=== PATIENT | male | born 1950 | race Caucasian/White ===

== ENCOUNTER → 2017-05-14 10:14 | Outpatient (CLI) | payer MEDICARE, SELFPAY ==
[2017-05-14 12:06] LABS: Absolute Lymphocyte Count 1.65 X10^3/ul (0.83-4.51); Absolute Neutrophil Count 3.3 X10^3/uL (2.0-7.7); Basophil# 0.02 X10^3/uL; Basophil% 0.4 % (0-1); Eosinophil# 0.13 X10^3/uL; Eosinophils% 2.3 % (0-5); Hematocrit 43.6 % (40-54); Hemoglobin 15.2 g/dl (13.0-16.5); Lymphocyte # 1.65 X10^3/ul (4.0); Lymphocyte % 29.5 % (19-41); Mean Corp Hgb Conc 34.9 g/gl (32-36); Mean Corpuscular Hgb 32.9 pg (27.0-32.0); Mean Corpuscular Volume 94.4 fL (80-94); Mean Platelet Vol. 10.7 fl (6.2-12.0); Monocyte# 0.55 X10^3/uL; Monocyte% 9.8 % (0-10); Neutrophil # 3.25 X10^3/uL (2.7-7.7); Platelet Count 140 K/mm3 (150-450); RBC Distribution Width CV 13.1 % (11.6-14.6); Red Blood Count 4.62 M/mm3 (4.6-6.2); White Blood Count 5.6 K/mm3 (4.4-11.0)
[2017-05-14 12:09] LABS: POSITIVE COUNT NO; POSITIVE DIFFERENTIAL NO; POSITIVE MORPHOLOGY NO
[2017-05-14 12:23] LABS: Vitamin D,25 Hydroxy 24.4 ng/mL (29.95-100.01)
[2017-05-14 12:27] LABS: ALB/GLOB Ratio 1.4 RATIO (0.9-2.4); AST(SGOT) 20 U/L (15-37); Alanine Aminotransfer ALT/SGPT 28 U/L (16-61); Alkaline Phosphatase 49 U/L (45-117); Anion Gap 4 (5-15); BUN 16 mg/dL (7-18); BUN/Creat Ratio 14.7 RATIO (10-20); Calcium,Total 8.8 mg/dL (8.5-10.1); Chloride 106 mmol/L (98-107); Creatinine, Serum 1.09 mg/dL (0.70-1.30); EST Glomerular Filtration Rate 71 mL/min (>60); Est Glom Filt Rate - Afr Amer 86 mL/min (>60); Globulin 2.9 g/dL (2.2-4.2); Glucose 87 mg/dL (74-106); Protein, Total 6.9 g/dL (6.4-8.2); Sodium Level 139 mmol/L (136-145); Thyroid Stim Hormone (TSH) 2.84 uIU/mL (0.358-3.74)
== END ==
PROVIDERS: Family Provider Family Medicine Geriatric Medicine; PCP Family Medicine Geriatric Medicine; Visit Provider Family Medicine Geriatric Medicine
DX: I10 Essential (primary) hypertension (principal); E55.9 Vitamin D deficiency, unspecified
CPT/HCPCS: 36415; 80053; 82306; 84443; 85025

== ENCOUNTER → 2017-08-21 10:56 | Outpatient (CLI) | payer MEDICARE, SELFPAY ==
[2017-08-21 13:28] LABS: Absolute Lymphocyte Count 1.36 X10^3/ul (0.83-4.51); Absolute Neutrophil Count 3.4 X10^3/uL (2.0-7.7); Basophil# 0.01 X10^3/uL; Basophil% 0.2 % (0-1); Eosinophil# 0.23 X10^3/uL; Eosinophils% 4.1 % (0-5); Hematocrit 42.9 % (40-54); Hemoglobin 14.6 g/dl (13.0-16.5); Lymphocyte # 1.36 X10^3/ul (4.0); Lymphocyte % 24.3 % (19-41); Mean Corpuscular Hgb 31.5 pg (27.0-32.0); Mean Corpuscular Volume 92.5 fL (80-94); Mean Platelet Vol. 11.2 fl (6.2-12.0); Monocyte# 0.64 X10^3/uL; Monocyte% 11.4 % (0-10); Neutrophil # 3.36 X10^3/uL (2.7-7.7); Platelet Count 122 K/mm3 (150-450); RBC Distribution Width CV 13.2 % (11.6-14.6); RBC Distribution Width SD 43.7 fl (35.1-43.9); Red Blood Count 4.64 M/mm3 (4.6-6.2); White Blood Count 5.6 K/mm3 (4.4-11.0)
[2017-08-21 13:30] LABS: POSITIVE COUNT NO; POSITIVE DIFFERENTIAL NO; POSITIVE MORPHOLOGY NO
[2017-08-21 14:01] LABS: ALB/GLOB Ratio 1.2 RATIO (0.9-2.4); AST(SGOT) 18 U/L (15-37); Alanine Aminotransfer ALT/SGPT 23 U/L (16-61); Albumin, Serum 3.8 g/dL (3.2-5.0); Alkaline Phosphatase 57 U/L (45-117); Anion Gap 7 (5-15); BUN 15 mg/dL (7-18); BUN/Creat Ratio 15.9 RATIO (10-20); Calcium,Total 8.8 mg/dL (8.5-10.1); Chloride 107 mmol/L (98-107); Creatinine, Serum 0.94 mg/dL (0.70-1.30); EST Glomerular Filtration Rate 84 mL/min (>60); Est Glom Filt Rate - Afr Amer 102 mL/min (>60); Globulin 3.1 g/dL (2.2-4.2); Glucose 91 mg/dL (74-106); Potassium 4.6 mmol/L (3.5-5.1); Protein, Total 6.9 g/dL (6.4-8.2); Sodium Level 140 mmol/L (136-145); Thyroid Stim Hormone (TSH) 2.81 uIU/mL (0.358-3.74)
[2017-08-22 08:31] LABS: Vitamin D,25 Hydroxy 23.6 ng/mL (29.95-100.01)
== END ==
PROVIDERS: Family Provider Family Medicine Geriatric Medicine; PCP Family Medicine Geriatric Medicine; Visit Provider Family Medicine Geriatric Medicine
DX: E55.9 Vitamin D deficiency, unspecified (principal); R53.83 Other fatigue
CPT/HCPCS: 36415; 80053; 82306; 84443; 85025

== ENCOUNTER → 2018-02-14 13:48 | Outpatient (CLI) | payer MEDICARE, SELFPAY ==
[2018-02-14 17:30] LABS: Absolute Lymphocyte Count 1.43 X10^3/ul (0.83-4.51); Absolute Neutrophil Count 4.1 X10^3/uL (2.0-7.7); Basophil# 0.01 X10^3/uL; Basophil% 0.2 % (0-1); Eosinophil# 0.15 X10^3/uL; Eosinophils% 2.4 % (0-5); Hematocrit 41.2 % (40-54); Hemoglobin 14.5 g/dl (13.0-16.5); Lymphocyte # 1.43 X10^3/ul (4.0); Lymphocyte % 22.7 % (19-41); Mean Corp Hgb Conc 35.2 g/gl (32-36); Mean Corpuscular Hgb 32.7 pg (27.0-32.0); Mean Platelet Vol. 10.9 fl (6.2-12.0); Monocyte# 0.61 X10^3/uL; Monocyte% 9.7 % (0-10); Neutrophil % 64.8 % (47-70); Platelet Count 137 K/mm3 (150-450); RBC Distribution Width CV 13.4 % (11.6-14.6); RBC Distribution Width SD 44.3 fl (35.1-43.9); Red Blood Count 4.43 M/mm3 (4.6-6.2); White Blood Count 6.3 K/mm3 (4.4-11.0)
[2018-02-14 17:35] LABS: POSITIVE COUNT NO; POSITIVE DIFFERENTIAL NO; POSITIVE MORPHOLOGY NO
[2018-02-14 17:46] LABS: Vitamin D,25 Hydroxy 23.8 ng/mL (29.95-100.01)
[2018-02-14 18:16] LABS: ALB/GLOB Ratio 1.4 RATIO (0.9-2.4); AST(SGOT) 17 U/L (15-37); Alanine Aminotransfer ALT/SGPT 31 U/L (16-61); Albumin, Serum 3.9 g/dL (3.2-5.0); Alkaline Phosphatase 59 U/L (45-117); Anion Gap 8 (5-15); BUN 16 mg/dL (7-18); Calcium,Total 8.5 mg/dL (8.5-10.1); Chloride 109 mmol/L (98-107); Creatinine, Serum 1.07 mg/dL (0.70-1.30); EST Glomerular Filtration Rate 73 mL/min (>60); Est Glom Filt Rate - Afr Amer 88 mL/min (>60); Globulin 2.7 g/dL (2.2-4.2); Glucose 115 mg/dL (74-106); PSA,Total - Annual Screen 0.65 ng/mL (0.00-4.00); Potassium 4.4 mmol/L (3.5-5.1); Protein, Total 6.6 g/dL (6.4-8.2); Sodium Level 142 mmol/L (136-145); Thyroid Stim Hormone (TSH) 2.79 uIU/mL (0.358-3.74)
== END ==
PROVIDERS: Family Provider Family Medicine Geriatric Medicine; PCP Family Medicine Geriatric Medicine; Visit Provider Family Medicine Geriatric Medicine
DX: E55.9 Vitamin D deficiency, unspecified (principal); R53.83 Other fatigue; Z12.5 Encounter for screening for malignant neoplasm of prostate
CPT/HCPCS: 36415; 80053; 82306; 84153; 84443; 85025; G0103

== ENCOUNTER → 2018-05-16 16:34 | Outpatient (CLI) | payer MEDICARE, SELFPAY ==
--- NOTE | 2018-05-16 16:39 | RAD_ITS ---
STUDY: X-RAY - LEFT SHOULDER REASON FOR EXAM: Male, 67 years old. Pain TECHNIQUE: 4 view(s) of the shoulder. COMPARISON: None. FINDINGS: Normal glenohumeral articulation. Normal acromioclavicular joint. Normal acromion. Normal humeral head and visualized proximal humerus. The soft tissue structures are unremarkable. Normal visualized pulmonary apex. RAD/Shoulder min 2 Views IMPRESSION: Normal x-ray examination of the shoulder. No fracture. No calcific tendinitis or bursitis Electronically Signed: Olu George MD at 4:23 EDT Tel , Service support ,
== END ==
PROVIDERS: Family Provider Family Medicine Geriatric Medicine; PCP Family Medicine Geriatric Medicine; Referring Provider Family Medicine Geriatric Medicine; Visit Provider Family Medicine Geriatric Medicine
DX: M25.512 Pain in left shoulder (principal)
CPT/HCPCS: 73030

== ENCOUNTER 2018-07-25 16:00 | Outpatient (RCR) | payer MEDICARE, SELFPAY ==
--- NOTE | 2018-06-28 12:45 | HP.PTEVAL_ITS ---
Patient's Visit Information JOAN KOVACS is a 67 year old M referred to Physical Therapy by Joon Simmons MD with a diagnosis of Left Shoulder Pain. Date of Evaluation: 06/28/18 Physical Therapist: Eladia Oliveira DPT - Visit Plan Frequency: 2-3x /Week Duration: 4 Weeks Plan: Focus on scapular strength/stabilization- US modality of choice - Subjective Findings: Left shoulder pain for about a year- bought a house about a year and a half ago and has put a lot of work into it and the shoulder has been exaserbated. Pain is located in the deltoid and radiates into the hand- vague pain in the hand- dull, achy, and throbbing- pain is most in the shoulder- No N/T in the vidal. Agg: lifting heavy, turning certain ways, reach behind to put something on- more cautions. Worst: 04/21. Eases: bringing it in towards his body. Had a cortisone injection a couple of months ago and last about 3-4 weeks. Painfree with the cortisone. Left Hand dominate. He writes a lot and that is bothersome when he is not at a desk. Does a lot of yard work- and that tends to bother him. No increase in DUMONT, blurred vision, neck pain, dizziness. 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 X-rays- negative- has not had an MRI. Sleep: does wake up throughout night- side sleeper. Workout- aerobics, does both free weights and machine weights. PMHx: irregular heart beat Meds: Beta Tisha, statin - Objective Posture: FH, RS- can correct with verbal cues but does not maintain. Gait: good arm swing and trunk rotation. Palpation: not tender to touch. Observation: winging scapula bilaterally. ROM: WFL in all planes but reports discomfort in end range abduction, IR and extension, Cervical: WNL. Strength: Elbow/Wrist: 5/5, Shoulder: scap s/s: fair minus, flexion: 4/5 with pain, abd: 4/5 with pain, IR: 4/5 with pain, ER: 4-/5 with pain, Extn: 4/5 with pain. Special Test: impingment: positive, Empty can: positive - Goals Goal 1:: Patient will be I with HEP and progression Goal Time Frame: 4-6 Weeks Goal 2:: Patient will maintain proper posture t/o tx session to demo increased scap s/s. Goal Time Frame: 4-6 Weeks Goal 3:: Patient will demo 4+/5 strength in left shoulder Goal Time Frame: 4-6 Weeks Goal 4:: Patient will report 0/10 pain for 1 week Goal Time Frame: 4-6 Weeks - Rehabilitation Potential Physical Therapy Diagnosis: Patient presents with hypomobility- he has decreased ROM, strength of shoulder and scapular s/s leading to poor posture with pain and increased impingement of the left shoulder Rehabilitation Potential: Fair - Anticipated Interventions Patient/Client Instruction: Educate patient on: Benefits of Fitness Program Therapeutic Exercise to Include: Strength training, Power training, Endurance training, Agility training, Body mechanics, Postural training, Passive ROM, Active ROM, Scapular Strength/Stabilization For the Purpose of:: To improve muscle performance and motor function TENS: Yes Cryotherapy (ice pack, ice massage): Yes Thermo therapy (hot pack): Yes Ultrasound (thermal/non thermal): Yes Thank you for the opportunity to evaluate your patient. For Medicare and Medicare HMO plans, please review the plan of care and approve it. It will need to be FAXED BACK to us at [phone] for Medicare purposes. For Medicare only, by signing this I certify the plan of care. Please let me know if there are questions or concerns regarding this plan of care. Physician Signature: Date:
--- NOTE | 2018-07-25 16:11 | HP.PTREVAL ---
Joon Simmons MD, It has been my pleasure to treat JOAN KOVACS over the last 6 visits for Left Shoulder Pain. Please see the progress note below for an update on the physical therapy plan of care! Subjective: Patient reports that the shoulder is about the same- but he has not been babying it so he doing more. Just finished the yard work- No pain today. Objective/Function: Posture: good in hard back chair. Gait: good arm swing and trunk rotation. Palpation: not tender to touch. Observation: mild winging scapula bilaterally. ROM: WFL in all planes no discomfort Cervical: WNL. Strength: Elbow/Wrist: 5/5, Shoulder: scap s/s: fair minus, flexion: 4+/5, abd: 4+/5, IR: 4+/5, ER: 4+/5 , Extn: 4+/5 with mild discomfort. Special Test: impingment: positive, Empty can: positive Plan Plan: Discharge to HEP Goals Goal 1:: Patient will be I with HEP and progression Goal Time Frame: 4-6 Weeks Goal Progress: Goal Met Goal 2:: Patient will maintain proper posture t/o tx session to demo increased scap s/s. Goal Time Frame: 4-6 Weeks Goal Progress: Goal Met Goal 3:: Patient will demo 4+/5 strength in left shoulder Goal Time Frame: 4-6 Weeks Goal Progress: Goal Met Goal 4:: Patient will report 0/10 pain for 1 week Goal Time Frame: 4-6 Weeks Goal Progress: Progressing Anticipated Interventions Patient/Client Instruction: Educate patient on: Benefits of Fitness Program Therapeutic Exercise to Include: Strength training, Power training, Endurance training, Agility training, Body mechanics, Postural training, Passive ROM, Active ROM, Scapular Strength/Stabilization For the Purpose of:: To improve muscle performance and motor function TENS: Yes Cryotherapy (ice pack, ice massage): Yes Thermo therapy (hot pack): Yes Ultrasound (thermal/non thermal): Yes Please do not hesitate to contact me at [phone] by phone or if you have questions or concerns regarding this new plan of care! Sincerely, Eladia Oliveira DPT
--- NOTE | 2018-10-15 12:38 | HP.PTDCSUM_ITS ---
HP - PT D/C Summary It has been my pleasure to treat JOAN KOVACS under orders from Joon Simmons MD, for the diagnosis of Left Shoulder Pain for a total of 6 visit(s). Discharge Date: Please see the following information for a summary of their discharge status. - Subjective Subjective: Patient reports that the shoulder is about the same- but he has not been babying it so he doing more. Just finished the yard work- No pain today. - Pain Left Shoulder Pain Intensity (Out of 10): 0 - Overall Improvement % Improvement: 75 - Objective Objective/Function: Posture: good in hard back chair. Gait: good arm swing and trunk rotation. Palpation: not tender to touch. Observation: mild winging scapula bilaterally. ROM: WFL in all planes no discomfort Cervical: WNL. St rength: Elbow/Wrist: 5/5, Shoulder: scap s/s: fair minus, flexion: 4+/5, abd: 4+/5, IR: 4+/5, ER: 4+/5 , Extn: 4+/5 with mild discomfort. Special Test: impingment: positive, Empty can: positive - Goals Goal 1:: Patient will be I with HEP and progression Goal Progress: Goal Met Goal 2:: Patient will maintain proper posture t/o tx session to demo increased scap s/s. Goal Progress: Goal Met Goal 3:: Patient will demo 4+/5 strength in left shoulder Goal Progress: Goal Met Goal 4:: Patient will report 0/10 pain for 1 week Goal Progress: Progressing - Plan Plan: Discharge to I HEP - D/C Information If there are questions or concerns regarding this patient's physical therapy, please feel free to call me at [phone]. Thank you for the referral of this patient. Sincerely, Eladia Oliveira DPT
== END 2018-07-25 19:00 | disposition home or self-care (01) ==
LOC: PT 16:00
PROVIDERS: Family Provider Family Medicine Geriatric Medicine; PCP Family Medicine Geriatric Medicine; Referring Provider Family Medicine Geriatric Medicine; Visit Provider Family Medicine Geriatric Medicine
DX: M19.019 Primary osteoarthritis, unspecified shoulder (principal); M25.519 Pain in unspecified shoulder
CPT/HCPCS: 97110; 97161; 97164

== ENCOUNTER → 2018-08-22 | Outpatient (CLI) | payer MEDICARE, SELFPAY ==
[2018-08-22 12:24] LABS: Absolute Lymphocyte Count 1.23 X10^3/ul (0.83-4.51); Absolute Neutrophil Count 3.2 X10^3/uL (2.0-7.7); Basophil# 0.01 X10^3/uL; Basophil% 0.2 % (0-1); Hematocrit 43.2 % (40-54); Hemoglobin 15.1 g/dl (13.0-16.5); Lymphocyte # 1.23 X10^3/ul (4.0); Lymphocyte % 24.6 % (19-41); Mean Corpuscular Hgb 31.8 pg (27.0-32.0); Mean Corpuscular Volume 90.9 fL (80-94); Mean Platelet Vol. 10.9 fl (6.2-12.0); Monocyte# 0.48 X10^3/uL; Monocyte% 9.6 % (0-10); Neutrophil # 3.17 X10^3/uL (2.7-7.7); Neutrophil % 63.6 % (47-70); Platelet Count 132 K/mm3 (150-450); RBC Distribution Width CV 13.2 % (11.6-14.6); RBC Distribution Width SD 43.5 fl (35.1-43.9); Red Blood Count 4.75 M/mm3 (4.6-6.2)
[2018-08-22 12:38] LABS: POSITIVE COUNT NO; POSITIVE DIFFERENTIAL NO; POSITIVE MORPHOLOGY NO
[2018-08-22 12:42] LABS: Vitamin D,25 Hydroxy 25.3 ng/mL (29.95-100.01)
[2018-08-22 12:44] LABS: ALB/GLOB Ratio 1.4 RATIO (0.9-2.4); AST(SGOT) 13 U/L (15-37); Alanine Aminotransfer ALT/SGPT 24 U/L (16-61); Albumin, Serum 3.7 g/dL (3.2-5.0); Alkaline Phosphatase 51 U/L (45-117); Anion Gap 8 (5-15); BUN 21 mg/dL (7-18); BUN/Creat Ratio 20.4 RATIO (10-20); Calcium,Total 8.8 mg/dL (8.5-10.1); Chloride 109 mmol/L (98-107); Creatinine, Serum 1.03 mg/dL (0.70-1.30); EST Glomerular Filtration Rate 76 mL/min (>60); Est Glom Filt Rate - Afr Amer 92 mL/min (>60); Globulin 2.7 g/dL (2.2-4.2); Glucose 135 mg/dL (74-106); Potassium 3.9 mmol/L (3.5-5.1); Protein, Total 6.4 g/dL (6.4-8.2); Sodium Level 143 mmol/L (136-145); Thyroid Stim Hormone (TSH) 2.24 uIU/mL (0.358-3.74)
== END | disposition home or self-care (01) ==
LOC: LAB.FUTURE 09:07
PROVIDERS: Family Provider Family Medicine Geriatric Medicine; PCP Family Medicine Geriatric Medicine; Visit Provider Family Medicine Geriatric Medicine
DX: E55.9 Vitamin D deficiency, unspecified (principal); R53.83 Other fatigue; E16.2 Hypoglycemia, unspecified
CPT/HCPCS: 36415; 80053; 82306; 83036; 84443; 85025

== ENCOUNTER 2019-01-13 19:24 | Emergency (ER) | payer MEDICARE, SELFPAY ==
[2019-01-13 19:24] VITALS: BP 149/70; PULSE 53; RESP 16; TEMP 36.7; O2SAT 99; BMI 24.4
--- NOTE | 2019-01-13 20:30 | EKG12_ITS ---
Test Reason : DYSRYTHMIA Blood Pressure : / mmHG Vent. Rate : 050 BPM Atrial Rate : 050 BPM P-R Int : 144 ms QRS Dur : 122 ms QT Int : 480 ms P-R-T Axes : 038 -57 -35 degrees QTc Int : 437 ms Sinus bradycardia Right bundle branch block Left anterior fascicular block Bifascicular block Abnormal ECG Confirmed by KRISTIAN SCHMITT, GANESH ([id number]), assignment editor SONIA NUNEZ ([id number]) on 01/15/2019 1:00:49 PM Referred By: HAVEN Confirmed By:GANESH TOWNSEND MD
--- NOTE | 2019-01-13 20:31 | CT_ITS ---
STUDY: CTA HEAD AND NECK WITH CONTRAST REASON FOR EXAM: Male, 68 years old. LEFT EYE VISION CHANGE RADIATION DOSAGE (If Supplied By Facility): CTDIvol = ( 30.35 ) mGy, DLP = ( 1562.80 ) mGycm TECHNIQUE: CT angiography was performed with a multi-detector CT scanner. Data acquisition was obtained from the skull base through the vertex following intravenous administration of IV Isovue 370 100. MIP images were reconstructed from the axial data set. Post-processing of the angiographic images was performed, with multiplanar reformation and 3D reconstruction. Individualized dose optimization techniques were used for this CT. COMPARISON: No relevant priors. FINDINGS: Normal bilateral petrous carotid arteries. Normal right cavernous carotid artery with a normal supraclinoid bifurcation. Normal left cavernous carotid artery with a normal supraclinoid bifurcation. Normal right A1 segments of the anterior cerebral artery. Normal left A1 segments of the anterior cerebral artery. Normal intact anterior communicating artery (ACOM). Normal bilateral A2 segments of the anterior cerebral arteries. Normal right M1 and M2 segments of the middle cerebral arteries, with a normal M1 bifurcation. Normal left M1 and M2 segments of the middle cerebral arteries, with a normal M1 bifurcation. Normal right posterior communicating artery (PCOM). Normal left posterior communicating artery (PCOM). Normal bilateral vertebral arteries. Normal basilar artery with a normal basilar bifurcation. The visualized bilateral superior cerebellar (SCA) arteries are normal. Normal bilateral P1, P2 and visualized P3 segments of the posterior cerebral arteries. There is no demonstrated aneurysm of the [place]. There is no demonstrated abnormality of the visualized brain. AORTIC ARCH: Normal visualized aortic arch. Normal origins of the brachiocephalic, left common carotid, and left subclavian arteries. RIGHT CAROTID ARTERIES: Normal right common carotid artery (CCA). Normal right common carotid bulb. Normal origin of the right internal carotid (ICA) artery without a hemodynamically significant stenosis. Normal visualized cervical portion of the right internal carotid artery. Normal origin of the right external carotid artery (ECA). LEFT CAROTID ARTERIES: Normal left common carotid artery (CCA). Normal left common carotid bulb. Normal origin of the left internal carotid (ICA) artery without a hemodynamically significant stenosis. Normal visualized cervical portion of the left internal carotid artery. Normal origin of the left external carotid artery (ECA). VERTEBRAL ARTERIES: Normal bilateral vertebral arteries. CT/CTA Head AND Neck W/ Contrast IMPRESSION: Normal CTA Head and neck with contrast. Electronically Signed: Reynaldo Hall MD at 21:30 EST , Service support ,
--- NOTE | 2019-01-13 20:32 | ED.VIS.STROK ---
History of Present Illness Chief Complaint: Eye Problem Informant: Patient Onset: Today - about 5 hrs [employer], 1300 Context: Onset with activity - stretching and exercising neck, Sudden Onset Timing: Continuous Quality and Location: - - left visual field cut, seems to be left eye only Current Severity: Moderate Maximum Severity: Moderate Worsened by: nothing Relieved by: nothing Associated Symptoms: Headache - right [id number], - - Right neck pain Narrative: Patient was performing a forced rotational stretch of his neck, pushing his chin to his left forcefully with his own hands, when he suddenly had partial loss of peripheral vision in the left. Only seems like it is his left eye. Also right occipital/parietal/temporal headache and right neck pain that is worse with moving. No loss of consciousness. No diplopia. No peripheral neurologic symptoms in his arms or legs at all. No history of stroke. Is on sotalol for history of A. fib but no other medications. - Past Medical History (1) Atrial fibrillation Status: Chronic Past Medical History - Allergies and Home Meds Allergies/Adverse Reactions: Allergies No Known Allergies Allergy (Unverified 03/13/18 15:42) Primary Care Physician: Joon Simmons Chi, MD [Primary Care Provider] - Lives: Spouse/ Significant Other Smoking Status: Former smoker Review of Systems General: Denies: Chills, Fever, Sweats Eyes: Reports: Visual changes - left. Denies: Diplopia ENT: Denies: Bilateral ear pain, Rhinorrhea, Sore throat Cardiovascular: Denies: Chest pain, Palpitations Respiratory: Denies: Dyspnea, Cough, Dyspnea on exertion Gastrointestinal: Denies: Abdominal pain, Nausea, Vomiting, Diarrhea, Melena, Hematochezia Genitourinary: Denies: Dysuria, Hematuria, Frequency Musculoskeletal: Reports: Neck pain. Denies: Back pain, Extremity Pain Skin: Denies: Rash, Wounds Neurological: Reports: Headache. Denies: Weakness, Numbness STROKE Vital Signs/Narrative: Vital Signs Temp Pulse Resp BP Pulse Ox 01/13/19 19:24 98.1 F 53 L 16 149/70 H 99 Inital Vital Signs reviewed: Yes - NIHSS Initial 1a Level of Consciousness: 0 1b LOC Questions (Score 2 if aphasic/stupor): 0 1c LOC Commands (Only score 1st attempt): 0 2 Best Gaze (If aphasic, use reflexive mvmts.): 0 3 Visual: 1 4 Facial Palsy: 0 5 Motor Arm Right (UN = amputation/fusion): 0 5 Motor Arm Left: 0 6 Motor Leg Right: 0 6 Motor Leg Left: 0 7 Limb ataxia (Only + if out of proportion): 0 8 Sensory (Aphasia/stupor=0 or 1, coma=2): 0 9 Best Language: 0 10 Dysarthria (mute, coma=2, intubated=UN): 0 11 Extinction and Inattention (only scored if +): 0 Total Score: 1 General: Well nourished, Well developed Head: Normocephalic, Atraumatic Eyes: Perrl, EOMI, - - both eyes left upper quadrant of visual field deficit ENT: Moist mucous membranes, No rhinorrhea Neck: Supple, - - no carotid bruits. Negative for: Nontender - mildly tender throughout right paraspinal cervical musculature Cardiovascular: Regular rate, Regular rhythm, No murmurs Respiratory: No distress, CTA bilaterally, Chest nontender Abdomen: Soft, Nontender, Nondistended, Normal bowel sounds Back: Nontender, Normal Inspection Extremities: Nontender, No edema Skin: Normal color, No rash, No Trauma Neurological: Alert, Oriented x3, Cranial nerves II-XII grossly intact, Normal Strength, Normal Sensation Psychological: Normal affect, Normal Mood Diagnostic/Tx/Re-eval Impressions Head/Neck CTA 01/13/19 20:31 IMPRESSION: Normal CTA Head and neck with contrast. Electronically Signed: Reynaldo Hall MD at 21:30 EST , Service support , 01/13/19 20:31 CTA Head AND Neck W/ Contrast [CT] Stat Laboratory Results 01/13/19 01/13/19 01/13/19 20:25 20:25 20:25 WBC 6.6 RBC 4.57 L Hgb 14.9 Hct 42.4 MCV 92.8 MCH 32.6 H MCHC 35.1 RDW Std Deviation 44.0 H RDW Coeff of Ama 13.0 Plt Count 122 L MPV 10.6 Immature Gran % (Auto) 0.200 Neut % (Auto) 64.2 Lymph % (Auto) 24.6 Ritchie % (Auto) 8.8 Eos % (Auto) 2.0 Baso % (Auto) 0.2 Absolute Neuts (auto) 4.2 Absolute Lymphs (auto) 1.62 Nucleated RBC % 0 PT 13.4 INR 1.0 APTT 27.4 Sodium 142 Potassium 3.9 Chloride 110 H Carbon Dioxide 27.0 Anion Gap 5 BUN 18 Creatinine 1.27 Estim Creat Clear Calc 57.64 Est GFR (MDRD) Af Amer 72 Est GFR (MDRD) Non-Af 60 BUN/Creatinine Ratio 14.2 Glucose 149 H Calcium 8.9 Troponin I < 0.015 POC Glucose 01/13/19 20:39 WBC RBC Hgb Hct MCV MCH MCHC RDW Std Deviation RDW Coeff of Ama Plt Count MPV Immature Gran % (Auto) Neut % (Auto) Lymph % (Auto) Ritchie % (Auto) Eos % (Auto) Baso % (Auto) Absolute Neuts (auto) Absolute Lymphs (auto) Nucleated RBC % PT INR APTT Sodium Potassium Chloride Carbon Dioxide Anion Gap BUN Creatinine Estim Creat Clear Calc Est GFR (MDRD) Af Amer Est GFR (MDRD) Non-Af BUN/Creatinine Ratio Glucose Calcium Troponin I POC Glucose 132 H - Rhythm Strip Rhythm Strip: Sinus Rhythm Rate: 50 Ectopy: None - EKG Initial EKG Interpretation: Sinus Bradycardia, RBBB, LAFB Prior: No Prior - Medical Decision Making Stroke Team Activated: No - no disabling measureable deficit Was Patient considered for Endovascular Intervention?: No - neg CTA IV Alteplase (t-PA) Administered: No - timing Patient has left superior homonymous quadrantanopia. There are no other acute deficits. His total NIH therefore, as documented, is 1. Work-up including CT/CT angiography of the head and neck vessels is negative for aneurysm, obstruction, dissection. Patient symptoms persisted and did not worsen or improve throughout ED observation period. He does not meet criteria for IV TPA and I consulted [facility] neurology, they agree he does not have a disabling measurable neurologic deficit, and does not meet any criteria for IV TPA or CT perfusion/clot retrieval if present at this time. CT angiography is negative. She evaluated the patient and recommends admission for MRI and neurology consultation after the MRI. Unfortunately, we do not have neurology available at this hospital as an inpatient right now. Therefore I feel the patient requires transfer. He is agreeable and prefers [facility] but they had no beds so he then preferred [facility]. Accepted there by hospitalist. ED Disposition - Plan for ED Patient: Disposition: Acute Care Hospital - Other Diagnosis: Quadrantanopia of left eye, Quadrantanopia of right eye Referrals: Joon Simmons Chi, MD [Primary Care Provider] -
--- NOTE | 2019-01-13 20:35 | ED.RN ---
no old ekgs in [facility]
[2019-01-13 20:45] LABS: Absolute Lymphocyte Count 1.62 X10^3/uL (0.83-4.51); Absolute Neutrophil Count 4.2 X10^3/uL (2.0-7.7); Basophil# 0.01 X10^3/uL; Basophil% 0.2 % (0-1); Eosinophil# 0.13 X10^3/uL; Hematocrit 42.4 % (40-54); Hemoglobin 14.9 g/dL (13.0-16.5); Lymphocyte # 1.62 X10^3/ul (4.0); Lymphocyte % 24.6 % (19-41); Mean Corp Hgb Conc 35.1 g/dL (32-36); Mean Corpuscular Hgb 32.6 pg (27.0-32.0); Mean Corpuscular Volume 92.8 fL (80-94); Mean Platelet Vol. 10.6 fl (6.2-12.0); Monocyte# 0.58 X10^3/uL; Monocyte% 8.8 % (0-10); NRBC Flagged by Analyzer 0 % (0-5); Neutrophil # 4.24 X10^3/uL (2.7-7.7); Neutrophil % 64.2 % (47-70); Platelet Count 122 K/mm3 (150-450); Red Blood Count 4.57 M/mm3 (4.6-6.2); White Blood Count 6.6 K/mm3 (4.4-11.0)
[2019-01-13 20:46] LABS: Bedside Glucose 132 mg/dL (70-110)
[2019-01-13 20:51] LABS: Prothrombin Time (Protime)PT. 13.4 SECONDS (11.7-14.9)
[2019-01-13 20:52] LABS: Partial Thromboplast Time 27.4 Seconds (24.1-36.2)
[2019-01-13 20:57] LABS: Anion Gap 5 (5-15); BUN 18 mg/dL (7-18); BUN/Creat Ratio 14.2 RATIO (10-20); Calcium,Total 8.9 mg/dL (8.5-10.1); Chloride 110 mmol/L (98-107); Creatinine, Serum 1.27 mg/dL (0.70-1.30); EST Glomerular Filtration Rate 60 mL/min (>60); Est Glom Filt Rate - Afr Amer 72 mL/min (>60); Estimated Creatinine Clearance 57.64 ml/min; Glucose 149 mg/dL (74-106); Potassium 3.9 mmol/L (3.5-5.1); Sodium Level 142 mmol/L (136-145)
--- NOTE | 2019-01-13 22:06 | ED.RN ---
[facility] called for neuro consult at this time
[2019-01-13 22:18] VITALS: BP 139/74; PULSE 60; RESP 10; O2SAT 99
--- NOTE | 2019-01-13 22:35 | ED.RN ---
restraints d/c at this time. patient able to ambulate with minimal assistance
[2019-01-13] MEDS: Aspirin 325 MG Tablet PO (23:50)
[2019-01-14 00:10] VITALS: BP 123/89; PULSE 49; PULSE 53; RESP 12; O2SAT 99
--- NOTE | 2019-01-14 00:18 | ED.RN ---
RN REPORT GIVEN TO EMIR PAGE AT [facility]. NO QUESTIONS OR CONCERNS. PT TO TRANSPORT VIA PRIVATE VEHICLE APPROVED BY DR. OROURKE.
== END 2019-01-14 00:23 | disposition short-term general hospital (02) ==
PROVIDERS: Emergency Provider Emergency Medicine; Family Provider Family Medicine Geriatric Medicine; PCP Family Medicine Geriatric Medicine
DX: H53.462 Homonymous bilateral field defects, left side (principal); H53.461 Homonymous bilateral field defects, right side; I48.91 Unspecified atrial fibrillation; Z79.899 Other long term (current) drug therapy; Z87.891 Personal history of nicotine dependence
CPT/HCPCS: 70496; 70498; 80048; 82962; 84484; 85025; 85610; 85730; 93005; 96360; 96361; 99285; J7030; Q9967; A4216

== ENCOUNTER → 2019-02-17 11:20 | Outpatient (CLI) | payer MEDICARE, SELFPAY ==
[2019-02-17 12:44] LABS: Absolute Lymphocyte Count 1.99 X10^3/uL (0.83-4.51); Absolute Neutrophil Count 3.6 X10^3/uL (2.0-7.7); Basophil# 0.03 X10^3/uL; Basophil% 0.5 % (0-1); Eosinophils% 3.1 % (0-5); Hematocrit 44.1 % (40-54); Hemoglobin 15.1 g/dL (13.0-16.5); Lymphocyte # 1.99 X10^3/ul (4.0); Lymphocyte % 30.6 % (19-41); Mean Corp Hgb Conc 34.2 g/dL (32-36); Mean Corpuscular Hgb 31.7 pg (27.0-32.0); Mean Corpuscular Volume 92.6 fL (80-94); Mean Platelet Vol. 10.8 fl (6.2-12.0); Monocyte# 0.65 X10^3/uL; NRBC Flagged by Analyzer 0 % (0-5); Neutrophil # 3.64 X10^3/uL (2.7-7.7); Neutrophil % 55.8 % (47-70); Platelet Count 138 K/mm3 (150-450); RBC Distribution Width CV 12.9 % (11.6-14.6); RBC Distribution Width SD 43.7 fl (35.1-43.9); Red Blood Count 4.76 M/mm3 (4.6-6.2); White Blood Count 6.5 K/mm3 (4.4-11.0)
[2019-02-17 13:06] LABS: Vitamin D,25 Hydroxy 27.4 ng/mL (29.95-100.01)
[2019-02-17 13:08] LABS: ALB/GLOB Ratio 1.3 RATIO (0.9-2.4); AST(SGOT) 18 U/L (15-37); Alanine Aminotransfer ALT/SGPT 35 U/L (16-61); Albumin, Serum 3.8 g/dL (3.2-5.0); Alkaline Phosphatase 58 U/L (45-117); Anion Gap 3 (5-15); BUN 13 mg/dL (7-18); BUN/Creat Ratio 11.8 RATIO (10-20); Calcium,Total 8.8 mg/dL (8.5-10.1); Chloride 107 mmol/L (98-107); EST Glomerular Filtration Rate 70 mL/min (>60); Est Glom Filt Rate - Afr Amer 85 mL/min (>60); Globulin 2.9 g/dL (2.2-4.2); Glucose 98 mg/dL (74-106); PSA,Total - Annual Screen 0.94 ng/mL (0.00-4.00); Potassium 4.3 mmol/L (3.5-5.1); Protein, Total 6.7 g/dL (6.4-8.2); Sodium Level 139 mmol/L (136-145); Thyroid Stim Hormone (TSH) 3.13 uIU/mL (0.358-3.74)
== END ==
PROVIDERS: Family Provider Family Medicine Geriatric Medicine; PCP Family Medicine Geriatric Medicine; Visit Provider Family Medicine Geriatric Medicine
DX: E55.9 Vitamin D deficiency, unspecified (principal); R53.83 Other fatigue; F52.8 Other sexual dysfunction not due to a substance or known physiological condition; Z12.5 Encounter for screening for malignant neoplasm of prostate
CPT/HCPCS: 36415; 80053; 82306; 84153; 84403; 84443; 85025; G0103

== ENCOUNTER → 2019-03-07 08:24 | Outpatient (CLI) | payer MEDICARE, SELFPAY ==
--- NOTE | 2019-03-07 12:16 | NEURO ---
NCS and/or EMG Patient Report Ordering Doctor: Joon Simmons Chi DATE OF SERVICE: 03/07/19 Kiet Rothman is a 68-year-old male who presents for electrodiagnostic testing of the upper limbs. He reports numbness and tingling in both hands, worse on the right side. Electrodiagnostic findings: Median motor nerve demonstrates normal distal latency, amplitude and conduction velocity bilaterally. Normal ulnar motor response bilaterally. Normal median and ulnar F waves. Median sensory latency at the wrist is prolonged bilaterally. Normal ulnar and radial sensory responses. On needle EMG, all muscles tested in the upper limbs showed no evidence of denervation with normal motor unit action potentials. Electrodiagnostic impression: This is an abnormal study in the upper limbs. 1. Electrodiagnostic findings demonstrate bilateral median mononeuropathy. This is consistent with a mild bilateral carpal tunnel syndrome. 2. No electrodiagnostic evidence is noted for cervical radiculopathy. If there are any further questions, please do not hesitate to contact me.
== END ==
PROVIDERS: Family Provider Family Medicine Geriatric Medicine; PCP Family Medicine Geriatric Medicine; Referring Provider Family Medicine Geriatric Medicine; Visit Provider Family Medicine Geriatric Medicine
DX: R20.2 Paresthesia of skin (principal)
CPT/HCPCS: 95886; 95912

== ENCOUNTER → 2019-08-20 | Outpatient (CLI) | payer MEDICARE, SELFPAY ==
[2019-08-20 12:34] LABS: Absolute Lymphocyte Count 2.16 X10^3/uL (0.83-4.51); Absolute Neutrophil Count 5.5 X10^3/uL (2.0-7.7); Basophil# 0.03 X10^3/uL; Basophil% 0.3 % (0-1); Eosinophil# 0.23 X10^3/uL; Eosinophils% 2.7 % (0-5); Hematocrit 44.5 % (40-54); Hemoglobin 15.1 g/dL (13.0-16.5); Lymphocyte # 2.16 X10^3/ul (4.0); Lymphocyte % 24.9 % (19-41); Mean Corp Hgb Conc 33.9 g/dL (32-36); Mean Corpuscular Hgb 32.9 pg (27.0-32.0); Mean Corpuscular Volume 96.9 fL (80-94); Mean Platelet Vol. 10.7 fl (6.2-12.0); Monocyte# 0.75 X10^3/uL; Monocyte% 8.7 % (0-10); NRBC Flagged by Analyzer 0 % (0-5); Neutrophil # 5.47 X10^3/uL (2.7-7.7); Neutrophil % 63.2 % (47-70); Platelet Count 127 K/mm3 (150-450); RBC Distribution Width CV 12.9 % (11.6-14.6); RBC Distribution Width SD 45.2 fl (35.1-43.9); Red Blood Count 4.59 M/mm3 (4.6-6.2); White Blood Count 8.7 K/mm3 (4.4-11.0)
[2019-08-20 12:53] LABS: ALB/GLOB Ratio 1.4 RATIO (0.9-2.4); AST(SGOT) 20 U/L (15-37); Alanine Aminotransfer ALT/SGPT 40 U/L (16-61); Albumin, Serum 3.8 g/dL (3.2-5.0); Alkaline Phosphatase 50 U/L (45-117); Anion Gap 5 (5-15); BUN 15 mg/dL (7-18); Calcium,Total 8.7 mg/dL (8.5-10.1); Chloride 106 mmol/L (98-107); EST Glomerular Filtration Rate 78 mL/min (>60); Est Glom Filt Rate - Afr Amer 95 mL/min (>60); Globulin 2.8 g/dL (2.2-4.2); Glucose 86 mg/dL (74-106); Potassium 4.3 mmol/L (3.5-5.1); Protein, Total 6.6 g/dL (6.4-8.2); Sodium Level 140 mmol/L (136-145); Thyroid Stim Hormone (TSH) 2.94 uIU/mL (0.358-3.74); Vitamin D,25 Hydroxy 31.3 ng/mL
== END | disposition home or self-care (01) ==
LOC: POLAB3 10:34
PROVIDERS: PCP Family Medicine Geriatric Medicine; Visit Provider Family Medicine Geriatric Medicine
DX: E55.9 Vitamin D deficiency, unspecified (principal); R53.83 Other fatigue; F52.8 Other sexual dysfunction not due to a substance or known physiological condition
CPT/HCPCS: 36415; 80053; 82306; 84403; 84443; 85025

== ENCOUNTER → 2020-02-19 09:30 | Outpatient (CLI) | payer MEDICARE, SELFPAY ==
[2020-02-19 11:30] LABS: Absolute Lymphocyte Count 2.09 X10^3/uL (0.83-4.51); Absolute Neutrophil Count 3.6 X10^3/uL (2.0-7.7); Basophil# 0.02 X10^3/uL; Basophil% 0.3 % (0-1); Eosinophil# 0.22 X10^3/uL; Eosinophils% 3.4 % (0-5); Hematocrit 45.3 % (40-54); Hemoglobin 15.7 g/dL (13.0-16.5); Lymphocyte # 2.09 X10^3/ul (4.0); Lymphocyte % 32.4 % (19-41); Mean Corp Hgb Conc 34.7 g/dL (32-36); Mean Corpuscular Hgb 31.9 pg (27.0-32.0); Mean Corpuscular Volume 92.1 fL (80-94); Mean Platelet Vol. 10.9 fl (6.2-12.0); Monocyte# 0.56 X10^3/uL; Monocyte% 8.7 % (0-10); NRBC Flagged by Analyzer 0 % (0-5); Neutrophil # 3.56 X10^3/uL (2.7-7.7); Platelet Count 138 K/mm3 (150-450); RBC Distribution Width SD 43.8 fl (35.1-43.9); Red Blood Count 4.92 M/mm3 (4.6-6.2); White Blood Count 6.5 K/mm3 (4.4-11.0)
[2020-02-19 11:43] LABS: Vitamin D,25 Hydroxy 17.6 ng/mL
[2020-02-19 12:00] LABS: ALB/GLOB Ratio 1.4 RATIO (0.9-2.4); AST(SGOT) 18 U/L (15-37); Alanine Aminotransfer ALT/SGPT 39 U/L (16-61); Alkaline Phosphatase 55 U/L (45-117); Anion Gap 4 (5-15); BUN 17 mg/dL (7-18); Calcium,Total 9.2 mg/dL (8.5-10.1); Chloride 109 mmol/L (98-107); Creatinine, Serum 1.13 mg/dL (0.70-1.30); EST Glomerular Filtration Rate 68 mL/min (>60); Est Glom Filt Rate - Afr Amer 82 mL/min (>60); Globulin 2.8 g/dL (2.2-4.2); Glucose 108 mg/dL (74-106); Potassium 4.2 mmol/L (3.5-5.1); Protein, Total 6.8 g/dL (6.4-8.2); Sodium Level 141 mmol/L (136-145); Thyroid Stim Hormone (TSH) 3.46 uIU/mL (0.358-3.74)
== END ==
PROVIDERS: PCP Family Medicine Geriatric Medicine; Visit Provider Family Medicine Geriatric Medicine
DX: E55.9 Vitamin D deficiency, unspecified (principal); F52.8 Other sexual dysfunction not due to a substance or known physiological condition; R53.83 Other fatigue
CPT/HCPCS: 36415; 80053; 82306; 84403; 84443; 85025

== ENCOUNTER 2020-04-07 10:17 | Outpatient (RCR) | payer MEDICARE, SELFPAY | END 2020-04-07 23:59 | LOC: IMMUN 10:17 | PROVIDERS: PCP Family Medicine Geriatric Medicine; Visit Provider Family Medicine | DX: Z23 Encounter for immunization (principal) | CPT/HCPCS: 0011A; 0012A; 91301 ==

== ENCOUNTER → 2020-08-19 09:37 | Outpatient (CLI) | payer MEDICARE, SELFPAY ==
[2020-08-19 12:27] LABS: Absolute Neutrophil Count 3.6 X10^3/uL (2.0-7.7); Basophil# 0.03 X10^3/uL; Basophil% 0.4 % (0-1); Eosinophil# 0.27 X10^3/uL; Eosinophils% 3.6 % (0-5); Hematocrit 49.2 % (40-54); Hemoglobin 16.5 g/dL (13.0-16.5); Lymphocyte % 38.7 % (19-41); Mean Corp Hgb Conc 33.5 g/dL (32-36); Mean Corpuscular Hgb 31.1 pg (27.0-32.0); Mean Corpuscular Volume 92.7 fL (80-94); Mean Platelet Vol. 10.9 fl (6.2-12.0); Monocyte# 0.71 X10^3/uL; Monocyte% 9.5 % (0-10); NRBC Flagged by Analyzer 0 % (0-5); Neutrophil # 3.57 X10^3/uL (2.7-7.7); Neutrophil % 47.7 % (47-70); Platelet Count 144 K/mm3 (150-450); RBC Distribution Width CV 13.2 % (11.6-14.6); RBC Distribution Width SD 44.8 fl (35.1-43.9); Red Blood Count 5.31 M/mm3 (4.6-6.2); White Blood Count 7.5 K/mm3 (4.4-11.0)
[2020-08-19 12:45] LABS: Vitamin D,25 Hydroxy 26.8 ng/mL
[2020-08-19 12:47] LABS: ALB/GLOB Ratio 1.3 RATIO (0.9-2.4); AST(SGOT) 23 U/L (15-37); Alanine Aminotransfer ALT/SGPT 40 U/L (16-61); Alkaline Phosphatase 54 U/L (45-117); Anion Gap 3 (5-15); BUN 15 mg/dL (7-18); BUN/Creat Ratio 13.6 RATIO (10-20); Calcium,Total 9.1 mg/dL (8.5-10.1); Chloride 108 mmol/L (98-107); EST Glomerular Filtration Rate 70 mL/min (>60); Est Glom Filt Rate - Afr Amer 85 mL/min (>60); Globulin 3.1 g/dL (2.2-4.2); Glucose 91 mg/dL (74-106); Potassium 4.4 mmol/L (3.5-5.1); Protein, Total 7.1 g/dL (6.4-8.2); Sodium Level 141 mmol/L (136-145)
== END ==
PROVIDERS: PCP Family Medicine Geriatric Medicine; Visit Provider Family Medicine Geriatric Medicine
DX: E55.9 Vitamin D deficiency, unspecified (principal); F52.8 Other sexual dysfunction not due to a substance or known physiological condition; R53.83 Other fatigue
CPT/HCPCS: 36415; 80053; 82306; 84403; 84443; 85025

== ENCOUNTER → 2020-10-21 15:12 | Outpatient (CLI) | payer MEDICARE, SELFPAY ==
--- NOTE | 2020-10-21 17:32 | CT_ITS ---
STUDY: CT ABDOMEN AND PELVIS WITH CONTRAST REASON FOR EXAM: Male, 70 years old. ABD PAIN RADIATION DOSAGE (If Supplied By Facility): CTDIvol = ( 17.25 ) mGy, DLP = ( 603.67 ) mGycm TECHNIQUE: Transaxial images were obtained from the dome of the diaphragm to the symphysis pubis without oral contrast. Oral and amp; IV Gastrografin and amp; 100mL Isovue-300 was administered. Sagittal and coronal images were reconstructed. Individualized dose optimization techniques were used for this CT. COMPARISON: None. FINDINGS: The visualized lung bases are unremarkable. The visualized portions of the heart are within normal limits. Normal liver. Normal gallbladder and extrahepatic biliary system. Minimally irregular low-attenuation at the inferolateral spleen may represent a cyst or prior infarct. Normal pancreas. Normal bilateral adrenal glands. Normal right kidney. Normal left kidney. Bilateral parapelvic cysts are noted. Normal visualized stomach. Normal small intestine. There are multiple colonic diverticula consistent with diverticulosis. There is non-visualization of the appendix. Normal abdominal aorta. Normal inferior vena cava. Normal retroperitoneum. Normal urinary bladder. There are prostatic calcifications. Normal abdominal wall. Normal osseous structures. CT/Abdomen/Pelvis WITH Contrast IMPRESSION: Significant diverticulosis. Very minimal stranding around the sigmoid colon may represent early diverticulitis in the appropriate clinical setting. Electronically Signed: Kam Phillip MD at 18:32 EDT Tel , Service support ,
[2020-10-21 17:36] LABS: CREATININE FINGERSTICK 0.9 mg/dL (0.70-1.30); EGFR FINGERSTICK > 60.0000 mL/min (>60)
== END ==
PROVIDERS: PCP Family Medicine Geriatric Medicine; Referring Provider Family Medicine Geriatric Medicine; Visit Provider Family Medicine Geriatric Medicine
DX: R19.7 Diarrhea, unspecified (principal); R10.9 Unspecified abdominal pain
CPT/HCPCS: 36415; 74177; 80053; 82274; 83630; 85025; 87493; 87506; Q9967; A4216

== ENCOUNTER → 2020-10-21 | Outpatient (CLI) | payer MEDICARE, SELFPAY ==
[2020-10-21 18:07] LABS: Absolute Lymphocyte Count 1.82 X10^3/uL (0.83-4.51); Absolute Neutrophil Count 4.5 X10^3/uL (2.0-7.7); Basophil# 0.02 X10^3/uL; Basophil% 0.3 % (0-1); Eosinophil# 0.08 X10^3/uL; Eosinophils% 1.1 % (0-5); Hematocrit 44.3 % (40-54); Lymphocyte # 1.82 X10^3/ul (0.83-4.51); Lymphocyte % 25.6 % (19-41); Mean Corp Hgb Conc 33.9 g/dL (32-36); Mean Corpuscular Hgb 31.9 pg (27.0-32.0); Mean Corpuscular Volume 94.3 fL (80-94); Mean Platelet Vol. 10.3 fl (6.2-12.0); Monocyte# 0.62 X10^3/uL; Monocyte% 8.7 % (0-10); NRBC Flagged by Analyzer 0 % (0-5); Neutrophil # 4.54 X10^3/uL (2.7-7.7); Platelet Count 124 K/mm3 (150-450); RBC Distribution Width CV 13.3 % (11.6-14.6); RBC Distribution Width SD 46.2 fl (35.1-43.9); White Blood Count 7.1 K/mm3 (4.4-11.0)
[2020-10-21 18:43] LABS: ALB/GLOB Ratio 1.1 RATIO (0.9-2.4); AST(SGOT) 13 U/L (15-37); Alanine Aminotransfer ALT/SGPT 34 U/L (16-61); Albumin, Serum 3.4 g/dL (3.2-5.0); Alkaline Phosphatase 50 U/L (45-117); Anion Gap 3 (5-15); BUN 9 mg/dL (7-18); BUN/Creat Ratio 10.8 RATIO (10-20); Calcium,Total 8.3 mg/dL (8.5-10.1); Chloride 107 mmol/L (98-107); Creatinine, Serum 0.84 mg/dL (0.70-1.30); EST Glomerular Filtration Rate 96 mL/min (>60); Est Glom Filt Rate - Afr Amer 116 mL/min (>60); Globulin 3.2 g/dL (2.2-4.2); Glucose 98 mg/dL (74-106); Potassium 4.2 mmol/L (3.5-5.1); Protein, Total 6.6 g/dL (6.4-8.2); Sodium Level 140 mmol/L (136-145)
== END | disposition home or self-care (01) ==
LOC: LABSPEC 10-28 14:39
PROVIDERS: PCP Family Medicine Geriatric Medicine; Visit Provider Family Medicine Geriatric Medicine
DX: R19.7 Diarrhea, unspecified (principal)
CPT/HCPCS: 36415; 80053; 82274; 83630; 85025; 87493; 87506

== ENCOUNTER → 2020-10-22 12:20 | Outpatient (CLI) | payer MEDICARE, SELFPAY | PROVIDERS: PCP Family Medicine Geriatric Medicine; Visit Provider Family Medicine Geriatric Medicine | DX: R19.7 Diarrhea, unspecified (principal) | CPT/HCPCS: 87177; 87209 ==

== ENCOUNTER → 2020-11-05 11:39 | Outpatient (CLI) | payer MEDICARE, SELFPAY ==
--- NOTE | 2020-11-05 11:40 | RAD_ITS ---
STUDY: X-RAY - ABDOMEN/PELVIS REASON FOR EXAM: Male, 70 years old. DIARRHEA TECHNIQUE: AP supine and upright views of the abdomen and pelvis. COMPARISON: None. FINDINGS: Normal visualized lung bases. No dilated loops of air-filled small bowel. Scattered colonic fecal residue. There is no demonstrated free abdominal air. The visualized liver, spleen and kidneys are grossly normal in size and morphology. Normal soft tissue structures. There are diffuse degenerative changes of the visualized lumbar spine. RAD/Abd Inc Decub and/or Erect IMPRESSION: Nonobstructive bowel gas pattern. Fecal residue in the colon. Electronically Signed: Wayne Castañeda MD ([place]) at 16:56 EDT , Service support ,
== END ==
PROVIDERS: PCP Family Medicine Geriatric Medicine; Referring Provider Family Medicine Geriatric Medicine; Visit Provider Family Medicine Geriatric Medicine
DX: R19.7 Diarrhea, unspecified (principal)
CPT/HCPCS: 74019

== ENCOUNTER 2021-02-24 13:34 | Outpatient (CLI) | payer MEDICARE, SELFPAY ==
[2021-02-24 16:31] LABS: Absolute Lymphocyte Count 2.21 X10^3/uL (0.83-4.51); Absolute Neutrophil Count 3.6 X10^3/uL (2.0-7.7); Basophil# 0.03 X10^3/uL; Basophil% 0.4 % (0-1); Eosinophils% 4.4 % (0-5); Hematocrit 45.8 % (40-54); Lymphocyte # 2.21 X10^3/ul (0.83-4.51); Lymphocyte % 32.4 % (19-41); Mean Corp Hgb Conc 34.9 g/dL (32-36); Mean Corpuscular Hgb 32.1 pg (27.0-32.0); Mean Platelet Vol. 10.8 fl (6.2-12.0); Monocyte% 10.2 % (0-10); NRBC Flagged by Analyzer 0 % (0-5); Neutrophil # 3.58 X10^3/uL (2.7-7.7); Neutrophil % 52.5 % (47-70); Platelet Count 141 K/mm3 (150-450); RBC Distribution Width CV 13.1 % (11.6-14.6); Red Blood Count 4.98 M/mm3 (4.6-6.2); White Blood Count 6.8 K/mm3 (4.4-11.0)
[2021-02-24 16:59] LABS: Vitamin D,25 Hydroxy 25.9 ng/mL
[2021-02-24 17:11] LABS: ALB/GLOB Ratio 1.3 RATIO (0.9-2.4); AST(SGOT) 22 U/L (15-37); Alanine Aminotransfer ALT/SGPT 38 U/L (16-61); Albumin, Serum 3.8 g/dL (3.2-5.0); Alkaline Phosphatase 66 U/L (45-117); Anion Gap 5 (5-15); BUN 16 mg/dL (7-18); BUN/Creat Ratio 16.2 RATIO (10-20); Calcium,Total 8.9 mg/dL (8.5-10.1); Chloride 107 mmol/L (98-107); Creatinine, Serum 0.99 mg/dL (0.70-1.30); EST Glomerular Filtration Rate 79 mL/min (>60); Est Glom Filt Rate - Afr Amer 96 mL/min (>60); Glucose 87 mg/dL (74-106); Potassium 4.4 mmol/L (3.5-5.1); Protein, Total 6.8 g/dL (6.4-8.2); Sodium Level 141 mmol/L (136-145); Thyroid Stim Hormone (TSH) 2.42 uIU/mL (0.358-3.74)
== END 2021-02-24 23:59 | disposition short-term general hospital (02) ==
LOC: POLAB3 13:35
PROVIDERS: PCP Family Medicine Geriatric Medicine; Visit Provider Family Medicine Geriatric Medicine
DX: E55.9 Vitamin D deficiency, unspecified (principal); F52.8 Other sexual dysfunction not due to a substance or known physiological condition; R53.83 Other fatigue
CPT/HCPCS: 36415; 80053; 82306; 84403; 84443; 85025

== ENCOUNTER → 2021-08-24 | Outpatient (CLI) | payer MEDICARE, SELFPAY ==
[2021-08-24 12:29] LABS: Absolute Lymphocyte Count 2.55 X10^3/uL (0.83-4.51); Absolute Neutrophil Count 3.8 X10^3/uL (2.0-7.7); Basophil# 0.03 X10^3/uL; Basophil% 0.4 % (0-1); Eosinophil# 0.31 X10^3/uL; Eosinophils% 4.2 % (0-5); Hematocrit 45.2 % (40-54); Lymphocyte # 2.55 X10^3/ul (0.83-4.51); Lymphocyte % 34.3 % (19-41); Mean Corp Hgb Conc 35.4 g/dL (32-36); Mean Corpuscular Hgb 31.9 pg (27.0-32.0); Mean Corpuscular Volume 90.2 fL (80-94); Monocyte# 0.79 X10^3/uL; Monocyte% 10.6 % (0-10); NRBC Flagged by Analyzer 0 % (0-5); Neutrophil # 3.75 X10^3/uL (2.7-7.7); Neutrophil % 50.4 % (47-70); Platelet Count 151 K/mm3 (150-450); RBC Distribution Width CV 13.1 % (11.6-14.6); RBC Distribution Width SD 42.6 fl (35.1-43.9); Red Blood Count 5.01 M/mm3 (4.6-6.2); White Blood Count 7.4 K/mm3 (4.4-11.0)
[2021-08-24 12:54] LABS: Vitamin D,25 Hydroxy 33.3 ng/mL
[2021-08-24 13:06] LABS: ALB/GLOB Ratio 1.4 RATIO (0.9-2.4); AST(SGOT) 21 U/L (15-37); Alanine Aminotransfer ALT/SGPT 32 U/L (16-61); Albumin, Serum 3.8 g/dL (3.2-5.0); Alkaline Phosphatase 53 U/L (45-117); Anion Gap 4 (5-15); BUN 13 mg/dL (7-18); BUN/Creat Ratio 12.9 RATIO (10-20); Calcium,Total 9.2 mg/dL (8.5-10.1); Chloride 110 mmol/L (98-107); Creatinine, Serum 1.01 mg/dL (0.70-1.30); EST Glomerular Filtration Rate 77 mL/min (>60); Est Glom Filt Rate - Afr Amer 93 mL/min (>60); Globulin 2.7 g/dL (2.2-4.2); Glucose 99 mg/dL (74-106); Potassium 4.3 mmol/L (3.5-5.1); Protein, Total 6.5 g/dL (6.4-8.2); Sodium Level 140 mmol/L (136-145); Thyroid Stim Hormone (TSH) 2.89 uIU/mL (0.358-3.74)
== END | disposition home or self-care (01) ==
LOC: POLAB3 09:16
PROVIDERS: PCP Family Medicine Geriatric Medicine; Visit Provider Family Medicine Geriatric Medicine
DX: E55.9 Vitamin D deficiency, unspecified (principal); F52.8 Other sexual dysfunction not due to a substance or known physiological condition; R53.83 Other fatigue
CPT/HCPCS: 36415; 80053; 82306; 84403; 84443; 85025

== ENCOUNTER 2022-01-03 13:57 | Outpatient (CLI) | payer MEDICARE, SELFPAY ==
--- NOTE | 2022-01-03 14:01 | ECHOD_ITS ---
Reason For Study: G47.37 (CENTRAL SLEEP APNEA) Procedure This was a 2D Doppler, Color Flow transthoracic echocardiogram. Exam performed in department. Left Ventricle Normal LV size. Left ventricular systolic function is normal. The estimated ejection fraction is 60 %. Stage 1 diastolic dysfunction. No regional wall motion abnormalities noted. Right Ventricle Normal RV size. Normal systolic function. Atria Normal left atrium. Normal right atrium. Mitral Valve Normal mitral valve. Tricuspid Valve Normal tricuspid valve. Mild tricuspid valve insufficiency. Pulmonary artery systolic pressure is 27 mmHg. Aortic Valve Normal aortic valve. Pulmonic Valve Normal pulmonic valve. Great Vessels Normal aortic root. The pulmonary artery is normal size. Normal inferior vena cava. Pericardium/Pleural No pericardial effusion. MMode/2D Measurements & Calculations LVIDd: 4.6 cm IVSd: 0.87 cm Ao root diam: 3.7 cm LVIDs: 3.1 cm LVPWd: 0.93 cm RVDd: 3.6 cm FS: 31.6 % LAV(MOD-bp): 69.3 ml LA A4 area: 22.1 cm2 LA dimension(2D): 4.0 cm LAV(MOD-bp) Indexed: 35.8 ml/m2 LAV(MOD-sp2): 65.8 ml LAV(MOD-sp4): 61.5 ml RA A4 area: 20.2 cm2 Time Measurements MV dec time: 0.25 sec Doppler Measurements & Calculations MV E max gerber: 56.4 cm/sec Lat Peak E' Gerber: 7.9 cm/sec Med Peak E' Gerber: 5.9 cm/sec MV A max gerber: 59.0 cm/sec E/E' lat: 7.1 E/E' med: 9.6 MV E/A: 0.96 MV dec slope: 224.9 cm/sec2 Ao V2 max: 106.2 cm/sec LV V1 max: 93.0 cm/sec Ao max P.5 mmHg LV V1 max P.5 mmHg Ao V2 mean: 71.8 cm/sec LV V1 mean P.8 mmHg Ao mean P.3 mmHg LV V1 mean: 64.4 cm/sec Ao V2 VTI: 24.2 cm LV V1 VTI: 23.2 cm PA V2 max: 73.2 cm/sec PI dec slope: 45.7 cm/sec2 TR max gerber: 247.0 cm/sec TR max P.4 mmHg ECHO/Echo Complete Interpretation Summary Normal LV size. Left ventricular systolic function is normal. The estimated ejection fraction is 60 %. Stage 1 diastolic dysfunction. Ordering Physician: Roverto Canas V Referring Physician: Joon Simmons Chi Performed By: Guerline Wright RDCS, RVT
== END 2022-01-03 23:59 | disposition home or self-care (01) ==
LOC: CVS 14:00
PROVIDERS: PCP Family Medicine Geriatric Medicine; Referring Provider Internal Medicine Pulmonary Disease; Visit Provider Internal Medicine Pulmonary Disease
DX: I51.9 Heart disease, unspecified (principal); G47.37 Central sleep apnea in conditions classified elsewhere
CPT/HCPCS: 93306

== ENCOUNTER → 2022-02-28 | Outpatient (CLI) | payer MEDICARE, SELFPAY ==
[2022-02-28 13:33] LABS: Absolute Lymphocyte Count 2.05 X10^3/uL (0.83-4.51); Absolute Neutrophil Count 4.3 X10^3/uL (2.0-7.7); Basophil# 0.01 X10^3/uL; Basophil% 0.1 % (0-1); Eosinophil# 0.31 X10^3/uL; Eosinophils% 4.2 % (0-5); Hemoglobin 14.8 g/dL (13.0-16.5); Lymphocyte # 2.05 X10^3/ul (0.83-4.51); Lymphocyte % 27.9 % (19-41); Mean Corp Hgb Conc 36.1 g/dL (32-36); Mean Corpuscular Hgb 32.7 pg (27.0-32.0); Mean Corpuscular Volume 90.7 fL (80-94); Mean Platelet Vol. 10.5 fl (6.2-12.0); Monocyte# 0.71 X10^3/uL; Monocyte% 9.6 % (0-10); NRBC Flagged by Analyzer 0 % (0-5); Neutrophil # 4.26 X10^3/uL (2.7-7.7); Neutrophil % 57.9 % (47-70); Platelet Count 128 K/mm3 (150-450); RBC Distribution Width SD 42.4 fl (35.1-43.9); Red Blood Count 4.52 M/mm3 (4.6-6.2); White Blood Count 7.4 K/mm3 (4.4-11.0)
[2022-02-28 13:48] LABS: Vitamin D,25 Hydroxy 29.5 ng/mL
[2022-02-28 14:00] LABS: ALB/GLOB Ratio 1.3 RATIO (0.9-2.4); AST(SGOT) 17 U/L (15-37); Alanine Aminotransfer ALT/SGPT 29 U/L (16-61); Albumin, Serum 3.7 g/dL (3.2-5.0); Alkaline Phosphatase 51 U/L (45-117); Anion Gap 6 (5-15); BUN 14 mg/dL (7-18); Chloride 105 mmol/L (98-107); Creatinine, Serum 0.93 mg/dL (0.70-1.30); EST Glomerular Filtration Rate 84 mL/min (>60); Est Glom Filt Rate - Afr Amer 102 mL/min (>60); Globulin 2.9 g/dL (2.2-4.2); Glucose 104 mg/dL (74-106); Protein, Total 6.6 g/dL (6.4-8.2); Sodium Level 139 mmol/L (136-145); Thyroid Stim Hormone (TSH) 2.25 uIU/mL (0.358-3.74)
== END | disposition home or self-care (01) ==
LOC: POLAB3 11:39
PROVIDERS: PCP Family Medicine Geriatric Medicine; Visit Provider Family Medicine Geriatric Medicine
DX: E55.9 Vitamin D deficiency, unspecified (principal); R53.83 Other fatigue; F52.8 Other sexual dysfunction not due to a substance or known physiological condition
CPT/HCPCS: 36415; 80053; 82306; 84403; 84443; 85025

== ENCOUNTER → 2022-03-10 | Outpatient (CLI) | payer MEDICARE, SELFPAY ==
--- NOTE | 2022-03-10 18:54 | STRESSREP_ITS ---
Stress Test Report Exercise myocardial perfusion stress test. 71-year-old man with a history of atrial fibrillation Stress protocol: Resting EKG demonstrates sinus bradycardia with a rate of 45 bpm and resting blood pressure is 138/72 mmHg. The patient exercised according to the regular Kamran protocol for a total duration of 8 minutes and 24 seconds attaining a maximum heart rate of 131 bpm which was 89% of maximum predicted heart rate; the maximum workload was 10.1 metabolic equivalents. At rest there were no ST or T wave changes noted to suggest ischemia and at peak exercise upsloping ST changes only were noted which did not meet the criteria for ischemia. Occasional premature ventricular complexes were noted. No clinical angina was noted the te st was terminated due to the target heart rate being achieved/fatigue. The peak blood pressure was 182/82 mmHg. Rate-pressure product was 23,800. Myocardial perfusion protocol. 11.8 mCi of technetium 99m sestamibi was injected at rest. The patient exercised according to regular Kamran protocol for total duration of 8 minutes and 24 seconds and at peak exercise 33.6 mCi of technetium 99m sestamibi was injected stress images were obtained stress and rest images were reconstructed in comparing the short axis vertical long and horizontal long axis. Gated images were also obtained. Perfusion SPECT analysis: Review of the stress images demonstrate normal uptake of tracer noted in all areas of the myocardium. The resting images similarly demonstrate normal uptake of tracer noted in all areas of the myocardium. No areas of reversibility are noted to suggest ischemia no previous infarct was noted. Gated SPECT analysis: The gated ejection fraction is 65%. Conclusion: Normal exercise myocardial perfusion stress test at a high workload Preserved ejection fraction.
== END | disposition home or self-care (01) ==
LOC: CVS 06:47
PROVIDERS: PCP Family Medicine Geriatric Medicine; Referring Provider Internal Medicine Cardiovascular Disease; Visit Provider Internal Medicine Cardiovascular Disease
DX: I48.0 Paroxysmal atrial fibrillation (principal); I45.2 Bifascicular block; R94.31 Abnormal electrocardiogram [ECG] [EKG]
CPT/HCPCS: 78452; 93017; A9500; A4216

== ENCOUNTER → 2022-03-16 | Outpatient (CLI) | payer MEDICARE, SELFPAY | END | disposition home or self-care (01) | LOC: PSN 13:59 | PROVIDERS: PCP Family Medicine Geriatric Medicine; Visit Provider Internal Medicine Cardiovascular Disease | DX: I48.0 Paroxysmal atrial fibrillation (principal) | CPT/HCPCS: 93225; 93226 ==

== ENCOUNTER → 2022-08-28 | Outpatient (CLI) | payer MEDICARE, SELFPAY ==
[2022-08-28 12:23] LABS: Absolute Lymphocyte Count 1.85 X10^3/uL (0.83-4.51); Absolute Neutrophil Count 3.7 X10^3/uL (2.0-7.7); Basophil# 0.02 X10^3/uL; Basophil% 0.3 % (0-1); Eosinophil# 0.25 X10^3/uL; Hemoglobin 14.7 g/dL (13.0-16.5); Lymphocyte # 1.85 X10^3/ul (0.83-4.51); Lymphocyte % 29.5 % (19-41); Mean Corp Hgb Conc 34.2 g/dL (32-36); Mean Corpuscular Volume 93.5 fL (80-94); Mean Platelet Vol. 10.8 fl (6.2-12.0); Monocyte# 0.48 X10^3/uL; Monocyte% 7.6 % (0-10); NRBC Flagged by Analyzer 0 % (0-5); Neutrophil # 3.67 X10^3/uL (2.7-7.7); Neutrophil % 58.4 % (47-70); Platelet Count 131 K/mm3 (150-450); RBC Distribution Width CV 13.2 % (11.6-14.6); RBC Distribution Width SD 44.9 fl (35.1-43.9); White Blood Count 6.3 K/mm3 (4.4-11.0)
[2022-08-28 12:40] LABS: Vitamin D,25 Hydroxy 39.8 ng/mL
[2022-08-28 13:25] LABS: ALB/GLOB Ratio 1.3 RATIO (0.9-2.4); AST(SGOT) 21 U/L (15-37); Alanine Aminotransfer ALT/SGPT 40 U/L (16-61); Albumin, Serum 3.8 g/dL (3.2-5.0); Alkaline Phosphatase 50 U/L (45-117); Anion Gap 5 (5-15); BUN 10 mg/dL (7-18); BUN/Creat Ratio 10.1 RATIO (10-20); Calcium,Total 9.1 mg/dL (8.5-10.1); Chloride 107 mmol/L (98-107); Creatinine, Serum 0.99 mg/dL (0.70-1.30); EST Glomerular Filtration Rate 78 mL/min (>60); Est Glom Filt Rate - Afr Amer 95 mL/min (>60); Globulin 2.9 g/dL (2.2-4.2); Glucose 124 mg/dL (74-106); Potassium 4.5 mmol/L (3.5-5.1); Protein, Total 6.7 g/dL (6.4-8.2); Sodium Level 138 mmol/L (136-145); Thyroid Stim Hormone (TSH) 1.78 uIU/mL (0.358-3.74)
== END | disposition home or self-care (01) ==
LOC: POLAB3 09:22
PROVIDERS: PCP Family Medicine Geriatric Medicine; Visit Provider Family Medicine Geriatric Medicine
DX: R53.83 Other fatigue (principal); E55.9 Vitamin D deficiency, unspecified
CPT/HCPCS: 36415; 80053; 82306; 84443; 85025

== ENCOUNTER → 2023-03-05 | Outpatient (CLI) | payer MEDICARE, SELFPAY ==
[2023-03-05 10:21] LABS: Absolute Lymphocyte Count 1.96 X10^3/uL (0.83-4.51); Basophil# 0.03 X10^3/uL; Basophil% 0.5 % (0-1); Eosinophil# 0.33 X10^3/uL; Eosinophils% 5.6 % (0-5); Hematocrit 42.8 % (40-54); Hemoglobin 14.4 g/dL (13.0-16.5); Lymphocyte # 1.96 X10^3/ul (0.83-4.51); Lymphocyte % 33.1 % (19-41); Mean Corp Hgb Conc 33.6 g/dL (32-36); Mean Corpuscular Volume 92.2 fL (80-94); Mean Platelet Vol. 10.2 fl (6.2-12.0); Monocyte# 0.58 X10^3/uL; Monocyte% 9.8 % (0-10); NRBC Flagged by Analyzer 0 % (0-5); Neutrophil # 3.02 X10^3/uL (2.7-7.7); Neutrophil % 50.8 % (47-70); Platelet Count 113 K/mm3 (150-450); RBC Distribution Width CV 13.5 % (11.6-14.6); RBC Distribution Width SD 45.7 fl (35.1-43.9); Red Blood Count 4.64 M/mm3 (4.6-6.2); White Blood Count 5.9 K/mm3 (4.4-11.0)
[2023-03-05 10:47] LABS: ALB/GLOB Ratio 1.3 RATIO (0.9-2.4); AST(SGOT) 23 U/L (15-37); Alanine Aminotransfer ALT/SGPT 32 U/L (16-61); Albumin, Serum 3.8 g/dL (3.2-5.0); Alkaline Phosphatase 57 U/L (45-117); Anion Gap 3 (5-15); BUN 14 mg/dL (7-18); Calcium,Total 9.2 mg/dL (8.5-10.1); Chloride 110 mmol/L (98-107); EST Glomerular Filtration Rate 78 mL/min (>60); Est Glom Filt Rate - Afr Amer 94 mL/min (>60); Globulin 2.9 g/dL (2.2-4.2); Glucose 98 mg/dL (74-106); Potassium 4.3 mmol/L (3.5-5.1); Protein, Total 6.7 g/dL (6.4-8.2); Sodium Level 141 mmol/L (136-145); Thyroid Stim Hormone (TSH) 3.29 uIU/mL (0.358-3.74)
== END | disposition home or self-care (01) ==
LOC: LAB 09:56
PROVIDERS: PCP Family Medicine Geriatric Medicine; Referring Provider Family Medicine Geriatric Medicine; Visit Provider Family Medicine Geriatric Medicine
DX: R53.83 Other fatigue (principal); E55.9 Vitamin D deficiency, unspecified
CPT/HCPCS: 36415; 80053; 82306; 84443; 85025

== ENCOUNTER → 2023-07-04 | Outpatient (CLI) | payer MEDICARE, SELFPAY ==
--- NOTE | 2023-07-04 06:45 | CT_ITS ---
STUDY: CT ABDOMEN AND PELVIS WITH CONTRAST REASON FOR EXAM: Male, 72 years old. Diffuse abdominal pain RADIATION DOSAGE (If Supplied By Facility): CTDIvol = ( 12.50 ) mGy, DLP = ( 809.04 ) mGycm TECHNIQUE: Transaxial images were obtained from the dome of the diaphragm to the symphysis pubis with oral contrast. Oral and amp; IV Readi-CAT and amp; 100mL Isovue-300 was administered. Sagittal and coronal images were reconstructed. Individualized dose optimization techniques were used for this CT. COMPARISON: 10/21/2020 FINDINGS: The visualized lung bases are unremarkable. The visualized portions of the heart are within normal limits. Liver is unremarkable aside from stable scattered simple cysts. Stable phrygian cap noted in the gallbladder, no CT evidence of acute gallbladder disease. Stable low-attenuation area within the posterior lateral spleen likely a cyst. Normal pancreas. Normal bilateral adrenal glands. No obstructive uropathy, stable bilateral parapelvic renal cysts. Normal visualized stomach. Normal small intestine. Retained stool noted throughout the colon, scattered colonic diverticula without CT evidence of acute diverticulitis. The appendix is visualized and appears normal. Appendix seen on coronal reconstructed image 62 through 65 Normal abdominal aorta. Normal inferior vena cava. Normal retroperitoneum. Normal urinary bladder. Stable mild enlargement of the prostate. The prostate contains multiple calcifications suggesting chronic prostatitis. Normal abdominal wall. There are diffuse degenerative changes of the visualized lumbar spine, and pelvis. CT/Abdomen/Pelvis WITH Contrast IMPRESSION: Scattered stable simple hepatic, splenic, and renal cysts, no specific follow-up needed. Retained stool in the colon with scattered colonic diverticula, no CT evidence of acute diverticulitis No free intraperitoneal fluid, air, or suspicious adenopathy Stable prostate enlargement Electronically Signed: Eliceo Caballeor MD at 10:23 EDT ,
[2023-07-04 07:09] LABS: CREATININE FINGERSTICK < 1.0 mg/dL (0.70-1.30); EGFR FINGERSTICK > 60.0000 mL/min (>60)
== END | disposition home or self-care (01) ==
PROVIDERS: PCP Family Medicine Geriatric Medicine; Referring Provider Family Medicine Geriatric Medicine; Visit Provider Family Medicine Geriatric Medicine
DX: Z01.812 Encounter for preprocedural laboratory examination (principal); E11.9 Type 2 diabetes mellitus without complications; R10.9 Unspecified abdominal pain; K40.90 Unilateral inguinal hernia, without obstruction or gangrene, not specified as recurrent; I10 Essential (primary) hypertension; Z79.84 Long term (current) use of oral hypoglycemic drugs
CPT/HCPCS: 74177; Q9967

== ENCOUNTER → 2023-09-03 | Outpatient (CLI) | payer MEDICARE, SELFPAY ==
[2023-09-03 10:05] LABS: Absolute Lymphocyte Count 1.96 X10^3/uL (0.83-4.51); Basophil# 0.03 X10^3/uL; Basophil% 0.5 % (0-1); Eosinophil# 0.21 X10^3/uL; Eosinophils% 3.7 % (0-5); Hematocrit 41.9 % (40-54); Hemoglobin 14.2 g/dL (13.0-16.5); Lymphocyte # 1.96 X10^3/ul (0.83-4.51); Lymphocyte % 34.9 % (19-41); Mean Corp Hgb Conc 33.9 g/dL (32-36); Mean Corpuscular Hgb 30.9 pg (27.0-32.0); Mean Corpuscular Volume 91.1 fL (80-94); Mean Platelet Vol. 10.3 fl (6.2-12.0); Monocyte# 0.38 X10^3/uL; Monocyte% 6.8 % (0-10); NRBC Flagged by Analyzer 0 % (0-5); Neutrophil # 3.01 X10^3/uL (2.7-7.7); Neutrophil % 53.7 % (47-70); Platelet Count 142 K/mm3 (150-450); RBC Distribution Width CV 13.2 % (11.6-14.6); RBC Distribution Width SD 42.5 fl (35.1-43.9); White Blood Count 5.6 K/mm3 (4.4-11.0)
[2023-09-03 10:47] LABS: ALB/GLOB Ratio 1.2 RATIO (0.9-2.4); AST(SGOT) 21 U/L (15-37); Alanine Aminotransfer ALT/SGPT 31 U/L (16-61); Albumin, Serum 3.5 g/dL (3.2-5.0); Alkaline Phosphatase 56 U/L (45-117); Anion Gap 6 (5-15); BUN 15 mg/dL (7-18); BUN/Creat Ratio 13.6 RATIO (10-20); Calcium,Total 9.1 mg/dL (8.5-10.1); Chloride 108 mmol/L (98-107); EST Glomerular Filtration Rate 69 mL/min (>60); Est Glom Filt Rate - Afr Amer 84 mL/min (>60); Glucose 121 mg/dL (74-106); Potassium 4.1 mmol/L (3.5-5.1); Protein, Total 6.5 g/dL (6.4-8.2); Sodium Level 140 mmol/L (136-145); Thyroid Stim Hormone (TSH) 2.22 uIU/mL (0.358-3.74)
== END | disposition home or self-care (01) ==
LOC: POLAB3 09:28
PROVIDERS: PCP Family Medicine Geriatric Medicine; Visit Provider Family Medicine Geriatric Medicine
DX: R53.83 Other fatigue (principal); E55.9 Vitamin D deficiency, unspecified; F52.8 Other sexual dysfunction not due to a substance or known physiological condition
CPT/HCPCS: 36415; 80053; 82306; 84403; 84443; 85025

== ENCOUNTER → 2024-03-06 | Outpatient (CLI) | payer MEDICARE, SELFPAY ==
[2024-03-06 10:47] LABS: Absolute Lymphocyte Count 1.89 X10^3/uL (0.83-4.51); Absolute Neutrophil Count 3.3 X10^3/uL (2.0-7.7); Basophil# 0.04 X10^3/uL; Basophil% 0.7 % (0-1); Eosinophil# 0.18 X10^3/uL; Hematocrit 42.8 % (40-54); Hemoglobin 14.9 g/dL (13.0-16.5); Lymphocyte # 1.89 X10^3/ul (0.83-4.51); Lymphocyte % 31.8 % (19-41); Mean Corp Hgb Conc 34.8 g/dL (32-36); Mean Corpuscular Volume 91.8 fL (80-94); Mean Platelet Vol. 10.3 fl (6.2-12.0); Monocyte# 0.53 X10^3/uL; Monocyte% 8.9 % (0-10); NRBC Flagged by Analyzer 0 % (0-5); Neutrophil # 3.29 X10^3/uL (2.7-7.7); Neutrophil % 55.4 % (47-70); Platelet Count 130 K/mm3 (150-450); RBC Distribution Width CV 12.9 % (11.6-14.6); RBC Distribution Width SD 43.1 fl (35.1-43.9); Red Blood Count 4.66 M/mm3 (4.6-6.2); White Blood Count 5.9 K/mm3 (4.4-11.0)
[2024-03-06 11:12] LABS: Vitamin D,25 Hydroxy 32.8 ng/mL
[2024-03-06 12:05] LABS: ALB/GLOB Ratio 1.4 RATIO (0.9-2.4); AST(SGOT) 21 U/L (15-37); Alanine Aminotransfer ALT/SGPT 32 U/L (16-61); Albumin, Serum 3.9 g/dL (3.2-5.0); Alkaline Phosphatase 56 U/L (45-117); Anion Gap 5 (5-15); BUN 13 mg/dL (7-18); Calcium,Total 9.1 mg/dL (8.5-10.1); Chloride 109 mmol/L (98-107); EST Glomerular Filtration Rate 78 mL/min (>60); Est Glom Filt Rate - Afr Amer 94 mL/min (>60); Globulin 2.7 g/dL (2.2-4.2); Glucose 101 mg/dL (74-106); Protein, Total 6.6 g/dL (6.4-8.2); Sodium Level 141 mmol/L (136-145)
== END | disposition home or self-care (01) ==
LOC: LAB 09:49
PROVIDERS: PCP Family Medicine Geriatric Medicine; Referring Provider Family Medicine Geriatric Medicine; Visit Provider Family Medicine Geriatric Medicine
DX: R53.83 Other fatigue (principal); E55.9 Vitamin D deficiency, unspecified
CPT/HCPCS: 36415; 80053; 82306; 84443; 85025

== ENCOUNTER 2024-08-23 08:16 | Emergency (ER) | payer MEDICARE, SELFPAY ==
[2024-08-23 08:17] VITALS: BP 157/83; PULSE 61; RESP 16; TEMP 36.9; O2SAT 98; BMI 22.8
--- OUTSIDE RECORDS SUMMARY | 2024-08-23 08:48 | XMS RPT_ITS | CCD ---
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 Joon Simmons Chi Primary Care Provider Dr. Michael Yan Attending Provider TroyDr. Joon bean Chi Referring Provider MD Michael Yan Other Provider Unavailable Dr. Michael Yan Referring Provider Troy, Joon Chi Primary Care Provider [phone] Yeison Barnett MD Unavailable Troy SCHMITT, Joon Chi Primary Care Provider Troy, Joon Chi Primary Care Provider TROY, JOON CHI Primary Care Unavailable JANINA CALLE Attending Unavailable PREMA MANN Attending Unavailable TROY, JOON CHI Primary Care Unavailable JANINA CALLE Attending Unavailable TROY, JOON CHI Primary Care Unavailable Yeison Barnett MD Unavailable Troy, Joon Chi Primary Care Provider Troy, Joon Chi Primary Care Unavailable Troy, Joon Chi Attending Unavailable Troy, Joon Chi Referring Unavailable Troy, Joon Chi Primary Care Unavailable Troy, Joon Chi Attending Unavailable Troy, Joon Chi Attending Unavailable Troy, Joon Chi Referring Unavailable Troy, Joon Chi Primary Care Unavailable Troy, Joon Chi Referring Unavailable Troy, Joon Chi Primary Care Unavailable Roof GIA, Bryson Johnson Attending Unavailable Troy, Joon Chi Referring Unavailable Troy, Joon Chi Primary Care Unavailable Vicky Lopez Attending Unavailable FANNIEJEANNE TANNER Attending Unavailable TROY, JOON CHI Primary Care Unavailable TROY, JOON CHI Primary Care Unavailable YEISON BARNETT Attending Unavailable TROY, JOON CHI Primary Care Unavailable YEISON BARNETT Referring Unavailable Medications Current Medications Medication Drug Class(es) Dates Sig (Normalized) Sig (Original) acetaminophen 325 mg oral tablet (20 sources) Start: 01-15-2019 take 2 tablets by mouth every six hours as needed acetaminophen (TYLENOL) 325 mg tablet Take 2 tablets by mouth every 6 hours as needed. 01/15/2019 Active Start: 09-27-2018 End: 09-27-2018 acetaminophen (TYLENOL) tabl et 1,000 mg Comment on above: Take 2 tablets by mo [facility] every 6 hours as needed. acetaminophen 325 mg / oxyCODONE hydrochloride 5 mg oral tablet (1 source) Opioid Agonist Start: End: take 1 tablet by mouth every eight hours as needed for pain oxyCODONE-acetaminoph en (PERCOCET) 5-325 MG per tablet Indications: Post-op pain , Mucous cyst of digit of hand Take 1 tablet by mouth every 8 hours as needed for Pain for up to 5 days. 15 tablet 0 09/27/2018 10/02/2018 Active ALPRAZolam 0.5 mg oral tablet (7 sources) Benzodiazepine Start: ALPRAZolam (XANAX) 0.5 mg tablet Take 1 tablet by mouth as needed. 10/19/2022 Active Comment on above: [facility] apixaban 5 mg oral tablet (20 sources) Factor Xa Inhibitor Start: take 1 tablet by mouth twice daily Apixaban (Eliquis) 5 mg tablet Active 5 MG PO TWICE A DAY December 15, 2019 12:00am Comment on above: Take 5 mg by mouth t wice daily. ARIPiprazole 2 mg oral tablet (1 source) Atypical Antipsychotic Start: 025 End: take 1 tablet by mouth once daily ARIPiprazole (ABILIFY) 2 mg tablet Take 1 tablet by mouth once daily. 30 tablet 08/21/2024 09/20/2024 Active calcium chloride 0.0014 meq/ml / potassium chloride 0.004 meq/ml / sodium chloride 0.103 meq/ml / sodium lactate 0.028 meq/ml injectable solution (1 source) Start: lactated ringers infusion cefadroxil 500 mg oral capsule (1 source) Cephalosporin Antibacterial Start: End: take 1 capsule by mouth twice daily cefadroxil (DURICEF) 500 MG capsule Take 1 capsule by mouth 2 times daily for 5 days 10 capsule 0 09/27/2018 10/02/2018 Active 1 ml diphenhydrAMINE hydrochloride 50 mg/ml cartridge (1 source) Histamine-1 Receptor Antagonist Start: End: diphenhydrAMINE (BENADRYL) injection 12.5 mg FLUoxetine 10 mg oral capsule (2 sources) Serotonin Reuptake Inhibitor Start: End: take 1 capsule by mouth once daily FLUoxetine (PROZAC) 10 mg capsule Take 1 capsule by mouth once daily. 30 capsule 1 08/04/2024 10/03/2024 Active 1 ml hydrALAZINE hydrochloride 20 mg/ml injection (1 source) Arteriolar Vasodilator Start: hydrALAZINE (APRESOLINE) injection 5 mg 1 ml HYDROmorphone hydrochloride 1 mg/ml cartridge (4 sources) Opioid Agonist Start: HYDROmorphone (DILAUDID) injection 0.25 mg Start: 09-27-2018 HYDROmorphone (DILAUDID) injection 0.5 mg Start: 09-27-2018 HYDROmorphone (DILAUDID) injection 1 mg iv contrast (will be provided with radiology test) (2 sources) Start: 05-08-2022 End: 05-09-2022 inject 1 dose intravenously once iv contrast (will be provided with radiology test) Indications: Paroxysmal atrial fibrillation (HCC) CT Pulm Vein - No IV access, insert saline lock prior to the sedation, infusion, injection for imaging exam. Discontinue saline lock post exam. If Pt. has a central line or IVAD, may access for administration according to line specific nursing protocol. Once exam is complete flush line and de-access according to line specific nursing protocol in the CT contrast administration guidelines link. 1 Each 0 05/08/2022 05/09/2022 Active Comment on above: CT Pulm Vein - No IV access, insert saline lock prior to the sedation, infusion, injection for imaging exam. Discontinue saline lock post exam. If Pt. has a central line or IVAD, may access for administration according to line specific nursing protocol. Once exam is complete flush line and de-access according to line specific nursing protocol in the CT contrast administration guidelines link. 4 ml labetalol hydrochloride 5 mg/ml cartridge (1 source) beta-Adrenergic Tisha Start: 09-27-2018 labetalol (NORMODYNE;TRANDAT E) injection 5 mg levothyroxine sodium 0.025 mg oral tablet (20 sources) l-Thyroxine Start: 01-28-2021 End: 10-19-2022 take 1 tablet by mouth once levothyroxine (SYNTHROID) 25 mcg tablet Take 1 tablet by mouth every afternoon. 09/29/2022 Active End: 11-21-2022 take 1 capsule by mouth once daily before breakfast levothyroxine 25 mcg cap Take 25 mcg by mouth daily before breakfast. 0 11/21/2022 Discontinued Comment on above: Take 25 mcg by mouth daily before breakfast. Take 1 tablet by kristy th every afternoon. 10 ml lidocaine hydrochloride 10 mg/ml injection (1 source) Antiarrhythmic, Amide Local Anesthetic Start: 09-27-2018 End: 09-27-2018 lidocaine PF 1 % injection 1 mL Magnesium (20 sources) Start: 10-19-2022 take 250 mg by mouth once daily Magnesium Active 250 MG PO DAILY October 18, 2022 11:00pm MAGNESIUM ORAL T hari by mouth. Active MAGNESIUM ORAL T hari by mouth. 0 Suspended MAGNESIUM ORAL T hari by mouth. 0 Active Comment on above: Take by mouth. 1 ml meperidine hydrochloride 50 mg/ml injection (1 source) Opioid Agonist Start: 09-27-2018 meperidine (DEMEROL) injection 12.5 mg mirtazapine 7.5 mg oral tablet (5 sources) Start: 10-19-2022 take 7.5 mg by mouth at bedtime Mirtazapine Active 7.5 MG PO AT BEDTIME October 18, 2022 11:00pm Start: 09-12-2022 End: 09-24-2023 Mirtazapine (REMERON) 7.5 mg tablet Take 0.5 tablets by mouth as needed (sleep). 0 09/12/2022 09/24/2023 Discontinued (Discontinued by another Health Care Provider) Comment on above: Take 0.5 tablets by mouth daily at bedtime. Multiple Vitamins-Minerals (THERAPEUTIC MULTIVITAMIN-MINERALS ) tablet (2 sources) take 1 tablet by mouth once daily Multiple Vitamins-Minerals (THERAPEUTIC MULTIVITAMIN-MINERAL S) tablet Take 1 tablet by mouth daily 0 Active Lykens-3 Fatty Acids (FISH OIL CONCENTRATE PO) (2 sources) take 1 capsule by mouth once daily Lykens-3 Fatty Acids (FISH OIL CONCENTRATE PO) Take 1 capsule by mouth daily 0 Active 2 ml ondansetron 2 mg/ml injection (1 source) Serotonin-3 Receptor Antagonist Start: 9 End: 9 ondansetron (ZOFRAN) injection 4 mg oxyCODONE (1 source) Opioid Agonist Start: 9 End: 9 oxyCODONE (ROXICODONE) immediate release tablet 5 mg perflutren lipid microspheres 1.3 mL in NaCl (PF) 0.9% 10 mL injection (DEFINITY) (20 sources) Start: 3 End: 4 perflutren lipid microspheres 1.3 mL in NaCl (PF) 0.9% 10 mL injection (DEFINITY) Start: 09-07-2020 End: 12-07-2021 perflutren lipid microsphere s 1.3 mL in NaCl (PF) 0.9% 10 mL injection (DEFINITY) 1 ml promethazine hydrochloride 25 mg/ml injection (1 source) Phenothiazine Start: 09-27-2018 End: 09-27-2018 promethazine (PHENERGAN) injection 6.25 mg rosuvastatin calcium 10 mg oral tablet (20 sources) HMG-CoA Reductase Inhibitor Start: 12-15-2019 take 10 mg by mouth at bedtime Rosuvastatin Active 10 MG PO AT BEDTIME December 15, 2019 12:00am Comment on above: Take 10 mg by mouth once daily. sildenafil 20 mg oral tablet (16 sources) Phosphodiesterase 5 Inhibitor Start: 10-13-2022 take 1 tablet by mouth once sildenafil (REVATIO) 20 mg tablet Take 1 tablet by mouth every afternoon. 10/13/2022 Active Start: 02-14-2022 take 60 mg by mouth once daily Sildenafil (Pulm.Hypertension) Active 60 MG PO DAILY February 14, 2022 12:00am Start: 12-15-2019 End: 01-28-2021 take 60 mg by mouth once Sildenafil (Pulm.Hypertensio n) Discontinued 60 MG PO ONCE December 15, 2019 12:00am January 28, 2021 3:12pm Comment on above: Take 1 tablet by kristy th every afternoon. 125 ml sodium chloride 9 mg/ml prefilled syringe (20 sources) Start: 05-08-2022 End: 08-07-2023 sodium chloride 0.9 % (flush) 10 mL (BD POSIFLUSH) Start: 09-07-2020 End: 12-07-2021 sodium chloride 0.9 % (flush ) 10 mL (BD POSIFLUSH) Start: 09-27-2018 sodium chlorid e flush 0.9 % injection 10 mL sotalol hydrochloride 80 mg oral tablet (20 sources) Antiarrhythmic Start: 12-15-2019 take 40 mg by mouth every twelve hours Sotalol Active 40 MG PO Q12H December 15, 2019 10:47am Start: 03-13-2018 End: 12-15-2019 take 80 mg by mouth every twelve hours Sotalol Discontinued 80 MG PO Q12H March 13, 2018 12:00am December 15, 2019 10:49am End: 11-21-2022 sotalol (BETAPACE) 80 mg tab let Take 40 mg by mouth twice daily. 0 11/21/2022 Discontinued (Course of therapy completed) take 0.5 tablet by m outh twice daily sotaloL (BETAPACE) 80 MG tablet Take 0.5 (one-half) tablet (40 mg total) by mouth 2 (two) times a day . 0 Active take 1 tablet by kristy th once daily sotalol (BETAPACE) 80 MG tablet Take 1 tablet by mouth daily 0 Active Comment on above: Take 40 mg by mouth twice daily. Completed/Discontinued Medications Medication Drug Class(es) Dates Sig (Normalized) Sig (Original) ceFAZolin 2000 mg injection (1 source) Cephalosporin Antibacterial Start: 09-27-2018 End: 09-27-2018 ceFAZolin (ANCEF) 2 g in dextrose 4 % 100 mL IVPB (premix) doxepin hydrochloride 10 mg oral capsule (4 sources) Tricyclic Antidepressant Start: 02-14-2022 End: 10-19-2022 take 10 mg by mouth at bedtime Doxepin Discontinued 10 MG PO AT BEDTIME February 14, 2022 12:00am October 19, 2022 12:21pm famotidine 20 mg oral tablet (3 sources) Histamine-2 Receptor Antagonist Start: 09-27-2018 End: 09-27-2018 famotidine (PEPCID) tablet 20 mg Famotidine (PEPC ID PO) Take 1 tablet by mouth as needed 0 Active 24 hr metoprolol succinate 25 mg extended release oral tablet (4 sources) beta-Adrenergic Tisha Start: 11-21-2022 End: 09-24-2023 take 0.5 tablet by mouth once daily metoprolol succinate ER (TOPROL XL) 25 mg 24 hr tablet Take 0.5 tablets by mouth once daily. 45 tablet 0 11/21/2022 09/24/2023 Discontinued (Course of therapy completed) Comment on above: Take 0.5 tablets by mouth once daily. 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] 01-15-2019 Episodic Cardiac dysrhythmias (20 sources) Paroxysmal atrial fibrillation; Translations: [Paroxysmal atrial fibrillation] Onset: 9 01-15-2019 Chronic Conduction disorders (7 sources) Right bundle branch block AND left anterior fascicular block; Translations: [Bifascicular block] 03-01-2022 Chronic Disorders of lipid metabolism (20 sources) Hyperlipidemia; Translations: [Hyperlipidemia, unspecified] Onset: 2 06-14-2021 Chronic Diverticulosis and diverticulitis (20 sources) Diverticulitis; Translations: [Diverticulitis of intestine, part unspecified, without perforation or abscess without bleeding] Onset: 2 06-14-2021 Chronic Malaise and fatigue (1 source) Other fatigue; Translations: [Other fatigue] Onset: 5 Episodic Miscellaneous mental health disorders (3 sources) Insomnia disorder related to another mental disorder; Translations: [Insomnia due to other mental disorder] Onset: 5 08-04-2024 Chronic Mood disorders (3 sources) Moderate recurrent major depression; Translations: [Major depressive disorder, recurrent, moderate] Onset: 5 08-04-2024 Chronic Nutritional deficiencies (2 sources) Serum iron low; Translations: [Iron deficiency] Onset: 5 08-04-2024 Episodic Other circulatory disease (6 sources) History of cerebrovascular accident; Translations: [Personal history of transient ischemic attack (TIA), and cerebral infarction without residual deficits] 02-14-2022 Episodic Other connective tissue disease (1 source) Tear of left rotator cuff; Translations: [Unspecified rotator cuff tear or rupture of left shoulder, not specified as traumatic] Episodic Other ear and sense organ disorders (3 sources) Sensorineural hearing loss, bilateral; Translations: [Sensorineural hearing loss, bilateral] Onset: 3 08-14-2022 Chronic Other ear and sense organ disorders (1 source) Sensorineural hearing loss, bilateral; Translations: [Sensorineural hearing loss, bilateral] Onset: 3 Chronic Other ear and sense organ disorders (2 sources) Tinnitus of right ear; Translations: [Tinnitus, right ear] Onset: 3 08-14-2022 Episodic Other ear and sense organ disorders (1 source) Tinnitus, right ear; Translations: [Tinnitus, right ear] Onset: 3 Episodic Other nervous system disorders (1 source) Postoperative pain ; Translations: [Post-op pain] Episodic Other screening for suspected conditions (not mental disorders or infectious disease) (8 sources) Electrocardiogram abnormal; Translations: [Abnormal electrocardiogram [ECG] [EKG]] Onset: 5 03-02-2022 Episodic Residual codes; unclassified (12 sources) Obstructive sleep apnea syndrome; Translations: [Obstructive sleep apnea (adult) (pediatric)] Onset: 3 02-14-2022 Chronic Residual codes; unclassified (1 source) Obstructive sleep apnea (adult) (pediatric); Translations: [CHRIS (obstructive sleep apnea)] Onset: 5 Chronic Past or Other Problems Problem Classification Problem Date Documented Da te Episodic/Chronic Blindness and vision defects (20 sources) Left homonymous hemianopsia; Translations: [Homonymous bilateral field defects, left side] Onset: 01-14-2019 01-15-2019 Episodic Headache; including migraine (20 sources) Headache; Translations: [Headache] Onset: 01-14-2019 01-15-2019 Episodic Immunizations and screening for infectious disease (10 sources) Patient encounter status; Translations: [Encounter for screening for COVID-19] Onset: 11-21-2022 02-14-2022 Episodic Other aftercare (7 sources) Drug therapy finding; Translations: [senior living (current) use of anticoagulants] Onset: 11-21-2022 11-21-2022 Episodic Other aftercare (3 sources) Long-term current use of drug therapy; Translations: [Encounter for therapeutic drug level monitoring] Onset: 11-21-2022 11-21-2022 Episodic Other connective tissue disease (3 sources) Digital mucous cyst; Translations: [Ganglion, unspecified hand] Onset: 05-30-2018 05-30-2018 Episodic Other non-traumatic joint disorders (20 sources) Chronic pain of left upper limb; Translations: [Pain in left shoulder] Onset: 11-09-2020 11-09-2020 Episodic Results Test Name Value Interpretation Reference Range Facility CBC W/Diff, Automatedon 02-13 Absolute Lymph 1.89 X10 3/uL Normal 0.83-4.51 [facility] Comment on above: Performed By: #### L [id number], L100.0100, L500.4050, L506.1000 #### [facility] [address] [place], [address] Absolute Neut 3.3 X10 3/uL Normal 2.0-7.7 [facility] Comment on above: Performed By: #### L [id number], L100.0100, L500.4050, L506.1000 #### [facility] [address] [place], [address] Basophils/100 WBC (Bld) 0.7 % Normal 0-1 [facility] Comment on above: Performed By: #### L [id number], L100.0100, [id number], L506.1000 #### [facility] [address] [place], [address] Eosinophils/100 WBC (Bld) 3.0 % Normal 0-5 [facility] Comment on above: Performed By: #### L [id number], L100.0100, [id number], L506.1000 #### [facility] [address] [place], [address] Erythrocyte distribution width (RBC) [Ratio] 12.9 % Normal 11.6-14.6 [facility] Comment on above: Performed By: #### L [id number], L100.0100, [id number], L506.1000 #### [facility] [address] [place], [address] Hematocrit (Bld) [Volume fraction] 42.8 % Normal 40-54 [facility] Comment on above: Performed By: #### L [id number], L100.0100, [id number], L506.1000 #### [facility] [address] [place], [address] Hemoglobin (Bld) [Mass/Vol] 14.9 g/dL Normal 13.0-16.5 [facility] Comment on above: Performed By: #### L [id number], L100.0100, L500.4050, L506.1000 #### [facility] [address] [place], [address] IG% 0.200 Normal 0.0-0.9 [facility] Comment on above: Result Comment: IG% - Immature Granulocytes (promyelocytes, myelocytes and metamyelocytes) > 1% indicates that a LEFT SHIFT is Present. Performed By: #### L [id number], L100.0100, L500.4050, L506.1000 #### [facility] [address] [place], [address] Lymphocytes/100 WBC (Bld) 31.8 % Normal 19-41 [facility] Comment on above: Performed By: #### L [id number], L100.0100, [id number], L506.1000 #### [facility] [address] [place], [address] MCH (RBC) [Entitic mass] 32.0 pg Normal 27.0-32.0 [facility] Comment on above: Performed By: #### L [id number], L100.0100, L500.4050, L506.1000 #### [facility] [address] [place], [address] MCHC (RBC) [Mass/Vol] 34.8 g/dL Normal 32-36 [facility] Comment on above: Performed By: #### L [id number], L100.0100, L500.4050, L506.1000 #### [facility] [address] [place], [address] MCV (RBC) [Entitic vol] 91.8 fL Normal 80-94 [facility] Comment on above: Performed By: #### L [id number], L100.0100, [id number], L506.1000 #### [facility] [address] [place], [address] Monocytes/100 WBC (Bld) 8.9 % Normal 0-10 [facility] Comment on above: Performed By: #### L [id number], L100.0100, [id number], L506.1000 #### [facility] [address] [place], [address] Neutrophils/100 WBC (Bld) 55.4 % Normal 47-70 [facility] Comment on above: Performed By: #### L [id number], L100.0100, L500.4050, L506.1000 #### [facility] [address] [place], [address] Nucleated RBC (Bld) [#/Vol] 0 10*3/uL Normal 0-5 [facility] Comment on above: Performed By: #### L [id number], L100.0100, L500.4050, L506.1000 #### [facility] [address] [place], [address] Platelet mean volume (Bld) [Entitic vol] 10.3 fL Normal 6.2-12.0 [facility] Comment on above: Performed By: #### L [id number], L100.0100, L500.4050, L506.1000 #### [facility] [address] [place], [address] Platelets (Bld) [#/Vol] 130 10*3/uL Low 150-450 [facility] Comment on above: Performed By: #### L [id number], L100.0100, [id number], L506.1000 #### [facility] [address] [place], [address] RBC (Bld) [#/Vol] 4.66 10*6/uL Normal 4.6-6.2 [facility] Comment on above: Performed By: #### L [id number], L100.0100, L500.4050, L506.1000 #### [facility] [address] [place], [address] RDW SD 43.1 fl Normal 35.1-43.9 [facility] Comment on above: Performed By: #### L [id number], L100.0100, L500.4050, L506.1000 #### [facility] [address] [place], [address] WBC (Bld) [#/Vol] 5.9 10*3/uL Normal 4.4-11.0 [facility] Comment on above: Performed By: #### L [id number], L100.0100, L500.4050, L506.1000 #### [facility] [address] [place], [address] Comprehensive Metabolic Prof ilon 03-06-2024 Albumin [Mass/Vol] 3.9 g/dL Normal 3.2-5.0 [facility] Comment on above: Performed By: #### L [id number], L506.1000, L509.3000, L100.0100, L501.9520 #### [facility] [address] [place], [address] Albumin/Globulin [Mass ratio] 1.4 {ratio} Normal 0.9-2.4 [facility] Comment on above: Performed By: #### L [id number], L506.1000, L509.3000, L100.0100, L501.9520 #### [facility] [address] [place], [address] ALK P 56 U/L Normal 45-117 [facility] Comment on above: Performed By: #### L 500.4050, L506.1000, L509.3000, L100.0100, L501.9520 #### [facility] [address] [place], [address] ALT [Catalytic activity/Vol] 32 U/L Normal 16-61 [facility] Comment on above: Performed By: #### L 500.4050, L506.1000, L509.3000, L100.0100, L501.9520 #### [facility] [address] [place], [address] AST [Catalytic activity/Vol] 21 U/L Normal 15-37 [facility] Comment on above: Performed By: #### L 500.4050, L506.1000, L509.3000, L100.0100, L501.9520 #### [facility] [address] [place], [address] Bilirubin [Mass/Vol] 0.80 mg/dL Normal 0.20-1.00 [facility] Comment on above: Result Comment: For patients on eltrombopag therapy, use of Dimension [place] TBIL is not recommended. Performed By: #### L 500.4050, L506.1000, L509.3000, L100.0100, L501.9520 #### [facility] [address] [place], [address] BUN/CRE 13.0 RATIO Normal 10-20 [facility] Comment on above: Performed By: #### L 500.4050, L506.1000, L509.3000, L100.0100, L501.9520 #### [facility] [address] [place], [address] CA,Total 9.1 mg/dL Normal 8.5-10.1 [facility] Comment on above: Performed By: #### L 500.4050, L506.1000, L509.3000, L100.0100, L501.9520 #### [facility] [address] [place], [address] Chloride [Moles/Vol] 109 mmol/L High 98-107 [facility] Comment on above: Performed By: #### L [id number], L506.1000, L509.3000, L100.0100, L501.9520 #### [facility] [address] [place], [address] CO2 [Moles/Vol] 27.0 mmol/L Normal 21.0-32.0 [facility] Comment on above: Performed By: #### L 500.4050, L506.1000, L509.3000, L100.0100, L501.9520 #### [facility] [address] [place], [address] Creatinine [Mass/Vol] 1.00 mg/dL Normal 0.70-1.30 [facility] Comment on above: Result Comment: The validity of the calculated GFR GFRAA in patients over 70 years has not been determined. Clinical correlation is essential. Performed By: #### L 500.4050, L506.1000, L509.3000, L100.0100, L501.9520 #### [facility] [address] [place], [address] EST GFR - AA 94 mL/min Normal >60 [facility] Comment on above: Result Comment: Afri can Croatian GFR Calc Performed By: #### L 500.4050, L506.1000, L509.3000, L100.0100, L501.9520 #### [facility] [address] [place], [address] GAP 5 Normal 5-15 [facility] Comment on above: Performed By: #### L 500.4050, L506.1000, L509.3000, L100.0100, L501.9520 #### [facility] [address] [place], [address] GFR/1.73 sq M.predicted among non-blacks MDRD (S/P/Bld) [Vol rate/Area] 78 mL/min/{1.73_m2} Normal >60 [facility] Comment on above: Result Comment: Non- GFR Calc Performed By: #### L 500.4050, L506.1000, L509.3000, L100.0100, L501.9520 #### [facility] [address] [place], [address] Globulin (S) [Mass/Vol] 2.7 g/dL Normal 2.2-4.2 [facility] Comment on above: Performed By: #### L 500.4050, L506.1000, L509.3000, L100.0100, L501.9520 #### [facility] [address] [place], [address] Glucose [Mass/Vol] 101 mg/dL Normal 74-106 [facility] Comment on above: Result Comment: Fast ing Glucose result from 100 to 125 mg/dL suggests IMPAIRED HOMEOSTASIS per A.D.A. criteria. Performed By: #### L 500.4050, L506.1000, L509.3000, L100.0100, L501.9520 #### [facility] [address] [place], [address] Potassium [Moles/Vol] 4.0 mmol/L Normal 3.5-5.1 [facility] Comment on above: Performed By: #### L 500.4050, L506.1000, L509.3000, L100.0100, L501.9520 #### [facility] [address] [place], [address] Sodium [Moles/Vol] 141 mmol/L Normal 136-145 [facility] Comment on above: Performed By: #### L 500.4050, L506.1000, L509.3000, L100.0100, L501.9520 #### [facility] [address] [place], [address] T PROT 6.6 g/dL Normal 6.4-8.2 [facility] Comment on above: Performed By: #### L 500.4050, L506.1000, L509.3000, L100.0100, L501.9520 #### [facility] [address] [place], [address] Urea nitrogen [Mass/Vol] 13 mg/dL Normal 7-18 [facility] Comment on above: Performed By: #### L 500.4050, L506.1000, L509.3000, L100.0100, L501.9520 #### [facility] [address] [place], [address] Thyroid Stim Hormone (TSH)on 03-06-2024 TSH 2.880 uIU/mL Normal 0.358-3.740 [facility] Comment on above: Performed By: #### L 500.4050, L506.1000, L509.3000, L100.0100, L501.9520 #### [facility] [address] [place], [address] Vitamin D,25 Hydroxyon 03-06 Vitamin D 25-OH 32.8 ng/mL Normal [facility] Comment on above: Result Comment: Jessica min D 25(OH) Status Range Deficiency <20 ng/mL (50nmol/L) Insufficiency 20 - 30 ng/mL (50 - 75 nmol/L) Sufficiency 30 - 100 ng/mL (75 - 250 nmol/L) Toxicity >100 ng/mL (>250 nmol/L) Performed By: #### L 501.9520, L100.0100, L500.4050, L506.1000 #### [facility] [address] [place], [address] CNOVon 09-24-2023 CNOV Office Visit (NATHAN ) JOAN ROTHMAN ([id number]) 1950 M Date Time Provider Department 09/24/23 10:30 AM YEISON BARNETT During your visit today, we recorded the following information about you: Pulse Blood pressure Weight Height 54/minute 140/73 74.4 kg 1.803 m Yeison Barnett MD 09/24/2023 10:54 AM Signed [facility] [place] [facility] Department of Cardiovascular Medicine SECTION OF CARDIAC PACING and ELECTROPHYSIOLOGY OUTPATIENT VISIT DATE September 24, 2023 OUTPATIENT VISIT TYPE ESTABLISHED PRIMARY CARE PHYSICIAN: Joon Simmons MD [address] [address] CHIEF COMPLAINT: AF HISTORY OF PRESENT ILLNESS (includes edited nursing intake history): Joan Rothman is a 72 y/o male returning for follow up after undergoing a PVI on 08/21/22. His past medical history is significant for RA, CVA, CHRIS, and atrial fibrillation. He was last seen in office by SUE Daley on 11/21/22. At his last office visit sotalol was stopped. Overall he feels great. He is not aware of any episodes of atrial fibrillation. He denies chest pain, shortness of breath, orthopnea, cough, edema, palpitations, PND, lightheadedness or syncope. CHADS2-Vasc Score Breakdown 3 Total Score 1 Age 65-74 years old 2 History of stroke, TIA, or thromboemolism 1. How often on average, does your irregular heart rhythm (atrial fibrillation) occur? Not applicable, I have not had an irregular heart rhythm since my ablation 2. How long on average, do the episodes of the irregular heart rhythm last? Not applicable, I have not had an irregular heart rhythm since my ablation 3. How often have you been bothered by this symptom in the past 4 weeks? Palpitations: none, Shortness of breath at rest: none, Shortness of breath during physical activity: very little, Exercise intolerance (fatigue during mild physical activity): none, Fatigue at rest: very little, Lightheadedness/dizzi ness: none, and Chest pain or pressure: none 4. Have you had an inpatient hospital admission within 30 days of your procedure? No Soniya Davis RN PAST MEDICAL HISTORY No date: Abnormal electrocardiogram No date: Atrial fibrillation (HCC) Comment: paroxysmal No date: Bifascicular block No date: Bradycardia No date: Depression No date: GERD (gastroesophageal reflux disease) No date: Renal stones No date: Rheumatoid arthritis (HCC) No date: Sleep apnea Comment: Central sleep apnea 2020: Stroke (HCC)PAST SURGICAL HISTORY No date: ABLATION A-FIB BY PVI No date: FINGER SURGERY HX No date: HERNIA REPAIR HX SOCIAL HISTORY Social History Tobacco Use Smoking status: Former Packs/day: .5 Types: Cigarettes Start date: 1968 Quit date: 1978 Years since quittin.6 Smokeless tobacco: Never Tobacco comments: former smoker, over 40 years ago Vaping Use Vaping Use: Never used Substance Use Topics Alcohol use: Not Currently Alcohol/week: 7.0 standard drinks of alcohol Types: 7 Shots of liquor per week Comment: couple times a week Drug use: Not Currently FAMILY HISTORY Problem Relation Age of Onset Heart disease Mother Stroke Father other (cva) Father ALLERGIES: ALLERGIES No Known Allergies MEDICATIONS: sildenafil (REVATIO) 20 mg tablet Take 1 tablet by mouth every afternoon. levothyroxine (SYNTHROID) 25 mcg tablet Take 1 tablet by mouth every afternoon. metoprolol succinate ER (TOPROL XL) 25 mg 24 hr tablet Take 0.5 tablets by mouth once daily. ALPRAZolam (XANAX) 0.5 mg tablet Take 1 tablet by mouth as needed. apixaban (ELIQUIS) 5 mg tab(s) Take 5 mg by mouth twice daily. rosuvastatin (CRESTOR) 10 mg tablet Take 10 mg by mouth once daily. acetaminophen (TYLENOL) 325 mg tablet Take 2 tablets by mouth every 6 hours as needed. MAGNESIUM ORAL Take by mouth. Soniya Davis RN PHYSICAL EXAMINATION: BP 140/73 Pulse (!) 54 Ht 180.3 cm (5' 11) Wt 74.4 kg (164 lb) BMI 22.87 kg/m? General: Looks well; pleasant and cooperative Neck: JVP normal Lungs: Clear to auscultation Cardiac: Regular rate and rhythm, no murmurs, rubs, gallops or clicks Abdomen: Soft, nontender, nondistended, no bruits Extremities: No cyanosis, clubbing, or edema; extremeties are warm Neurologic: A AND O x 3; normal gait CARDIOVASCULAR MEDICINE TESTING: EKG 09/24/2023 reviewed: Record recurrences on or prior to the follow-up date but after the date of the previous follow-up (or after ablation date if this is the first follow-up) Palpitations: No AFib: No Aflutter: No AT or SVT: No Is patient currently in atrial fibrillation? No Arrhythmia recurrence beyond the blanking period: No One year success off AAD Yes IMPRESSION: PAF: He is s/p cryoballoon PVI 08/2022. He has done well w/o recurrence. Continue apixaban. Will stop l (more content not included)... Normal [facility] ECG COMPLETEon 09-24-2023 ECG COMPLETE Ventricular Rate : 4 9 BPM Atrial Rate : 49 BPM P-R Interval : 152 ms QRS Duration : 100 ms Q-T Interval : 446 ms QTC Calculation(Bazett) : 402 ms Calculated P Kelso : 81 degrees Calculated R Kelso : -54 degrees Calculated T Kelso : -33 degrees SINUS BRADYCARDIA LEFT AXIS DEVIATION INCOMPLETE RIGHT BUNDLE BRANCH BLOCK NONSPECIFIC ST ABNORMALITY ABNORMAL ECG Confirmed by ANDRY CAMACHO MD ([id number]) on 10/25/2023 10:33:10 AM NAME : JOAN ROTHMAN PID : [id number] : 1950 Gender : Male Race : ORD : [id number] Procedure Date : Sep 24 2023 10:02:25 Edit Date : Oct 25 2023 10:33:12 Diagnosis: SINUS BRADYCARDIA LEFT AXIS DEVIATION INCOMPLETE RIGHT BUNDLE BRANCH BLOCK NONSPECIFIC ST ABNORMALITY ABNORMAL ECG Confirmed by ANDRY CAMACHO MD ([id number]) on 10/25/2023 10:33:10 AM Test Reason : Location : [facility] : [facility] Overread By : ANDRY CAMACHO MD Edited By : ANDRY CAMACHO MD Referred By : YEISON BARNETT Acquired by : BLAYNE DALEY Normal [facility] CBC W/Diff, Automatedon 08-13 Absolute Lymph 1.96 X10 3/uL Normal 0.83-4.51 [facility] Comment on above: Performed By: #### L 500.4050, L506.1000, L509.3000, L100.0100, L501.9520 #### [facility] [address] [place], [place], [address] Absolute Neut 3.0 X10 3/uL Normal 2.0-7.7 [facility] Comment on above: Performed By: #### L 500.4050, L506.1000, L509.3000, L100.0100, L501.9520 #### [facility] [address] [place], [address] Basophils/100 WBC (Bld) 0.5 % Normal 0-1 [facility] Comment on above: Performed By: #### L 500.4050, L506.1000, L509.3000, L100.0100, L501.9520 #### [facility] [address] [place], [address] Eosinophils/100 WBC (Bld) 3.7 % Normal 0-5 [facility] Comment on above: Performed By: #### L 500.4050, L506.1000, L509.3000, L100.0100, L501.9520 #### [facility] [address] [place], [address] Erythrocyte distribution width (RBC) [Ratio] 13.2 % Normal 11.6-14.6 [facility] Comment on above: Performed By: #### L 500.4050, L506.1000, L509.3000, L100.0100, L501.9520 #### [facility] [address] [place], [address] Hematocrit (Bld) [Volume fraction] 41.9 % Normal 40-54 [facility] Comment on above: Performed By: #### L 500.4050, L506.1000, L509.3000, L100.0100, L501.9520 #### [facility] [address] [place], [address] Hemoglobin (Bld) [Mass/Vol] 14.2 g/dL Normal 13.0-16.5 [facility] Comment on above: Performed By: #### L 500.4050, L506.1000, L509.3000, L100.0100, L501.9520 #### [facility] [address] [place], [address] IG% 0.400 Normal 0.0-0.9 [facility] Comment on above: Result Comment: IG% - Immature Granulocytes (promyelocytes, myelocytes and metamyelocytes) > 1% indicates that a LEFT SHIFT is Present. Performed By: #### L 500.4050, L506.1000, L509.3000, L100.0100, L501.9520 #### [facility] [address] [place], [address] Lymphocytes/100 WBC (Bld) 34.9 % Normal 19-41 [facility] Comment on above: Performed By: #### L 500.4050, L506.1000, L509.3000, L100.0100, L501.9520 #### [facility] [address] [place], [address] MCH (RBC) [Entitic mass] 30.9 pg Normal 27.0-32.0 [facility] Comment on above: Performed By: #### L 500.4050, L506.1000, L509.3000, L100.0100, L501.9520 #### [facility] [address] [place], [address] MCHC (RBC) [Mass/Vol] 33.9 g/dL Normal 32-36 [facility] Comment on above: Performed By: #### L 500.4050, L506.1000, L509.3000, L100.0100, L501.9520 #### [facility] [address] [place], [address] MCV (RBC) [Entitic vol] 91.1 fL Normal 80-94 [facility] Comment on above: Performed By: #### L 500.4050, L506.1000, L509.3000, L100.0100, L501.9520 #### [facility] [address] [place], [address] Monocytes/100 WBC (Bld) 6.8 % Normal 0-10 [facility] Comment on above: Performed By: #### L 500.4050, L506.1000, L509.3000, L100.0100, L501.9520 #### [facility] [address] [place], [address] Neutrophils/100 WBC (Bld) 53.7 % Normal 47-70 [facility] Comment on above: Performed By: #### L 500.4050, L506.1000, L509.3000, L100.0100, L501.9520 #### [facility] [address] [place], [address] Nucleated RBC (Bld) [#/Vol] 0 10*3/uL Normal 0-5 [facility] Comment on above: Performed By: #### L 500.4050, L506.1000, L509.3000, L100.0100, L501.9520 #### [facility] [address] [place], [address] Platelet mean volume (Bld) [Entitic vol] 10.3 fL Normal 6.2-12.0 [facility] Comment on above: Performed By: #### L 500.4050, L506.1000, L509.3000, L100.0100, L501.9520 #### [facility] [address] [place], [address] Platelets (Bld) [#/Vol] 142 10*3/uL Low 150-450 [facility] Comment on above: Performed By: #### L 500.4050, L506.1000, L509.3000, L100.0100, L501.9520 #### [facility] [address] [place], [address] RBC (Bld) [#/Vol] 4.60 10*6/uL Normal 4.6-6.2 [facility] Comment on above: Performed By: #### L 500.4050, L506.1000, L509.3000, L100.0100, L501.9520 #### [facility] [address] [place], [address] RDW SD 42.5 fl Normal 35.1-43.9 [facility] Comment on above: Performed By: #### L 500.4050, L506.1000, L509.3000, L100.0100, L501.9520 #### [facility] [address] [place], [address] WBC (Bld) [#/Vol] 5.6 10*3/uL Normal 4.4-11.0 [facility] Comment on above: Performed By: #### L 500.4050, L506.1000, L509.3000, L100.0100, L501.9520 #### [facility] [address] [place], [address] Comprehensive Metabolic Prof [facility] 09-03-2023 Albumin [Mass/Vol] 3.5 g/dL Normal 3.2-5.0 [facility] Comment on above: Performed By: #### L 500.4050, L506.1000, L509.3000, L100.0100, L501.9520 #### [facility] [address] [place], [address] Albumin/Globulin [Mass ratio] 1.2 {ratio} Normal 0.9-2.4 [facility] Comment on above: Performed By: #### L 500.4050, L506.1000, L509.3000, L100.0100, L501.9520 #### [facility] [address] [place], [address] ALK P 56 U/L Normal 45-117 [facility] Comment on above: Performed By: #### L 500.4050, L506.1000, L509.3000, L100.0100, L501.9520 #### [facility] [address] [place], [address] ALT [Catalytic activity/Vol] 31 U/L Normal 16-61 [facility] Comment on above: Performed By: #### L 500.4050, L506.1000, L509.3000, L100.0100, L501.9520 #### [facility] [address] [place], [address] AST [Catalytic activity/Vol] 21 U/L Normal 15-37 [facility] Comment on above: Performed By: #### L 500.4050, L506.1000, L509.3000, L100.0100, L501.9520 #### [facility] [address] [place], [address] Bilirubin [Mass/Vol] 0.80 mg/dL Normal 0.20-1.00 [facility] Comment on above: Result Comment: For patients on eltrombopag therapy, use of Dimension [place] TBIL is not recommended. Performed By: #### L 500.4050, L506.1000, L509.3000, L100.0100, L501.9520 #### [facility] [address] [place], [address] BUN/CRE 13.6 RATIO Normal 10-20 [facility] Comment on above: Performed By: #### L 500.4050, L506.1000, L509.3000, L100.0100, L501.9520 #### [facility] [address] [place], [address] CA,Total 9.1 mg/dL Normal 8.5-10.1 [facility] Comment on above: Performed By: #### L 500.4050, L506.1000, L509.3000, L100.0100, L501.9520 #### [facility] [address] [place], [address] Chloride [Moles/Vol] 108 mmol/L High 98-107 [facility] Comment on above: Performed By: #### L 500.4050, L506.1000, L509.3000, L100.0100, L501.9520 #### [facility] [address] [place], [address] CO2 [Moles/Vol] 26.0 mmol/L Normal 21.0-32.0 [facility] Comment on above: Performed By: #### L 500.4050, L506.1000, L509.3000, L100.0100, L501.9520 #### [facility] [address] [place], [address] Creatinine [Mass/Vol] 1.10 mg/dL Normal 0.70-1.30 [facility] Comment on above: Result Comment: The validity of the calculated GFR GFRAA in patients over 70 years has not been determined. Clinical correlation is essential. Performed By: #### L 500.4050, L506.1000, L509.3000, L100.0100, L501.9520 #### [facility] [address] [place], [address] EST GFR - AA 84 mL/min Normal >60 [facility] Comment on above: Result Comment: Afri can Croatian GFR Calc Performed By: #### L 500.4050, L506.1000, L509.3000, L100.0100, L501.9520 #### [facility] [address] [place], [address] GAP 6 Normal 5-15 [facility] Comment on above: Performed By: #### L 500.4050, L506.1000, L509.3000, L100.0100, L501.9520 #### [facility] [address] [place], [address] GFR/1.73 sq M.predicted among non-blacks MDRD (S/P/Bld) [Vol rate/Area] 69 mL/min/{1.73_m2} Normal >60 [facility] Comment on above: Result Comment: Non- GFR Calc Performed By: #### L 500.4050, L506.1000, L509.3000, L100.0100, L501.9520 #### [facility] [address] [place], [address] Globulin (S) [Mass/Vol] 3.0 g/dL Normal 2.2-4.2 [facility] Comment on above: Performed By: #### L 500.4050, L506.1000, L509.3000, L100.0100, L501.9520 #### [facility] [address] [place], [address] Glucose [Mass/Vol] 121 mg/dL High 74-106 [facility] Comment on above: Result Comment: Fast ing Glucose result from 100 to 125 mg/dL suggests IMPAIRED HOMEOSTASIS per A.D.A. criteria. Performed By: #### L 500.4050, L506.1000, L509.3000, L100.0100, L501.9520 #### [facility] [address] [place], [address] Potassium [Moles/Vol] 4.1 mmol/L Normal 3.5-5.1 [facility] Comment on above: Performed By: #### L 500.4050, L506.1000, L509.3000, L100.0100, L501.9520 #### [facility] [address] [place], [address] Sodium [Moles/Vol] 140 mmol/L Normal 136-145 [facility] Comment on above: Performed By: #### L 500.4050, L506.1000, L509.3000, L100.0100, L501.9520 #### [facility] [address] [place], [address] T PROT 6.5 g/dL Normal 6.4-8.2 [facility] Comment on above: Performed By: #### L 500.4050, L506.1000, L509.3000, L100.0100, L501.9520 #### [facility] [address] [place], [address] Urea nitrogen [Mass/Vol] 15 mg/dL Normal 7-18 [facility] Comment on above: Performed By: #### L 500.4050, L506.1000, L509.3000, L100.0100, L501.9520 #### [facility] [address] [place], [address] Testosterone, Serum Totalon 09-03-2023 Testosterone [Mass/Vol] 549.74 ng/dL Normal [facility] Comment on above: Result Comment: CENT RAL 90% REFERENCE RANGES MALE AGE <50 197.44 - 669.58 ng/dL MALE AGE > or = 50 187.72 - 684.19 ng/dL FEMALE AGE <50 8.38 - 35.01 ng/dL FEMALE AGE > or = 50 <7.00 - 35.92 ng/dL Effective as of 09/07/20 Performed By: #### L 500.4050, L506.1000, L509.3000, L100.0100, L501.9520 #### [facility] [address] [place], [address] Thyroid Stim Hormone (TSH)on 09-03-2023 TSH 2.22 uIU/mL Normal 0.358-3.74 [facility] Comment on above: Performed By: #### L 500.4050, L506.1000, L509.3000, L100.0100, L501.9520 #### [facility] [address] [place], [address] Vitamin D,25 Hydroxyon 09-02 Vitamin D 25-OH 36.0 ng/mL Normal [facility] Comment on above: Result Comment: Jessica min D 25(OH) Status Range Deficiency <20 ng/mL (50nmol/L) Insufficiency 20 - 30 ng/mL (50 - 75 nmol/L) Sufficiency 30 - 100 ng/mL (75 - 250 nmol/L) Toxicity >100 ng/mL (>250 nmol/L) Performed By: #### L 500.4050, L506.1000, L509.3000, L100.0100, L501.9520 #### [facility] [address] [place], [address] Cardiology Visit Reporton Cardiology Visit Report [facility] [address] [place] [address] OFFICE VISIT Date of Service: 07/25/23 MR#: [id number] Acct: [id number] Name: JOAN ROTHMAN Rep #: [id number] : 1950 Provider: KILEY graves Age/Sex: 72/M Location: [facility] Status: Signed HPI HPI History of Present Illness Details: Pleasant 72-year-old man with a history of known paroxysmal atrial fibrillation, hyperlipidemia, and obstructive sleep apnea. The patient had previously been seen at the [facility] for management of his atrial fibrillation. His first diagnosis was in approximately 2014 and was managed with sotalol. In January 2019 he had a right occipital stroke with no residual. He had hemorrhagic conversion unfortunately was started on aspirin and later switched to apixaban. He had been seen at the [facility] and it was thought that he was bradycardic and he was offered switching him to a different antiarrhythmic such as Tikosyn or considering him for a PVI ablation. After seeing us we discussed it for a while and he agreed to have an ablation which she eventually had done in August 2022. He denies chest, arm, jaw, or neck discomfort. He denies palpitations. He denies bilateral lower extremity edema. He denies claudication. He denies shortness of breath with activity, shortness of breath at rest, orthopnea, or PND. He denies chronic cough. He denies significant, sudden weight gain. He denies lightheadedness, dizziness, near-syncope, or syncope. He denies blood in urine, blood in stool, or epistaxis. He denies fever with chills. He denies myalgia. He states fatigue. His exercise level has remained stable. 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 Is patient in pain?: No Allergies No Known Allergies Allergy (Unverified 07/25/23 09:35) Medications ???Medication ???Instructions ???Recorded ???Confirmed ???Type apixaban 5 mg tablet (Eliquis) 5 mg PO BID 12/15/19 07/25/23 History rosuvastatin 10 mg tablet 10 mg PO QHS 12/15/19 07/25/23 History sildenafil (pulm.hypertension) 20 60 mg PO DAILY PRN 02/14/22 07/25/23 History mg tablet levothyroxine 25 mcg tablet 25 mcg PO DAILY 10/19/22 07/25/23 History flaxseed oil 1,000 mg capsule 1,000 mg PO DAILY 07/25/23 07/25/23 History magnesium oxide 400 mg (241.3 mg 400 mg PO DAILY 07/25/23 07/25/23 History magnesium) tablet melatonin 10 mg tablet 10 mg PO HS PRN 07/25/23 07/25/23 History metoprolol tartrate 25 mg tablet 12.5 mg PO QDAY 07/25/23 07/25/23 History multivitamin 1 tab PO DAILY 07/25/23 07/25/23 History omega-3 fatty acids 1,000 mg 1,000 mg PO DAILY 07/25/23 07/25/23 History capsule Ejection fraction %: 62 PFSH Medical History CHRIS on CPAP Insomnia Stroke ( 01/2019) Vitamin D deficiency Hyperlipidemia History of stroke Ocular migraine Rotator cuff syndrome of left shoulder Bilateral carpal tunnel syndrome Erectile dysfunction Paroxysmal atrial fibrillation Rheumatoid arthritis GERD (gastroesophageal reflux disease) Pneumonia IBS (irritable bowel syndrome) UTI (urinary tract infection) Surgical History History of bilateral cataract extraction History of radiofrequency ablation procedure for cardiac arrhythmia (08/22/22) History of tonsillectomy History of hernia surgery Family History Mother Heart disease Father CVA (cerebral vascular accident) Other Arthritis Breast cancer Depression (emotion) Social History (Updated 07/25/23 @ 09:40 by Margie Bar) Smoking Status: Former smoker how long ago did patient quit smokin alcohol intake: current alcohol intake frequency: 0-2 drinks per day Alcohol type: hard liquor substance use type: does not use caffeine: Yes Type: coffee Number of servings: 1 additional social history: DOES NOT USE ASPIRIN DOES NOT USE IBUPROFEN ROS Const Const: Positive for fatigue (Occasionally, worse X 1 last week but was doing a lot of work); Negative for weakness, headache(s), frequent falls, difficulty sleeping or excessive sweating Eyes Eyes: Negative for loss of peripheral vision, transient loss of vision, blurry vision, double vision or tunnel vision ENT ENT: Negative for headache(s), dizziness, Nosebleed/epistaxis or balance problems Cardio Chest Pain: No Palpitations: No Edema: None Muscle aches with walking: None R (more content not included)... Normal [facility] Abdomen/Pelvis WITH Contrast on 07-04-2023 Abdomen/Pelvis WITH Contrast [facility] Imaging Services [address] [place] [address] [id number] Abdomen/Pelvis WITH Contrast MR#: [id number] Acct: [id number] Name: JOAN ROTHMAN Rep #: [id number] : 1950 M 72 From: Saleem Caballero MD PCP: Dr. Joon Simmons MD Status: REG CLI Study: Abdomen/Pelvis WITH Contrast Date of Exam: Exam# [id number] Ordering Dr: Joon Simmons MD [id number] STUDY: CT ABDOMEN AND PELVIS WITH CONTRAST REASON FOR EXAM: Male, 72 years old. Diffuse abdominal pain RADIATION DOSAGE (If Supplied By Facility): CTDIvol = ( 12.50 ) mGy, DLP = ( 809.04 ) mGycm TECHNIQUE: Transaxial images were obtained from the dome of the diaphragm to the symphysis pubis with oral contrast. Oral and amp; IV Readi-CAT and amp; 100mL Isovue-300 was administered. Sagittal and coronal images were reconstructed. Individualized dose optimization techniques were used for this CT. COMPARISON: 10/21/2020 FINDINGS: The visualized lung bases are unremarkable. The visualized portions of the heart are within normal limits. Liver is unremarkable aside from stable scattered simple cysts. Stable phrygian cap noted in the gallbladder, no CT evidence of acute gallbladder disease. Stable low-attenuation area within the posterior lateral spleen likely a cyst. Normal pancreas. Normal bilateral adrenal glands. No obstructive uropathy, stable bilateral parapelvic renal cysts. Normal visualized stomach. Normal small intestine. Retained stool noted throughout the colon, scattered colonic diverticula without CT evidence of acute diverticulitis. The appendix is visualized and appears normal. Appendix seen on coronal reconstructed image 62 through 65 Normal abdominal aorta. Normal inferior vena cava. Normal retroperitoneum. Normal urinary bladder. Stable mild enlargement of the prostate. The prostate contains multiple calcifications suggesting chronic prostatitis. Normal abdominal wall. There are diffuse degenerative changes of the visualized lumbar spine, and pelvis. CT/Abdomen/Pelvis WITH Contrast IMPRESSION: Scattered stable simple hepatic, splenic, and renal cysts, no specific follow-up needed. Retained stool in the colon with scattered colonic diverticula, no CT evidence of acute diverticulitis No free intraperitoneal fluid, air, or suspicious adenopathy Stable prostate enlargement Electronically Signed: Eliceo Caballero MD at 10:23 EDT , CC: Dr. Joon Simmons MD Servicing Rep: Signed Normal [facility] CREATININE FINGERSTICKon CREATININE WB < 1.0 Normal 0.70-1.30 [facility] Comment on above: Performed By: #### L 9100.0200 #### [facility] [address] [place], [place], [address] EGFR WB > 60.0000 Normal >60 [facility] Comment on above: Performed By: #### L 9100.0200 #### [facility] [address] [place], [place], [id number] Absolute lymphocyte countOrd ered By: Joon Simmons on 03-05-2023 Lymphocytes Auto (Unsp spec) [#/Vol] 1.96 10*3/uL 0.83-4.51 [facility] Automated lymphocyte count a s percentage of total leukocytesOrdered By: Joon Simmons on 03-05-2023 Lymphocytes/100 WBC Auto (Unsp spec) 33.1 % 19-41 [facility] Basophil percentageOrdered B y: Joon Simmons on 03-05-2023 Basophils/100 WBC (Bld) 0.5 % 0-1 [facility] Bilirubin [Mass/Vol] 0.70 mg/dL 0.20-1.00 [facility] Comment on above: For patients on eltr ombopag therapy, use of Dimension [place] TBIL is not recommended. Chloride [Moles/Vol] 110 mmol/L 98-107 [facility] Eosinophils/100 WBC (Bld) 5.6 % 0-5 [facility] Glucose [Mass/Vol] 98 mg/dL 74-106 [facility] Hemoglobin (Bld) [Mass/Vol] 14.4 g/dL 13.0-16.5 [facility] Monocytes/100 WBC (Bld) 9.8 % 0-10 [facility] Neutrophils (Bld) [#/Vol] 3.0 10*3/uL 2.0-7.7 [facility] Neutrophils/100 WBC (Bld) 50.8 % 47-70 [facility] Potassium [Moles/Vol] 4.3 mmol/L 3.5-5.1 [facility] Protein [Mass/Vol] 6.7 g/dL 6.4-8.2 [facility] Sodium [Moles/Vol] 141 mmol/L 136-145 [facility] WBC (Bld) [#/Vol] 5.9 10*3/uL 4.4-11.0 [facility] Determination of erythrocyte mean corpuscular volume (MCV)Ordered By: Joon Simmons on 03-05-2023 MCV (RBC) [Entitic vol] 92.2 fL 80-94 [facility] Erythrocyte distribution wid th ratioOrdered By: Joon Troy on 03-05-2023 Erythrocyte distribution width (RBC) [Ratio] 13.5 % 11.6-14.6 [facility] Erythrocyte distribution wid th standard deviationOrdered By: Joon Troy on 03-05-2023 Erythrocyte distribution width (RBC) [Entitic vol] 45.7 fL 35.1-43.9 [facility] Hematocrit Auto (Bld) [Volum e fraction]Ordered By: Joon Simmons on 03-05-2023 Hematocrit (Bld) [Volume fraction] 42.8 % 40-54 [facility] Immature granulocytes/100 WB C Auto (Bld)Ordered By: Joon Simmons on 03-05-2023 Immature granulocytes/100 WBC (Bld) 0.200 % 0.0-0.9 [facility] Comment on above: IG% - Immature Granu locytes (promyelocytes, myelocytes and metamyelocytes) > 1% indicates that a LEFT SHIFT is Present. Laboratory - Chemistry and C hemistry - challengeOrdered By: Joon Simmons on 03-05-2023 Albumin/Globulin [Mass ratio] 1.3 {ratio} 0.9-2.4 [facility] ALP [Catalytic activity/Vol] 57 U/L 45-117 [facility] ALT [Catalytic activity/Vol] 32 U/L 16-61 [facility] CO2 [Moles/Vol] 28.0 mmol/L 21.0-32.0 [facility] Globulin (S) [Mass/Vol] 2.9 g/dL 2.2-4.2 [facility] Urea nitrogen/Creatinine [Mass ratio] 14.0 mg/mg 10-20 [facility] - Hematology and Cell countsOrdered By: Joon Simmons 03-05-2023 MCH (RBC) [Entitic mass] 31.0 pg 27.0-32.0 [facility] MCHC (RBC) [Mass/Vol] 33.6 g/dL 32-36 [facility] Nucleated RBC/100 WBC (Bld) [Ratio] 0 % 0-5 [facility] Platelets (Bld) [#/Vol] 113 10*3/uL 150-450 [facility] No Panel InformationOrdered By: Joon Simmons on 03-05-2023 Estimated GFR (MDRD) Amer 94 mL/min >60 [facility] Comment on above: GFR Calc Estimated GFR (MDRD) Non-Af Amer 78 mL/min >60 [facility] Comment on above: Non- GFR Calc Vitamin D 25-Hydroxy 33.0 ng/mL [facility] Comment on above: Vitamin D 25(OH) Sta tus Range Deficiency <20 ng/mL (50nmol/L) Insufficiency 20 - 30 ng/mL (50 - 75 nmol/L) Sufficiency 30 - 100 ng/mL (75 - 250 nmol/L) Toxicity >100 ng/mL (>250 nmol/L) Platelet mean volume Billy-Ec ker (Bld) [Entitic vol]Ordered By: Joon Simmons on 03-05-2023 Platelet mean volume (Bld) [Entitic vol] 10.2 fL 6.2-12.0 [facility] RBC Auto (Bld) [#/Vol]Ordere d By: Joon Simmons on 03-05-2023 RBC (Bld) [#/Vol] 4.64 10*6/uL 4.6-6.2 [facility] Serum or plasma calcium gee urement (mass/volume)Ordered By: Joon Simmons on 03-05-2023 Calcium [Mass/Vol] 9.2 mg/dL 8.5-10.1 [facility] Serum or plasma creatinine m easurement (mass/volume)Ordered By: Joon Simmons on 03-05-2023 Creatinine [Mass/Vol] 1.00 mg/dL 0.70-1.30 [facility] Comment on above: The validity of the calculated GFR & GFRAA in patients over 70 years has not been determined. Clinical correlation is essential. Serum or plasma thyroid stim ulating hormone (TSH) measurement (units/volume)Ordered By: Joon Simmons on 03-05-2023 TSH Qn 3.29 uIU/mL 0.358-3.74 [facility] Serum or plasma urea nitroge n measurement (mass/volume)Ordered By: Joon Simmons on 03-05-2023 Urea nitrogen [Mass/Vol] 14 mg/dL 7-18 [facility] Thin prep Papanicolaou smear with manual screeningOrdered By: Joon Simmons on 03-05-2023 Thin prep Papanicolaou smear with manual screening 3.8 g/dL 3.2-5.0 [facility] Thin prep Papanicolaou smear with manual screening 23 U/L 15-37 [facility] Thin prep Papanicolaou smear with manual screening 3 5-15 [facility] ARRHYTHMIA TRANS TELE MEASUR [place] 10-23-2022 Measure MO Interval [facility] MEASURE QRS Interval 60 [facility] MEASURE QT Interval 450 [facility] MEASURE RR INTERVAL MAX 54.08 [facility] Symptoms routine [facility] ARRHYTHMIA TRANS TELE MEASUR [place] 2022 Measure MO Interval 144 [facility] MEASURE QRS Interval 84 [facility] MEASURE QT Interval 422 [facility] MEASURE RR INTERVAL MAX 44.64 [facility] Symptoms Routine [facility] ARRHYTHMIA TRANS TELE MEASUR [place] 10-09-2022 Measure MO Interval 130 [facility] MEASURE QRS Interval 87 [facility] MEASURE QT Interval 436 [facility] MEASURE RR INTERVAL MAX 50.85 [facility] Symptoms routine [facility] ARRHYTHMIA TRANS TELE MEASUR [place] 09-25-2022 Measure MO Interval 151 [facility] MEASURE QRS Interval 60 [facility] MEASURE QT Interval 432 [facility] MEASURE RR INTERVAL MAX 44.64 [facility] Symptoms routine [facility] ARRHYTHMIA TRANS TELE MEASUR [place] 09-18-2022 Measure MO Interval 174 [facility] MEASURE QRS Interval 100 [facility] MEASURE QT Interval 430 [facility] MEASURE RR INTERVAL MAX 47.68 [facility] Symptoms Routine [facility] ARRHYTHMIA TRANS TELE MEASUR [place] 09-11-2022 Measure MO Interval 136 [facility] MEASURE QRS Interval 91 [facility] MEASURE QT Interval 465 [facility] MEASURE RR INTERVAL MAX 46.84 [facility] Symptoms Routine [facility] ARRHYTHMIA TRANS TELE MEASUR [place] 08-30-2022 Measure MO Interval 156 [facility] MEASURE QRS Interval [facility] MEASURE QT Interval 473 [facility] MEASURE RR INTERVAL MAX [facility]49 [facility] Symptoms Routine [facility] Absolute lymphocyte countOrd ered By: Dr. Simmons on 02-28-2022 Lymphocytes Auto (Unsp spec) [#/Vol] 2.05 10*3/uL 0.83-4.51 [facility] Basophil percentageOrdered B y: Dr. Simmons on 02-28-2022 Basophils/100 WBC (Bld) 0.1 % 0-1 [facility] Bilirubin [Mass/Vol] 0.90 mg/dL 0.20-1.00 [facility] Comment on above: For patients on eltr ombopag therapy, use of Dimension [place] TBIL is not recommended. Chloride [Moles/Vol] 105 mmol/L 98-107 [facility] Eosinophils/100 WBC (Bld) 4.2 % 0-5 [facility] Glucose [Mass/Vol] 104 mg/dL 74-106 [facility] Comment on above: Fasting Glucose resu lt from 100 to 125 mg/dL suggests IMPAIRED HOMEOSTASIS per A.D.A. criteria. Neutrophils (Bld) [#/Vol] 4.3 10*3/uL 2.0-7.7 [facility] Neutrophils/100 WBC (Bld) 57.9 % 47-70 [facility] Potassium [Moles/Vol] 4.0 mmol/L 3.5-5.1 [facility] Protein [Mass/Vol] 6.6 g/dL 6.4-8.2 [facility] Sodium [Moles/Vol] 139 mmol/L 136-145 [facility] Testosterone [Mass/Vol] 463.52 ng/dL [facility] Comment on above: CENTRAL 90% REFERENC E RANGES MALE AGE <50 197.44 - 669.58 ng/dL MALE AGE > or = 50 187.72 - 684.19 ng/dL FEMALE AGE <50 8.38 - 35.01 ng/dL FEMALE AGE > or = 50 <7.00 - 35.92 ng/dL Effective as of 09/07/20 WBC (Bld) [#/Vol] 7.4 10*3/uL 4.4-11.0 [facility] Blood erythrocytes count (nu mber/volume)Ordered By: Dr. Simmons on 02-28-2022 RBC (Bld) [#/Vol] 4.52 10*6/uL 4.6-6.2 [facility] Blood hemoglobin measurement (mass/volume)Ordered By: Dr. Simmons on 02-28-2022 Hemoglobin (Bld) [Mass/Vol] 14.8 g/dL 13.0-16.5 [facility] Blood lymphocytes/100 leukoc ytesOrdered By: Dr. Simmons on 02-28-2022 Lymphocytes/100 WBC (Bld) 27.9 % 19-41 [facility] Blood monocytes/100 leukocyt esOrdered By: Dr. Simmons on 02-28-2022 Monocytes/100 WBC (Bld) 9.6 % 0-10 [facility] Blood platelet mean volumeOr dered By: Dr. Simmons on 02-28-2022 Platelet mean volume (Bld) [Entitic vol] 10.5 fL 6.2-12.0 [facility] Determination of erythrocyte mean corpuscular volume (MCV)Ordered By: Dr. Simmons on 02-28-2022 MCV (RBC) [Entitic vol] 90.7 fL 80-94 [facility] Hematocrit Auto (Bld) [Volum e fraction]Ordered By: Dr. Simmons on 02-28-2022 Hematocrit (Bld) [Volume fraction] 41.0 % 40-54 [facility] - Chemistry and C hemistry - challengeOrdered By: Dr. Simmons on 02-28-2022 ALP [Catalytic activity/Vol] 51 U/L 45-117 [facility] ALT [Catalytic activity/Vol] 29 U/L 16-61 [facility] CO2 [Moles/Vol] 28.0 mmol/L 21.0-32.0 [facility] Globulin (S) [Mass/Vol] 2.9 g/dL 2.2-4.2 [facility] Urea nitrogen/Creatinine [Mass ratio] 15.0 mg/mg 10-20 [facility] - Hematology and Cell countsOrdered By: Dr. Simmons on 02-28-2022 Erythrocyte distribution width (RBC) [Entitic vol] 42.4 fL 35.1-43.9 [facility] Erythrocyte distribution width (RBC) [Ratio] 13.0 % 11.6-14.6 [facility] Immature granulocytes/100 WBC (Bld) 0.300 % 0.0-0.9 [facility] Comment on above: IG% - Immature Granu locytes (promyelocytes, myelocytes and metamyelocytes) > 1% indicates that a LEFT SHIFT is Present. MCH (RBC) [Entitic mass] 32.7 pg 27.0-32.0 [facility] Nucleated RBC/100 WBC (Bld) [Ratio] 0 % 0-5 [facility] MCHC Auto (RBC) [Mass/Vol]Or dered By: Dr. Simmons on 02-28-2022 MCHC (RBC) [Mass/Vol] 36.1 g/dL 32-36 [facility] No Panel InformationOrdered By: Dr. Simmons on 02-28-2022 Estimated GFR (MDRD) Amer 102 mL/min >60 [facility] Comment on above: GFR Calc Estimated GFR (MDRD) Non-Af Amer 84 mL/min >60 [facility] Comment on above: Non- GFR Calc Thyroid Stimulating Hormone (TSH) 2.25 uIU/mL 0.358-3.74 [facility] Vitamin D 25-Hydroxy 29.5 ng/mL [facility] Comment on above: Vitamin D 25(OH) Sta tus Range Deficiency <20 ng/mL (50nmol/L) Insufficiency 20 - 30 ng/mL (50 - 75 nmol/L) Sufficiency 30 - 100 ng/mL (75 - 250 nmol/L) Toxicity >100 ng/mL (>250 nmol/L) Platelets bldOrdered By: Dr. Simmons on 02-28-2022 Platelets (Bld) [#/Vol] 128 10*3/uL 150-450 [facility] Serum or plasma albumin gee urement (mass/volume)Ordered By: Dr. Simmons on 02-28-2022 Albumin [Mass/Vol] 3.7 g/dL 3.2-5.0 [facility] Serum or plasma albumin/glob ulin mass ratioOrdered By: Dr. Simmons on 02-28-2022 Albumin/Globulin [Mass ratio] 1.3 {ratio} 0.9-2.4 [facility] Serum or plasma calcium gee urement (mass/volume)Ordered By: Dr. Simmons on 02-28-2022 Calcium [Mass/Vol] 9.0 mg/dL 8.5-10.1 [facility] Serum or plasma creatinine m easurement (mass/volume)Ordered By: Dr. Simmons on 02-28-2022 Creatinine [Mass/Vol] 0.93 mg/dL 0.70-1.30 [facility] Comment on above: The validity of the calculated GFR & GFRAA in patients over 70 years has not been determined. Clinical correlation is essential. Serum or plasma urea nitroge n measurement (mass/volume)Ordered By: Dr. Simmons on 02-28-2022 Urea nitrogen [Mass/Vol] 14 mg/dL 7-18 [facility] Thin prep Papanicolaou smear with manual screeningOrdered By: Dr. Simmons on 02-28-2022 Thin prep Papanicolaou smear with manual screening 17 U/L 15-37 [facility] Thin prep Papanicolaou smear with manual screening 6 5-15 [facility] Absolute lymphocyte counton 08-24-2021 Lymphocytes Auto (Unsp spec) [#/Vol] 2.55 10*3/uL 0.83-4.51 [facility] Work Phone: Basophil percentageon 2021 Basophils/100 WBC (Bld) 0.4 % 0-1 [facility] Work Phone: Bilirubin [Mass/Vol] 0.70 mg/dL 0.20-1.00 [facility] Work Phone: Comment on above: For patients on eltr ombopag therapy, use of Dimension [place] TBIL is not recommended. Chloride [Moles/Vol] 110 mmol/L 98-107 [facility] Work Phone: Eosinophils/100 WBC (Bld) 4.2 % 0-5 [facility] Work Phone: Glucose [Mass/Vol] 99 mg/dL 74-106 [facility] Work Phone: Neutrophils (Bld) [#/Vol] 3.8 10*3/uL 2.0-7.7 [facility] Work Phone: Neutrophils/100 WBC (Bld) 50.4 % 47-70 [facility] Work Phone: Potassium [Moles/Vol] 4.3 mmol/L 3.5-5.1 [facility] Work Phone: Protein [Mass/Vol] 6.5 g/dL 6.4-8.2 [facility] Work Phone: Sodium [Moles/Vol] 140 mmol/L 136-145 [facility] Work Phone: Testosterone [Mass/Vol] 692.60 ng/dL [facility] Work Phone: Comment on above: CENTRAL 90% REFERENC E RANGES MALE AGE <50 197.44 - 669.58 ng/dL MALE AGE > or = 50 187.72 - 684.19 ng/dL FEMALE AGE <50 8.38 - 35.01 ng/dL FEMALE AGE > or = 50 <7.00 - 35.92 ng/dL Effective as of 09/07/20 WBC (Bld) [#/Vol] 7.4 10*3/uL 4.4-11.0 [facility] Work Phone: Blood erythrocytes count (nu mber/volume)on 08-24-2021 RBC (Bld) [#/Vol] 5.01 10*6/uL 4.6-6.2 [facility] Work Phone: Blood hemoglobin measurement (mass/volume)on 08-24-2021 Hemoglobin (Bld) [Mass/Vol] 16.0 g/dL 13.0-16.5 [facility] Work Phone: Blood lymphocytes/100 leukoc yteson 08-24-2021 Lymphocytes/100 WBC (Bld) 34.3 % 19-41 [facility] Work Phone: Blood monocytes/100 leukocyt eson 08-24-2021 Monocytes/100 WBC (Bld) 10.6 % 0-10 [facility] Work Phone: Blood platelet mean volumeon 08-24-2021 Platelet mean volume (Bld) [Entitic vol] 11.0 fL 6.2-12.0 [facility] Work Phone: Determination of erythrocyte mean corpuscular volume (MCV)on 08-24-2021 MCV (RBC) [Entitic vol] 90.2 fL 80-94 [facility] Work Phone: Hematocrit Auto (Bld) [Volum e fraction]on 08-24-2021 Hematocrit (Bld) [Volume fraction] 45.2 % 40-54 [facility] Work Phone: Laboratory - Chemistry and C hemistry - challengeon 08-24-2021 ALP [Catalytic activity/Vol] 53 U/L 45-117 [facility] Work Phone: ALT [Catalytic activity/Vol] 32 U/L 16-61 [facility] Work Phone: CO2 [Moles/Vol] 26.0 mmol/L 21.0-32.0 [facility] Work Phone: Globulin (S) [Mass/Vol] 2.7 g/dL 2.2-4.2 [facility] Work Phone: Urea nitrogen/Creatinine [Mass ratio] 12.9 mg/mg 10-20 [facility] Work Phone: [phone] Laboratory - Hematology and Cell countson 08-24-2021 Erythrocyte distribution width (RBC) [Entitic vol] 42.6 fL 35.1-43.9 [facility] Work Phone: Erythrocyte distribution width (RBC) [Ratio] 13.1 % 11.6-14.6 [facility] Work Phone: [phone] Immature granulocytes/100 WBC (Bld) 0.100 % 0.0-0.9 [facility] Work Phone: Comment on above: IG% - Immature Granu locytes (promyelocytes, myelocytes and metamyelocytes) > 1% indicates that a LEFT SHIFT is Present. MCH (RBC) [Entitic mass] 31.9 pg 27.0-32.0 [facility] Work Phone: Nucleated RBC/100 WBC (Bld) [Ratio] 0 % 0-5 [facility] Work Phone: MCHC Auto (RBC) [Mass/Vol]on 08-24-2021 MCHC (RBC) [Mass/Vol] 35.4 g/dL 32-36 [facility] Work Phone: No Panel Informationon 08-24 Estimated GFR (MDRD) Amer 93 mL/min >60 [facility] Work Phone: Comment on above: GFR Calc Estimated GFR (MDRD) Non-Af Amer 77 mL/min >60 [facility] Work Phone: Comment on above: Non- GFR Calc Thyroid Stimulating Hormone (TSH) 2.89 uIU/mL 0.358-3.74 [facility] Work Phone: Vitamin D 25-Hydroxy 33.3 ng/mL [facility] Work Phone: Comment on above: Vitamin D 25(OH) Sta tus Range Deficiency <20 ng/mL (50nmol/L) Insufficiency 20 - 30 ng/mL (50 - 75 nmol/L) Sufficiency 30 - 100 ng/mL (75 - 250 nmol/L) Toxicity >100 ng/mL (>250 nmol/L) Platelets bldon 08-24-2021 Platelets (Bld) [#/Vol] 151 10*3/uL 150-450 [facility] Work Phone: Serum or plasma albumin gee urement (mass/volume)on 08-24-2021 Albumin [Mass/Vol] 3.8 g/dL 3.2-5.0 [facility] Work Phone: Serum or plasma albumin/glob ulin mass ratioon 08-24-2021 Albumin/Globulin [Mass ratio] 1.4 {ratio} 0.9-2.4 [facility] Work Phone: Serum or plasma calcium gee urement (mass/volume)on 08-24-2021 Calcium [Mass/Vol] 9.2 mg/dL 8.5-10.1 [facility] Work Phone: Serum or plasma creatinine m easurement (mass/volume)on 08-24-2021 Creatinine [Mass/Vol] 1.01 mg/dL 0.70-1.30 [facility] Work Phone: Comment on above: The validity of the calculated GFR & GFRAA in patients over 70 years has not been determined. Clinical correlation is essential. Serum or plasma urea nitroge n measurement (mass/volume)on 08-24-2021 Urea nitrogen [Mass/Vol] 13 mg/dL 7-18 [facility] Work Phone: Thin prep Papanicolaou smear with manual screeningon 08-24-2021 Thin prep Papanicolaou smear with manual screening 21 U/L 15-37 [facility] Work Phone: Thin prep Papanicolaou smear with manual screening 4 5-15 [facility] Work Phone: MRI Up Ext Joint w/o Contras t Lefton 09-17-2020 MRI Up Ext Joint w/o Contrast Left [facility]: [id number] Imaging ACCESSION EXAM DATE/TIME PROCEDURE ORDERING PROVIDER [id number] 09/17/2020 15:59 EDT MRI Up Ext Joint w/o MD NEPTALI, TEDDY Mondragon Contrast Left CPT code 43851 Reason For Exam (MRI Up Ext Joint w/o Contrast Left) Rotator cuff syndrome of left shoulder Report Examination: MRI left shoulder Indication: Rotator cuff syndrome of left shoulder Technique: Multiplanar multi-sequence MRI images of the left shoulder were obtained. Findings: As presented is tendinosis is present. There is otherwise no sizable partial thickness or full-thickness rotator cuff tear. Suspect horizontal tear along the undersurface of the biceps tendon at its origin from the superior labrum on coronal image 12 of series 6 the labrum is otherwise intact and unremarkable. The long head biceps tendon is otherwise intact Small glenohumeral joint effusion is present. Small amount of subacromial subdeltoid bursal fluid is present. Suspect mild glenohumeral articular cartilage thinning without subchondral edema or cystic change. There is no focal marrow replacing lesion or occult fracture. Mild hypertrophic change of the AC joint is noted. There is no significant atrophy or signal abnormality of the rotator cuff musculature. The deltoid musculature is grossly unremarkable. The inferior joint capsule is grossly unremarkable. There is no axillary adenopathy noted. Impression: Supraspinatus tendinosis. No sizable rotator cuff tear. Suspect horizontal tear along the undersurface of the biceps anchor. Otherwise intact labrum. Small glenohumeral joint effusion and small amount of subacromial subdeltoid bursal fluid.. Magnetic Resonance Imaging Report Report Dictated on Final Dictating Physician: MD CAMARILLO KRIKOR Signed Date and Time: 09/19/2020 7:31 pm Signed by: MD CAMARILLO KRIKOR Transcribed Date and Time: 09/19/2020 7:32 Normal [facility] CR Shoulder 2+ Views Lefton 08-18-2020 CR Shoulder 2+ Views Left Patient Name: JOAN ROTHMAN Diagnostic Radiology ACCESSION EXAM DATE/TIME PROCEDURE ORDERING PROVIDER [id number] 08/18/2020 11:46 EDT CR Shoulder 2+ Views SHANITA ROMERO NATALIE M Left CPT code 86065 Reason For Exam (CR Shoulder 2+ Views Left) CHRONIC LEFT SHOULDER PAIN. Report Indication: Pain. Four views of the left shoulder show no evidence of an acute fracture or dislocation. There is no bone destruction, erosion or periosteal reaction. There is narrowing of the left glenohumeral joint with mild osteophytosis along the inferior aspect of the glenoid. These findings are compatible with osteoarthritic degenerative changes. The left acromioclavicular joint is intact. There are no radiopaque foreign bodies. IMPRESSION: 1. No evidence of an acute bone process. 2. 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 Report Dictated on Final Dictating Physician: DO OLIVA ANTHONY Signed Date and Time: 08/18/2020 12:27 pm Signed by: DO OLIVA ANTHONY Transcribed Date and Time: 08/18/2020 12:28 Normal [facility] CNOVon 01-29-2019 CNOV Office Visit ([facility] ) JOAN ROTHMAN ([id number]) 1950 M Date Time Provider Department 01/29/19 2:[address] [facility] During your visit today, we recorded the following information about you: Temperature Pulse Respiration Blood pressure 97 degrees 47/minute 16/minute 132/64 Weight 78.9 kg Cheyanne Wilder APRN.KEY CUTTER 01/29/2019 4:33 PM Signed [facility] Initial Visit Consultation is requested by: CHASE BANSAL PCP: Joon Simmons MD [id number] [address] CEREBROVASCULAR HISTORY Joan Rothman is a 68 year old male. Reason for Visit: stroke Date of Last Event: 01/14/2019 History of Event: Joan Rothman is a 68 yo M with a PMH of Afib not on AC, rheumatoid arthritis, GERD, depression, renal stones who presented initially to [facility] with headache and left sided vision loss that started immediately following performing neck exercises at on 01/13. Delay in presentation to ED due to uncertainty that his vision was off. Reports his vision has had intermittent deficits for several year. 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 He was discharged home on aspirin, with plan to start Eliquis approx 01/24 and stop aspirin. Patient presents for follow up today. He denies any new concerns or symptoms. He had follow up with opthamology who noted cataracts. He started Eliquis, stopped aspirin a few days ago and has not side effects to date. He is aware of increased risk of bleeding and will monitor. His PCP instructed him to start Lipitor 40 mg due to stroke/heart risk. We discussed this and I suggested that with his excellent cholesterol, 10 mg Lipitor would be a better dose for him. He did not start this yet, will discuss again with his PCP. Antiplatelets/Anticoa gulants: Apixaban Statins: Atorvastatin - has not yet started. Side effects: No Residual Deficits: No residual deficits - has had intermittent blurred vision over several years bilaterally, slightly worse since stroke Current PT/OT/ST: No therapy needs Initial Discharge Disposition: Home Current Living Situation: Home with spouse Current use of a mobility aid for walking/getting around: None No past medical history on file. No past surgical history on file. No family history on file. Social History Tobacco Use - Smoking status: Former Smoker - Smokeless tobacco: Never Used - Tobacco comment: former smoker, over 40 years ago Substance Use Topics - Alcohol use: Not on file - Drug use: Not on file MEDICATIONS Current Outpatient Medications Medication Sig - acetaminophen (TYLENOL) 325 mg tablet Take 2 tablets by mouth every 6 hours as needed. - aspirin 81 mg chewable tablet Take 1 tablet by mouth once daily for 8 days. STOP after 01/23/19, then start Eliquis 01/24 - apixaban (ELIQUIS) 5 mg tab(s) Take 1 tablet by mouth twice daily. Please use free trial coupon, call me with questions Dasha [phone]. - sotalol (BETAPACE) 80 mg tablet Take 80 mg by mouth twice daily. - MAGNESIUM ORAL Take by mouth. No current facility-administered medications for this visit. REVIEW OF SYSTEMS ALLERGIES No Known Allergies Review of Systems Constitutional: Negative Eyes Positive for Vision loss or change (bilateral eyes with blurred vision peripherally. no diplopia ) Cardiovascular: Negative Heme/Lymph Negative for Prolonged Bleeding, Easy Bruising and Swelling of Arm or Leg Neurologic Negative for Memory Problems, Headache, Numbness/Tingling, Weakness, Double Vision, Trouble Swallowing and Slurred Speech Psychiatric: Negative Patient's Review of Systems has been reviewed with the patient and updated as appropriate. PHYSICAL EXAMINATION BP 132/64 Pulse (!) 47 Temp 36.1 ?C (97 ?F) Resp 16 Wt 78.9 kg (174 lb) General: Well-developed, well-nourished, in no acute distress. HEENT: Normocephalic, atraumatic. Sclerae anicteric. Oropharynx clear. Extremities: No edema, cyanosis, or clubbing. 2+ dorsalis pedis pulses bilaterally. Skin: No rash or ecchymoses. Neurological: Awake, alert, oriented to person, place, and time. Speech fluent, no dysarthria. Naming, repetition, recall, comprehension, calculation intact. Good attention and insight into illness. Cranial Nerves: PERRL, extraocular movements intact without nystagmus. Visual nelson full. Facial sensation and movements normal and symmetric. Palate elevates equal bilaterally. Tongue midline. Trapezius strength 5/5 bilaterally. Motor: Normal bulk and tone. Strength 5/5 throughout. No pronator drift or tremor. Sensation: Intact light touch Coordination: Rapid alternating movements symmetric bilaterally. Ywkwom-[id number], bpvk-xn-xpay without dysmetria bilaterally. Gait: Narrow-based, normal spaced and stable without assistance. LABS Cholesterol: Cholesterol, Total (mg/dL) Date Value 01/14/2019 136 LDL Calculated (mg/dL) Date Value 01/14/2019 64 HDL Cholesterol (mg/dL) Date Value 01/14/2019 56 Triglyceride (mg/dL) Date Value 01/14/2019 78 Diabetes: Hemoglobin A1C (%) Date Value 01/14/2019 4.8 IMAGING MRI Report MRI BRAIN WO IVCON Exam End: 01/14/2019 11:51 AM (Final result) Narrative: * * *Final Report* * * DATE OF EXAM: Jan 14 2019 11:51AM [facility]VM [id number] - MRI BRAIN WO IVCON / PROCEDURE REASON: Headache and focal deficit or papilledema * * * * Physician Interpretation * * * * EXAMINATION: MRA BRAIN WO IVCON, MRI BRAIN WO IVCON CLINICAL HISTORY: Left-sided hemianopsia. TECHNIQUE: Routine noncontrast MRI brain protocol including diffusion images. Intracranial 3D [id number] MRA. 3D maximum intensity projection images were created, reviewed and archived . : [id number]_4 COMPARISON: None. RESULT: BRAIN: Acute Change: There is a 4.2 x 1.7 x 1.9 cm area of restricted diffusion involving cortex subcortical white matter of the medial right occipital lobe (lingula inferior to the calcarine fissure). Hemorrhage: There are subcentimeter foci of susceptibility artifact associated with the area of infarct on both DWI and T2 weighted images compatible with hemorrhagic transformation. Mass Lesion/ Mass Effect: No evidence of an intracranial mass or extra-axial fluid collection. No significant mass effect. Chronic Change: Outside of the area of subacute infarct there are scattered punctate foci of increased signal on T2 and FLAIR compatible with microvascular ischemic changes. Parenchyma: No significant volume loss for age. The brain parenchyma is otherwise within normal limits of signal intensity and morphology. Ventricles: Normal caliber and morphology. Skull Base: Hypothalamic and pituitary region are grossly normal. Craniocervical junction is normal. No significant marrow replacement process. Vasculature: Major intracranial arterial structures, and dural venous sinuses show typical flow void, suggesting patency by spin echo criteria. Other: The visualized paranasal sinuses and mastoid air cells are clear. The orbits and extracranial soft tissues are unremarkable. INTRACRANIAL MRA: The visualized distal vertebral and basilar arteries are widely patent. The distal ICAs are patent and within normal limits of caliber. The proximal ACAs, MCAs and aquaculture farmer are patent and within normal limits of caliber and configuration. There is no evidence of focal, significant stenosis or aneurysm in the visualized vessels. Impression: IMPRESSION: Acute right medial occipital infarct with hemorrhagic transformation. Remainder the brain is normal for age. Normal intracranial MRA. Servicing Rep: [facility] Transcribe Date/Time: Jan 14 2019 11:56A Dictated by : CLAUDINE GONSALVES MD This examination was interpreted and the report reviewed and electronically signed by: CLAUDINE GONSALVES MD on Jan 14 2019 12:00PM EST Complete Results Patient Entered Questionnaires Physical Health 01/29/2019 Physical Function Percentile 54 % Sleep Percentile 34 % Fatigue Percentile 46 % Pain Interference Percentile 42 % PROMIS Global Health Scale 01/29/2019 Physical Health Percentile 53 % Mental Health Percentile 63 % Percentiles provide an indication of how the patient's score ranks in relation to the general population. Higher percentile rankings indicate better function/quality of life. 50th percentile is the average of the general population and indicates half of respondents had a worse score. PROMIS Scale T-Scores -- HIGHER SCORES BETTER PROMIS Global Health 01/29/2019 Physical T-Score 50.8 Mental T-Score 53.3 01/29/2019 Physical Function 51 (within normal limits) Satisfaction w/ Social Roles 56 (within normal limits) Neuro-QoL Cognitive Function 52 (within normal limits) T-scores: mean of general population = 50. 5 points is clinically meaningfully difference PROMIS Scale T-Scores -- HIGHER SCORES WORSE 01/29/2019 Sleep Disturbance 54 (within normal limits) Fatigue 51 (within normal limits) Pain Interference 52 (within normal limits) T-scores: mean of general population = 50. 5 points is clinically meaningfully difference Depression Screening: PHQ-9 01/29/2019 Score 6 PHQ-9 Self Harm 01/29/2019 Thoughts that you would be better off , or of hurting yourself in some way 0 PHQ-9 Self-Harm (Item 9) response options: 0 Not at all 1 Several days 2 More than half the days 3 Nearly every day PHQ-9 Levels: 0-4 Minimal depression 5-9 Mild depression 10-14 Moderate depression 15-19 Moderately severe depression 20-27 Severe depression Sleep Apnea Probability Score 01/29/2019 SAPS Score 17.89 (Sleep study not recommended) Stroke Mechanism and Scales Ischemic or TIA: Ischemic Stroke TOAST Mechanism (CCF-MODIFIED): Cardioembolism Cardioembolism: Atrial fibrillation/flutter Modified Samantha Score: Score: 1 NIH Stroke Scale: LOC: 0 LOC Questions: 0 LOC Commands: 0 LOC Normal Gaze: 0 Visual Nelson: 0 Facial Palsy: 0 Motor Left Arm: 0 Motor Right Arm: 0 Motor Left Le Motor Right Le Limb Ataxia: 0 Sensory: 0 Language: 0 Dysarthria: 0 Extinction/Neglect: 0 Total Daily NIHSS: 0 IMPRESSION 1. R occipital stroke with petechial hemorrhagic conversion in setting of afib not on AC 2. Atrial fibrillation now on Eliquis 5 mg BID 3. HTN with good control 4. Vision deficit. PLAN 1. Continue Eliquis twice daily for atrial fibrillation, secondary stroke prevention. 2. Consider Atorvastatin (Lipitor) 10 mg at bedtime for secondary stroke prevention 3. Continue healthy eating and daily exercise 4. Continue follow up with your PCP for optimal management of your blood pressure, cholesterol, routine health maintenance. 5. Follow up in 6 months or sooner if needed. 6. Consult nuero opthamology for long standing intermittent vision loss and new changes if no improvement. 7. Call 911 for any new concern of stroke. Discussion, counseling, coordination of care > 50% of 30 minutes. Questions asked/ answered. Follow-up with results/ adherence to plan/ continued education. SIGNATURE Cheyanne Wilder APRN.KEY CUTTER CHASE MARTIN Chi, MD [address] [address] Cheyanne Wilder APRN.SUE 01/29/2019 2:34 PM Signed PLAN 1. Continue Eliquis twice daily for atrial fibrillation, secondary stroke prevention. 2. Consider Atorvastatin (Lipitor) 10 mg at bedtime for secondary stroke prevention 3. Continue healthy eating and daily exercise 4. Continue follow up with your PCP for optimal management of your blood pressure, cholesterol, routine health maintenance. 5. Follow up in 6 months or sooner if needed. 6. Call 911 for any new concern of stroke. Stroke Signs and Symptoms: *Stroke is a medical emergency. Know the warning signs of stroke: BE FAST (Balance, Eye, Face, Arm, Speech, Time) Sudden numbness or weakness of the face, arm or leg, especially on one side of the body Sudden confusion, trouble speaking, or understanding Sudden trouble seeing in one eye, or both eyes Sudden trouble walking, dizziness, loss of balance, or coordination Sudden severe headache with no known cause *If you, or someone with you, has one or more of these signs, don't delay! Immediately call 911, or the emergency medical services (EMS) number so an ambulance can be sent for you. Also, check the time so that you will know when the symptoms first appeared. It is very important to take immediate action, every second counts. Medical treatment may be available if action is taken early enough. ~~~~~~~~~~~~~~~~~~~~~ ~~~~~~~~~~~~~~~~~~~~~ ~~~~~~~~~~~~~~~~~~~~~ ~~~~ General Guidelines to Help Reduce Risk of Recurrent Stroke Blood Pressure Management: Blood Pressure reduction is recommended for both prevention of recurrent stroke and prevention of other vascular events in persons who have had an ischemic stroke or TIA and are beyond the first 24 hours. Several lifestyle modifications have been associated with BP reduction and are a reasonable part of a comprehensive antihypertensive therapy -These modifications include: - salt restriction - weight loss - consumption of a diet rich in fruits, vegetables, and low-fat dairy products - Regular aerobic physical activity - Limited alcohol consumption Goal: Prehypertension (systolic BP of 120-139 mm Hg or diastolic BP of 80-89 mm Hg): Perform annual BP screening and lifestyle modifications Hypertension: Combine medications with above lifestyle modifications to reach your goal blood pressure as defined above. Monitor your blood pressure at home regularly to ensure you are reaching your goals Cholesterol and Lipid Management - Statin therapy with intensive lipid-lowering effects is recommended to reduce risk of stroke and cardiovascular events among patients with ischemic stroke or TIA who have evidence of atherosclerosis Diet: - Reduced sodium and increased potassium intake; DASH-style diet rich in fruits and vegetables -Follow a Mediterranean diet: Choose plenty of whole or plant based foods-fruit, vegetables, whole grains, and nuts. Choose monounsaturated fat from olive oil, olives, nuts, and avocado. Lykens 3 fats are another heart healthy fat found in tuna, salmon, flaxseed, and walnuts. Limit foods high in sodium, saturated fat, and cholesterol. -Limit portion sizes Smoking and Tobacco Use: - Strongly recommend smoking and tobacco use cessation to reduce risk of stroke. - Counseling, nicotine products, and oral smoking cessation medications are effective for helping smokers quit and can be provided if needed. Alcohol Consumption: - Heavy drinkers should eliminate or reduce their consumption of alcohol. - Persons who continue drinking the following may be reasonable: - less than or equal to 2 drinks/day for men - less than or equal to 1 drink/day for non women Exercise - If capable of engaging in physical activity, at least 40 minutes of moderate to vigorous intensity physical exercise, typically defined as vigorous activity sufficient to break a sweat or noticeably raise heart rate, 3-4 days a week (eg, walking briskly, using an exercise bicycle) may be considered to reduce the risk factors and comorbid conditions that increase the likelihood of recurrent stroke - If disability after ischemic stroke, supervision by a healthcare professional, such as a physical therapist or cardiac rehabilitation professional, at least on initiation of an exercise regimen, may be considered Referring Provider: CHASE BANSAL [[id number]] Allergies As of Date: 01/29/2019 (No Known Allergies) Date Reviewed: 01/29/2019 Reviewed by: Dave Avalos Ma - Fully Assessed Reason for Visit: New Patient Evaluation [154] Primary Visit Diagnosis:Arterial ischemic stroke (HCC) [I63.9] Other Visit Diagnoses:Paroxysmal atrial fibrillation (HCC) [I48.0] Homonymous hemianopsia, left [H53.462] Order(s):atorvastatin (LIPITOR) 40 mg tabletTake 1 tablet by mouth once daily.Disp: Rfl: CONSULT TO OPHTHALMOLOGY [9027] Order #: [id number]: 1 FUTURE Prescriptions as of 01/29/2019 Sig: ATORVASTATIN 40 MG TABLET Take 1 tablet by mouth once d* ACETAMINOPHEN 325 MG TABLET Take 2 tablets by mouth every* ELIQUIS 5 MG TABLET Take 1 tablet by mouth twice * SOTALOL 80 MG TABLET Take 80 mg by mouth twice ubaldo* MAGNESIUM ORAL Take by mouth. Problem List As Of Date 01/29/2019 Noted Resolved Headache [R51] 01/14/2019 Homonymous hemianopsia, left [H53.462] 01/14/2019 Paroxysmal atrial fibrillation (HCC) [I48.0] 01/14/2019 Acute CVA (cerebrovascular accident) (HCC) [I63*01/14/2019 More... Other instructions from your clinician: PLAN 1. Continue Eliquis twice daily for atrial fibrillation, secondary stroke prevention. 2. Consider Atorvastatin (Lipitor) 10 mg at bedtime for secondary stroke prevention 3. Continue healthy eating and daily exercise 4. Continue follow up with your PCP for optimal management of your blood pressure, cholesterol, routine health maintenance. 5. Follow up in 6 months or sooner if needed. 6. Call 911 for any new concern of stroke. Stroke Signs and Symptoms: *Stroke is a medical emergency. Know the warning signs of stroke: BE FAST (Balance, Eye, Face, Arm, Speech, Time) Sudden numbness or weakness of the face, arm or leg, especially on one side of the body Sudden confusion, trouble speaking, or understanding Sudden trouble seeing in one eye, or both eyes Sudden trouble walking, dizziness, loss of balance, or coordination Sudden severe headache with no known cause *If you, or someone with you, has one or more of these signs, don't delay! Immediately call 911, or the emergency medical services (EMS) number so an ambulance can be sent for you. Also, check the time so that you will know when the symptoms first appeared. It is very important to take immediate action, every second counts. Medical treatment may be available if action is taken early enough. ~~~~~~~~~~~~~~~~~~~~~ ~~~~~~~~~~~~~~~~~~~~~ ~~~~~~~~~~~~~~~~~~~~~ ~~~~ General Guidelines to Help Reduce Risk of Recurrent Stroke Blood Pressure Management: Blood Pressure reduction is recommended for both prevention of recurrent stroke and prevention of other vascular events in persons who have had an ischemic stroke or TIA and are beyond the first 24 hours. Several lifestyle modifications have been associated with BP reduction and are a reasonable part of a comprehensive antihypertensive therapy -These modifications include: - salt restriction - weight loss - consumption of a diet rich in fruits, vegetables, and low-fat dairy products - Regular aerobic physical activity - Limited alcohol consumption Goal: Prehypertension (systolic BP of 120-139 mm Hg or diastolic BP of 80-89 mm Hg): Perform annual BP screening and lifestyle modifications Hypertension: Combine medications with above lifestyle modifications to reach your goal blood pressure as defined above. Monitor your blood pressure at home regularly to ensure you are reaching your goals Cholesterol and Lipid Management - Statin therapy with intensive lipid-lowering effects is recommended to reduce risk of stroke and cardiovascular events among patients with ischemic stroke or TIA who have evidence of atherosclerosis Diet: - Reduced sodium and increased potassium intake; DASH-style diet rich in fruits and vegetables -Follow a Mediterranean diet: Choose plenty of whole or plant based foods-fruit, vegetables, whole grains, and nuts. Choose monounsaturated fat from olive oil, olives, nuts, and avocado. Lykens 3 fats are another heart healthy fat found in tuna, salmon, flaxseed, and walnuts. Limit foods high in sodium, saturated fat, and cholesterol. -Limit portion sizes Smoking and Tobacco Use: - Strongly recommend smoking and tobacco use cessation to reduce risk of stroke. - Counseling, nicotine products, and oral smoking cessation medications are effective for helping smokers quit and can be provided if needed. Alcohol Consumption: - Heavy drinkers should eliminate or reduce their consumption of alcohol. - Persons who continue drinking the following may be reasonable: - less than or equal to 2 drinks/day for men - less than or equal to 1 drink/day for non women Exercise - If capable of engaging in physical activity, at least 40 minutes of moderate to vigorous intensity physical exercise, typically defined as vigorous activity sufficient to break a sweat or noticeably raise heart rate, 3-4 days a week (eg, walking briskly, using an exercise bicycle) may be considered to reduce the risk factors and comorbid conditions that increase the likelihood of recurrent stroke - If disability after ischemic stroke, supervision by a healthcare professional, such as a physical therapist or cardiac rehabilitation professional, at least on initiation of an exercise regimen, may be considered Prescriptions ordered this encounter Disp Refills Start End ATORVASTATIN 40 MG TABLET 01/29/2019 Class: Med Update Route: ORAL Sig: Take 1 tablet by mouth once daily. Medications Discontinued During This Encounter aspirin 81 mg chewable tablet 8 ta* 0 01/15/2019 01/29/2019 Route: ORAL Sig: Take 1 tablet by mouth once daily for 8 days. STOP after 01/23/19, then start Eliquis 01/24 Disc: Course of therapy completed Disposition: Return in about 6 months (around 07/31/2019). Follow-up and Disposition History Recorded Encounter Status:Closed by CHEYANNE WILDER CNP on 01/29/19 [facility] PROGRESSon 01-29-2019 PROGRESS HNO ID: [id number] Author: Cheyanne Wilder Service: ? Author Type: Nurse Practitioner Type: Progress Notes Filed: 01/29/2019 4:33 PM Note Text: [facility] Initial Visit Consultation is requested by: CHASE BANSAL [place]CP: [place] [address] [place] [id number] CEREBROVASCULAR HISTORY Joan Rothman is a 68 year old male. Reason for Visit: stroke Date of Last Event: 01/14/2019 History of Event: Joan Rothman is a 68 yo M with a PMH of Afib not on AC, rheumatoid arthritis, GERD, depression, renal stones who presented initially to [facility] with headache and left sided vision loss that started immediately following performing neck exercises at on 01/13. Delay in presentation to ED due to uncertainty that his vision was off. Reports his vision has had intermittent deficits for several year. 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 He was discharged home on aspirin, with plan to start Eliquis approx 01/24 and stop aspirin. Patient presents for follow up today. He denies any new concerns or symptoms. He had follow up with opthamology who noted cataracts. He started Eliquis, stopped aspirin a few days ago and has not side effects to date. He is aware of increased risk of bleeding and will monitor. His PCP instructed him to start Lipitor 40 mg due to stroke/heart risk. We discussed this and I suggested that with his excellent cholesterol, 10 mg Lipitor would be a better dose for him. He did not start this yet, will discuss again with his PCP. Antiplatelets/Anticoa gulants: Apixaban Statins: Atorvastatin - has not yet started. Side effects: No Residual Deficits: No residual deficits - has had intermittent blurred vision over several years bilaterally, slightly worse since stroke Current PT/OT/ST: No therapy needs Initial Discharge Disposition: Home Current Living Situation: Home with spouse Current use of a mobility aid for walking/getting around: None No past medical history on file. No past surgical history on file. No family history on file. Social History Tobacco Use - Smoking status: Former Smoker - Smokeless tobacco: Never Used - Tobacco comment: former smoker, over 40 years ago Substance Use Topics - Alcohol use: Not on file - Drug use: Not on file MEDICATIONS Current Outpatient Medications Medication Sig - acetaminophen (TYLENOL) 325 mg tablet Take 2 tablets by mouth every 6 hours as needed. - aspirin 81 mg chewable tablet Take 1 tablet by mouth once daily for 8 days. STOP after 01/23/19, then start Eliquis 01/24 - apixaban (ELIQUIS) 5 mg tab(s) Take 1 tablet by mouth twice daily. Please use free trial coupon, call me with questions Dasha [phone]. - sotalol (BETAPACE) 80 mg tablet Take 80 mg by mouth twice daily. - MAGNESIUM ORAL Take by mouth. No current facility-administered medications for this visit. REVIEW OF SYSTEMS ALLERGIES No Known Allergies Review of Systems Constitutional: Negative Eyes Positive for Vision loss or change (bilateral eyes with blurred vision peripherally. no diplopia ) Cardiovascular: Negative Heme/Lymph Negative for Prolonged Bleeding, Easy Bruising and Swelling of Arm or Leg Neurologic Negative for Memory Problems, Headache, Numbness/Tingling, Weakness, Double Vision, Trouble Swallowing and Slurred Speech Psychiatric: Negative Patient's Review of Systems has been reviewed with the patient and updated as appropriate. PHYSICAL EXAMINATION BP 132/64 Pulse (!) 47 Temp 36.1 ?C (97 ?F) Resp 16 Wt 78.9 kg (174 lb) General: Well-developed, well-nourished, in no acute distress. HEENT: Normocephalic, atraumatic. Sclerae anicteric. Oropharynx clear. Extremities: No edema, cyanosis, or clubbing. 2+ dorsalis pedis pulses bilaterally. Skin: No rash or ecchymoses. Neurological: Awake, alert, oriented to person, place, and time. Speech fluent, no dysarthria. Naming, repetition, recall, comprehension, calculation intact. Good attention and insight into illness. Cranial Nerves: PERRL, extraocular movements intact without nystagmus. Visual nelson full. Facial sensation and movements normal and symmetric. Palate elevates equal bilaterally. Tongue midline. Trapezius strength 5/5 bilaterally. Motor: Normal bulk and tone. Strength 5/5 throughout. No pronator drift or tremor. Sensation: Intact light touch Coordination: Rapid alternating movements symmetric bilaterally. Wlhpei-ua-rwur, kojw-ss-hxip without dysmetria bilaterally. Gait: Narrow-based, normal spaced and stable without assistance. LABS Cholesterol: Cholesterol, Total (mg/dL) Date Value 01/14/2019 136 LDL Calculated (mg/dL) Date Value 01/14/2019 64 HDL Cholesterol (mg/dL) Date Value 01/14/2019 56 Triglyceride (mg/dL) Date Value 01/14/2019 78 Diabetes: Hemoglobin A1C (%) Date Value 01/14/2019 4.8 IMAGING MRI Report MRI BRAIN WO IVCON Exam End: 01/14/2019 11:51 AM (Final result) Narrative: * * *Final Report* * * DATE OF EXAM: Jan 14 2019 11:51AM [facility]VM [id number] - MRI BRAIN WO IVCON / PROCEDURE REASON: Headache and focal deficit or papilledema * * * * Physician Interpretation * * * * EXAMINATION: MRA BRAIN WO IVCON, MRI BRAIN WO IVCON CLINICAL HISTORY: Left-sided hemianopsia. TECHNIQUE: Routine noncontrast MRI brain protocol including diffusion images. Intracranial 3D vbnd-ed-uhlfde MRA. 3D maximum intensity projection images were created, reviewed and archived . MQ: MRAB_4 COMPARISON: None. RESULT: BRAIN: Acute Change: There is a 4.2 x 1.7 x 1.9 cm area of restricted diffusion involving cortex subcortical white matter of the medial right occipital lobe (lingula inferior to the calcarine fissure). Hemorrhage: There are subcentimeter foci of susceptibility artifact associated with the area of infarct on both DWI and T2 weighted images compatible with hemorrhagic transformation. Mass Lesion/ Mass Effect: No evidence of an intracranial mass or extra-axial fluid collection. No significant mass effect. Chronic Change: Outside of the area of subacute infarct there are scattered punctate foci of increased signal on T2 and FLAIR compatible with microvascular ischemic changes. Parenchyma: No significant volume loss for age. The brain parenchyma is otherwise within normal limits of signal intensity and morphology. Ventricles: Normal caliber and morphology. Skull Base: Hypothalamic and pituitary region are grossly normal. Craniocervical junction is normal. No significant marrow replacement process. Vasculature: Major intracranial arterial structures, and dural venous sinuses show typical flow void, suggesting patency by spin echo criteria. Other: The visualized paranasal sinuses and mastoid air cells are clear. The orbits and extracranial soft tissues are unremarkable. INTRACRANIAL MRA: The visualized distal vertebral and basilar arteries are widely patent. The distal ICAs are patent and within normal limits of caliber. The proximal ACAs, MCAs and aquaculture farmer are patent and within normal limits of caliber and configuration. There is no evidence of focal, significant stenosis or aneurysm in the visualized vessels. Impression: IMPRESSION: Acute right medial occipital infarct with hemorrhagic transformation. Remainder the brain is normal for age. Normal intracranial MRA. [facility] Transcribe Date/Time: Jan 14 2019 11:56A Dictated by : CLAUDINE GONSALVES MD This examination was interpreted and the report reviewed and electronically signed by: CLAUDINE GONSALVES MD on Jan 14 2019 12:00PM EST Complete Results Patient Entered Questionnaires Physical Health 01/29/2019 Physical Function Percentile 54 % Sleep Percentile 34 % Fatigue Percentile 46 % Pain Interference Percentile 42 % PROMIS Global Health Scale 01/29/2019 Physical Health Percentile 53 % Mental Health Percentile 63 % Percentiles provide an indication of how the patient's score ranks in relation to the general population. Higher percentile rankings indicate better function/quality of life. 50th percentile is the average of the general population and indicates half of respondents had a worse score. PROMIS Scale T-Scores -- HIGHER SCORES BETTER PROMIS Global Health 01/29/2019 Physical T-Score 50.8 Mental T-Score 53.3 01/29/2019 Physical Function 51 (within normal limits) Satisfaction w/ Social Roles 56 (within normal limits) Neuro-QoL Cognitive Function 52 (within normal limits) T-scores: mean of general population = 50. 5 points is clinically meaningfully difference PROMIS Scale T-Scores -- HIGHER SCORES WORSE 01/29/2019 Sleep Disturbance 54 (within normal limits) Fatigue 51 (within normal limits) Pain Interference 52 (within normal limits) T-scores: mean of general population = 50. 5 points is clinically meaningfully difference Depression Screening: PHQ-9 01/29/2019 Score 6 PHQ-9 Self Harm 01/29/2019 Thoughts that you would be better off , or of hurting yourself in some way 0 PHQ-9 Self-Harm (Item 9) response options: 0 Not at all 1 Several days 2 More than half the days 3 Nearly every day PHQ-9 Levels: 0-4 Minimal depression 5-9 Mild depression 10-14 Moderate depression 15-19 Moderately severe depression 20-27 Severe depression Sleep Apnea Probability Score 01/29/2019 SAPS Score 17.89 (Sleep study not recommended) Stroke Mechanism and Scales Ischemic or TIA: Ischemic Stroke TOAST Mechanism (CCF-MODIFIED): Cardioembolism Cardioembolism: Atrial fibrillation/flutter Modified Samantha Score: Score: 1 NIH Stroke Scale: LOC: 0 LOC Questions: 0 LOC Commands: 0 LOC Normal Gaze: 0 Visual Nelson: 0 Facial Palsy: 0 Motor Left Arm: 0 Motor Right Arm: 0 Motor Left Le Motor Right Le Limb Ataxia: 0 Sensory: 0 Language: 0 Dysarthria: 0 Extinction/Neglect: 0 Total Daily NIHSS: 0 IMPRESSION 1. R occipital stroke with petechial hemorrhagic conversion in setting of afib not on AC 2. Atrial fibrillation now on Eliquis 5 mg BID 3. HTN with good control 4. Vision deficit. PLAN 1. Continue Eliquis twice daily for atrial fibrillation, secondary stroke prevention. 2. Consider Atorvastatin (Lipitor) 10 mg at bedtime for secondary stroke prevention 3. Continue healthy eating and daily exercise 4. Continue follow up with your PCP for optimal management of your blood pressure, cholesterol, routine health maintenance. 5. Follow up in 6 months or sooner if needed. 6. Consult nuero opthamology for long standing intermittent vision loss and new changes if no improvement. 7. Call 911 for any new concern of stroke. Discussion, counseling, coordination of care > 50% of 30 minutes. Questions asked/ answered. Follow-up with results/ adherence to plan/ continued education. SIGNATURE Cheyanne Wilder APRN.[employer] [place], [place] [address] [address] Normal [facility] Basic Metabolic Panlon 01-15 Anion gap [Moles/Vol] 10 mmol/L Normal 9-18 [facility] Comment on above: Performed By: #### C BCDIF, BMP ####[place] [phone] Calcium [Mass/Vol] 8.7 mg/dL Normal 8.5-10.5 [facility] Comment on above: Performed By: #### C BCDIF, BMP ####[place] [phone] Chloride [Moles/Vol] 107 mmol/L Normal 98-110 [facility] Comment on above: Result Comment: Revi ewed Performed By: #### C BCDIF, BMP ####[place] [phone] CO2 [Moles/Vol] 23 mmol/L Normal 23-32 [facility] Comment on above: Performed By: #### C BCDIF, BMP ####[place] [phone] Creatinine [Mass/Vol] 0.95 mg/dL Normal 0.70-1.40 [facility] Comment on above: Performed By: #### C BCDIF, BMP ####[place] [phone] eGFR- Amer. >60 Normal >60 [facility] Comment on above: Performed By: #### C BCDIF, BMP ####[place] [phone] GFR/1.73 sq M predicted among non-blacks MDRD (S/P/Bld) [Vol rate/Area] mL/min/{1.73_m2} Normal >60 [facility] Comment on above: Performed By: #### C BCDIF, BMP ####[place] [phone] Glucose [Mass/Vol] 90 mg/dL Normal 65-100 [facility] Comment on above: Performed By: #### C BCDIF, BMP ####[place] [phone] Potassium [Moles/Vol] 4.2 mmol/L Normal 3.5-5.0 [facility] Comment on above: Performed By: #### C BCDIF, BMP ####[place] [phone] Sodium [Moles/Vol] 140 mmol/L Normal 135-146 [facility] Comment on above: Performed By: #### C BCDIF, BMP ####[place] [phone] Urea nitrogen [Mass/Vol] 18 mg/dL Normal 10-25 [facility] Comment on above: Performed By: #### C BCDIF, BMP ####[place] [phone] CBC and Differentialon 01-15 Abs Baso <0.03 Normal <0.11 [facility] Comment on above: Performed By: #### C BCDIF, BMP ####[place] [phone] Abs [place] 0.48 k/uL Normal <0.87 [facility] Comment on above: Performed By: #### C BCDIF, BMP ####[place] [phone] Abs Neut 2.97 k/uL Normal 1.45-7.50 [facility] Comment on above: Performed By: #### C BCDIF, BMP ####[place] [phone] Basophils/100 WBC (Bld) 0.2 % Normal [facility] Comment on above: Performed By: #### C BCDIF, BMP ####[place] [phone] DTYPE Auto Diff Normal [facility] Comment on above: Performed By: #### C BCDIF, BMP ####[place] [phone] Eosinophils (Bld) [#/Vol] 0.16 10*3/uL Normal <0.46 [facility] Comment on above: Performed By: #### C BCDIF, BMP ####[place] [phone] Eosinophils/100 WBC (Bld) 2.9 % Normal [facility] Comment on above: Performed By: #### C BCDIF, BMP ####[place] [phone] Erythrocyte distribution width (RBC) [Ratio] 13.3 % Normal 11.5-15.0 [facility] Comment on above: Performed By: #### C BCDIF, BMP ####[place] [phone] Hematocrit (Bld) [Volume fraction] 38.9 % Low 39.0-51.0 [facility] Comment on above: Performed By: #### C BCDIF, BMP ####[place] [phone] Hemoglobin (Bld) [Mass/Vol] 13.7 g/dL Normal 13.0-17.0 [facility] Comment on above: Performed By: #### C BCDIF, BMP ####[place] [phone] Lymphocytes (Bld) [#/Vol] 1.96 10*3/uL Normal 1.00-4.00 [facility] Comment on above: Performed By: #### C BCDIF, BMP ####[place] [phone] Lymphocytes/100 WBC (Bld) 35.1 % Normal [facility] Comment on above: Performed By: #### C BCDIF, BMP ####[place] [phone] MCH (RBC) [Entitic mass] 32.4 pG Normal 26.0-34.0 [facility] Comment on above: Performed By: #### C BCDIF, BMP ####[place] [phone] MCHC (RBC) [Mass/Vol] 35.2 g/dL Normal 30.5-36.0 [facility] Comment on above: Performed By: #### C BCDIF, BMP ####[place] [phone] MCV (RBC) [Entitic vol] 92.0 fL Normal 80.0-100.0 [facility] Comment on above: Performed By: #### C BCDIF, BMP ####[place] [phone] Monocytes/100 WBC (Bld) 8.6 % Normal [facility] Comment on above: Performed By: #### C BCDIF, BMP ####[place] [phone] Neutrophils/100 WBC (Bld) 53.2 % Normal [facility] Comment on above: Performed By: #### C BCDIF, BMP ####[place] [phone] Platelet mean volume (Bld) [Entitic vol] 10.4 fL Normal 9.0-12.7 [facility] Comment on above: Performed By: #### C BCDIF, BMP ####[place] [phone] [place], [place] [phone] Platelets (Bld) [#/Vol] 110 10*3/uL Low 150-400 [facility] Comment on above: Performed By: #### C BCDIF, BMP ####[place] [phone] RBC (Bld) [#/Vol] 4.23 10*6/uL Normal 4.20-6.00 [facility] Comment on above: Performed By: #### C BCDIF, BMP ####[address] [phone] WBC (Bld) [#/Vol] 5.58 10*3/uL Normal 3.70-11.00 [facility] Comment on above: Performed By: #### C BCDIF, BMP ####[address] [phone] NURSING PROGon 01-15-2019 NURSING PROG HNO ID: [id number] Author: Gladis (Rn) CAMILO Ramirez Service: Nursing Author Type: Registered Nurse Type: Nursing Progress Note Filed: 01/15/2019 1:08 PM Note Text: Nursing Progress Note Patient Name: Joan Rothman Patient Location: Daily Note:Patient heart rate taken manually 52, GLOVE WRAPPER aware and ok to give betapace as this is patient's baseline heart rate. 1307: Discharge instructions reviewed with patient and , verbalized understanding. Discharged home with all belongings This note was completed by: Gladis Ramirez RN [facility] NURSING PROG HNO ID: [id number] Author: Jazzy (Rn) CAMILO Frank Service: ? Author Type: Registered Nurse Type: Nursing Progress Note Filed: 01/15/2019 6:26 AM Note Text: Nursing Progress Note Patient Name: Joan Rothman Patient Location: -PKTA11/FV-PKTA-11 Transfer Note: Patient transferred into room/unit PKTA-12 from U. Patient is AxOx3 and on RA. Patient has a NIH=1 and 5/5 on extremities. Patient is in low bed, bed alarm on and call light within reach. This note was completed by: Jazzy Frank RN [facility] PLAN OF CAREon 01-15-2019 PLAN OF CARE HNO ID: [id number] Author: Cece Garcia (ITS Compliance) Service: Pharmacy Author Type: ? Type: Plan of Care Filed: 01/15/2019 12:58 PM Note Text: PHARMACY BEDSIDE DELIVERY SERVICE Patient Name: Joan Rothman The marked outpatient medications were Filled at: [facility] and delivered to the patient's bedside to patient in his room Medication List START taking these medications acetaminophen 325 mg tablet Commonly known as: TYLENOL Take 2 tablets by mouth every 6 hours as needed. aspirin 81 mg chewable tablet x Take 1 tablet by mouth once daily for 8 days. STOP after 01/23/19, then start Eliquis 01/24 ELIQUIS 5 mg tab(s) x Generic drug: apixaban Take 1 tablet by mouth twice daily. Please use free trial coupon, call me with questions Dasha [phone]. Start taking on: January 24, 2019 CONTINUE taking these medications BETAPACE 80 mg tablet Generic drug: sotalol MAGNESIUM ORAL You might also be taking other medications not listed above. If you have questions about any of your other medications, talk to the person who prescribed them or your Primary Care Provider. Cece Garcia ([employer]) PAGER: [phone] January 15, 2019 12:57 PM [facility] PLAN OF CARE HNO ID: [id number] Author: Cece Garcia ([employer]) Service: Pharmacy Author Type: ? Type: Plan of Care Filed: 01/15/2019 12:57 PM Note Text: Pharmacy Discharge Medication Service: This patient has elected to receive their discharge prescriptions through the [facility] Bedside Prescription Delivery program. The prescriptions are currently being processed. A follow-up note will be entered once the prescriptions have been filled and delivered to the patient. Please contact me with any questions or updates to the patient's discharge medications. Cece Garcia ([employer]) DCT Contact Info: [id number] [facility] PLAN OF CARE HNO ID: [id number] Author: Cece Garcia ([employer]) Service: Pharmacy Author Type: ? 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 Patient to use [facility] Bedside Delivery - YES Insurance Information as follows: 2. Insurance card on file - YES 3. Credit card for payment - N/A Patient has no prescriptions yet. Please page [phone] upon discharge. [facility] ALLIED HEALTHon 01-14-2019 ALLIED HEALTH HNO ID: [id number] Author: Santiago Sotelo (Rt) Service: Radiology Author Type: Ground Support Equipment Assembler Type: Allied Health Filed: 01/14/2019 11:43 AM Note Text: Radiology Service Progress Note PATIENT NAME: Joan Rothman DATE OF SERVICE: January 14, 2019 TIME: 11:43 AM PATIENT IDENTITY VERIFICATION COMPLETED USING TWO (2) IDENTIFIERS: Name and Date of confirmed by patient verbally. PATIENT GENDER DATA: Male PATIENT RELEVANT IMPLANT DATA REVIEWED: Yes RADIOLOGY DEPARTMENT: MR; Exam(s) Completed: Head: Routine Brain [place] MRA PERIPHERAL IV DATA: Not applicable SIGNED BY: RT Deepak January 14, 2019 11:43 AM [facility] CASE MGT INIT ASSESon 2018 CASE MGT INIT ASSES HNO ID: [id number] Author: Anny López (Lisw-S) Service: Case Management Author Type: Policeman Type: Care Mgt Initial Assessment Filed: 01/14/2019 1:55 PM Note Text: CARE MANAGEMENT: ASSESSMENT AND DISCHARGE PLAN SERVICE DATE: 01/14/2019 SERVICE TIME: 1:36 PM PRIMARY CARE PHYSICIAN: Joon Simmons MD ADMISSION STATUS: Inpatient Needs Prior to Discharge: To Be Determined MEDICAL: Patient/Representativ e Stated Goals: To return home to life as it was Health Insurance: [employer] Health Issues Impacting Discharge Plan: Newly diagnosed stroke Last Discharge Date: N/A Is this Within the Past 30 days? No Advance Directive: Current Advance Directive: Health Care Power of Parking Lot Attendant;Living Will In Chart: No Visual Arts Teacher Attempted to Assist with AD Completion: Yes Action: Education Provided(Pt said that his is his HCPOA and this was just finalized this week) Health Literacy: 1. How often do you need to have someone help you when you read instructions, pamphlets, or other written material from your doctor or pharmacy? Never - 1 2. How confident are you filling out medical forms by yourself? Extremely - 1 If Patient scores > 3 on either question, the following interventions were put into place: Patient did not score > 3 FUNCTIONAL AND COGNITIVE/BEHAVIORAL PRIOR TO ADMISSION: Baseline Mental Status: Alert AND Oriented, Person, Place , Time and Situation Functional Status: Independent Does Patient Currently Receive Any Community Services or Home Care? None Equipment Prior to Admission: None Has the Patient Been in a Penitentiary Facility in the Past 30 days? No SOCIAL: Living Arrangement: Home Lives With: Spouse and xzlsdx-ch-hca Financial Resources: Retired Primary Contact: Extended Emergency Contact Information Primary Emergency Contact: Laya Rothman [address]: [address] [place] [address] [place] [address] Relation: Spouse Supportive: Yes Other Important Patient Contacts: None Caregiver Assessment: Caregiver is ready, willing and able to meet the patient's needs as recommended by the inter-professional team? 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 Does the patient have an acute stroke diagnosis, or has the patient had a stroke during this admission? No Medication Adherence: I am convinced of the importance of my prescription medication: Agree completely - 0 I worry that my prescription medication will do more harm than good to me Disagree somewhat - 4 I feel financially burdened by my nth-rh-pnqput expenses for my prescription medication: Disagree completely - 0 Patient is categorized as medium risk score 2-7: The following interventions are being put into place - Consult social work and Medical team aware of challenges Are you interested in bedside delivery of your medications? Yes Is the Patient Psychosocially Complex? No ASSESSMENT AND PLAN: Medical Needs: None Psychosocial Needs: None FREEDOM OF CHOICE EXPLAINED: No - No placements necessary POTENTIAL TRANSITION PLANS Home To Be Determined Pt is a 68 yo M admitted to [facility] 2[facility] d/t stroke. Pt is from home where he lives with his and [id number]-pz-ozo. He is independent with ADLs and ambulation. He is retired. He said that he is compliant with one of his medications but not with another, and plans to follow up with his doctor next month regarding this. Pt hopes to go home with no skilled needs at d/c. SW will remain available. Pt anticipates having transportation at d/c. SIGNATURE: MORTEZA Murphy PATIENT NAME: Joan Rothman DATE: January 14, 2019 TIME: 1:36 PM PAGER/CONTACT #: [phone] Normal [facility] CBC and Differentialon 01-14 Abs Baso <0.03 Normal <0.11 [facility] Comment on above: Performed By: #### C BCDIF #### [address] Abs [place] 0.47 k/uL Normal <0.87 [facility] Comment on above: Performed By: #### C BCDIF #### [place] [phone] Abs Neut 3.16 k/uL Normal 1.45-7.50 [facility] Comment on above: Performed By: #### C BCDIF #### [place] [phone] Basophils/100 WBC (Bld) 0.2 % Normal [facility] Comment on above: Performed By: #### C BCDIF #### [phone] DTYPE Auto Diff Normal [facility] Comment on above: Performed By: #### C BCDIF #### [place] [address] Eosinophils (Bld) [#/Vol] 0.15 10*3/uL Normal <0.46 [facility] Comment on above: Performed By: #### C BCDIF #### [place] [address] Eosinophils/100 WBC (Bld) 2.8 % Normal [facility] Comment on above: Performed By: #### C BCDIF #### [place] [phone] Erythrocyte distribution width (RBC) [Ratio] 13.1 % Normal 11.5-15.0 [facility] Comment on above: Performed By: #### C BCDIF #### [place] [phone] Hematocrit (Bld) [Volume fraction] 39.5 % Normal 39.0-51.0 [facility] Comment on above: Performed By: #### C BCDIF #### [place] [phone] Hemoglobin (Bld) [Mass/Vol] 13.9 g/dL Normal 13.0-17.0 [facility] Comment on above: Performed By: #### C BCDIF #### [place] [phone] Lymphocytes (Bld) [#/Vol] 1.48 10*3/uL Normal 1.00-4.00 [facility] Comment on above: Performed By: #### C BCDIF #### [place] [phone] Lymphocytes/100 WBC (Bld) 28.1 % Normal [facility] Comment on above: Performed By: #### C BCDIF #### [place] [phone] MCH (RBC) [Entitic mass] 32.6 pG Normal 26.0-34.0 [facility] Comment on above: Performed By: #### C BCDIF #### [place] [address] MCHC (RBC) [Mass/Vol] 35.2 g/dL Normal 30.5-36.0 [facility] Comment on above: Performed By: #### C BCDIF #### [place] [address] MCV (RBC) [Entitic vol] 92.5 fL Normal 80.0-100.0 [facility] Comment on above: Performed By: #### C BCDIF #### [place] [phone] Monocytes/100 WBC (Bld) 8.9 % Normal [facility] Comment on above: Performed By: #### C BCDIF #### [place] [phone] Neutrophils/100 WBC (Bld) 60.0 % Normal [facility] Comment on above: Performed By: #### C BCDIF #### [place] [address] Platelet mean volume (Bld) [Entitic vol] 10.4 fL Normal 9.0-12.7 [facility] Comment on above: Performed By: #### C BCDIF #### [place] [address] Platelets (Bld) [#/Vol] 111 10*3/uL Low 150-400 [facility] Comment on above: Performed By: #### C BCDIF #### [address] [address] RBC (Bld) [#/Vol] 4.27 10*6/uL Normal 4.20-6.00 [facility] Comment on above: Performed By: #### C BCDIF #### [place] [id number] WBC (Bld) [#/Vol] 5.27 10*3/uL Normal 3.70-11.00 [facility] Comment on above: Performed By: #### C BCDIF #### [facility] [address] [place] [address] CONSULTon 01-14-2019 CONSULT HNO ID: [id number] Author: Greg De Luna Service: Neurology General Author Type: Resident Type: Consults Filed: 01/14/2019 3:51 PM Note Text: Attestation signed by Kitty Wolf at 01/14/2019 4:22 PM (Updated) I have seen and evaluated the patient and discussed the case with the resident physician. I agree with the assessment and plan as documented in the resident?s note. Briefly 68 y/o man with hx of afib not on A/C with left hemianpsia (more prominanet left superior quadrant) R occipital lobe stroke. No other significant risk factors - hba1c 4.8, ldl 64, vessel imaging with no evidence of atherosclerotic disease. TTE with no evidence of thrombus Plan: - ASA 81 mg for now, then switch to eliquis in 10 days (around 01/24/19) given mild to moderate size of infarct - No driving for now, recommend formal visual field testing with ophthalmology to decide when and if to resume - Follow up with stroke/neuro in 2-4 weeks from discharge Kitty Wolf MD INITIAL CONSULT NEURO STROKE SERVICE DATE: 01/14/2019 SERVICE TIME: 12:36 PM REQUESTING PHYSICIAN: EMMA PCP: Joon Simmons MD REASON FOR STROKE EVALUATION: Left sided vision loss Subjective HPI: This is a 68 yo M with a PMHx of Afib no on AC, rheumatoid arthritis, GERD, depression, renal stones who presented initially to [facility] with CC of headache and left sided vision loss that started immediately following performing neck exercises at 1pm on 01/13. The patient felt that only his left eye was affected and that the headache was worst in the right postero-lateral cranium and was worse with moving his neck. After he got cleaned up from the gym, he drove home and noted that he couldn't see cars coming as well from the left side. At [place] ED, he had a CT head that showed no acute process, and a CTA head and neck that showed no acute abnormality, no dissection. He was sent here for neurology evaluation. 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 Symptoms are still persisting. Denies, slurred speech, focal weakness/numbness/tin gling, imbalance. Has normal gait. Denies fevers, chills, weight loss. Has occasional fatigue. Denies prior stroke. Denies recent palpitations or bouts of Afib. He was prescribed statin previously but got fatigued while taking it (not myalgias), so stopped taking it. Pre-admission Was patient on antithrombotic agent prior to admission: No Was patient on lipid lowering agent prior to admission: No Pre-morbid mRS: Premorbid Modified Samantha Score: 0 - No symptoms at all No past medical history on file. No past surgical history on file. Social History Tobacco Use - Smoking status: Not on file Substance Use Topics - Alcohol use: Not on file - Drug use: Not on file No family history on file. ALLERGIES No Known Allergies MEDICATION Pre-admission sotalol (BETAPACE) 80 mg tablet, Take 80 mg by mouth twice daily., Disp: , Rfl: MAGNESIUM ORAL, Take by mouth., Disp: , Rfl: Current sotalol (BETAPACE) 80 mg tablet Take 80 mg by mouth twice daily. MAGNESIUM ORAL Take by mouth. REVIEW OF SYSTEMS 10 systems were reviewed and were negative except as noted in the HPI and below: +finger tingling and turn purple when cold +toes tingling Objective PHYSICAL EXAM Vital Signs: BP 108/65 Pulse (!) 52 Temp 36.7 ?C (98 ?F) (Oral) Resp 20 Wt 78.8 kg (173 lb 12.8 oz) SpO2 97% GENERAL: Awake/easily arousable. HEENT: Normocephalic/atrauma tic, no lymphadenopathy RESPIRATORY: Normal respiratory effort. No stridor CARDIOVASCULAR: no JVD or edema GI: soft, nondistended EXTREMITIES: No cyanosis, clubbing or edema. SKIN: Skin color, texture, turgor normal. No rashes or lesions. MUSCULOSKELETAL Spine range of motion normal. Muscular strength intact. Range of motion normal in hips, knees, shoulders, and spine. No joint swelling, deformity, or tenderness. NEUROLOGICAL: LOC: 0 - alert and responsive 0 LOC Questions: 0 - both correct 0 LOC Commands: 0 - both correct 0 LOC Normal Gaze: 0 - normal gaze 0 Visual Nelson: 1 - partial hemianopia, quadrantanopia(LUQ-an opia nad partial LLQ-anopia) 1(LUQ-anopia nad partial LLQ-anopia) Facial Palsy: 0 - normal 0 Motor Left Arm: 0 - no drift 0 Motor Right Arm: 0 - no drift 0 Motor Left Le - no drift 0 Motor Right Le - no drift 0 Limb Ataxia: 0 - no ataxia (or aphasic, hemiplegic) 0 Sensory: 0 - normal 0 Language: 0 - normal 0 Dysarthria: 0 - normal 0 Extinction/Neglect: 0 - normal, none detected (or visual loss alone) 0 Initial NIHSS: 1 (01/14/19 1237 : Greg De Luna) 1 MENTAL STATUS: Alert, oriented to person, place and time, Follows commands and Speech fluent and appropriate CRANIAL NERVES: PERRL, EOM's intact, Left homonymous upper quadrantanopia with incomplete homonymous left lower quadrandanopia, Facial sensation intact, Face symmetric, No facial droop or ptosis, Hearing intact to finger rub bilaterally, No dysarthria, Palate elevates symmetrically, Tongue protrudes midline and Shoulder shrug intact and symmetric MOTOR: No drift, Normal tone and Normal bulk MOTOR STRENGTH: Upper and lower extremity 5/5 bilaterally REFLEXES: UE and LE reflexes are equal and reactive SENSATION: Intact light touch COORDINATION: Finger-to- nose-finger intact bilaterally and Ncwf-ne-eyms intact bilaterally GAIT: Normal-based DATA: Diagnostic tests reviewed for today's visit: Lipids, HbA1c, Recent Labs 01/14/19 0616 CHOL 136 HDL 56 LDL 64 TG 78 CMP, CBC, Coags Recent Labs 01/14/19 0811 01/14/19 0616 NA -- 147* K -- 4.1 CHLOR -- 114* CO2 -- 17* BUN -- 16 CREAT -- 1.01 GLUC -- 97 CA -- 9.1 WBC 5.27 -- HB 13.9 -- HCT 39.5 -- PLT 111* -- Cardiac Enzymes usCRP Most recent labs and imaging results. STROKE CARE PATH [employer] [place] Coma Scale Totals (Calculated): 15 IMAGING AND ENDOVASCULAR THERAPY STROKE 9 CARE AND PREVENTION CHECKLIST 1. Is the patient currently on an ANTITHROMBOTIC medication (Antiplatelet or Anticoagulant): Aspirin 2. Does the patient have known AFIB/FLUTTER: Paroxysmal atrial fibrillation Is the patient currently on anticoagulation: No Reason patient not on anticoagulation: High risk of bleeding Are there plans to start anticoagulation: Yes, plan to start anticoagulation in 3-4 weeks 3. Is the patient on a STATIN: Atorvastatin 40 mg 4. Is the patient on VTE prophylaxis: Mechanical prophylaxis Mechanical intervention type: Intermittent compression stocking(s) 5. GLYCEMIC Control Medications: Not Diabetic 6. Stroke BP Goals: Permissive HTN (treat if >220/120) Stroke BP Control: BP well controlled 7. Stroke IVF/Nutrition: Diet 8. TEMPERATURE Control: Normothermic 9. Does the patient need THERAPY: Yes Therapy involvement: OT Stroke Care and Prevention (personally reviewed by Greg De Luna DO): Daily Rounding Date: 01/14/19 Daily Rounding Time: 1238 PROBLEM LIST: Principal Problem: Homonymous hemianopsia, left POA: Yes Active Problems: Headache POA: Yes Paroxysmal atrial fibrillation (HCC) POA: Yes TIA (transient ischemic attack) POA: Yes Acute CVA (cerebrovascular accident) (HCC) POA: Yes Resolved Problems: * No resolved hospital problems. * Impression/Recommenda tions 68 yo M with a PMHx of Afib no on AC, rheumatoid arthritis, GERD, depression, renal stones who presented initially to [facility] with CC of headache and left sided vision loss that started immediately following performing neck exercises at 1pm on 01/13. Delay in presentation to ED due to uncertainty that his vision was off. In OSH ED, CTH showed R ASSISTANT OFFICE MANAGER stroke (initially reported as normal) CTA showed no LVO. 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 MRA was normal. 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 Echo (results pending) ? A1c (pending) ? Continue Aspirin. ? Can stop statin as LDL <70 ? Will need to be on anticoagulation long-term for Afib. He has elected for Eliquis 5mg BID. Will need to start this in 10 days (01/24) and stop ASA on that day ? Please provide him a prescription for Eliquis on [place] ? Needs to see ophthalmology for formal visual field testing prior to return to driving. Can be outpatient ? Stroke follow up (ordered) Imaging Ordered Today: None SIGNATURE: Greg De Luna DO PATIENT NAME: Joan Rothman DATE: January 14, 2019 TIME: 12:36 PM PAGER/CONTACT #: Normal [facility] Comp Metabolic Panelon 01-14 Albumin [Mass/Vol] 3.8 g/dL Normal 3.5-5.0 [facility] Comment on above: Performed By: #### L IPB, CMP #### [place] [phone] #### HBA1C #### [facility] [address] [place] [phone] ALP [Catalytic activity/Vol] 47 U/L Normal 38-113 [facility] Comment on above: Performed By: #### L IPB, CMP #### [place] [phone] #### HBA1C #### [facility] [address] [place] [phone] ALT [Catalytic activity/Vol] 18 U/L Normal 5-50 [facility] Comment on above: Performed By: #### L IPB, CMP #### [place] [phone] #### HBA1C #### [facility] [address] [place] [phone] Anion gap [Moles/Vol] 16 mmol/L Normal 9-18 [facility] Comment on above: Performed By: #### L IPB, CMP #### [place] [phone] #### HBA1C #### [place] [phone] AST [Catalytic activity/Vol] 18 U/L Normal 7-40 [facility] Comment on above: Performed By: #### L IPB, CMP #### [place] [phone] #### HBA1C #### [place] [phone] Bilirubin [Mass/Vol] 1.0 mg/dL Normal 0.2-1.3 [facility] Comment on above: Performed By: #### L IPB, CMP #### [place] [phone] #### HBA1C #### [place] [phone] Calcium [Mass/Vol] 9.1 mg/dL Normal 8.5-10.5 [facility] Comment on above: Performed By: #### L IPB, CMP #### [place] [phone] #### HBA1C #### [place] [id number] [place] [phone] Chloride [Moles/Vol] 114 mmol/L High 98-110 [facility] Comment on above: Performed By: #### L IPB, CMP #### [place] [address] #### HBA1C #### [place] [phone] CO2 [Moles/Vol] 17 mmol/L Low 23-32 [facility] Comment on above: Performed By: #### L IPB, CMP #### [place] [phone] #### HBA1C #### [phone] Creatinine [Mass/Vol] 1.01 mg/dL Normal 0.70-1.40 [facility] Comment on above: Performed By: #### L IPB, CMP #### [place] [phone] #### HBA1C #### [place] [phone] eGFR- Amer. >60 Normal >60 [facility] Comment on above: Performed By: #### L IPB, CMP #### [place] [phone] #### HBA1C #### [place] [phone] GFR/1.73 sq M predicted among non-blacks MDRD (S/P/Bld) [Vol rate/Area] mL/min/{1.73_m2} Normal >60 [facility] Comment on above: Performed By: #### L IPB, CMP #### [place] [phone] #### HBA1C #### [place] [phone] Glucose [Mass/Vol] 97 mg/dL Normal 65-100 [facility] Comment on above: Performed By: #### L IPB, CMP #### [place] [phone] #### HBA1C #### [facility] [address] [place] [address] Potassium [Moles/Vol] 4.1 mmol/L Normal 3.5-5.0 [facility] Comment on above: Performed By: #### L IPB, CMP #### [place] [phone] #### HBA1C #### [place] [phone] Protein [Mass/Vol] 6.0 g/dL Normal 6.0-8.4 [facility] Comment on above: Performed By: #### L IPB, CMP #### [place] [phone] #### HBA1C #### [place] [phone] Sodium [Moles/Vol] 147 mmol/L High 135-146 [facility] Comment on above: Performed By: #### L IPB, CMP #### [place] [phone] #### HBA1C #### [place] [phone] Urea nitrogen [Mass/Vol] 16 mg/dL Normal 10-25 [facility] Comment on above: Performed By: #### L IPB, CMP #### [place] [phone] #### HBA1C #### [place] [phone] ECG COMPLETEon 01-14-2019 ECG COMPLETE NAME : JOAN ROTHMAN PID : [id number] : 1950 Gender : Male Race : ORD : [id number] Procedure Date : Jan 14 2019 04:18:28 Edit Date : Jan 18 2019 19:51:19 Diagnosis:Sinus bradycardia RBBB and LAFB Abnormal ECG Confirmed by MELINA GARIBAY MD ([id number]) on 01/18/2019 7:51:18 PM Ventricular Rate : 51 BPM Atrial Rate : 50 BPM P-R Interval : 147 ms QRS Duration : 133 ms Q-T Interval : 451 ms QTC Calculation(Bazett) : 416 ms P Kelso : 50 degrees R Kelso : -54 degrees T Kelso : -46 degrees Test Reason : Atrial Fibrillation Location : 400 : EK 267 Overread By : MELINA GARIBAY MD Edited By : MELINA GARIBAY MD Referred By : BRINDA OROURKE Acquired by : Ramya SOSA [facility] HISTORY PHYSICALon 9 HISTORY PHYSICAL HNO ID: [id number] Author: Eladia Bishop Service: Hospital Medicine Author Type: Physician Type: HANDP Filed: 01/14/2019 6:21 AM Note Text: HISTORY AND PHYSICAL EXAMINATION SERVICE DATE: 01/14/2019 SERVICE TIME: 3.00AM PRIMARY CARE PHYSICIAN: Joon Simmons MD Coverage: Days: teaching team A or Dr. Miguel Angel Mckenzie Nights: hospitalist cross coverage pager [phone] Subjective CHIEF COMPLAINT: Headache, partial loss of vision today HPI: This is a 68 year old male with PMHx of Atrial fibrillation (rate controlled with sotalol) who presented to [facility] with complaints of headache and loss of peripheral vision (left-sided). Patient was performing neck exercises while at the gym today when he suddenly had partial loss of peripheral vision in the left. Stated it was only his left eye effected, associated with right occipital/parietal/te mporal headache and right neck pain that was worse with moving, 4/10 in severity. Denies LOC, weakness, numbness, tingling in extremities. No history of stroke or seizures. He is on sotalol for history of paroxysmal A. fib but no other medications. CHADsVASC: 1, not on anticoagulation. States he was started on a statin by his PCP but he stopped taking it. ED course: HR: 55, other vitals stable (His baseline HR is in the 50's) No leukocytosis, no anemia EKG: Sinus bradycardia, RBBB CT head: No acute process, CTA head/neck: no acute abnormality NIHSS: 1 Sent to for Neurology evaluation. FUNCTIONAL STATUS: Independent PMH GERD Depression OA Kidney stones Paroxysmal a fib PSH: Hernia repair Finger surgery [place] tooth extraction Family History Father HTN Mother HTN, HLP Social History Tobacco Use - Smoking status: Not on file Substance Use Topics - Alcohol use: Not on file - Drug use: Not on file Sotalol 50mg twice daily ALLERGIES No Known Allergies COMPLETE REVIEW OF SYSTEMS: GENERAL: No weight loss, malaise or fevers HEENT: No nasal bleeding, congestion or rhinorrhea NECK: Negative for lumps, goiter, pain and significant neck swelling RESPIRATORY: Negative for cough, hemoptysis, wheezing, COPD, dyspnea or shortness of breath CARDIOVASCULAR: Negative for chest pain, leg swelling, CHF or palpitations GI: No nausea, vomiting, or diarrhea : No history of dysuria, frequency or incontinence SKIN: Negative for lesions, rash, and itching NEURO: headache, loss of vision Objective PHYSICAL EXAM: Physical Exam Performed: GENERAL: Alert, no distress, cooperative SKIN: Skin color, texture, turgor normal. No rashes or lesions. HEAD/SINUSES: No significant findings EYES: PERRLA LUNGS: Lungs clear to auscultation, Good diaphragmatic excursion CARDIAC: Normal S1 and S2; RRR; no rubs, murmurs, or gallops ABDOMEN: Abdomen soft, non-tender, BS normal, No masses or organomegaly EXTREMITIES: Extremities normal, no deformities, edema, clubbing or skin discoloration. Good capillary refill. NEURO: Grossly normal cognition, motor function, and sensation. L sided peripheral hemianopia. NIHSS: 1 PULSES: 2+ radial, 2+ carotid BP 140/83 Pulse 50 Temp (Src) 97.5 (Oral) Resp 18 SpO2 97% O2 Therapy: Room Air DATA: Diagnostic tests reviewed for today's visit: Most recent labs and imaging results. Assessment/Plan #L sided hemianopia #Headache Was performing neck exercises today which brought on symptoms No h/o seizures or stoke in past CT head: No acute process, CTA head/neck: no acute abnormality NIHSS: 1 Plan: Telemetry MRI Neuro eval Pain: tylenol PRN Lipid panel #Paroxysmal Atrial fibrillation CHADsVASC: 1 Continue sotalol Added aspirin Medication and Non-Pharmacologic VTE Prophylaxis/Anticoagu lants 01/14/19244 pneumatic compression stockings ([place], [place]) 01/14/19244 activity - mobilize patient ([place] VTE Prophylaxis: VTE prophylaxis appropriate SIGNATURE: Marian Bourgeois MD PATIENT NAME: Joan Rothman DATE: January 14, 2019 TIME: 2:47 AM PAGER/CONTACT #: [phone] Attending Note Department of Hospital Medicine Patient seen and examined. Case discussed with resident and I agree with the HANDP as written above, personally edited by me. SIGNATURE: Eladia Bishop MD PATIENT NAME: Joan Rothman DATE: 01/14/2019 TIME: 6:19 AM PAGER/CONTACT #: [phone] Normal [facility] Hemoglobin A1con 01-14-2019 HbA1c (Bld) [Mass fraction] 91 mg/dL Normal [facility] Comment on above: Result Comment: eAG: (Estimated average glucose) is a calculated value from HgbA1c and is new accounts banking representative of the average blood glucose level in the last 2-3 month period. Performed By: #### L IPB, CMP #### [place] [phone] #### HBA1C #### [facility] [address] [place] [phone] HbA1c (Bld) [Mass fraction] 4.8 % Normal 4.3-5.6 [facility] Comment on above: Result Comment: [facility] ican Diabetes Association guidelines indicate that patients with HgbA1c in the range 5.7-6.4% are at increased risk for development of diabetes, and intervention by lifestyle modification may be beneficial. HgbA1c greater or equal to 6.5% is considered diagnostic of diabetes. Performed By: #### L IPB, CMP #### [place] [phone] #### HBA1C #### [facility] [address] [place] [phone] Lipid Panel, [place] 019 Cholesterol [Mass/Vol] 136 mg/dL Normal <200 [facility] Comment on above: Result Comment: <200 mg/dL, Desirable 200-239 mg/dL, Borderline high >239 mg/dL, High Performed By: #### L IPB, CMP #### [place] [phone] #### HBA1C #### [facility] [address] [place] [phone] Cholesterol in HDL [Mass/Vol] 56 mg/dL Normal >39 [facility] Comment on above: Result Comment: 40-5 9 mg/dL, Acceptable >59 mg/dL, High: Negative risk factor for coronary heart disease <40 mg/dL, Low: Positive risk factor for coronary heart disease Performed By: #### L IPB, CMP #### [place] [phone] #### HBA1C #### [facility] [address] [place] [phone] Cholesterol in LDL [Mass/Vol] 64 mg/dL Normal <100 [facility] Comment on above: Result Comment: <100 mg/dL, Optimal 100-129 mg/dL, Near optimal/above optimal 130-159 mg/dL, Borderline high 160-189 mg/dL, High >189 mg/dL, Very high Secondary prevention optimal LDL Cholesterol levels are recommended to be < 70 mg/dL Performed By: #### L IPB, CMP #### [place] [phone] #### HBA1C #### [facility] [address] [place] [phone] LDL:HDL Ratio 1.14 Normal <2.54 [facility] Comment on above: Result Comment: Refe rence: 1. National Cholesterol Education Program ATP III Guideline At-A-Glance Quick Desk Reference: National Heart, Lung, and Blood [place]. National Institutes of Health. 2001: NIH Publication No. 01-3305. 2. An International Atherosclerosis Society position paper: global recommendations for the management of dyslipidemia: executive summary, Atherosclerosis. 2014: 232(2):410-413. Performed By: #### L IPB, CMP #### [place] [phone] #### HBA1C #### [facility] [address] [place] [phone] Non HDL Cholesterol 80 mg/dL Normal <130 [facility] Comment on above: Performed By: #### L IPB, CMP #### [place] [address] #### HBA1C #### [phone] TC:HDL Ratio 2.43 Normal <5.10 [facility] Comment on above: Performed By: #### L IPB, CMP #### [place] [address] #### HBA1C #### [place] [phone] Triglyceride [Mass/Vol] 78 mg/dL Normal <200 [facility] Comment on above: Result Comment: <150 mg/dL, Normal 150-199 mg/dL, Borderline high 200-499 mg/dL, High >499 mg/dL, Very high Performed By: #### L IPB, CMP #### [place] [address] #### HBA1C #### [place] [phone] VLDL Cholesterol 16 mg/dL Normal <30 [facility] Comment on above: Performed By: #### L IPB, CMP #### [place] [address] #### HBA1C #### [place] [phone] MRA BRAIN WO IVCONon 019 MRA BRAIN WO IVCON * * *Final Report* * * DATE OF EXAM: Jan 14 2019 11:51AM FVM 0272 - MRA BRAIN WO IVCON / PROCEDURE REASON: Headache and focal deficit or papilledema * * * * Physician Interpretation * * * * EXAMINATION: MRA BRAIN WO IVCON, MRI BRAIN WO IVCON CLINICAL HISTORY: Left-sided hemianopsia. TECHNIQUE: Routine noncontrast MRI brain protocol including diffusion images. Intracranial 3D [id number] MRA. 3D maximum intensity projection images were created, reviewed and archived . MQ: [id number] COMPARISON: None. RESULT: BRAIN: Acute Change: There is a 4.2 x 1.7 x 1.9 cm area of restricted diffusion involving cortex subcortical white matter of the medial right occipital lobe (lingula inferior to the calcarine fissure). Hemorrhage: There are subcentimeter foci of susceptibility artifact associated with the area of infarct on both DWI and T2 weighted images compatible with hemorrhagic transformation. Mass Lesion/ Mass Effect: No evidence of an intracranial mass or extra-axial fluid collection. No significant mass effect. Chronic Change: Outside of the area of subacute infarct there are scattered punctate foci of increased signal on T2 and FLAIR compatible with microvascular ischemic changes. Parenchyma: No significant volume loss for age. The brain parenchyma is otherwise within normal limits of signal intensity and morphology. Ventricles: Normal caliber and morphology. Skull Base: Hypothalamic and pituitary region are grossly normal. Craniocervical junction is normal. No significant marrow replacement process. Vasculature: Major intracranial arterial structures, and dural venous sinuses show typical flow void, suggesting patency by spin echo criteria. Other: The visualized paranasal sinuses and mastoid air cells are clear. The orbits and extracranial soft tissues are unremarkable. INTRACRANIAL MRA: The visualized distal vertebral and basilar arteries are widely patent. The distal ICAs are patent and within normal limits of caliber. The proximal ACAs, MCAs and aquaculture farmer are patent and within normal limits of caliber and configuration. There is no evidence of focal, significant stenosis or aneurysm in the visualized vessels. IMPRESSION: Acute right medial occipital infarct with hemorrhagic transformation. Remainder the brain is normal for age. Normal intracranial MRA. Servicing Rep: [facility] Transcribe Date/Time: Jan 14 2019 11:56A Dictated by : CLAUDINE GONSALVES MD This examination was interpreted and the report reviewed and electronically signed by: CLAUDINE GONSALVES MD on Jan 14 2019 12:00PM EST [id number] Normal [facility] MRI BRAIN WO IVCONon 019 MRI BRAIN WO IVCON * * *Final Report* * * DATE OF EXAM: Jan 14 2019 11:51AM FVM 0294 - MRI BRAIN WO IVCON / PROCEDURE REASON: Headache and focal deficit or papilledema * * * * Physician Interpretation * * * * EXAMINATION: MRA BRAIN WO IVCON, MRI BRAIN WO IVCON CLINICAL HISTORY: Left-sided hemianopsia. TECHNIQUE: Routine noncontrast MRI brain protocol including diffusion images. Intracranial 3D [id number] MRA. 3D maximum intensity projection images were created, reviewed and archived . MQ: MRAB_4 COMPARISON: None. RESULT: BRAIN: Acute Change: There is a 4.2 x 1.7 x 1.9 cm area of restricted diffusion involving cortex subcortical white matter of the medial right occipital lobe (lingula inferior to the calcarine fissure). Hemorrhage: There are subcentimeter foci of susceptibility artifact associated with the area of infarct on both DWI and T2 weighted images compatible with hemorrhagic transformation. Mass Lesion/ Mass Effect: No evidence of an intracranial mass or extra-axial fluid collection. No significant mass effect. Chronic Change: Outside of the area of subacute infarct there are scattered punctate foci of increased signal on T2 and FLAIR compatible with microvascular ischemic changes. Parenchyma: No significant volume loss for age. The brain parenchyma is otherwise within normal limits of signal intensity and morphology. Ventricles: Normal caliber and morphology. Skull Base: Hypothalamic and pituitary region are grossly normal. Craniocervical junction is normal. No significant marrow replacement process. Vasculature: Major intracranial arterial structures, and dural venous sinuses show typical flow void, suggesting patency by spin echo criteria. Other: The visualized paranasal sinuses and mastoid air cells are clear. The orbits and extracranial soft tissues are unremarkable. INTRACRANIAL MRA: The visualized distal vertebral and basilar arteries are widely patent. The distal ICAs are patent and within normal limits of caliber. The proximal ACAs, MCAs and aquaculture farmer are patent and within normal limits of caliber and configuration. There is no evidence of focal, significant stenosis or aneurysm in the visualized vessels. IMPRESSION: Acute right medial occipital infarct with hemorrhagic transformation. Remainder the brain is normal for age. Normal intracranial MRA. [facility] Transcribe Date/Time: Jan 14 2019 11:56A Dictated by : CLAUDINE GONSALVES MD This examination was interpreted and the report reviewed and electronically signed by: CLAUDINE GONSALVES MD on Jan 14 2019 12:00PM EST [id number] Normal [facility] NURSING PROGon 01-14-2019 NURSING PROG HNO ID: [id number] Author: Rosaura PabloRn) CAMILO Santiago Service: Nursing Author Type: Registered Nurse Type: Nursing Progress Note Filed: 01/14/2019 9:19 PM Note Text: Nursing Progress Note Patient Name: Joan Rothman Patient Location: [id number] Transfer Note: Patient transferred into room/unit PKTA11 in stable condition. Actions taken: Report given/called to RN This note was completed by: Rosaura Santiago RN [facility] NURSING PROG HNO ID: [id number] Author: Brianna PabloRn) CAMILO Ricardo Service: ? Author Type: Registered Nurse Type: Nursing Progress Note Filed: 01/14/2019 4:56 PM Note Text: Nursing Progress Note Patient Name: Joan Rothman Patient Location: [id number] Daily Note: 0820 ECHO being performed at bedside. 1005 Chase KEY CUTTER in to see pt. 1048 Pt taken down to MRI. 1152 Pt back from MRI, neuro at bedside. 1227 Per neuro and Chase KEY CUTTER pts MRI positive for CVA. Orders to transfer pt to PKT, no beds available at this time. Updated KEY CUTTER and Neuro. Will continue to monitor closely. 1240 Neuro checks completed. 1540 Neuro rounded, stated that pt can be DCed from their standpoint. Page sent to Chase KEY CUTTER to update. 1650 Neuro checks completed. This note was completed by: Brianna Ricardo RN [facility] NURSING PROG HNO ID: [id number] Author: Marybel PabloRn) CAMILO Noriega Service: Nursing Author Type: Registered Nurse Type: Nursing Progress Note Filed: 01/14/2019 3:46 AM Note Text: Nursing Progress Note Patient Name: Joan Rothman Patient Location: [id number] Daily Note: 0200 Pt arrived onto unit with spouse. Pt assessed, AxOx3, OOB independently, left peripheral vision field compromised. Pt discussed plan of care. 0250 LIP at bedside, new orders received. This note was completed by: Marybel Noriega RN [facility] NURSING PROG HNO ID: [id number] Author: Marybel PabloRn) CAMILO Noriega Service: Nursing Author Type: Registered Nurse Type: Nursing Progress Note Filed: 01/14/2019 3:40 AM Note Text: Nursing Progress Note Patient Name: Joan Rothman Patient Location: [id number]02 Transfer Note: Patient transferred into room/unit 267 in stable condition. Actions taken: Pt oriented to room, no futher actions taken at this time. Will continue to monitor and check with patient. This note was completed by: Marybel Noriega RN [facility] PLAN OF CAREon 01-14-2019 PLAN OF CARE HNO ID: [id number] Author: Chase Bansal Service: Hospital Medicine Author Type: Nurse Practitioner Type: Plan of Care Filed: 01/14/2019 10:12 AM Note Text: Patient examined. Reports headache this morning. Reports has had issues with peripheral vision for 10 years, he would have episode of jaggy vision occur once every year, but within the last year the episodes have been occurring once per week. He reports the jaggy vision varies in intensity, both eyes, peripheral vision, and improving this morning. Denies loss of vision. Reports episodes usually precipitated by dry eyes or bright lights. Denies fall or injury. Denies lightheadedness, dizziness, chest pain, palpitations, or sob. Reports right temporal and forehead headache, rates 2-3/10, intermittent, aching, and improves with aspirin or tylenol. No hx of headaches. CTA Head/neck done at OSH, reviewed narrative, and negative. HR is SB 40-50's, patient reports this is his baseline. Last vision exam was 2 years ago. Stopped statin d/t feelings of no energy. Neurology consulted, appreciate recs MRI and MRA Brain ordered stat FLP WNL, HgbA1 in process Full note to follow. [facility] PROGRESSon 01-14-2019 PROGRESS HNO ID: [id number] Author: Chase Carney (Gia) Rolf Service: Hospital Medicine Author Type: Nurse Practitioner Type: Progress Notes Filed: 01/14/2019 1:03 PM Note Text: DEPARTMENT OF HOSPITAL MEDICINE PROGRESS NOTE SERVICE DATE: 01/14/2019 SERVICE TIME: 10:00 AM Hospital Medicine/Primary Attending: Miguel Angel Mckenzie Nurse Practitioner: Chase Bansal CNP NIGHT AND WEEKEND COVERAGE: Days: [phone], please page me for patient issues. Nights: [phone], please page [facility] Hospitalist Teaching Team A Coverage pager. Subjective INTERVAL HPI: Patient is awake, alert, and oriented sitting up in bed. Reports right temporal and forehead headache, rates 2-3/10, intermittent, aching, and improves with aspirin or tylenol. No hx of headaches. Reports has had issues with peripheral vision for 10 years, he would have episode of jaggy vision occur once every year, but within the last year the episodes have been occurring once per week. He reports the jaggy vision varies in intensity, both eyes, peripheral vision, and improving this morning. Denies loss of vision. Reports episodes usually precipitated by dry eyes or bright lights. Denies fall or injury. Denies lightheadedness, dizziness, chest pain, palpitations, or sob. Neurology on consult. MEDICATIONS: Reviewed Objective PHYSICAL EXAM: BP 108/65 Pulse 52 Temp (Src) 98 (Oral) Resp 20 Wt 173 lb 12.8 oz (78.8kg) SpO2 97% O2 Therapy: Room Air GENERAL: Alert, no distress, cooperative EYES: PERRLA NECK: Supple LUNGS: Lungs clear to auscultation. CARDIAC: Normal S1 and S2. No murmur. ABDOMEN: Abdomen soft, non-tender, BS normal. EXTREMITIES: Normal exam of the extremities NEURO: Speech is clear. Grossly normal cognition, motor function, and sensation. NIHSS: 1 PULSES: 2+ radial, 2+ dorsalis pedis The remainder of the physical exam is noncontributory. DATA: Diagnostic tests reviewed for today's visit: Most recent labs and imaging results. Most recent EKG Outside chart from [place] reviewed. Assessment/Plan Patient is a 68 year old male with PMH of Atrial fibrillation (rate controlled with sotalol) who presented to [facility] with complaints of headache and loss of peripheral vision (left-sided). Patient was performing neck exercises while at the gym today when he suddenly had partial loss of peripheral vision in the left. Stated it was only his left eye effected, associated with right occipital/parietal/te mporal headache and right neck pain that was worse with moving, 4/10 in severity. 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 Remainder the brain is normal for age. Normal intracranial MRA. -ECHO done today, in process -FLP: WNL; HgbA1C: in process -SBP: 108-140's, DBP: 60-80's -Telemetry SB PLAN: Neurology consulted, appreciate recs Transfer to PKT/Neuro floor when bed available Neuro checks every 4 hours PT/OT consulted C/w Telemetry FU with ECHO results Pain control with PRN tylenol CM for DC planning Repeat labs in am C/w statin, c/w asa pending neuro recs #4 Paroxysmal atrial fibrillation -CHADsVASC: 1 -Telemetry reviewed SB 40-50's -c/w home med: sotalol -ASA 81 mg po daily ordered on admission (will need to clarify with Neurology to continue or stop) VTE Prophylaxis: Pneumatic Compression Device and Early Ambulation Disposition: TBD Plan of care discussed with: Patient, RN and Consultants: Neurology SIGNATURE: Chase Bansal APRN.CNP PATIENT NAME: Joan Rothman DATE: January 14, 2019 TIME: 12:15 PM PAGER/CONTACT #: [phone] [facility] THERAPY NTon 01-14-2019 THERAPY NT HNO ID: [id number] Author: James (Pt) Nancie Service: Physical Therapy Author Type: Physical Therapist Type: Therapy (PT/OT/Speech/Resp) Filed: 01/14/2019 4:26 PM Note Text: Physical Therapy Evaluation SERVICE DATE: 01/14/2019 SERVICE TIME: 1550 to 1605 ROOM: [place] [address] Recommended Discharge Disposition: Home PT Recommendations to Nursing: Ambulate without device;To bathroom;In halls;Transfer to/from chair;OOB for Meals Device: No Device PT 6 Clicks Score: 24 Precautions/Activity Restrictions: Fall Risk ASSESSMENT : 68 yo patient admitted for CVA. Patient's pertinent PMHx includes OA, A-Fib, TIA, depression. Patient has no significant impairments related to Physical Therapy for inpatient needs. Patient is performing all functional mobility at or near their functional baseline with adequate safety awareness. Patient does not require inpatient skilled Physical Therapy services at this time and has adequate support and social structure for reasonably safe discharge home at current level. Due to patient positive sharpened Rhomberg with eyes closed, discussed strategies to maintain safety and mitigate risk with ambulation. Educated patient on strategies to improve balance and mitigate fall risk by using strategies that rely more heavily on sight and proprioception which include but are not limited to using touch including potential use of arredondo or furniture at night to improve somatosensory input and to ensure adequate lighting when mobilizing at night. Patient verbalizes understanding. Patient Disposition at Start of Session: Supine in Bed;Call Nascimento in Reach Patient Disposition at End of Session: Supine in Bed;Call Nascimento in Reach Tolerated Full Session Patient /Caregiver Goals: Go Home Goals for Plan of Care: Rehab Potential: Excellent PLAN: Treatment Frequency (times per week): Discontinue Therapy Services Reasons Therapy Services Discontinued: No skilled needs Treatment Interventions: Education Plan of Care developed with: Patient TREATMENT INTERVENTIONS: Therapy Diagnosis: No Skilled Need Interventions Provided: Evaluation $ Evaluation-Low (89636) Billed Units: 1 unit Total Treatment Time (minutes): 15 SUBJECTIVE: Current Hospital Course: Chart reviewed; admit with visual field cut Reason for Physical Therapy Consult : CVA Relevant Past Medical History: a-fib, TIA Patient Report: agrees to therapy and pleasant Home Environment Patient Lives With: Spouse Assistance Available: PRN Entry To Home: Ramp Number Of Stairs To Bed/Bath: full flight on second floor Tub/Shower Type: walk in shower Laundry: completes Equipment Owned: (none personally, MIL staying at home and has DME) Prior Functional Level: Within Functional Limits Prior Functional Level Comments: PLOF: Pt is retired and living at home with his (pts MIL living there as well and requires care). Pt is very indep with ADLs/IADLs. Recently gave up driving due to visual changes. OBJECTIVE: CURRENT FUNCTIONAL STATUS: Current Functional Mobility Assist Level Additional Information Rolling Independent Supine to Sit Independent Sit to Supine Independent Scooting Sit to Stand Independent Stand to Sit Independent Bed to Chair Toilet/Commode Gait Independent Gait Device: None Gait Distance (feet): 100 Stairs Modified Independent Stairs Device: Rail Number of Stairs: 11 Curb Step Car Transfer Balance: Static Sitting;Dynamic Sitting;Static Standing;Dynamic Standing;Positive Sharpened Romberg Static Sitting Balance: Normal Able to maintain balance against maximal resistance Dynamic Sitting Balance: Normal Able to sit unsupported AND weight shift across midline maximally Static Standing Balance: Normal Able to maintain standing balance against maximal resistance Dynamic Standing Balance: Good Stand independently unsupported, able to weight shift and cross midline moderately JH-HLM: 7: Walk 25 feet or more Please see discipline specific clinical documentation flowsheet for complete details for this therapy evaluation/treatment. SIGNATURE: James Canada PT PATIENT NAME: Joan Rothman DATE: January 14, 2019 TIME: 4:22 PM [facility] THERAPY NT HNO ID: [id number] Author: Olivia Yepez/Dewey Rosado Service: Occupational Therapy Author Type: Occupational Therapist Type: Therapy (PT/OT/Speech/Resp) Filed: 01/14/2019 10:33 AM Note Text: Occupational Therapy Evaluation/Discharge Summary SERVICE DATE: 01/14/2019 SERVICE TIME: 1000 to 1030 ROOM: [id number] Recommended Discharge Disposition: Home Recommended Discharge Disposition Comments: Pt is safe to d/c home with A PRN from family. No DME needs or OT needs at this time. Will d/c from caseload. Pt scheduled for MRI today. Pts only complaint is L hemianopsia. Recommended Discharge Equipment: (none) OT Recommendations to Nursing: To Bathroom for ADL?s /and or Toileting;With assist of 1 person OT 6 Clicks Score: 24 Precautions/Activity Restrictions: Fall Risk ASSESSMENT: Patient presents from home with c/o L peripheral visual field cut. No other complaints. Pt demonstrated good balance for transfers/mobility, good safety awareness, no ADL deficits during OT evaluation. B UE strength and ROM WFLs. Pt with no c/o dizziness or LOB during OOB activities. Pt is schedule for MRI this date. Currently, pt has no DME needs at home or OT needs. Will d/c from OT caseload. Please re-consult if functional status changes. Pt verbalized no further concerns or questions for therapist. Patient Disposition at Start of Session: Supine in Bed;Call Nascimento in Reach Patient Disposition at End of Session: Supine in Bed;Call Nascimento in Reach Tolerated Full Session Occupational Therapy Problem List: (visual deficit L side) Patient /Caregiver Goals: Go Home Goals for Plan of Care: None, d/c from OT Rehab Potential: Excellent PLAN: Treatment Frequency (times per week): Discontinue Therapy Services Reasons Therapy Services Discontinued: Independent in all functional mobility;No skilled needs Current admission Treatment Interventions: Education;Self Care / Home Management;Energy Conservation Training;Functional Mobility Training;Balance Training Plan of Care developed with: Patient TREATMENT INTERVENTIONS: Therapy Diagnosis: Reduced mobility-other;Decrea sed activities of daily living (ADL);Muscle Weakness (generalized);Unstead iness on feet Interventions Provided: Evaluation;Therapeuti c Activity (13337) $ Evaluation-Low (94226) Billed Units: 1 unit Therapeutic Activity (25179) Treatment Minutes: 15 1 unit Skilled Intervention(s): Instructed patient in supine to sit pushing with upper extremities to sit up Instructed patient in sit to supine using safe, effective technique Instructed patient in supine to and from sit pushing with upper extremities to sit up Instruction in sit to stand technique with proper hand placement and body positioning at edge of bed/chair Instruction in stand to sit technique with lower extremities touching chair/bed and reaching back for surface Instruction in sit to and from stand technique with proper hand placement and body positioning at edge of bed/chair Functional mobility in room/transfers indep with no LOB. Functional reaching for ADL items located high/low areas at indep level with no LOB/dizziness. Educated on outpatient services for therapy if needed in the future, pt verbalized understanding. Total Timed Code Treatment Minutes: 15 Total Treatment Time (minutes): 30 SUBJECTIVE: Current Hospital Course: Chart reviewed; see above assessment Reason for Occupational Therapy Consult: safety, ADLs, d/c planning Relevant Past Medical History: a-fib, TIA Patient Report: I feel great. Home Environment Patient Lives With: Spouse Assistance Available: PRN Entry To Home: Ramp Number Of Stairs To Bed/Bath: full flight on second floor Tub/Shower Type: walk in shower Laundry: completes Equipment Owned: (none personally, MIL staying at home and has DME) Prior Functional Level: Within Functional Limits Prior Functional Level Comments: PLOF: Pt is retired and living at home with his (pts MIL living there as well and requires care). Pt is very indep with ADLs/IADLs. Recently gave up driving due to visual changes. OBJECTIVE: Cognition/Communicati on Deficits Responsiveness: Alert Follows Commands: 3-step Commands Vision: L visual field cut approx. 20 degrees L from midline. Pt reports a black shadow on the L side. CURRENT FUNCTIONAL STATUS: Current Activities of Daily Living Assist Level Feeding Independent Grooming Independent Bathing Upper Body Independent Bathing Lower Body Independent Dressing Upper Body Independent Dressing Lower Body Independent Toileting Independent Instrumental Activities of Daily Living Assist Level Meal/Beverage Prep Light Cleaning Laundry Medication Management with Strategies Functional Mobility Assist Level Rolling Supine to Sit Independent Sit to Supine Independent Scooting Sit to Stand Independent Stand to Sit Independent Bed to Chair Independent Stand Pivot Toilet/Commode Independent Functional Mobility Independent Balance: Dynamic Sitting;Dynamic Standing Dynamic Sitting Balance: Normal Able to sit unsupported AND weight shift across midline maximally Dynamic Standing Balance: Normal Stand independently unsupported, able to weight shift and cross midline maximally Activity Tolerance: Standing Activity Standing Activity: ADLs, transfers Standing Activity Tolerance (in minutes): 10 Please see discipline specific clinical documentation flowsheet for complete details for this therapy evaluation/treatment. SIGNATURE: Olivia Rosado OT/L PATIENT NAME: Joan Rothman DATE: January 14, 2019 TIME: 10:26 AM Normal [facility] Vital Signs Date Time Vital Sign Value Performing Clinician Facility 08-21-2024 10:15-0400 Body height 177.8 cm Jeanne Conde MD Work Phone: [facility] 08-21-2024 10:15-0400 Body mass index (BMI) [Ratio] 23.39 kg/m2 Jeanne Conde MD Work Phone: [facility] 08-21-2024 10:15-0400 Body weight 73.94 kg Jeanne Conde MD Work Phone: [facility] 08-21-2024 10:15-0400 Respiratory rate 16 /min Jeanne Conde MD Work Phone: [facility] 08-04-2024 11:36-0400 Body height 177.8 cm Jeanne Conde MD Work Phone: [facility] 08-04-2024 11:36-0400 Body mass index (BMI) [Ratio] 23.39 kg/m2 Jeanne Conde MD Work Phone: [facility] 08-04-2024 11:36-0400 Body weight 73.94 kg Jeanne Conde MD Work Phone: [facility] 08-04-2024 11:36-0400 Respiratory rate 16 /min Jeanne Conde MD Work Phone: [facility] 09-24-2023 10:22-0400 Body height 180.3 cm Yeison Barnett MD Work Phone: [facility] 09-24-2023 10:22-0400 Body mass index (BMI) [Ratio] 22.87 kg/m2 Yeison Barnett MD Work Phone: [facility] 09-24-2023 10:22-0400 Body weight 74.39 kg Yeison Barnett MD Work Phone: [facility] 09-24-2023 10:22-0400 Diastolic blood pressure 73 mm[Hg] Yeison Barnett MD Work Phone: [facility] 09-24-2023 10:22-0400 Heart rate 54 /min Yeison Barnett MD Work Phone: [facility] 09-24-2023 10:22-0400 Systolic blood pressure 140 mm[Hg] Yeison Barnett MD Work Phone: [facility] 07-26-2023 10:19-0400 Body mass index (BMI) [Ratio] 23.37 kg/m2 Darell Rascon MD Work Phone: [facility] 07-26-2023 10:19-0400 Body weight 76 kg Darell Rascon MD Work Phone: [facility] 07-26-2023 10:19-0400 Diastolic blood pressure 69 mm[Hg] Darell Rascon MD Work Phone: [facility] 07-26-2023 10:19-0400 Heart rate 48 /min Darell Rascon MD Work Phone: [facility] 07-26-2023 10:19-0400 Systolic blood pressure 146 mm[Hg] Darell Rascon MD Work Phone: [facility] 11-21-2022 10:42-0400 Body height 180.3 cm Rasheeda Edi CLINICAL SOCIAL WORK AIDE.KEY CUTTER Work Phone: [facility] 11-21-2022 10:42-0400 Body weight 75.75 kg Rasheeda Edi CLINICAL SOCIAL WORK AIDE.KEY CUTTER Work Phone: [facility] 11-21-2022 10:42-0400 Diastolic blood pressure 78 mm[Hg] Rasheeda Edi CLINICAL SOCIAL WORK AIDE.KEY CUTTER Work Phone: [facility] 11-21-2022 10:42-0400 Heart rate 45 /min Rasheeda Edi CLINICAL SOCIAL WORK AIDE.KEY CUTTER Work Phone: [facility] 11-21-2022 10:42-0400 Systolic blood pressure 152 mm[Hg] Rasheeda Edi CLINICAL SOCIAL WORK AIDE.KEY CUTTER Work Phone: [facility] 08-14-2022 08:32-0400 Body height 180.3 cm Janina Calle MD Work Phone: [facility] 08-14-2022 08:32-0400 Body mass index (BMI) [Ratio] 23.47 kg/m2 Janina Calle MD Work Phone: [facility] 08-14-2022 08:32-0400 Body temperature 98.6 [degF] Janina Calle MD Work Phone: [facility] 08-14-2022 08:32-0400 Body weight 76.34 kg Janina Calle MD Work Phone: [facility] 06-20-2022 13:24-0400 Body height 180.3 cm Ewa Shankar CLINICAL SOCIAL WORK AIDE.KEY CUTTER Work Phone: [facility] 06-20-2022 13:24-0400 Body weight 76.3 kg Ewa Shankar CLINICAL SOCIAL WORK AIDE.KEY CUTTER Work Phone: [facility] 06-20-2022 13:24-0400 Diastolic blood pressure 62 mm[Hg] Ewa Shankar CLINICAL SOCIAL WORK AIDE.KEY CUTTER Work Phone: [facility] 06-20-2022 13:24-0400 Heart rate 44 /min Ewa Shankar CLINICAL SOCIAL WORK AIDE.KEY CUTTER Work Phone: [facility] 06-20-2022 13:24-0400 Systolic blood pressure 134 mm[Hg] Ewa Shankar CLINICAL SOCIAL WORK AIDE.KEY CUTTER Work Phone: [facility] 05-04-2022 12:03-0400 Body height 180.3 cm Yeison Barnett MD Work Phone: [facility] 05-04-2022 12:03-0400 Body weight 74.84 kg Yeison Barnett MD Work Phone: [facility] 05-04-2022 12:03-0400 Diastolic blood pressure 76 mm[Hg] Yeison Barnett MD Work Phone: [facility] 05-04-2022 12:03-0400 Heart rate 44 /min Yeison Barnett MD Work Phone: [facility] 05-04-2022 12:03-0400 Systolic blood pressure 146 mm[Hg] Yeison Barnett MD Work Phone: [facility] 03-01-2022 15:21-0500 Body height 180.[address] Joon Simmons Work Phone: [facility] 03-01-2022 14:21-0500 Body mass index (BMI) [Ratio] 23.4 kg/m2 Dr. Joon Simmons Work Phone: [facility] 03-01-2022 14:21-0500 Body weight 76.[address] Joon Simmons Work Phone: [facility] 03-01-2022 14:21-0500 Diastolic blood pressure 70 mm[Hg] Dr. Joon Simmons Work Phone: [facility] 03-01-2022 14:21-0500 Heart rate 45 /min Dr. Joon Simmons Work Phone: [facility] 03-01-2022 14:21-0500 Respiratory rate 16 /min Dr. Joon Simmons Work Phone: [facility] 03-01-2022 14:21-0500 SaO2% (BldA) [Mass fraction] 97 % Dr. Joon Simmons Work Phone: [facility] 03-01-2022 14:21-0500 Systolic blood pressure 118 mm[Hg] Dr. Joon Simmons Work Phone: [facility] 06-14-2021 10:10-0400 Body height 180.3 cm Yeison Barnett MD Work Phone: [facility] 06-14-2021 10:10-0400 Body weight 78.02 kg Yeison Barnett MD Work Phone: [facility] 06-14-2021 10:10-0400 Diastolic blood pressure 87 mm[Hg] Yeison Barnett MD Work Phone: [facility] 06-14-2021 10:10-0400 Heart rate 48 /min Yeison Barnett MD Work Phone: [facility] 06-14-2021 10:10-0400 Systolic blood pressure 159 mm[Hg] Yeison Barnett MD Work Phone: [facility] 09-27-2018 12:48-0400 Body Temperature 98.8 [degF] Teddy Gunderson [facility], [place] 09-27-2018 12:48-0400 BP Diastolic 76 mm[Hg] [facility] [place] 09-27-2018 12:48-0400 BP Systolic 110 mm[Hg] Teddy [facility] , [place] 09-27-2018 12:48-0400 Pulse (Heart Rate) 43 /min [facility] [place] 09-27-2018 12:48-0400 Pulse Oximetry 96 % Teddy Gunderson [facility] , [place] 09-27-2018 12:48-0400 Respiratory Rate 15 /min Teddy Gunderson [facility] [employer], [place] 09-27-2018 09:56-0400 BMI (Body Mass Index) 23.99 kg/m2 Teddy [facility], [place] 09-27-2018 09:56-0400 Body weight 78.02 kg [facility] [place] 09-27-2018 09:56-0400 Height 180.3 cm Teddy [place], [place] Encounters Encounter Date Encounter Type Care Provider Facility Start: 08-21-2024 End: 08-21-2024 Patient encounter procedure Jeanne Conde MD Work Phone: [facility] Comment on above: Major depressive dis order, recurrent episode, moderate (HCC) (Primary Dx); Generalized anxiety disorder; Insomnia due to mental condition; CHRIS (obstructive sleep apnea) Start: 08-04-2024 End: 08-04-2024 Patient encounter procedure Jeanne Conde MD Work Phone: [facility] Comment on above: Major depressive dis order, recurrent episode, moderate (HCC) (Primary Dx); Generalized anxiety disorder; Insomnia due to mental condition; CHRIS (obstructive sleep apnea); Low vitamin D level; Low vitamin B12 level; Low iron Start: 08-04-2024 End: 08-04-2024 ambulatory JEANNE GRECOURY Facility:[facility] Start: 03-06-2024 End: 03-06-2024 ambulatory [facility] Facility:[facility] Start: 09-24-2023 End: 09-24-2023 Patient encounter procedure Yeison Barnett MD Work Phone: Cardiology Comment on above: Paroxysmal atrial fi brillation (HCC) (Primary Dx) Start: 09-24-2023 End: 09-24-2023 ambulatory [facility] Facility:[facility] Start: 09-03-2023 End: 09-03-2023 [facility] Facility:[facility] Start: 07-26-2023 End: 07-26-2023 Patient encounter procedure Darell Rascon MD Work Phone: General Surgery Comment on above: Right inguinal pain (Primary Dx) Start: 07-25-2023 End: 07-25-2023 ambulatory Joon Chi [place] Facility:[facility] Start: 07-17-2023 ambulatory [facility] Facility:[facility] Start: 07-13-2023 Encounter for preprocedural laboratory examination [facility] Start: 07-04-2023 End: 07-04-2023 [facility] Facility:[facility] Start: 04-26-2023 Orders Only Yeison Borrego Work Phone: Cardiology Comment on above: Paroxysmal atrial fi brillation (HCC) (Primary Dx) Start: 03-05-2023 End: 03-05-2023 ambulatory [facility] Work Phone: Start: 03-05-2023 End: 03-05-2023 Patient encounter procedure [facility] Work Phone: Start: 11-21-2022 End: 11-21-2022 Patient encounter procedure Rasheeda Daley APRN.KEY CUTTER Work Phone: Cardiology Comment on above: Paroxysmal atrial fi brillation (HCC) (Primary Dx); Mixed hyperlipidemia; On apixaban therapy; Encounter for monitoring sotalol therapy Start: 10-23-2022 Arrhythmia TTM Yeison Borrego Work Phone: [facility] Department Start: 10-23-2022 Recurring Plan Yeison Borrego Work Phone: [facility] Start: 2022 Arrhythmia TTM Yeison Borrego Work Phone: [facility] Department Start: 2022 Recurring Plan Yeison Borrego Work Phone: [facility] Start: 10-09-2022 Arrhythmia TTM Yeison Borrego Work Phone: [facility] Department Start: 10-09-2022 Recurring Plan Yeison Borrego Work Phone: [facility] Start: 09-25-2022 Arrhythmia TTM Yeison Borrego Work Phone: [facility] Start: 09-25-2022 Recurring Plan Yeison Borrego Work Phone: [facility] Start: 09-18-2022 Arrhythmia TTM Yeison Borrego Work Phone: [facility] Start: 09-18-2022 Recurring Plan Yeison Borrego Work Phone: [facility] Start: 09-11-2022 Arrhythmia TTM Yeison Borrego Work Phone: [facility] Start: 09-11-2022 Recurring Plan Yeison Borrego Work Phone: [facility] Start: 08-30-2022 Arrhythmia TTM Yeison Borrego Work Phone: [facility] Start: 08-30-2022 Orders Only Yeison Borrego Work Phone: Cardiology Comment on above: Paroxysmal atrial fi brillation (HCC) (Primary Dx) Start: 08-30-2022 Recurring Plan Yeison Borrego Work Phone: [facility] Start: 08-26-2022 ambulatory Yeison Borrego Work Phone: Cardiology Comment on above: Post Ablation Sleep Aids Start: 08-22-2022 ambulatory Yeison Borrego Work Phone: Cardiology Comment on above: Transmitter Start: 08-19-2022 ambulatory Yeison Borrego Work Phone: Cardiology Comment on above: MEDS Start: 08-18-2022 ambulatory Yeison Borrego Work Phone: Cardiology Comment on above: Patient Education (E PS-PVI) Start: 08-17-2022 ambulatory JANINA CALEL [facility] Ambulatory Start: 08-16-2022 End: 08-16-2022 ambulatory PREMASHIRA MANN [facility] Ambulatory Start: 08-16-2022 End: 08-16-2022 Clinical Support Prema Mann [facility] Work Phone: [facility] Comment on above: Sensorineural hearin g loss, bilateral (Primary Dx) Start: 08-14-2022 End: 08-14-2022 ambulatory [employer] [facility] Ambulatory Start: 08-14-2022 End: 08-14-2022 Office outpatient visit 10 minutes Janina Calle MD Work Phone: [facility] Comment on above: Sensorineural hearin g loss, bilateral (Primary Dx); Tinnitus, right ear Start: 08-08-2022 Telephone encounter Yeison enciso MD Work Phone: Cardiology Comment on above: Patient Question; Re sults Start: 08-03-2022 Orders Only Oliva Lopez nd CLINICAL SOCIAL WORK AIDE.KEY CUTTER Work Phone: Cardiology Start: 06-20-2022 End: 06-20-2022 Patient encounter procedure Ewa Chaparro CLINICAL SOCIAL WORK AIDE.KEY CUTTER Work Phone: Cardiology Comment on above: Atrial fibrillation, persistent (HCC) (Primary Dx) Start: 05-08-2022 Orders Only Yeison Borrego Work Phone: Cardiology Comment on above: Paroxysmal atrial fi brillation (HCC) (Primary Dx) Schedule Surgery (PV I ablation) Start: 05-04-2022 End: 05-04-2022 Patient encounter procedure Yeison Barnett MD Work Phone: Cardiology Comment on above: AF (paroxysmal atria l fibrillation) (HCC) (Primary Dx) Start: 04-17-2022 Telephone encounter Yeison enciso MD Work Phone: Cardiology Comment on above: Received Outside Med ical Records Start: 03-16-2022 End: 03-16-[address] Joon Simmons Work Phone: [facility] Work Phone: Start: 03-16-2022 End: 03-16-[address] Joon Simmons Work Phone: [facility]-Pulmonary Services/Neurology Start: 03-10-2022 Non-patient / Non-visit Dr. Rusty Simmons Work Phone: [facility] Start: 03-10-2022 End: 03-10-[address] Joon Simmons Work Phone: [facility] Work Phone: Start: 03-10-2022 End: 03-10-[address] Joon Simmons Work Phone: [facility]Cardiovascul [facility] Services Start: 03-01-2022 End: 03-01-[address] Joon Simmons Work Phone: [facility] Start: 02-28-2022 End: 02-28-[address] Joon Simmons Work Phone: [facility] Work Phone: Start: 02-28-2022 End: 02-28-[address] Joon Simmons Work Phone: [facility]-Laboratory, Phy Office 3rd Flr Start: 01-03-2022 Non-patient / Non-visit Dr. Rusty Simmons Work Phone: [facility] Start: 01-03-2022 End: 01-03-[address] Joon Simmons Work Phone: [facility] Work Phone: Start: 01-03-2022 End: 01-03-[address] Joon Simmons Work Phone: [facility]Cardiov[facility] Services Start: 11-03-2021 ambulatory Yeison Borrego Work Phone: Cardiology Comment on above: [facility] Start: 11-01-2021 ambulatory Yeison Borergo Work Phone: [facility] Start: 11-01-2021 Patient encounter procedure Yeison Barnett MD Work Phone: Cardiology Comment on above: Appointment Start: 08-24-2021 End: 08-24-2021 Patient encounter procedure [facility], Phy Office 3rd Flr Start: 06-14-2021 End: 06-14-2021 Patient encounter procedure Yeison Barnett MD Work Phone: Cardiology Comment on above: Paroxysmal atrial fi brillation (HCC) (Primary Dx) Acute CVA (cerebrova scular accident) (HCC) (Primary Dx) Start: 06-10-2021 ambulatory Yeison Borrego Work Phone: Cardiology Comment on above: Ablation and other t reatments Start: 06-08-2021 Telephone encounter Yeison enciso MD Work Phone: Cardiology Comment on above: Scheduling Start: 06-06-2021 ambulatory Yeison Borrego Work Phone: Cardiology Comment on above: options for afib Start: 09-17-2020 End: 09-17-2020 Subsequent hospital visit by physician Teddy Gunderson MD Work Phone: [facility] Comment on above: Unspecified rotator cuff tear or rupture of left shoulder, not specified as traumatic Start: 03-28-2019 Patient encounter procedure LAST KESSLER Facility:[facility] Start: 09-27-2018 End: 09-27-2018 Subsequent hospital visit by physician Teddy Gunderson Work Phone: [facility] Comment on above: Post-op pain (Primar y Dx); Mucous cyst of digit of hand Procedures Date Procedure Procedure Detail Performing Clinician Start: 10-23-2022 ARRHYTHMIA TRANS TEL E MEASURE Yeison Barnett MD Work Phone: Start: 2022 ARRHYTHMIA TRANS TEL E MEASURE Yeison Barnett MD Work Phone: Start: 10-09-2022 ARRHYTHMIA TRANS TEL E MEASURE Yeison Barnett MD Work Phone: Start: 09-25-2022 ARRHYTHMIA TRANS TEL E MEASURE Yeison Barnett MD Work Phone: Start: 09-18-2022 ARRHYTHMIA TRANS TEL E MEASURE Yeison Barnett MD Work Phone: Start: 09-11-2022 ARRHYTHMIA TRANS TEL E MEASURE Yeison Barnett MD Work Phone: Start: 08-30-2022 ARRHYTHMIA TRANS TEL E MEASURE Yeison Barnett MD Work Phone: Start: 03-10-2022 Radionuclide imaging of perfusion of myocardium under exercise stress Dr. Joon Simmons Work Phone: Start: 10-20-2020 Lipid 1996 panel - S babar or Plasma Yeison Barnett MD Work Phone: Start: 01-29-2019 Adult depression scr eening assessment Yeison Barnett MD Work Phone: Start: 01-14-2019 Lipid 1996 panel - S babar or Plasma Rasheeda Daley APRN.CNP Work Phone: Start: 12-15-2010 Colonoscopy Yeison enciso MD Work Phone: Plan of Treatment Date Care Activity Detail Author Start: 04-18-2026 Screening for malign ant neoplasm of colon [facility] Start: 10-20-2025 Lipid panel Lipid Screening [facility] Start: 07-31-2025 DIABETES SCREEN DIABETES SCREEN [facility] Start: 07-31-2025 Diabetes Screening Diabetes Screenin g [facility] Start: 06-20-2025 DIABETES SCREEN DIABETES SCREEN [facility] Start: 10-13-2024 Influenza vaccination Influenza Vacc ine (#1) [facility] Start: 09-07-2024 Covid-19 Vaccine () Covid-19 Vaccine () [facility] Start: 08-28-2024 End: 08-28-2024 Patient encounter procedure 08/28/2024 10:00 AM EDT Psych Office Visit [facility] [address] [address] Jeanne Conde MD [address] [address] [facility] Start: 08-04-2024 End: 11-03-2024 Calcitriol [Mass/volume] in Serum or Plasma VITAMIN D1 25-DIHYDR Lab Routine Low vitamin D level Expected: 08/04/2024, Expires: 11/03/2024 [facility] Work Phone: Comment on above: Expected: 08/04/2024 , Expires: 11/03/2024 Start: 08-04-2024 End: 11-03-2024 CBC W Auto Differential panel - Blood COMPLETE BLOOD COUNT AND DIFFERENTIAL Lab Routine Low iron Expected: 08/04/2024, Expires: 11/03/[address] [facility] Comment on above: Expected: 08/04/2024 , Expires: 11/03/2024 Start: 08-04-2024 End: 11-03-2024 Cobalamin (Vitamin B12) [Mass/volume] in Serum or Plasma VITAMIN B12 Lab Routine Low vitamin B12 level Expected: 08/04/2024, Expires: 11/03/[address] [facility] Comment on above: Expected: 08/04/2024 , Expires: 11/03/2024 Start: 08-04-2024 End: 11-03-2024 Comprehensive metabolic 2000 panel - Serum or Plasma COMPREHENSIVE METABOLIC PANEL Lab Routine Major depressive disorder, recurrent episode, moderate (HCC) Generalized anxiety disorder Insomnia due to mental condition CHRIS (obstructive sleep apnea) Expected: 08/04/2024, Expires: 11/03/[address] [facility] Comment on above: Expected: 08/04/2024 , Expires: 11/03/2024 Start: 08-04-2024 End: 11-03-2024 Ferritin [Mass/volume] in Serum or Plasma FERRITIN Lab Routine Low iron Expected: 08/04/2024, Expires: 11/03/[address] [facility] Comment on above: Expected: 08/04/2024 , Expires: 11/03/2024 Start: 08-04-2024 End: 11-03-2024 Iron and Iron binding capacity panel - Serum or Plasma IRON AND TIBC Lab Routine Low iron Expected: 08/04/2024, Expires: 11/03/[address] [facility] Comment on above: Expected: 08/04/2024 , Expires: 11/03/2024 Start: 08-04-2024 End: 11-03-2024 Thyrotropin [Units/volume] in Serum or Plasma THYROID STIMULATING HORMONE Lab Routine Major depressive disorder, recurrent episode, moderate (HCC) Generalized anxiety disorder Insomnia due to mental condition CHRIS (obstructive sleep apnea) Expected: 08/04/2024, Expires: 11/03/[address] [facility] Comment on above: Expected: 08/04/2024 , Expires: 11/03/2024 Start: 02-13-2024 Advance Directive Discussion Advance Directive Discussion [facility] Start: 02-13-2024 Medicare Advantage A nnual Wellness Visit Medicare Advantage Annual Wellness Visit [facility] Start: 01-15-2024 Lipid 1996 panel - S babar or Plasma Lipid Screening [facility] Start: 01-15-2024 Lipid panel Lipid Screening [facility] Start: 01-15-2024 LIPID SCREEN LIPID SCREEN [facility] Start: 10-18-2023 RSV Vaccine (1 - 1-d ose 75+ series) RSV Vaccine (1 - 1-dose 75+ series) [facility] Start: 10-14-2023 Influenza vaccination C [facility] Start: 09-24-2023 End: 09-24-2023 Patient encounter procedure 09/24/2023 10:30 AM EDT Office Visit Cardiology [address] [id number] Yeison Barnett MD [address] [place] [address] Paroxysmal atrial fibrillation (HCC) [I48.0] Cardiology Comment on above: Paroxysmal atrial fi brillation (HCC) [I48.0] Start: 09-24-2023 End: 09-24-2023 ambulatory 09/24/2023 9:45 AM EDT Results Only Cardiology [address] [place] [address] Paroxysmal atrial fibrillation (HCC) [I48.0] Cardiology Comment on above: Paroxysmal atrial fi brillation (HCC) [I48.0] Start: 04-08-2023 Screening for malign ant neoplasm of colon [facility] Start: 02-14-2023 CLASS III : OFFICE VISIT CLASS III : OFFICE VISIT [facility] Start: 02-12-2023 Advance Directive Discussion Advance Directive Discussion [facility] Start: 02-12-2023 Behavioral Health Screening Behavioral Health Screening [facility] Start: 02-12-2023 Depression Assessment Depression Ass essment [facility] Start: 11-20-2022 End: 08-31-2023 ECG COMPLETE ECG COMPLETE ECG Routine Paroxysmal atrial fibrillation (HCC) Expected: 11/20/2022 (Approximate), Expires: 08/31/2023 [facility] Work Phone: Comment on above: Expected: 11/20/2022 (Approximate), Expires: 08/31/2023 Start: 10-13-2022 Covid-19 Vaccine ( season) Covid-19 Vaccine ( season) [facility] Start: 10-13-2022 Influenza vaccination C [facility] Start: 08-16-2022 End: 08-16-2022 Clinical Support 08/16/2022 9:30 AM EDT Clinical Support [facility] [address] [place] [address] Prema Mann, Ernie [address] [place] [address] [facility] Start: 05-08-2022 End: 07-08-2022 Basic metabolic 2000 panel - Serum or Plasma BASIC METABOLIC PNL Lab Routine Paroxysmal atrial fibrillation (HCC) Expected: 05/08/2022, Expires: 07/08/2022 [facility] Work Phone: Comment on above: Expected: 05/08/2022 , Expires: 07/08/2022 Start: 05-08-2022 End: 03-27-2024 CBC panel - Blood by Automated count CBC Lab Routine Paroxysmal atrial fibrillation (HCC) Expected: 05/08/2022, Expires: 05/09/2023 [facility] Work Phone: Comment on above: Expected: 05/08/2022 , Expires: 05/09/2023 Start: 05-08-2022 End: 05-09-2023 CONFIRM BLOOD TYPE CONFIRM BLOOD TYPE Blood Bank Routine Paroxysmal atrial fibrillation (HCC) Expected: 05/08/2022, Expires: 05/09/2023 [facility] Work Phone: Comment on above: Expected: 05/08/2022 , Expires: 05/09/2023 Start: 05-08-2022 End: 05-09-2023 TYPE AND SCREEN,30 DAY TYPE AND SCREEN,30 DAY Blood Bank Routine Paroxysmal atrial fibrillation (HCC) Expected: 05/08/2022, Expires: 05/09/2023 [facility] Work Phone: Comment on above: Expected: 05/08/2022 , Expires: 05/09/2023 Start: 02-12-2022 ADVANCE DIRECTIVE DISCUSSION ADVANCE DIRECTIVE DISCUSSION [facility] Start: 02-12-2022 DEPRESSION ASSESSMENT DEPRESSION ASS ESSMENT [facility] Start: 01-15-2022 DIABETES SCREEN DIABETES SCREEN [facility] Start: 10-13-2021 Influenza vaccination INFLUENZA (#1) [facility] Start: 02-16-2021 COVID-19 VACCINE (4 - Booster for Moderna series) COVID-19 VACCINE (4 - Booster for Moderna series) [facility] Start: 02-16-2021 COVID-19 Vaccine (4 - Moderna series) COVID-19 Vaccine (4 - Moderna series) [facility] Start: 02-12-2021 ADVANCE DIRECTIVE DISCUSSION ADVANCE DIRECTIVE DISCUSSION [facility] Start: 10-13-2020 Influenza vaccination Flu vaccine (# 1) [facility] Work Phone: Start: 10-05-2020 COVID-19 VACCINE (3 - Booster for Moderna series) COVID-19 VACCINE (3 - Booster for Moderna series) [facility] Start: 01-30-2020 Adult depression scr eening assessment DEPRESSION SCREENING [facility] Start: 10-13-2018 Influenza vaccination Flu vaccine (# 1) [place], [place] Start: 10-03-2018 End: 10-03-2018 Office Visit 10/03/2018 Office Visit Orthopedic Surgery Teddy Gunderson MD [address] [facility] [address] [place] [address] [phone] [facility] Start: 08-04-2018 Annual Wellness Visi t (AWV) Annual Wellness Visit (AWV) [facility] Work Phone: Start: 2013 Fall risk assessment Falls Risk Asse ssment [facility] Start: 2013 Pneumococcal 65+ yea rs Vaccine (1 of 1 - PPSV23) Pneumococcal 65+ years Vaccine (1 of 1 - PPSV23) [facility] Work Phone: Start: 2013 Pneumococcal 65+ yea rs Vaccine (1 of 2 - PCV13) Pneumococcal 65+ years Vaccine (1 of 2 - PCV13) [place], [place] Start: 2013 Pneumococcal Vaccine : 65+ (1 - PCV) Pneumococcal Vaccine: 65+ (1 - PCV) [facility] Start: 2013 Pneumococcal Vaccine : 65+ (1 of 1 - PCV) Pneumococcal Vaccine: 65+ (1 of 1 - PCV) [facility] Start: 2013 Pneumococcal Vaccine : Age 65+ (1 - PCV) Pneumococcal Vaccine: Age 65+ (1 - PCV) [facility] Start: 2013 PNEUMOCOCCAL: 65+ (1 - PCV) PNEUMOCOCCAL: 65+ (1 - PCV) [facility] Start: 2013 PNEUMOVAX AGE 65 AND OVER WITH 5YR LOOKBACK (#1) PNEUMOVAX AGE 65 AND OVER WITH 5YR LOOKBACK (#1) [facility] Start: 12-16-2011 Screening for malign ant neoplasm of colon [facility] Start: 10-18-2011 Annual Wellness Visi t (AWV) Annual Wellness Visit (AWV) [place], [place] Start: 2008 RSV Vaccine (1 - 1-d ose 60+ series) RSV Vaccine (1 - 1-dose 60+ series) [facility] Start: 1998 Colon cancer screen colonoscopy Colon cancer screen colonoscopy [place], [place] Start: 1998 Pneumococcal Vaccine : 50+ (1 of 1 - PCV) Pneumococcal Vaccine: 50+ (1 of 1 - PCV) [facility] Start: 1998 Screening for malign ant neoplasm of colon Flexible sigmoidoscopy [facility] Start: 1998 Shingles Vaccine (1 of 2) Peterson gles Vaccine (1 of 2) [place], [place] Start: 1998 SHINGRIX VACCINE (1 of 2) PETERSON GRIX VACCINE (1 of 2) [facility] Start: 1993 COLOGUARD (FIT-DNA) COLOGUARD (FIT-D NA) [facility] Start: 1993 [address] [facility] Start: 1993 COLORECTAL CANCER SCREENING COLORECTAL CANCER SCREENING [facility] Start: [address] COLONOGRAPHY [facility] Start: 1993 FECAL OCCULT BLOOD FECAL OCCULT BLOO D [facility] Start: 1993 Screening for malign ant neoplasm of colon [facility] Start: 1993 SIGMOIDOSCOPY SIGMOIDOSCOPY [facility] Start: 1988 Lipid screen Lipid screen [place], [place] Start: 10-18-1967 DTaP/Tdap/Td vaccine (1 - Tdap) DTaP/Tdap/Td vaccine (1 - Tdap) [place], [place] Start: 10-18-1967 Urine microalbumin profile [facility] Start: 1966 Anxiety Screening Anxiety Screening [facility] Start: 1966 Depression Screening Depression Scre ening [facility] Start: 1966 HEPATITIS C SCREENING HEPATITIS C [facility] Start: 1966 Hepatitis C screening Hepatitis C Sc [facility] Start: 1960 Depression screening using PHQ-9 (Patient Health Questionnaire 9) score Depression Screening (PHQ-2/9) [facility] Start: 1958 Lipid panel Lipid screen [facility] Work Phone: Start: 10-18-1951 History and physical examination, annual for health maintenance Wellness Visit [facility] Start: 1948 AAA screen AAA screen [place], [place] Start: 1948 Abdominal aortic ane urysm screening [facility] Start: 1948 ABDOMINAL AORTIC ANE URYSM SCREENING ABDOMINAL AORTIC ANEURYSM SCREENING [facility] Start: 1948 CLASS III : EKG CLASS III : EKG [facility] Start: 1948 CLASS III : POTASSIUM CLASS III : PO TASSIUM [facility] Start: 1948 Class III: Magnesium Class III: Magn esium [facility] Start: 1948 Creatinine measurement CLASS III : C REATININE [facility] Start: 1948 Hepatitis C screen Hepatitis C scree [facility] [place] [place] Start: 1948 Hepatitis C screening Hepatitis C sc [facility] Work Phone: Start: 1948 Prostate specific an tigen measurement PSA Level [facility] Start: 1948 Screening for malign ant neoplasm of colon [facility] Start: 1948 Tetanus vaccination Tetanus: Every 1 0yrs [facility] Ambulatory ECG [facility] End: 06-07-2023 Ct heart contrast eval cardiac structure&morph CT PULMONARY VEIN W IVCON Radiology Routine Paroxysmal atrial fibrillation (HCC) 1 Occurrences starting 05/08/2022 until 06/07/2023 [facility] Work Phone: Comment on above: 1 Occurrences starti ng 05/08/2022 until 06/07/2023 End: 06-14-2022 ECG COMPLETE ECG COMPLETE ECG Routine Acute CVA (cerebrovascular accident) (HCC) 1 Occurrences starting 06/14/2021 until 06/14/2022 [facility] Work Phone: Comment on above: 1 Occurrences starti ng 06/14/2021 until 06/14/2022 End: 05-09-2023 ECG COMPLETE ECG COMPLETE ECG Routine Paroxysmal atrial fibrillation (HCC) 1 Occurrences starting 05/08/2022 until 05/09/2023 [facility] Work Phone: Comment on above: 1 Occurrences starti ng 05/08/2022 until 05/09/2023 End: 04-25-2024 ECG COMPLETE ECG COMPLETE ECG Routine Paroxysmal atrial fibrillation (HCC) 1 Occurrences starting 04/26/2023 until 04/25/2024 [facility] Work Phone: Comment on above: 1 Occurrences starti ng 04/26/2023 until 04/25/2024 End: 05-09-2023 Echocardiography ECHO Cardiology Routine Paroxysmal atrial fibrillation (HCC) 1 Occurrences starting 05/08/2022 until 05/09/2023 [facility] Work Phone: Comment on above: 1 Occurrences starti ng 05/08/2022 until 05/09/2023 Incentive spirometry Incentive s pirometry Respiratory Care Routine Q1H PRN until discontinued starting 09/27/2018 [facility] above: Q1H PRN until discon tinued starting 09/27/2018 Initiate Oxygen Ther apy Protocol [facility] [place] Comment on above: Daily until disconti nued starting 09/28/2018 Daily until disconti nued starting 09/27/2018 End: 09-17-2020 MRI UPPER EXTREMITY LEFT W JT WO CONTRAST MRI UPPER EXTREMITY LEFT W JT WO CONTRAST Imaging Routine Once for 1 Occurrences starting 09/17/2020 until 09/17/2020 [place] Work Phone: Comment on above: Once for 1 Occurrenc es starting 09/17/2020 until 09/17/2020 MRI UPPER EXTREMITY LEFT W JT WO CONTRAST MRI UPPER EXTREMITY LEFT W JT WO CONTRAST Imaging Routine 09/17/2020 3:04 PM EDT [place] Work Phone: End: 09-20-2025 PAP TITRATION PSG (CPAP, BIPAP, ASV) PAP TITRATION PSG (CPAP, BIPAP, ASV) Procedures Routine CHRIS (obstructive sleep apnea) 1 Occurrences starting 08/21/2024 until 09/20/2025 [facility] Work Phone: Comment on above: 1 Occurrences starti ng 08/21/2024 until 09/20/2025 Phase I & II - meter ed glucose Phase I & II - metered glucose Point of Care Testing Routine As Needed until discontinued starting 09/27/2018 [facility] Comment on above: As Needed until disc ontinued starting 09/27/2018 End: 09-27-2018 Pulse Oximetry Spot Check Pulse Oximetry Spot Check Respiratory Care Routine One Time for 1 Occurrences starting 09/27/2018 until 09/27/2018 [facility] [place] Comment on above: One Time for Sb nguyen starting 09/27/2018 until 09/27/2018 [facility] Immunizations Immunization Date Immunization Notes Care Provider Fa priscilla 03-06-2024 influenza virus vaccine, unspecified formulation Jeanne Conde MD Work Phone: [facility] 10-21-2020 influenza, injectabl e, quadrivalent, contains preservative Darell Rascon MD Work Phone: [facility] 10-21-2020 influenza virus vaccine, unspecified formulation Rasheeda Daley APRN.[employer]TER Work Phone: [facility] 05-05-2020 Covid (Moderna) [facility] 04-07-2020 Covid (Moderna) [facility] 02-17-2019 influenza, injectabl e, quadrivalent, contains preservative Darell Rascon MD Work Phone: [facility] 11-14-2017 zoster vaccine recombinant Darell Rascon MD Work Phone: [facility] 09-05-2017 zoster vaccine recombinant Darell Rascon MD Work Phone: [facility] 02-13-2017 influenza, injectabl e, quadrivalent, contains preservative Darell Rascon MD Work Phone: [facility] Payers Date Payer Category Payer Self-pay [id number] 2021 Medicare ANTHEM MANAGED M EDICARE ANTHEM MEDIBLUE ACCESS/ENHANCED/CORE PPO/RPPO [id number] 2021-[facility] [phone] [address] [place] [address] [id number] 2018 Medicare BCBS MEDICARE AN THEM MEDIBLUE ESSENTIAL/PLUS xxxxxxxxxxxx 2018-Present [address] [address] [place] [address] xxxxxxxxxxxx [id number] 2018 Medicare (Managed Care) ANTH MEDICARE ADVANTAGE PPO [id number] 2018 Unknown ANTH BLUE [facility] S AND BLUE SHIELD ANTHEM MEDIBLUE ACCESS [id number] 2018-Present [phone] [address] [place] [address] PPO [id number] 2018 Unknown [id number] 2017 Medicare [id number] 1948 Unknown [id number] 1948 Unknown [id number] 1948 Unknown [id number] 1948 Unknown [id number] Medicare [id number] Unknown [id number] Unknown [id number] Unknown [id number] Unknown [id number] Unknown [id number] Social History Date Type Detail Facility Start: 09-27-2018 End: 11-21-2022 Tobacco smoking status NHIS Former smoker [facility] Start: 02-13-1968 End: 09-27-1978 History of tobacco use Current smoker [place], [place] Start: 02-13-1968 End: 09-27-1978 History of tobacco use Cigarette Smoker [place] Start: 09-27-2018 End: 08-04-2024 Cigarettes smoked current (pack per day) - Reported [facility] Start: 09-27-2018 End: 08-04-2024 Alcohol intake Yes [facility] Start: 1950 Sex Assigned At Not on file [place], [place] Start: 04-01-2020 End: 11-21-2022 Tobacco use and exposure Never used [facility] Start: 04-01-2020 End: 07-26-2023 Alcohol intake Current drinker of alcohol (finding) [facility] Work Phone: Start: 11-13-2019 History SDOH Alcohol Frequency [address] [facility] Start: 11-13-2019 History SDOH Alcohol Std Drinks [address] [facility] Start: 01-29-2019 End: 11-21-2022 Tobacco Comment former smoker, over [address] [facility] Start: 06-14-2021 End: 08-21-2024 Alcohol intake Ex-drinker (finding) [facility] Start: 1950 Sex Assigned At Male [facility] Start: 06-04-2021 End: 06-14-2021 Exposure to SARS-CoV-2 (event) Not sure [facility] Start: 01-28-2021 End: 10-19-2022 Tobacco smoking status NHIS Unknown if ever smoked [facility] Start: 01-13-2019 Spouse/ Significant Other [facility] Start: 06-20-2022 Alcohol Comment weekly drink [facility] Start: 08-14-2022 Tobacco smoking status NHIS Never smoked tobacco [facility] Start: 08-14-2022 Alcohol intake Lifetime non-drinker (finding) [facility] How often to you hav e a drink containing alcohol? 4 or more times a week [facility] How many standard dr inks containing alcohol do you have on a typical day? [address] [facility] How often do you hav e 6 or more drinks on 1 occasion? Never [facility] Adult Depression Screening Assessment [address] [facility] Start: 06-10-2021 Gender identity Identifies as male gender (finding) [facility] Start: 06-10-2021 Sexual orientation Choose not to disclose [facility] Start: 11-21-2022 Alcohol Comment couple times a week [facility] Do you belong to any clubs or organizations such as temple groups, unions, fraSearchdaimon or athletic groups, or school groups? Yes [facility] Are you now , , , , never or living with a partner? [facility] Do you feel stress - tense, restless, nervous, or anxious, or unable to sleep at night because your mind is troubled all the time - these days [OSQ] Only a little [facility] Goals Date Patient Goal Desired Activity /State Personal health goal Functional Status Date Assessment Result Facility 08-04-2024 Total score [AUDIT-C] -1 025 9:50 AM EDT Lala Ibrahim [facility] 08-04-2024 Functional status Patient declin ed 08/04/2024 9:50 AM EDT Lala Ibrahim Patient declined [facility] 08-22-2022 Are you deaf, or do you have serious difficulty hearing No 08/22/2022 11:10 AM EDT Anibal Ibrahim, RN No [facility] 08-22-2022 Are you blind, or do you have serious difficulty seeing, even when wearing glasses No 08/22/2022 11:10 AM EDT Anibal Ibrahim RN No [facility] 08-22-2022 Do you have serious difficulty walking or climbing stairs No 08/22/2022 11:10 AM EDT Anibal Ibrahim RN No [facility] 08-22-2022 Do you have difficul ty dressing or bathing No 08/22/2022 11:10 AM EDT Anibal Ibrahim RN No [facility] 08-22-2022 Because of a physica l, mental, or emotional condition, do you have difficulty doing errands alone such as visiting a physician's office or shopping No 08/22/2022 11:10 AM EDT Anibal Ibrahim RN No [facility] Mental Status Date Assessment Result Facility 08-22-2022 Because of a physica l, mental, or emotional condition, do you have serious difficulty concentrating, remembering, or making decisions No 08/22/2022 11:10 AM EDAnibal Brooks RN No [facility] Clinical Notes 06-09-2021 to 08-21-2024 Jeanne Conde MD - 08/21/2024 10:00 AM Jeanne Garcia MD - 08/04/2024 11:30 AM Yeison Nguyen MD - 09/24/2023 10:30 AM Darell Graves MD - 07/26/2023 10:53 AM EDTPatient Instructions Note Date & Type Note Facility 08-21-2024 History of Present illness Narrative [facility] Psychiatry/Sleep Progress Note Joan Rothman 1950 08/21/2024 Chief Complaint more anxious HPI Patient is , male, White, Employed: retired [employer] in [employer] for 40 years has a living son lost daughter in 2021 to suicide Patient was accompanied by Self tried Prozac - feeling more anxious since then sleep is more disrupted uptight about upcoming son's wedding Psychiatric Review of Systems DEPRESSION: admits to Depression, rumination, psychomotor retardation, low motivation, guilty, anhedonia, anhedonia Anhedonia - doesn't have the capcity to experience hung since atleast last 10 years Severity of Symptoms: intermittent - mod Appetite: wnl Suicidal ideations: No Passive thoughts of wishing not to exist: No Access to fire arms: No GENERALIZED ANXIETY DISORDER: admits to worries about various aspects of life, gets tense, irritability, inattentive, achy, and sleeplessness over worries The symptoms have been going on for Years Symptoms overall are: worse tends to negatively ruminate anxiety is worse in the evenings sx overall with even depression is worse as the day progresses PANIC ATTACKS: denies periods of intense anxiety accompanied with heart palpitations, shortness of breath, shaking, mind racing had them in the remote past PTSD: denies history of trauma that comes back as flashbacks, distressful recollections or memories , nightmares, hypervigilance, and avoidance hx of phy consequnces by mother there were 7 children including him Sleep Schedule/Sleep ROS: Sleep: Patient Difficultly falling/staying asleep disrupted Total perceived sleep time: variable Excessive daytime sleepiness: Yes If yes - accidents or near accidents due to drowsy driving: No Patient Data Questionnaires Houston Sleepiness Scale (ESS) 08/04/2024 [place] Sleepiness Scale Score 6 (No clinically significant daytime sleepiness) Generalized Anxiety Disorder Scale (TIAN-7) 08/04/2024 TIAN - 7 SCORES Score 4 (0-4) minimal anxiety, (5-9) mild anxiety, (10-14) moderate anxiety, (15-21) severe anxiety Patient Health Questionnaire (PHQ-9) 01/29/2019 08/04/2024 08/04/2024 PHQ-9 Score 6 7 14 (0-4) minimal depression, (5-9) mild depression, (10-14) moderate depression, (15-19) moderately severe depression, (20-27) severe depression Interim Changes in History: Changes in family history: No Changes in Social history: No Changes in Medical history: No ROS General: denies any fever, chills or nightsweats Eye: no recent change in vision Respiratory: denies cough, sputum or shortness of breath Cardiac: denies chest pain, palpitations, dyspnea without exertion Gastrointestinal: denies heartburn abdominal pain, nausea, vomiting, diarrhea or constipation Musculoskeletal: has joint aches or pains. Denies swelling of joints. Denies back pain Neurological: denies headaches. Denies syncope. Denies tingling or numbness. Denies hand shaking. Denies focal weakness or paresis. Able to walk Hematology: denies easy bruising Medications FLUoxetine (PROZAC) 10 mg capsule Take 1 capsule by mouth once daily. sildenafil (REVATIO) 20 mg tablet Take 1 tablet by mouth every afternoon. levothyroxine (SYNTHROID) 25 mcg tablet Take 1 tablet by mouth every afternoon. ALPRAZolam (XANAX) 0.5 mg tablet Take 1 tablet by mouth as needed. apixaban (ELIQUIS) 5 mg tab(s) Take 5 mg by mouth twice daily. rosuvastatin (CRESTOR) 10 mg tablet Take 10 mg by mouth once daily. acetaminophen (TYLENOL) 325 mg tablet Take 2 tablets by mouth every 6 hours as needed. MAGNESIUM ORAL Take by mouth. Allergies ALLERGIES No Known Allergies Vitals Resp 16 Ht 177.8 cm (5' 10) Wt 73.9 kg (163 lb) BMI 23.39 kg/m MSE The patient appeared stated age. Casually dressed. good hygiene. Behavior and attitude was pleasant, friendly and cooperative. Psychomotor down. Eye contact good. Speech wnl. Mood dysthymic. Affect restricted. Thought process perseverative. Thought content neg for any obsessions and/or delusions. The patient denied any suicidal or homicidal ideations, plan or intent. Auditory/visual/audio visual hallucinations not present. Attention and concentration was good. Insight and judgement were good. Patient was alert and oriented. Memory was grossly intact. Abstract reasoning was good. EXAM Physical Examination: anjelica weight for age Musculoskeletal: upper extremity strength within normal limits Neurological: gait and station normal Sensation: grossly intact Bilateral hand tremor: absent Risk Assessment: Suicide Risk Level: HML: low RATIONALE FOR RISK LEVEL (see above): Ideation: denies; Plan: denies; Intent: denies; Suicidal or Self-harm Behaviors:denies; Access to Firearms: denies; Other Risk Factors: health and personal stress; Protective Factors: seeking help, supportive Risk of harming others: Aggression: low Homicide: low ASSESSMENT/PLAN: 1. Major depressive disorder, recurrent episode, moderate (HCC) - ICD9: 296.32, ICD10: F33.1 (primary diagnosis) stop Prozac he has tried Remeron and Desyrel in the past Explained r/b/a of Abilify, including risk of akathisia, acute dystonic reaction, risk of extrapyramidal symptoms with usp use which can be potentially irreversible, risk of weight gain, hyperlipidemia, diabetes, etc. Patient acknowledged understanding and agreed to take it. start at 0.5mg qam 2. Generalized anxiety disorder - ICD9: 300.02, ICD10: F41.1 processed in therapy 3. Insomnia due to mental condition - ICD9: 300.9, 327.02, ICD10: F51.05 sleep prescretion give dos and donts discussed 4. CHRIS (obstructive sleep apnea) - ICD9: 327.23, ICD10: G47.33 on ASV coomplance download reviewed - from last 30 days continues to have some events leaks will do split night he wants to continue on ASV Cardiac Echo done in 2022 - 62% EF will repeat ECHO after the sleep study Jeanne Conde MD The following approved medication requests have been transmitted electronically. Requested Prescriptions Signed Prescriptions Disp Refills ARIPiprazole (ABILIFY) 2 mg tablet 30 tablet 0 Sig: Take 1 tablet by mouth once daily. Jeanne Conde MD Orders Placed This Encounter PAP TITRATION PSG (CPAP, BIPAP, ASV) Order Comments: previous sleep studies not available hx of CHRIS and self reported complex sleep apnea Do SPLIT-NIGHT, do ASV titration as he is on ASV at home has Hx of CPAP and BIPAP intolerance Standing Status: Future Expiration Date: 09/20/2025 Scheduling Instructions: SLEEP STUDY SCHEDULING INSTRUCTIONS (IN LABORATORY SLEEP STUDY): If your sleep study has not been scheduled, please call to schedule. If you have been directed to call a specific location, please call the appropriate number: - [facility] or [facility] - [phone] or toll free at [phone] Sunday - Sunday: 8 am- 4:30 pm - [place] - [phone] - [place] - [phone] - [place] - [phone] - [facility] - [phone] On the night of your study please report to the designated [facility] at your scheduled appointment time. Only for patients at the [place] site, please call the lab upon arrival @ and one of our staff will come to lobby to greet you and escort you to your sleep room. After your study you will be free to leave the sleep laboratory at all sites, except the [facility], between 5 a.m. and 6 a.m. unless other scheduling arrangements have been made in advance. If you are having your sleep test at the [facility], you will be able to leave between 6 a.m. and 7 a.m. Your results will be available no later than 10 business days after your study is completed. You may need to schedule a visit to discuss your results with a sleep provider or the provider who ordered your study. In preparation, please read the following carefully: 1. Cancellations must be made at least one (1) day prior to your scheduled appointment. You may be charged a $250 fee if you do not cancel at least one (1) day in advance or fail to show for your appointment. 2. If prescribed or taking a sleep aid, please be sure you have someone drive you to your appointment and pick you up from the appointment. 3. Parking is free of charge. 4. Avoid taking a nap on the day of the study. 5. Avoid alcohol and sedatives for 24 hours before the study, unless otherwise directed by the referring provider. Alerting medications may also need to be adjusted depending on any other tests you have scheduled. 6. On the day of the study, make sure that your hair is free of oil, hair spray and other products. Do not wear hair pieces or weaves. We will need to mess up your hair to apply the sensors. 7. Eat your regular evening meal before you arrive at the Sleep Disorders Center. 8. Bring a list of your regularly scheduled medications. Plan to take your medications as you normally would unless your referring provider instructs you otherwise. 9. Bring comfortable sleep attire consisting of a top and bottom. Avoid wearing silk or silk like material. Shower facilities are provided. 10. If you received a sleep questionnaire and sleep logs, please bring the completed materials to the appointment. 11. If you are using any type of positive airway pressure therapy (PAP) at home, bring your mask only. 12. If you are under 18 years of age, one adult ([id number]) parent or guardian is required to stay with you in the Sleep Disorder Center for the entire duration of your testing. We cannot accommodate additional family members or caregivers. 13. Nursing services are not available. Notify us if you have a disability that requires special assistance. You may be required to have a caregiver present during testing. 14. Smoking is prohibited. 15. If you are unable to keep your appointment or if you have an upper respiratory infection causing significant nasal congestion, contact the Sleep Disorders Center at the number you scheduled or location as above at least 48 hours in advance. We hope that your experience in our laboratory is a pleasant one. Indications: Obstructive sleep apnea STOP-BANG conditions - Select All That Apply: GENDER = male STOP-BANG conditions - Select All That Apply: AGE > 50 STOP-BANG conditions - Select All That Apply: SNORING that is loud or disruptive STOP-BANG conditions - Select All That Apply: TIREDNESS, fatigue or sleepiness during the day STOP-BANG conditions - Select All That Apply: OBSERVED sleep apnea Special Needs (e.g.behavior, non-ambulatory, >450 lbs)?: No Prior PAP (CPAP or Bilevel PAP) Use?: Yes Sleep History: Sleep apnea Current use of supplemental oxygen during sleep period?: No Add supplemental oxygen if needed per sleep lab policy?: Yes ARIPiprazole (ABILIFY) 2 mg tablet Sig: Take 1 tablet by mouth once daily. Dispense: 30 tablet Refill: 0 I spent a total of 58 minutes on the date of the service which included preparing to see the patient, [id number] patient care, completing clinical documentation, obtaining and/or reviewing separately obtained history, performing a medically appropriate examination, counseling and educating the patient/family/caregiver, ordering medications, tests, or procedures, communicating with other HCPs (not separately reported), independently interpreting results (not separately reported), communicating results to the patient/family/caregiver, and care coordination (not separately reported). This included counseling for 40 mins CBT - Insomnia CBT - Anxiety and Depression Follow-up in: 1m or sooner Jeanne Conde MD documented in this encounter [facility] 08-04-2024 History of Present illness [facility]ative [facility] Psychiatry/Sleep Initial History and Physical Joan Emili Lorna 1950 08/04/2024 Chief Complaint Tx of care - Dr. Canas - last visit 1 year ago complex sleep apnea HPI Patient is , male, White, Employed: retired [employer] in [id number] for 40 years has a living son Patient was accompanied by Self Hx of depression and anxiety Hx of Afib since 2014 - s/p ablation in 2022 Hx of stroke - 2020 on [place] Daughter committed suicide in 2021 CHRIS - dx 2022 dx with complex sleep apnea by Dr. Canas On ASV Records not available for review compliant to ASV - uses it 4-5 hrs per night with it. gets 6-7 hs sleep per night the ASV mask is too tight, the airflow is insufficient or it is leaking using the machine helps with quality of sleep and he benfits with quality of sleep - more restorative had an episode of depression 40 years ago - lasted 1.5 years he is feelin gthat some sx are coming back hx of anxiety most of his life over think feels overwhelmed - it is gin significant when he is travelling chronic grief has been in counseling for it a sister last year of pancreatic cancer Psychiatric Review of Systems DEPRESSION: admits to Depression, rumination, psychomotor retardation, low motivation, guilty, anhedonia, anhedonia Anhedonia - doesn't have the [place] to experience hung since atleast last 10 years Severity of Symptoms: intermittent - mod Appetite: wnl Suicidal ideations: No Passive thoughts of wishing not to exist: No Access to fire arms: No GENERALIZED ANXIETY DISORDER: admits to worries about various aspects of life, gets tense, irritability, inattentive, achy, and sleeplessness over worries The symptoms have been going on for Years Symptoms overall are: worse tends to negatively ruminate anxiety is worse in the evenings sx overall with even depression is worse as the day progresses PANIC ATTACKS: denies periods of intense anxiety accompanied with heart palpitations, shortness of breath, shaking, mind racing had them in the remote past PTSD: denies history of trauma that comes back as flashbacks, distressful recollections or memories , nightmares, hypervigilance, and avoidance hx of phy consequnces by mother there were 7 children including him OCD: denies both obsessions and compulsions PSYCHOSIS: denies audio, visual, and hallucinations denies delusions SIMÓN: denies feeling up on top of the world, mind racing, pressured speech, high energy, not requiring much sleep, and spending sprees Sleep Schedule Sleep: Patient Difficultly falling/staying asleep BT 10pm WT 5-6am Sleep latency: no problems falling asleep dleeps for 3-4 hrs - wakes up - takes ff his ASV then sleeps on and off Total perceived sleep time: 5-6h Excessive daytime sleepiness: Yes takes naps - 20mins around nooon If yes - accidents or near accidents due to drowsy driving: No Patient Data Questionnaires [place] Sleepiness Scale (ESS) 08/04/2024 [place] Sleepiness Scale Score 6 (No clinically significant daytime sleepiness) Generalized Anxiety Disorder Scale (TIAN-7) 08/04/2024 TIAN - 7 SCORES Score 4 (0-4) minimal anxiety, (5-9) mild anxiety, (10-14) moderate anxiety, (15-21) severe anxiety Patient Health Questionnaire (PHQ-9) 01/29/2019 08/04/2024 PHQ-9 Score 6 7 (0-4) minimal depression, (5-9) mild depression, (10-14) moderate depression, (15-19) moderately severe depression, (20-27) severe depression Past Psychiatric History Prior Diagnosis: depression and anxiety Prior Provider: No prior psychiatrist Therapist: in the past H/o self injurious behaviors: No H/o suicidal ideations: No H/o suicide attempts: No H/o physical aggression: No Past Hospitalizations: denies ECT: No TMS: No Spravato/Ketamine: No Previous Psychiatric Med Trials: Remeron - sedative SE - 4061-7535 Trazodone - sedative SE Doxepin - sedative SE Unisom Xanax - helped with sleep at night has tried other antidepressants briefly Histories PAST MEDICAL HISTORY Diagnosis Date Abnormal electrocardiogram Atrial fibrillation (HCC) paroxysmal Bifascicular block Bradycardia Depression GERD (gastroesophageal reflux disease) Renal stones Rheumatoid arthritis (HCC) Sleep apnea Central sleep apnea Stroke (HCC) 2019 PAST SURGICAL HISTORY Procedure Laterality Date ABLATION A-FIB BY PVI FINGER SURGERY HX HERNIA REPAIR HX FAMILY HISTORY Problem Relation Age of Onset Heart disease Mother Stroke Father other (cva) Father Social History Tobacco Use Smoking status: Former Current packs/day: 0.00 Average packs/day: 0.5 packs/day for 10.0 years (5.0 ttl pk-yrs) Types: Cigarettes Start date: 1968 Quit date: 1978 Years since quittin.5 Smokeless tobacco: Never Tobacco comments: former smoker, over 40 years ago Vaping Use Vaping status: Never Used Substance Use Topics Alcohol use: Not Currently Alcohol/week: 7.0 standard drinks of alcohol Types: 7 Shots of liquor per week Comment: couple times a week Drug use: Not Currently Medical ROS General: denies any fever, chills or nightsweats Eye: no recent change in vision Respiratory: denies cough, sputum or shortness of breath Cardiac: denies chest pain, palpitations, dyspnea without exertion Gastrointestinal: denies heartburn abdominal pain, nausea, vomiting, diarrhea or constipation Musculoskeletal: has joint aches or pains. Denies swelling of joints. has back pain Neurological: denies headaches. Denies syncope. Denies tingling or numbness. Denies hand shaking. Denies focal weakness or paresis. Able to walk Hematology: denies easy bruising Medications sildenafil (REVATIO) 20 mg tablet Take 1 tablet by mouth every afternoon. levothyroxine (SYNTHROID) 25 mcg tablet Take 1 tablet by mouth every afternoon. ALPRAZolam (XANAX) 0.5 mg tablet Take 1 tablet by mouth as needed. apixaban (ELIQUIS) 5 mg tab(s) Take 5 mg by mouth twice daily. rosuvastatin (CRESTOR) 10 mg tablet Take 10 mg by mouth once daily. acetaminophen (TYLENOL) 325 mg tablet Take 2 tablets by mouth every 6 hours as needed. MAGNESIUM ORAL Take by mouth. Allergies ALLERGIES No Known Allergies Vitals Resp 16 Ht 177.8 cm (5' 10) Wt 73.9 kg (163 lb) BMI 23.39 kg/m MSE The patient appeared stated age. Casually dressed. good hygiene. Behavior and attitude was pleasant, friendly and cooperative. Psychomotor down. Eye contact good. Speech wnl. Mood dysthymic. Affect restricted. Thought process perseverative. Thought content neg for any obsessions and/or delusions. The patient denied any suicidal or homicidal ideations, plan or intent. Auditory/visual/audio visual hallucinations not present. Attention and concentration was good. Insight and judgement were good. Patient was alert and oriented. Memory was grossly intact. Abstract reasoning was good. EXAM Physical Examination: anjeilca weight for age Musculoskeletal: upper extremity strength within normal limits Neurological: gait and station normal Sensation: grossly intact Bilateral hand tremor: absent Risk Assessment: Suicide Risk Level: HML: low RATIONALE FOR RISK LEVEL (see above): Ideation: denies; Plan: denies; Intent: denies; Suicidal or Self-harm Behaviors:denies; Access to Firearms: denies; Other Risk Factors: health and personal stress; Protective Factors: seeking help, supportive Risk of harming others: Aggression: low Homicide: low Impression/Recommendations/Plan: ASSESSMENT/PLAN: 1. Major depressive disorder, recurrent episode, moderate (HCC) - ICD9: 296.32, ICD10: F33.1 (primary diagnosis) trial of Prozac Explained r/b/a of Prozac, including worsening of depression and SI, weight gain, sexual dysfunction, etc. Patient acknowledged understanding and agreed to take it. start at 10mg daily - THYROID STIMULATING HORMONE - COMPREHENSIVE METABOLIC PANEL 2. Generalized anxiety disorder - ICD9: 300.02, ICD10: F41.1 counseling done - THYROID STIMULATING HORMONE - COMPREHENSIVE METABOLIC PANEL 3. Insomnia due to mental condition - ICD9: 300.9, 327.02, ICD10: F51.05 sleep retsructuring discussed - THYROID STIMULATING HORMONE - COMPREHENSIVE METABOLIC PANEL 4. CHRIS (obstructive sleep apnea) - ICD9: 327.23, ICD10: G47.33 check PAP compliance download - order placed - THYROID STIMULATING HORMONE - COMPREHENSIVE METABOLIC PANEL Jeanne Conde MD The following approved medication requests have been transmitted electronically. Requested Prescriptions Pending Prescriptions Disp Refills FLUoxetine (PROZAC) 10 mg capsule 30 capsule 1 Sig: Take 1 capsule by mouth once daily. Jeanne Conde MD I spent a total of 70 minutes on the date of the service which included preparing to see the patient, [id number] patient care, completing clinical documentation, obtaining and/or reviewing separately obtained history, performing a medically appropriate examination, counseling and educating the patient/family/caregiver, ordering medications, tests, or procedures, communicating with other HCPs (not separately reported), independently interpreting results (not separately reported), communicating results to the patient/family/caregiver, and care coordination (not separately reported). This included counseling for 16 mins CBT - Anxiety and Depression Follow-up in: 1m or sooner Jeanne Conde MD documented in this encounter [facility] 08-04-2024 Note HNO ID: [id number] Author: JEANNE CONDE MD Service: ? Author Type: Physician Type: Progress Notes Filed: 08/11/2024 14:04 Note Text: [facility] Psychiatry/Sleep Initial History and Physical Joan Emili Rotmhan 1950 08/04/2024 Chief Complaint Tx of care - Dr. Canas - last visit 1 year ago complex sleep apnea HPI Patient is , male, White, Employed: retired [employer] in [employer] for 40 years has a living son Patient was accompanied by Self Hx of depression and anxiety Hx of Afib since 2014 - s/p ablation in 2022 Hx of stroke - 2020 on Elquis Daughter committed suicide in 2021 CHRIS - dx 2022 dx with complex sleep apnea by Dr. Canas On ASV Records not available for review compliant to ASV - uses it 4-5 hrs per night with it. gets 6-7 hs sleep per night the ASV mask is too tight, the airflow is insufficient or it is leaking using the machine helps with quality of sleep and he benfits with quality of sleep - more restorative had an episode of depression 40 years ago - lasted 1.5 years he is feelin gthat some sx are coming back hx of anxiety most of his life over think feels overwhelmed - it is gin significant when he is travelling chronic grief has been in counseling for it a sister last year of pancreatic cancer Psychiatric Review of Systems DEPRESSION: admits to Depression, rumination, psychomotor retardation, low motivation, guilty, anhedonia, anhedonia Anhedonia - [place]'t have the [place] to experience hung since atleast last 10 years Severity of Symptoms: intermittent - mod Appetite: wnl Suicidal ideations: No Passive thoughts of wishing not to exist: No Access to fire arms: No GENERALIZED ANXIETY DISORDER: admits to worries about various aspects of life, gets tense, irritability, inattentive, achy, and sleeplessness over worries The symptoms have been going on for Years Symptoms overall are: worse tends to negatively ruminate anxiety is worse in the evenings sx overall with even depression is worse as the day progresses PANIC ATTACKS: denies periods of intense anxiety accompanied with heart palpitations, shortness of breath, shaking, mind racing had them in the remote past PTSD: denies history of trauma that comes back as flashbacks, distressful recollections or memories , nightmares, hypervigilance, and avoidance hx of phy consequnces by mother there were 7 children including him OCD: denies both obsessions and compulsions PSYCHOSIS: denies audio, visual, and hallucinations denies delusions SIMÓN: denies feeling up on top of the world, mind racing, pressured speech, high energy, not requiring much sleep, and spending sprees Sleep Schedule Sleep: Patient Difficultly falling/staying asleep BT 10pm WT 5-6am Sleep latency: no problems falling asleep dleeps for 3-4 hrs - wakes up - takes ff his ASV then sleeps on and off Total perceived sleep time: 5-6h Excessive daytime sleepiness: Yes takes naps - 20mins around nooon If yes - accidents or near accidents due to drowsy driving: No Patient Data Questionnaires [place] Sleepiness Scale (ESS) 08/04/2024 [place] Sleepiness Scale Score 6 (No clinically significant daytime sleepiness) Generalized Anxiety Disorder Scale (TIAN-7) 08/04/2024 TIAN - 7 SCORES Score 4 (0-4) minimal anxiety, (5-9) mild anxiety, (10-14) moderate anxiety, (15-21) severe anxiety Patient Health Questionnaire (PHQ-9) 01/29/2019 08/04/2024 PHQ-9 Score 6 7 (0-4) minimal depression, (5-9) mild depression, (10-14) moderate depression, (15-19) moderately severe depression, (20-27) severe depression Past Psychiatric History Prior Diagnosis: depression and anxiety Prior Provider: No prior psychiatrist Therapist: in the past H/o self injurious behaviors: No H/o suicidal ideations: No H/o suicide attempts: No H/o physical aggression: No Past Hospitalizations: denies ECT: No TMS: No Spravato/Ketamine: No Previous Psychiatric Med Trials: Remeron - sedative SE - [id number] Trazodone - sedative SE Doxepin - sedative SE Unisom Xanax - helped with sleep at night has tried other antidepressants briefly Histories PAST MEDICAL HISTORY Diagnosis Date Abnormal electrocardiogram Atrial fibrillation (HCC) paroxysmal Bifascicular block Bradycardia Depression GERD (gastroesophageal reflux disease) Renal stones Rheumatoid arthritis (HCC) Sleep apnea Central sleep apnea Stroke (HCC) 2019 PAST SURGICAL HISTORY Procedure Laterality Date ABLATION A-FIB BY PVI FINGER SURGERY HX HERNIA REPAIR HX FAMILY HISTORY Problem Relation Age of Onset Heart disease Mother Stroke Father other (cva) Father Social History Tobacco Use Smoking status: Former Current packs/day: 0.00 Average packs/day: 0.5 packs/day for 10.0 years (5.0 ttl pk-yrs) Types: Cigarettes Start date: 1970 Qu (more content not included)... [facility] 09-24-2023 History of Present illness Narrative Images from the original note were not included. [facility] [place] [facility] Department of Cardiovascular Medicine SECTION OF CARDIAC PACING and ELECTROPHYSIOLOGY OUTPATIENT VISIT DATE September 24, 2023 OUTPATIENT VISIT TYPE ESTABLISHED PRIMARY CARE PHYSICIAN: Joon Simmons MD [address] [facility] [address] [address] CHIEF COMPLAINT: AF HISTORY OF PRESENT ILLNESS (includes edited nursing intake history): Joan Rothman is a 72 y/o male returning for follow up after undergoing a PVI on 08/21/22. His past medical history is significant for RA, CVA, CHRIS, and atrial fibrillation. He was last seen in office by SUE Daley on 11/21/22. At his last office visit sotalol was stopped. Overall he feels great. He is not aware of any episodes of atrial fibrillation. He denies chest pain, shortness of breath, orthopnea, cough, edema, palpitations, PND, lightheadedness or syncope. CHADS2-Vasc Score Breakdown 3 Total Score 1 Age 65-74 years old 2 History of stroke, TIA, or thromboemolism 1. How often on average, does your irregular heart rhythm (atrial fibrillation) occur? Not applicable, I have not had an irregular heart rhythm since my ablation 2. How long on average, do the episodes of the irregular heart rhythm last? Not applicable, I have not had an irregular heart rhythm since my ablation 3. How often have you been bothered by this symptom in the past 4 weeks? Palpitations: none, Shortness of breath at rest: none, Shortness of breath during physical activity: very little, Exercise intolerance (fatigue during mild physical activity): none, Fatigue at rest: very little, Lightheadedness/dizziness: none, and Chest pain or pressure: none 4. Have you had an inpatient hospital admission within 30 days of your procedure? No Soniya Davis RN PAST MEDICAL HISTORY No date: Abnormal electrocardiogram No date: Atrial fibrillation (HCC) Comment: paroxysmal No date: Bifascicular block No date: Bradycardia No date: Depression No date: GERD (gastroesophageal reflux disease) No date: Renal stones No date: Rheumatoid arthritis (HCC) No date: Sleep apnea Comment: Central sleep apnea 2020: Stroke (HCC)PAST SURGICAL HISTORY No date: ABLATION A-FIB BY PVI No date: FINGER SURGERY HX No date: HERNIA REPAIR HX SOCIAL HISTORY Social History Tobacco Use Smoking status: Former Packs/day: .5 Types: Cigarettes Start date: 1968 Quit date: 1978 Years since quittin.6 Smokeless tobacco: Never Tobacco comments: former smoker, over 40 years ago Vaping Use Vaping Use: Never used Substance Use Topics Alcohol use: Not Currently Alcohol/week: 7.0 standard drinks of alcohol Types: 7 Shots of liquor per week Comment: couple times a week Drug use: Not Currently FAMILY HISTORY Problem Relation Age of Onset Heart disease Mother Stroke Father other (cva) Father ALLERGIES: ALLERGIES No Known Allergies MEDICATIONS: sildenafil (REVATIO) 20 mg tablet Take 1 tablet by mouth every afternoon. levothyroxine (SYNTHROID) 25 mcg tablet Take 1 tablet by mouth every afternoon. metoprolol succinate ER (TOPROL XL) 25 mg 24 hr tablet Take 0.5 tablets by mouth once daily. ALPRAZolam (XANAX) 0.5 mg tablet Take 1 tablet by mouth as needed. apixaban (ELIQUIS) 5 mg tab(s) Take 5 mg by mouth twice daily. rosuvastatin (CRESTOR) 10 mg tablet Take 10 mg by mouth once daily. acetaminophen (TYLENOL) 325 mg tablet Take 2 tablets by mouth every 6 hours as needed. MAGNESIUM ORAL Take by mouth. Soniya Davis RN PHYSICAL EXAMINATION: BP 140/73 Pulse (!) 54 Ht 180.3 cm (5' 11) Wt 74.4 kg (164 lb) BMI 22.87 kg/m General: Looks well; pleasant and cooperative Neck: JVP normal Lungs: Clear to auscultation Cardiac: Regular rate and rhythm, no murmurs, rubs, gallops or clicks Abdomen: Soft, nontender, nondistended, no bruits Extremities: No cyanosis, clubbing, or edema; extremeties are warm Neurologic: A & O x 3; normal gait CARDIOVASCULAR MEDICINE TESTING: EKG 09/24/2023 reviewed: Record recurrences on or prior to the follow-up date but after the date of the previous follow-up (or after ablation date if this is the first follow-up) Palpitations: No AFib: No Aflutter: No AT or SVT: No Is patient currently in atrial fibrillation? No Arrhythmia recurrence beyond the blanking period: No One year success off AAD Yes IMPRESSION: PAF: He is s/p cryoballoon PVI 08/2022. He has done well w/o recurrence. Continue apixaban. Will stop low dose metoprolol give resting bradycardia and because he is only on 12.5 mg of metoprolol. 2. Follow up: 1Y. If doing well, will graduate him. Yeison Barnett MD, MPH documented in this encounter [facility] 09-24-2023 Note HNO ID: [id number] Author: YEISON BARNETT MD Service: ? Author Type: Physician Type: Progress Notes Filed: 09/24/2023 10:54 Note Text: [facility] [place] [facility] Department of Cardiovascular Medicine SECTION OF CARDIAC PACING and ELECTROPHYSIOLOGY OUTPATIENT VISIT DATE September 24, 2023 OUTPATIENT VISIT TYPE ESTABLISHED PRIMARY CARE PHYSICIAN: Joon Simmons MD [address] [id number] CHIEF COMPLAINT: AF HISTORY OF PRESENT ILLNESS (includes edited nursing intake history): Joan Rothman is a 72 y/o male returning for follow up after undergoing a PVI on 08/21/22. His past medical history is significant for RA, CVA, CHRIS, and atrial fibrillation. He was last seen in office by SUE Daley on 11/21/22. At his last office visit sotalol was stopped. Overall he feels great. He is not aware of any episodes of atrial fibrillation. He denies chest pain, shortness of breath, orthopnea, cough, edema, palpitations, PND, lightheadedness or syncope. CHADS2-Vasc Score Breakdown 3 Total Score 1 Age 65-74 years old 2 History of stroke, TIA, or thromboemolism 1. How often on average, does your irregular heart rhythm (atrial fibrillation) occur? Not applicable, I have not had an irregular heart rhythm since my ablation 2. How long on average, do the episodes of the irregular heart rhythm last? Not applicable, I have not had an irregular heart rhythm since my ablation 3. How often have you been bothered by this symptom in the past 4 weeks? Palpitations: none, Shortness of breath at rest: none, Shortness of breath during physical activity: very little, Exercise intolerance (fatigue during mild physical activity): none, Fatigue at rest: very little, Lightheadedness/dizziness: none, and Chest pain or pressure: none 4. Have you had an inpatient hospital admission within 30 days of your procedure? No Soniya Davis RN PAST MEDICAL HISTORY No date: Abnormal electrocardiogram No date: Atrial fibrillation (HCC) Comment: paroxysmal No date: Bifascicular block No date: Bradycardia No date: Depression No date: GERD (gastroesophageal reflux disease) No date: Renal stones No date: Rheumatoid arthritis (HCC) No date: Sleep apnea Comment: Central sleep apnea 2020: Stroke (HCC)PAST SURGICAL HISTORY No date: ABLATION A-FIB BY PVI No date: FINGER SURGERY HX No date: HERNIA REPAIR HX SOCIAL HISTORY Social History Tobacco Use Smoking status: Former Packs/day: .5 Types: Cigarettes Start date: 1968 Quit date: 1978 Years since quittin.6 Smokeless tobacco: Never Tobacco comments: former smoker, over 40 years ago Vaping Use Vaping Use: Never used Substance Use Topics Alcohol use: Not Currently Alcohol/week: 7.0 standard drinks of alcohol Types: 7 Shots of liquor per week Comment: couple times a week Drug use: Not Currently FAMILY HISTORY Problem Relation Age of Onset Heart disease Mother Stroke Father other (cva) Father ALLERGIES: ALLERGIES No Known Allergies MEDICATIONS: sildenafil (REVATIO) 20 mg tablet Take 1 tablet by mouth every afternoon. levothyroxine (SYNTHROID) 25 mcg tablet Take 1 tablet by mouth every afternoon. metoprolol succinate ER (TOPROL XL) 25 mg 24 hr tablet Take 0.5 tablets by mouth once daily. ALPRAZolam (XANAX) 0.5 mg tablet Take 1 tablet by mouth as needed. apixaban (ELIQUIS) 5 mg tab(s) Take 5 mg by mouth twice daily. rosuvastatin (CRESTOR) 10 mg tablet Take 10 mg by mouth once daily. acetaminophen (TYLENOL) 325 mg tablet Take 2 tablets by mouth every 6 hours as needed. MAGNESIUM ORAL Take by mouth. Soniya Davis RN PHYSICAL EXAMINATION: BP 140/73 Pulse (!) 54 Ht 180.3 cm (5' 11) Wt 74.4 kg (164 lb) BMI 22.87 kg/m? General: Looks well; pleasant and cooperative Neck: JVP normal Lungs: Clear to auscultation Cardiac: Regular rate and rhythm, no murmurs, rubs, gallops or clicks Abdomen: Soft, nontender, nondistended, no bruits Extremities: No cyanosis, clubbing, or edema; extremeties are warm Neurologic: A AND O x 3; normal gait CARDIOVASCULAR MEDICINE TESTING: EKG 09/24/2023 reviewed: Record recurrences on or prior to the follow-up date but after the date of the previous follow-up (or after ablation date if this is the first follow-up) Palpitations: No AFib: No Aflutter: No AT or SVT: No Is patient currently in atrial fibrillation? No Arrhythmia recurrence beyond the blanking period: No One year success off AAD Yes IMPRESSION: PAF: He is s/p cryoballoon PVI 08/2022. He has done well w/o recurrence. Continue apixaban. Will stop low dose metoprolol give resting bradycardia and because he is only on 12.5 mg of metoprolol. 2. Follow up: 1Y. If doing well, will graduate him. Yeison Barnett MD, MPH [facility] 07-26-2023 History of Present illness Narrative HISTORY AND PHYSICAL Joan Lorna 1950 REFERRING PHYSICIAN: Dr. Simmons CHIEF COMPLAINT: Consult (Hernia, CT at [facility]) HPI: The patient is a 72 year old male with a complaint of right inguinal pain. The patient noted doing some work and lifting and noted discomfort in his right inguinal area. He felt he noted a small bulge. He notes over the last few weeks the pain is actually improved any longer no longer notes a bulge. He saw his PCP Dr. Simmons who wondered if this could have been a recurrent hernia ordered a CT scan at [facility]. This demonstrated no signs of hernia and no other specific abnormalities. I have the hernia report but not the images. The patient was referred for evaluation. The patient had an open right inguinal hernia repair performed many years ago he states in [facility]. He notes no chronic pain symptoms in the area.. The patient is being seen by me today at the request of Dr. Joon Simmons MD for my opinion and advice regarding abdominal wall strain versus hernia recurrence. PAST MEDICAL HISTORY Diagnosis Date Abnormal electrocardiogram Atrial fibrillation (HCC) paroxysmal Bifascicular block Bradycardia Depression GERD (gastroesophageal reflux disease) Renal stones Rheumatoid arthritis (HCC) Sleep apnea Central sleep apnea Stroke (HCC) 2020 PAST SURGICAL HISTORY Procedure Laterality Date FINGER SURGERY HX HERNIA REPAIR HX Current Outpatient Medications Medication Sig sildenafil (REVATIO) 20 mg tablet Take 1 tablet by mouth every afternoon. levothyroxine (SYNTHROID) 25 mcg tablet Take 1 tablet by mouth every afternoon. Mirtazapine (REMERON) 7.5 mg tablet Take 0.5 tablets by mouth as needed (sleep). metoprolol succinate ER (TOPROL XL) 25 mg 24 hr tablet Take 0.5 tablets by mouth once daily. ALPRAZolam (XANAX) 0.5 mg tablet Take 1 tablet by mouth as needed. apixaban (ELIQUIS) 5 mg tab(s) Take 5 mg by mouth twice daily. rosuvastatin (CRESTOR) 10 mg tablet Take 10 mg by mouth once daily. acetaminophen (TYLENOL) 325 mg tablet Take 2 tablets by mouth every 6 hours as needed. MAGNESIUM ORAL Take by mouth. Current Facility-Administered Medications Medication Dose Route Frequency perflutren lipid microspheres 1.3 mL in NaCl (PF) 0.9% 10 mL injection (DEFINITY) INTRAVENOUS DIRECTED PRN sodium chloride 0.9 % (flush) 10 mL (BD POSIFLUSH) 10 mL INTRAVENOUS DIRECTED PRN ALLERGIES: Patient has no known allergies. PERSONAL HISTORY: Social History Tobacco Use Smoking status: Former Packs/day: .5 Types: Cigarettes Start date: 1968 Quit date: 1978 Years since quittin.4 Smokeless tobacco: Never Tobacco comments: former smoker, over 40 years ago Vaping Use Vaping Use: Never used Substance Use Topics Alcohol use: Yes Alcohol/week: 1.0 standard drink of alcohol Types: 1 Standard drinks or equivalent per week Comment: couple times a week Drug use: Not Currently FAMILY HISTORY: FAMILY HISTORY Problem Relation Age of Onset Heart disease Mother Stroke Father other (cva) Father REVIEW OF SYMPTOMS: The review of systems data was entered by the nurse and reviewed by me There are no exam notes on file for this visit. PHYSICAL EXAMINATION: General: The patient is 72 year old male, well nourished, well hydrated in no acute distress. The patient is oriented to time, place, and person. VITALS: Blood pressure 146/69, pulse (!) 48, weight 76 kg (167 lb 8.8 oz). HEENT: Normal cephalic, ataumatic, pupils are equally round, sclera are anicteric, mucous membranes are moist, oropharynx is clear. Neck has no masses, asymmetry or lymphadenopathy. Thyroid is unremarkable. Respiratory: Clear to auscultation and percussion. Normal respiratory excursion and pattern. Cardiac: Examination is regular rate and rhythm. Abdominal exam: Soft, nontender, with no palpable masses. No hepatosplenomegaly. No palpable hernias. With coughing straining laying down and with the finger inverting the scrotum to the external inguinal ring no obvious hernia was noted Rectal exam: exam deferred Extremities: no clubbing, cyanosis or edema. No adenopathy. Other: LABORATORY VALUES: As Noted RADIOLOGIC STUDIES: As Noted Assessment IMPRESSION: Likely abdominal wall strain possible occult hernia PLAN: I reassured the patient this is most likely an abdominal wall strain. If the patient still having symptoms the next 3 to 4 weeks I recommend he follow-up in my [place] office for dynamic ultrasound. I will ask my office to try to download the CT scan images from [facility] so I can review those directly. Diagnoses: (R10.31) Right inguinal pain (primary encounter diagnosis) My findings have been communicated to Dr. Joon Simmons MD via shared medical record. This note will be forwarded to Dr. Joon Simmons MD. Return to Clinic: The patient is instructed to follow-up with me in 2 to 3 weeks if needed. Darell Rascon MD documented in this encounter [facility] 04-26-2023 History of Present illness Narrative g documented in this encounter [facility] 11-21-2022 History of Present illness Narrative Images from the original note were not included. [facility] [place] [facility] Department of Cardiovascular Medicine SECTION OF CARDIAC PACING and ELECTROPHYSIOLOGY OUTPATIENT VISIT DATE November 21, 2022 OUTPATIENT VISIT TYPE ESTABLISHED PRIMARY CARE PHYSICIAN: Joon Simmons MD [address] [address] REFERRING PHYSICIAN: Yeison Barnett [address] [facility] [address] CHIEF COMPLAINT: Atrial fibrillation follow up HISTORY OF PRESENT ILLNESS: Mr. Rothman is a 72 year old male who presents today for follow-up visit s/p PVI ablation 08/21/22. She is an established patient of Dr. Barnett, last seen in office He has a past medical history of CHRIS, CKD, CVA ( perihernial lvisions ), ocular migraines, and paroxysmal atrial fibrillation. He he maintained on sotalol and apixaban. He presents in sinus bradycardia. He reports I feel phenomenal When in atrial fibrillation, he notes palpitation, headaches, generalized weakness and fatigue. He denies chest pain, shortness of breath, orthopnea, cough, edema, palpitations, PND, lightheadedness or syncope. He exercises daily by walking, doing yard work and gardening and attends gym doing cardio and strength training. PAST CARDIAC HISTORY: PAST MEDICAL HISTORY Diagnosis Date Abnormal electrocardiogram Atrial fibrillation (HCC) paroxysmal Bifascicular block Bradycardia Depression GERD (gastroesophageal reflux disease) Renal stones Rheumatoid arthritis (HCC) Sleep apnea Central sleep apnea Stroke (HCC) 2019 PAST SURGICAL HISTORY Procedure Laterality Date FINGER SURGERY HX HERNIA REPAIR HX SOCIAL HISTORY Social History Tobacco Use Smoking status: Former Packs/day: .5 Types: Cigarettes Start date: 1968 Quit date: 1978 Years since quittin.8 Smokeless tobacco: Never Tobacco comments: former smoker, over 40 years ago Vaping Use Vaping Use: Never used Substance Use Topics Alcohol use: Yes Alcohol/week: 1.0 standard drink of alcohol Types: 1 Standard drinks or equivalent per week Comment: couple times a week Drug use: Not Currently FAMILY HISTORY Problem Relation Age of Onset Heart disease Mother Stroke Father other (cva) Father ALLERGIES: ALLERGIES No Known Allergies MEDICATIONS: sildenafil (REVATIO) 20 mg tablet^Take 1 tablet by mouth every afternoon.^Disp: ^Rfl: levothyroxine (SYNTHROID) 25 mcg tablet^Take 1 tablet by mouth every afternoon.^Disp: ^Rfl: Mirtazapine (REMERON) 7.5 mg tablet^Take 0.5 tablets by mouth daily at bedtime.^Disp: ^Rfl: apixaban (ELIQUIS) 5 mg tab(s)^Take 5 mg by mouth twice daily.^Disp: ^Rfl: rosuvastatin (CRESTOR) 10 mg tablet^Take 10 mg by mouth once daily.^Disp: ^Rfl: acetaminophen (TYLENOL) 325 mg tablet^Take 2 tablets by mouth every 6 hours as needed.^Disp: ^Rfl: sotalol (BETAPACE) 80 mg tablet^Take 40 mg by mouth twice daily. ^Disp: ^Rfl: MAGNESIUM ORAL^Take by mouth.^Disp: ^Rfl: REVIEW OF SYSTEMS: General, constitutional: Weight loss or gain- No, Fever or chills-No, Weakness-No, Trouble sleeping-No. Head, Eyes, Ears, Mouth: Headache, head injury-No, Glasses or contact lenses-No, Pain-No, Impaired vision-No, Decreased hearing-No, Ringing in ears-No, Nose bleeds-No, Dental difficulties-No, Bleeding gums-No, Dentures-No. Neck: Swelling-No, Pain-No, Stiffness-No. Respiratory: Cough-No, Spitting up blood-No, Shortness of breath-No, Wheezing or asthma-No. Musculoskeletal: Muscle or joint pain or stiffness-No, Joint swelling-No. Gastrointestinal: Difficulty swallowing-No, Heartburn-No, Change in bowel habits-No, Blood in stool, Dark black stools-No. Neurological/Psychiatric: Weakness, paralysis-No, Numbness-No, Tingling-No, Tremor-No, Nervousness or anxiety-No, Depressed mood-No, Memory loss-No. Skin: Rash-No, Itching-No. Hematological: Easy bruising-No, Easy bleeding-No. Endocrine: Heat or cold intolerance-No, Excessive sweating-No, Frequent urination-No, Frequent thirst-No. 1. How often on average, does your irregular heart rhythm (atrial fibrillation) occur? Not applicable, I have not had an irregular heart rhythm since my ablation 2. How long on average, do the episodes of the irregular heart rhythm last? Not applicable, I have not had an irregular heart rhythm since my ablation 3. How often have you been bothered by this symptom in the past 4 weeks? Palpitations: none, Shortness of breath at rest: none, Shortness of breath during physical activity: none, Exercise intolerance (fatigue during mild physical activity): none, Fatigue at rest: very little, Lightheadedness/dizziness: none, and Chest pain or pressure: none 4. Have you had an inpatient hospital admission within 30 days of your procedure? No Rasheeda Daley APRN.KEY CUTTER Record recurrences on or prior to the follow-up date but after the date of the previous follow-up (or after ablation date if this is the first follow-up) Palpitations: No AFib: No Aflutter: No AT or SVT: No Is patient currently in atrial fibrillation? No Arrhythmia recurrence beyond the blanking period: No One year success off AAD Not applicable Rasheeda Daley APRN.KEY CUTTER PHYSICAL EXAMINATION: BP 152/78 (BP Site: Left Arm, BP Position: Sitting, BP Cuff Size: Regular Adult) Pulse (!) 45 Ht 180.3 cm (5' 11) Wt 75.8 kg (167 lb) BMI 23.29 kg/m General Appearance: Well developed, Well nourished and No distress HEENT: EOM's intact and No lesions Lungs: Clear and Respiratory effort: normal Heart: Regular rate & rhythm, No heaves, No lifts, No thrills, S1, S2 normal and no Edema Abdomen: Soft, Round, Non-tender and Non-distended Skin: Warm, Dry and No rash on chest, arms or legs Musculoskeletal: No deformities and No joint deformities, SIMMONS equally Neurologic/Psychiatric: Oriented to time, place & person , Alert and No gross focal neurologic deficits CARDIOVASCULAR MEDICINE TESTING: CT PUL Vein 06/20/22 IMPRESSION: 1. Normal pulmonary venous anatomy without pulmonary vein stenosis. 2. No left atrial or left atrial appendage thrombus. Moderate left atrial dilation. 3. Small pulmonary nodule. Incidental Finding: Follow-up Acuity: Incidental Finding: Solid: <6 mm (solitary or multiple) Routing Code: N/A Recommendation: No imaging follow-up is recommended Time Frame: N/A Comments: If there are risk factors for lung malignancy, a follow-up chest CT exam could be obtained in 12 months TTE06/20/22 CONCLUSIONS: - Exam indication: Pre PVI ablation - The left ventricle is normal in size. Left ventricular systolic function is normal. EF = 62 5% (2D biplane) - The right ventricle is normal in size. Right ventricular systolic function is normal. - The left atrial cavity is moderately dilated. - Trivial-1+ MR. - There is 1+ TR. - Estimated right ventricular systolic pressure is 35 mmHg consistent with mild pulmonary hypertension. Estimated right atrial pressure is 8 mmHg based on IVC assessment. - Exam was compared with the prior echocardiographic exam performed on 01/14/2019 ([facility]). Similar findings I have personally reviewed the Electrocardiogram, Laboratory Testing, and Echocardiogram. ASSESSMENT/ IMPRESSION: Mr. Rothman is a 72 year old male who presents today for follow-up visit s/p PVI ablation 08/21/22. She is an established patient of Dr. Barnett, last seen in office He has a past medical history of CHRIS, CKD, CVA ( perihernial lvisions ), ocular migraines, and paroxysmal atrial fibrillation. He he maintained on sotalol and apixaban. He presents in sinus bradycardia. He reports I feel phenomenal When in atrial fibrillation, he notes palpitation, headaches, generalized weakness and fatigue. He denies chest pain, shortness of breath, orthopnea, cough, edema, palpitations, PND, lightheadedness or syncope. He exercises daily by walking, doing yard work and gardening and attends gym doing cardio and strength training. Paroxysmal Atrial fibrillation - Onset ~2017 - Symptoms:palpitation, headaches, generalized weakness - LVEF 62% LAV 85 mL mild pulm htn - TSH 4.20 (2020) - S/P Cryo PVI 08/21/22 - On sotalol 40 mg BID - Maintained on apixaban CHADS2-Vasc Score Breakdown 3 Total Score 1 Age 65-74 years old 2 History of stroke, TIA, or thromboemolism - Risk factor modification - Diet and wt management - Increase activity as tolerated - HTN control - CHRIS on ASV Encounter for sotalol monitoring - EK bpm QRS 98 ms QT/QTc 458/396 ms - Check all new prescription for interactions - Avoid QTc prolonging medication - Estimated Creatinine Clearance: 65.7 mL/min (based on SCr of 1.05 mg/dL). - BMP, Mg and EKG every six months for refills - on sotalol 40 mg BID - okay to stop sotalol Chronic Anticoagulation - Stroke prevention in non valvular atrial fibrillation - On apixaban therapy Other Chronic conditions CHRIS - central - with insomnia CVA - embolic - on statin and AC - will add low dose BB in absence of sotalol HTN - BP controlled on current therapy Hypothyroidism - Maintained on levothyroxine HLD - Maintained on rosuvastatin 10 mg PLAN AND RECOMMENDATIONS: - Follow up in six months - Discussed Risk factor modification - Ok to stop sotalol - Add low dose metoprolol succinate in absence of sotalol BB properties - Continue apixaban therapy CONTACT INFORMATION: Rasheeda Daley APRN.KEY CUTTER Dr. Yeison Barnett's office To schedule an appointment please call --[phone] Other questions or concerns please call his office at -- [phone] Fax#: [phone] EP outside records and Care Everywhere Reviewed documented in this encounter [facility] 08-22-2022 History of Present illness Narrative TRANSMITTER INSTRUCTIONS Patient Name: Joan Rothman [facility] Number: [id number] Fresh battery inserted in monitor Patient instructed 1.) Scheduled and Symptomatic recording instructions 2.) Usage of event button and/or transmission instructions 3.) Maintenance and care of monitor 4.) Landline availability 5.) Return unit at the end of prescribed order 6.) Call with problems [phone] Patient expresses good verbal understanding of instructions Greg Henderson documented in this encounter [facility] 08-21-2022 Miscellaneous Notes Spoke to patient. Spoke to lab. Lab is calling patient back to clarify his instructions. Alice Davis RN Please contact patient regarding MyChart message. documented in this encounter [facility] 08-18-2022 History of Present illness Narrative THE FOLLOWING WAS EVALUATED Motivation To Learn: Interested Family/Significant Other Support: Unable to assess - Family not present Cognitive Ability: Alert and oriented Patient Learns Best By: Verbal Instruction The Following Influencing Factors Were Barriers To This Education Session: None The Following Physical Limitations Were Barriers To This Education Session: None Instruction Provided To: Patient Procedure: Pulmonary Vein Ablation/Isolation Pre-procedure information reviewed: Patient ID verified Procedure verified Physician verified Explanation of procedure Sedation level during procedure MD medication instructions from EP lab request: (Anticoagulation: Continue anticoagulation. Do not interrupt). Hold all medications the morning of the procedure. Patient denies missing any doses of Eliquis in the past 3 weeks. Travel instructions/restrictions Scheduling information Possible same day discharge versus overnight hospital stay Check out time Family waiting area Physician contact with family after procedure Post Procedure Expectations reviewed: Inpatient hospital stay Post procedure antiarrhythmics and anticoagulation will be discussed with Physician, nurse practitioner or Physician esl instructional assistant upon discharge Instructions for transmitting EKG to Monitoring Center 3 month follow up instructions Contact number for information and questions Patient Evaluation: Verbalizes understanding Follow Up Plan: Follow up as directed by MD. Supplemental Material Given: Written Material Patient education regarding radiation exposure. Instructed By Ashleigh Chacon RN. In Department of CARDIOLOGY. documented in this encounter [facility] 08-16-2022 History of Present illness Narrative Images from the original note were not included. [facility] [address] [facility] [address] Name: Joan Rothman : 1950 Date: 08/16/22 History & Purpose of Evaluation: Joan Rothman was seen today for audiologic evaluation at the request of Janina Calle MD. Mr. Rothman reported he completed an audiologic assessment about [id number] and he returned to see if there has been any additional decline in his hearing since that time. He does not feel he has had a significant change of hearing. He stated he doesn't feel he has difficulty hearing most day-to-day activities, but is having difficulty hearing his TV. He reported tinnitus in his right ear, which he has noticed for at least five years. He reported no recent change in that tinnitus. Please see below for other pertinent case history information as reported by Joan Rothman. Otologic Symptoms R L Noise Exposure Y N Medical Y N Hearing Loss [x] [x] Occupational [] [x] Hypertension [] [x] Tinnitus [x] [] Recreational [x] [] Diabetes [] [x] Otalgia [] [] [x] [] Hypercholesterolemia [] [x] Otorrhea [] [] Inconsistent use of hearing protection Heart Disease [x] [] Aural Fullness [] [] Family History-parents, siblings [x] [] Stroke [x] [] Meniere s Disease [] [] Cancer [] [x] Y N Sp./Lang. Skills Ear Surgery R L Vertigo [] [x] Appropriate [x] [] PE Tubes [] [] Dizziness [] [x] In Therapy [] [x] Mastoidectomy [] [] Imbalance-brief when he arises in morning. Attributes to A-fib [x] [] Social Acoustic Neuroma [] [] Vestibular Rehab [] [x] Depression [] [x] Tympanoplasty [] [] Other: Results: Otoscopy: Clear canals, bilaterally. Puretone Air & Bone Conduction Audiometry: Pure tone audiometry revealed a moderate high frequency sensorineural hearing loss, bilaterally. Speech Audiometry: Speech recognition thresholds were in good agreement with puretone averages. Word recognition was excellent (100% in the right ear and 96% in the left ear) when assessed at a normal conversational loudness level using recorded male voice. Immittance Audiometry: Could not test secondary to unavailable equipment. Distortion Product Otoacoustic Emissions (DPOAE; 1500-6k Hz): Did not assess. Impression: Test results revealed a moderate high frequency sensorineural hearing loss, bilaterally. Mr. Rothman is a candidate for binaural hearing aids. An appointment was offered to discuss his options further but he declined that at this time. I invited him to contact us to schedule a hearing aid consultation when he is ready to proceed further. I also recommended he contact his insurance carrier to verify whether or not he has benefits for hearing aids and, if so, if he is required to receive services through any particular contracted provider. I also encouraged him to contact the [employer] to see if he is eligible for hearing aids with them. Recommendations: Follow up with Dr. Calle. Further testing and/or re-evaluation at Dr. Calle' discretion. Hearing aids are recommended, following otologic clearance at Dr. Calle' discretion. Use of hearing protection is recommended when in high levels of noise. The above was explained to Mr. Rothman and he expressed understanding. Electronically Signed by: Ernie Cheng, [facility] 08/16/22 9:31 AM documented in this encounter [facility] 08-14-2022 History of Present illness Narrative [facility] [address] [facility] [place] [address] [facility] [address] Dept: [phone] Janina Calle MD Joan Rothman 71 y.o. male Patient presents with a chief complaint of hearing is getting worse needs audio (New PT /Last seen in [place]) Temp 98.6 F (37 C) Ht 5' 11 Wt 76.3 kg (168 lb 4.8 oz) BMI 23.47 kg/m History of Presenting Illness: The patient/caregiver reports a history of complaint with the following features: He presents for evaluation of his hearing. He had a hearing test a few years ago that shows some mild loss. He reports no noticeable change, but his spouse feels that his hearing is declining. He has mild right tinnitus that he does not find bothersome. Review of systems covering 10 systems is reviewed and pertinent positives and negatives are noted as above. Past Medical History: Diagnosis Date A-fib (HCC) Bradycardia CVA (cerebral vascular accident) (HCC) Depression Fatigue GERD (gastroesophageal reflux disease) History of renal stone Hyperlipidemia CHRIS (obstructive sleep apnea) Presbyopia Rheumatoid arthritis (HCC) Stroke (HCC) Current Outpatient Medications: apixaban (ELIQUIS) 5 mg Tab, Take 1 (one) tablet (5 mg total) by mouth 2 (two) times a day ., Disp: , Rfl: levothyroxine 25 mcg cap, Take 1 (one) capsule (25 mcg total) by mouth every morning before breakfast ., Disp: , Rfl: rosuvastatin (CRESTOR) 10 MG tablet, Take 1 (one) tablet (10 mg total) by mouth daily ., Disp: , Rfl: sotaloL (BETAPACE) 80 MG tablet, Take 0.5 (one-half) tablet (40 mg total) by mouth 2 (two) times a day ., Disp: , Rfl: No Known Allergies Past Surgical History: Procedure Laterality Date FINGER SURGERY HERNIA REPAIR Social History Socioeconomic History Marital status: Tobacco Use Smoking status: Never Smokeless tobacco: Never Substance and Sexual Activity Alcohol use: Never Drug use: Never Family History Problem Relation Age of Onset Heart disease Mother Stroke Father Cerebral aneurysm Father PHYSICAL EXAM: The patient was examined today 08/14/2022 with findings as follows: CONSTITUTIONAL: General Appearance: well-appearing, nontoxic, alert, no acute distress Communication: normal voicing, hearing intact to spoken voice HEAD/FACE: Head: atraumatic, normocephalic, no lesions Facial Inspection: no lesions, healthy skin Facial Strength: motor strength normal, symmetric strength, symmetric movement EYES: Pupils: PERRLA, extra-ocular movements intact, no nystagmus, sclera white, no redness of eyes, no watering of eyes EARS: Bilateral External Ears: no pits, no tags Right External Ear: normally formed, no lesions, no mastoid tenderness Left External Ear: normally formed, no lesions, no mastoid tenderness Right External Auditory Canal: normal, healthy skin, no obstructing cerumen, no discharge Left External Auditory Canal: normal, healthy skin, no obstructing cerumen, no discharge Right Tympanic Membrane: normal landmarks, translucent, no perforation Left Tympanic Membrane: normal landmarks, translucent, no perforation Hearing: intact to spoken voice NECK: Neck: no masses, trachea midline, normal range of motion, no cysts or pits, no tenderness to palpation LYMPH NODES: Cervical: no palpable lymph node enlargement SKIN: General Appearance: no lesions, warm and dry, normal turgor, no bruising PSYCHIATRIC: Mood and affect: normal mood, normal affect Assessment and Plan: I see no disease of the ear canal or middle ear space on exam and hearing is grossly intact. Our audiometer software is down today and he has graciously agreed to return once this is working for formal hearing testing. I have also requested hi old hearing testing results for comparison. The causes of tinnitus are discussed in the context of the patient's history and exam findings. I have discussed the management of tinnitus with the avoidance of silence and the use of background noise for suppression such as a clock radio set between stations, a fan, television, or other sound generating device particularly if the tinnitus is causing disturbance of sleep. We have discussed that high doses of aspirin and related drugs, caffeine and other stimulants, alcohol use, and exposure to excess environmental noise can result in worsened symptoms. We have discussed that there are a number of herbal and holistic remedies available and that although no proven benefit has been shown, most are harmless, and a trial if desired may be considered. The patient/caregiver is to notify the office if no improvement or worsening of symptoms is noted prior to the scheduled follow-up for sooner evaluation. The patient and/or caregiver is able to state an understanding of these recommendations and is agreeable to the treatment plan. 1. Sensorineural hearing loss, bilateral Ambulatory referral to Audiology 2. Tinnitus, right ear Return in about 1 year (around 08/15/2023), or if symptoms worsen or fail to improve. The patient and/or caregiver is to notify the office if no improvement or worsening of symptoms is noted prior to the scheduled follow-up for sooner evaluation. The patient and/or caregiver is able to state an understanding of these recommendations and is agreeable to the treatment plan. --Janina Calle MD on 08/14/2022 at 9:28 AM An electronic signature was used to authenticate this note. Review of Systems Constitutional: Negative. HENT: Positive for hearing loss and tinnitus. Eyes: Positive for visual disturbance. Respiratory: Negative. Cardiovascular: Negative. Gastrointestinal: Negative. Endocrine: Negative. Genitourinary: Negative. Musculoskeletal: Negative. Skin: Negative. Allergic/Immunologic: Negative. Neurological: Negative. Hematological: Bruises/bleeds easily. Psychiatric/Behavioral: Negative. documented in this encounter [facility] 08-09-2022 Miscellaneous Notes Contacted EP lab and spoke to Deidra. Per Deidra blood work is ok as long as it is done with 30 days of procedure. Contacted the patient and updated him. Cornelius RN August 09, 2022 Patient Contact Number: [phone] (home) [phone] (cell) Patient last seen 06/20/22 Reason For Call: Returning Phone Call and is asking about the missed blood work 08/07/22, wants to know if it needs to be rescheduled if so can orders be placed. Thank you Niru Moreira [employer] Director August 09, 2022 Patient Contact Number: [phone] (home) [phone] (cell) Patient last seen Reason For Call: Follow-up Questions: Pt is calling to ask about the test results and follow up. Pt is asking to try both numbers. Thank you Niru Moreira [employer] Financial Systems Director Attempted to contact the patient. Left voice message. Cornelius RN August 08, 2022 Patient Contact Number: [phone] (home) [phone] (cell) Patient last seen 06/20/22 Reason For Call: Other Issue: Pt is calling to ask if a new bloodwork which was done on 6/19/23 needs to be done again and also is a new EKG needed at this time. Thank you Niru Moreira [employer] Director documented in this encounter [facility] 06-20-2022 Instructions Ewa Chaparro APRN.SUE - 06/20/2022 1:42 PM EDT - Call the EP Lab [phone] (pager [phone]) on July 06, 2022 after Noon to obtain time of arrival for procedure - Cell Installer: Dr. Anton Alamo and Dr. Roverto Barnes at [place] [phone] documented in this encounter [facility] 06-20-2022 History of Present illness Narrative Images from the original note were not included. [facility] [place] [facility] Department of Cardiovascular Medicine SECTION OF CARDIAC PACING and ELECTROPHYSIOLOGY OUTPATIENT VISIT DATE June 20, 2022 OUTPATIENT VISIT TYPE ESTABLISHED PRIMARY CARE PHYSICIAN: Joon Simmons MD [address] [address] CHIEF COMPLAINT: Atrial fibrillation HISTORY OF PRESENT ILLNESS: Mr. Rothman is a 71 year old male who presents today for follow-up visit for atrial fibrillation management. He is an established patient of Dr. Barnett and was last seen in the office May 04, 2022 at which time he reported increased episodes of atrial fibrillation. Options for management were discussed and he was interested in ablation. He is scheduled for ablation July 07, 2022. His history is significant for atria fibrillation, RA, CHRIS (ASV), hyperlipidemia, and CVA. Briefly, his atrial fibrillation was diagnosed around 2014 and he was started on sotalol. 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 He was started on ASA and later switched to apixaban. In June 2021 he wore a 48-hour holter which revealed a 36% AF burden. Another 48-hour holter in March 2022 revealed a similar AF burden. He has identified wine wine as a trigger for his atrial fibrillation. He continues to have episodes of atrial fibrillation now on a weekly basis lasting about 12 hours. His last episode was this past Sunday and it lasted about 12-14 hours. He does exercise daily and he remains active. Complaints of general fatigue and he would like to do more. He admits to a major life event this past year. He denies abdominal distention, shortness of breath, lightheadedness or syncope. PAST CARDIAC HISTORY: See above PAST MEDICAL HISTORY Diagnosis Date Abnormal electrocardiogram Atrial fibrillation (HCC) paroxysmal Bifascicular block Bradycardia Depression GERD (gastroesophageal reflux disease) Renal stones Rheumatoid arthritis (HCC) Sleep apnea Central sleep apnea Stroke (HCC) 2019 PAST SURGICAL HISTORY Procedure Laterality Date FINGER SURGERY HX HERNIA REPAIR HX SOCIAL HISTORY Social History Tobacco Use Smoking status: Former Packs/day: 0.50 Types: Cigarettes Start date: 1968 Quit date: 1978 Years since quittin.3 Smokeless tobacco: Never Tobacco comments: former smoker, over 40 years ago Vaping Use Vaping Use: Never used Substance Use Topics Alcohol use: Yes Alcohol/week: 1.0 standard drink Types: 1 Standard drinks or equivalent per week Comment: weekly drink Drug use: Not Currently FAMILY HISTORY Problem Relation Age of Onset Heart disease Mother Stroke Father other (cva) Father ALLERGIES: ALLERGIES No Known Allergies MEDICATIONS: levothyroxine 25 mcg cap^Take 25 mcg by mouth daily before breakfast.^Disp: ^Rfl: apixaban (ELIQUIS) 5 mg tab(s)^Take 5 mg by mouth twice daily.^Disp: ^Rfl: rosuvastatin (CRESTOR) 10 mg tablet^Take 10 mg by mouth once daily.^Disp: ^Rfl: acetaminophen (TYLENOL) 325 mg tablet^Take 2 tablets by mouth every 6 hours as needed.^Disp: ^Rfl: sotalol (BETAPACE) 80 mg tablet^Take 40 mg by mouth twice daily. ^Disp: ^Rfl: MAGNESIUM ORAL^Take by mouth.^Disp: ^Rfl: REVIEW OF SYSTEMS: General, constitutional: Weight loss or gain- No, Fever or chills-No, Weakness-No, Trouble sleeping-yes. Head, Eyes, Ears, Mouth: Headache-No, head injury-No, Glasses or contact lenses-Yes, Pain-No, Impaired vision-No, Decreased hearing-Yes, Ringing in ears-Yes (R), Nose bleeds-No, Dental difficulties-No, Bleeding gums-No, Dentures-No. Neck: Swelling-No, Pain-No, Stiffness-No Respiratory: Cough-No, Spitting up blood-No, Shortness of breath-No, Wheezing or asthma-No Musculoskeletal: Muscle or joint pain or stiffness-Yes, Joint swelling-No Gastrointestinal: Difficulty swallowing-No, Heartburn-No, Change in bowel habits-No, Blood in stool- No, Dark black stools-No. Neurological/Psychiatric: Weakness-No, paralysis-No, Numbness-No, Tingling-No, Tremor-No, Nervousness or anxiety-No, Depressed mood-Yes, Memory loss-No. Skin: Rash-No, Itching-No. Hematological: Easy bruising-Yes, Easy bleeding-Yes Endocrine: Heat or cold intolerance-yes, Excessive sweating-No, Frequent urination-Yes, Frequent thirst-No. PHYSICAL EXAMINATION: BP 134/62 Pulse (!) 44 Ht 180.3 cm (5' 11) Wt 76.3 kg (168 lb 3.2 oz) BMI 23.46 kg/m General appearance: Well appearing, alert, in no acute distress, well-hydrated, well nourished. Skin: Skin color, texture, turgor normal, no suspicious rashes or lesions Head: Normocephalic, no masses, lesions, tenderness or abnormalities Eyes: Anicteric sclera. Pupils are equally round. Extraocular movements are intact. Ears: External ears normal Nose/Sinuses: Nares normal, septum midline, no sinus tenderness Oropharynx: Lips, mucosa, and tongue normal, teeth and gums normal, oropharynx normal; uvula raises midline Neck: Supple, no adenopathy; no bruits (B) Back: No pain to palpation, no CVA tenderness (B) Lungs: Lungs clear to auscultation(B). No wheezing, rhonchi, rales with equal expansion Heart: RRR without murmur, gallop, or rubs. No ectopy Abdomen: Abdomen soft, non-tender. Bowel sounds x4. No masses, organomegaly Extremities: No deformities, edema, skin discoloration, clubbing or cyanosis. Good capillary refill. Musculoskeletal: No joint swelling, deformity, or tenderness. 4/5 UE & LE strength = (B) Peripheral pulses: Capillary refill <2secs, strong peripheral pulses Neuro: Gait normal. Reflexes deferred. Sensation deferred., CN III, IV, V (corneal reflex deferred), , VII (taste deferred), XI, XII intact with good vocal quality CARDIOVASCULAR MEDICINE TESTING: EKG 06/20/2022 reviewed: Sinus Bradycardia with CRBBB V-rate 44 bpm MO 164 ms QRS 130 ms QT/QTc 486/415 ms Echo 06/20/2022: CONCLUSIONS: - Exam indication: Pre PVI ablation - The left ventricle is normal in size. Left ventricular systolic function is normal. EF = 62 5% (2D biplane) - The right ventricle is normal in size. Right ventricular systolic function is normal. - The left atrial cavity is moderately dilated. - Trivial-1+ MR. - There is 1+ TR. - Estimated right ventricular systolic pressure is 35 mmHg consistent with mild pulmonary hypertension. Estimated right atrial pressure is 8 mmHg based on IVC assessment. - Exam was compared with the prior echocardiographic exam performed on 01/14/2019 ([facility]). Similar findings CT Scan 06/20/2022: IMPRESSION: 1. Normal pulmonary venous anatomy without pulmonary vein stenosis. 2. No left atrial or left atrial appendage thrombus. Moderate left atrial dilation. 3. Small pulmonary nodule. Incidental Finding: Follow-up if risk factors in 12 months IMPRESSION: Mr. Rothman is a 71 year old male with persistent atrial fibrillation. He is currently on sotalol 40mg BID which is likely not effective. However, he does have bradycardia with complaints of fatigue and reduced energy. Discussed the possibility of dofetilide post ablation with Dr. Barnett. Atrial Fibrillation: - Diagnosed 2014 - persistent - sotalol - No DCC - PVI scheduled for July 07, 2022 Discussed the procedure. Answered questions. Discussed what to expect post-procedure: If patient experiences groin pain, oozing, or growing hematoma, he should notify the office. Some atrial fibrillation post procedure 8-10 weeks may occur; necessary to maintain sinus rhythm as much as possible during this time, may need cardioversion if atrial fibrillation persist. Ten pound lifting, pushing, pulling restriction for one week after the procedure. No regular exercise for one week, then ease back into exercise program. Avoid any known triggers, ETOH and caffeine for 8-10 weeks after the procedure. he will be given a transmitter and he will need to transmit weekly and if he is having any atrial fibrillation. Any questions or concerns call the office. CHADS2-Vasc Score Breakdown 3 Total Score 1 Age 65-74 years old 2 History of stroke, TIA, or thromboemolism - Do not miss any doses of apixaban - Continue apixaban 5mg BID Fatigue: - May be factorial with bradycardia, BB effect (although minimal), depressed mood secondary to major life event this past year, sleep apena, and hypothyroidism (unsure if euthyroid). Hyperlipidemia: - Medical management CHRIS: - Central sleep apnea - AVS machine - He is not using routine yet, so may be contributing to his complaints of fatigue Pulmonary lung nodule: - Incidental finding on CT Scan today - Will repeat CT Scan after PVI - routine PLAN AND RECOMMENDATIONS: - Call the EP Lab [phone] (pager [phone]) on July 06, 2022 after Noon to obtain time of arrival for procedure - NPO after midnight on July 06, 2022 - Consider AAD alternative post - Establish with cotton expert in [facility]. Names provided CONTACT INFORMATION: Ewa Chaparro APRN.SUE documented in this encounter [facility] 05-08-2022 Miscellaneous Notes The date of 07/07/22 with offered & accepted by patient. Needs OPD, Echo, Cardiac CT, ECG & Labs (CBC,BMP,30 day T&S with Confirm) within 1-2 weeks prior to procedure date. Medication instructions given, as indicated below. Stated understanding. ----- Message from Yeison Barnett MD sent at 05/04/2022 1:06 PM EDT ----- Regarding: PVI Patient: Joan Rothman EP Lab Procedure requested: Ablations PVI ablation CPT 59102 Anticoagulation Status: Eliquis (apixaban) Requesting Physician: Yeison Barnett MD,MPH Procedural Physician: Yeison Barnett MD,MPH Date of last H&P or Date of upcoming H&P: 05/04/22 Indications for procedure: Atrial Fibrillation Procedure time frame: Patient convenience Current Meds: Current Outpatient Medications: levothyroxine 25 mcg cap apixaban (ELIQUIS) 5 mg tab(s) rosuvastatin (CRESTOR) 10 mg tablet acetaminophen (TYLENOL) 325 mg tablet sotalol (BETAPACE) 80 mg tablet MAGNESIUM ORAL input Section Potential Research Patient: No General anesthesia needed: Yes Moderate anesthesia needed: No Patient a candidate of same day discharge: Yes Mapping Ablation:[employer] (RUBEN) CT Scan needed pre-procedure: Yes ECHO needed pre-procedure:TTE timing prior to ablation Anticoagulation: Continue anticoagulation. Do not interrupt. Stop Antiarrhythmic: No Stop Beta Tisha/ Calcium Channel Tisha: No ASA: N/A Additional instructions:None Yeison Barnett MD May 04, 2022 1:06 PM documented in this encounter [facility] 05-04-2022 History of Present illness Narrative Images from the original note were not included. [facility] [place] [facility] Department of Cardiovascular Medicine SECTION OF CARDIAC PACING and ELECTROPHYSIOLOGY OUTPATIENT VISIT DATE May 04, 2022 OUTPATIENT VISIT TYPE ESTABLISHED PRIMARY CARE PHYSICIAN: Joon Simmons MD [address] [address] CHIEF COMPLAINT: AF f/u HISTORY OF PRESENT ILLNESS: Joan Rothman is a 71 y/o male returning for atrial fibrillation. He has a PMH of RA, CVA, CHRIS, and atrial fibrillation. He was first diagnosed with atrial fibrillation in approximately 2014 and was managed with sotalol. In January of 2019 he had a right occipital stroke (no residual at this time) with hemorrhagic conversion and was started on aspirin, later this was switched to apixaban. He was last seen in office by Dr. Barnett on 06/14/2021. He recently wore a 48 hour holter which revealed a 36% AF burden. He believes the episodes were triggered by drinking white wine. Over the past year he would have episodes every two week. Over the past four months he has had about 12 episodes. The duration is much shorter. Before it lasted 24 hours now it is lasting 12 hours. He is symptomatic with weakness, EARL and palpitations. He would like to discuss an ablation. He denies chest pain, orthopnea, cough, edema, PND, lightheadedness or syncope. CHADS2-Vasc Score Breakdown 3 Total Score 1 Age 65-74 years old 2 History of stroke, TIA, or thromboemolism OUTSIDE TESTING 48 hour holter 03/2022 Average HR 61 bpm, Normal sinus with BBB and PAF, minimum HR 36 bpm, maximum Hr 167, 515 PVC, 302 PACs, 36.2% AF burden. Stress Test 03/10/2022 PAST MEDICAL HISTORY Diagnosis Date Abnormal electrocardiogram Atrial fibrillation (HCC) paroxysmal Bifascicular block Bradycardia Depression GERD (gastroesophageal reflux disease) Renal stones Rheumatoid arthritis (HCC) Sleep apnea Stroke (HCC) PAST SURGICAL HISTORY Procedure Laterality Date FINGER SURGERY HX HERNIA REPAIR HX SOCIAL HISTORY Social History Tobacco Use Smoking status: Former Packs/day: 0.50 Types: Cigarettes Start date: 1968 Quit date: 1978 Years since quittin.2 Smokeless tobacco: Never Tobacco comments: former smoker, over 40 years ago Vaping Use Vaping Use: Never used Substance Use Topics Alcohol use: Not Currently Drug use: Not Currently FAMILY HISTORY Problem Relation Age of Onset Heart disease Mother Stroke Father other (cva) Father ALLERGIES: ALLERGIES No Known Allergies MEDICATIONS: levothyroxine 25 mcg cap Take 25 mcg by mouth daily before breakfast. apixaban (ELIQUIS) 5 mg tab(s) Take 5 mg by mouth twice daily. rosuvastatin (CRESTOR) 10 mg tablet Take 10 mg by mouth once daily. acetaminophen (TYLENOL) 325 mg tablet Take 2 tablets by mouth every 6 hours as needed. sotalol (BETAPACE) 80 mg tablet Take 40 mg by mouth twice daily. MAGNESIUM ORAL Take by mouth. Soniya Davis RN PHYSICAL EXAMINATION: BP 146/76 Pulse (!) 44 Ht 180.3 cm (5' 11) Wt 74.8 kg (165 lb) BMI 23.01 kg/m General: Looks well; pleasant and cooperative Neck: No carotid bruits, JVP normal Lungs: Clear to auscultation Cardiac: Regular rate and rhythm, no murmurs, rubs, gallops or clicks Abdomen: Soft, nontender, nondistended, no bruits Extremities: No cyanosis, clubbing, or edema; extremeties are warm Neurologic: A & O x 3; normal gait CARDIOVASCULAR MEDICINE TESTING: IMPRESSION: PAF: Patient feels episodes are increasing. We had discussed tx options in the past and he is interested in ablation. We discussed this treatment option in some detail and this is the avenue that he would like to pursue. Will plan to use the cryoballoon and do this under general anesthesia. I will get an echo and CT scan prior to the procedure. Message sent to the AFIB scheduling team. Yeison Barnett MD, MPH documented in this encounter [facility] 04-17-2022 Miscellaneous Notes Outside medical records received- uploaded in the [employer] drive. Stress test; EKG, heart monitor Appointment on 05/04/2022 Last appointment on 06/14/2021 Nevin Tesfaye documented in this encounter [facility] 11-04-2021 Miscellaneous Notes Discussed with Dr. Barnett. Per Dr. Barnett the patient should schedule a routine office visit. Cornelius RN documented in this encounter [facility] 06-14-2021 History of Present illness Narrative Images from the original note were not included. [facility] [place] [facility] Department of Cardiovascular Medicine SECTION OF CARDIAC PACING and ELECTROPHYSIOLOGY OUTPATIENT VISIT DATE June 14, 2021 OUTPATIENT VISIT TYPE ESTABLISHED PRIMARY CARE PHYSICIAN: Joon Simmons MD [address] [address] REFERRING PHYSICIAN: Yeison Barnett [address] [facility] [address] CHIEF COMPLAINT: AF, follow up HISTORY OF PRESENT ILLNESS (includes edited nursing intake history): Mr. Rothman is a 70 year old male who presents today for follow-up visit for management of atrial fibrillation. He has a PMH of RA, CVA, CHRIS, and atrial fibrillation. He was first diagnosed with atrial fibrillation in approximately 2014 and was managed with sotalol. In January of 2019 he had a right occipital stroke (no residual at this time) with hemorrhagic conversion and was started on aspirin, later this was switched to apixaban. He was last seen in office 11/13/2019. He was scheduled for an ablation but cancelled it after he was diagnosed with sleep apnea which is treated with a CPAP. He is also abstaining from alcohol. He is having episodes twice a month for 20-24 hours. He experiences palpitations, headache, weakness, frequent urination, shortness of breath and fatigue on exertion. V rate is in the 90-100 beats/min range. He denies chest pain, orthopnea, cough, edema, PND, lightheadedness or syncope. CHADS VASC: 3 (age, CVA) PAST MEDICAL HISTORY Diagnosis Date Atrial fibrillation (HCC) Bradycardia Depression GERD (gastroesophageal reflux disease) Renal stones Rheumatoid arthritis (HCC) Sleep apnea Stroke (HCC) PAST SURGICAL HISTORY Procedure Laterality Date FINGER SURGERY HX HERNIA REPAIR HX SOCIAL HISTORY Social History Tobacco Use Smoking status: Former Smoker Packs/day: 0.50 Types: Cigarettes Start date: 1968 Quit date: 1978 Years since quittin.3 Smokeless tobacco: Never Used Tobacco comment: former smoker, over 40 years ago Vaping Use Vaping Use: Never used Substance Use Topics Alcohol use: Not Currently Drug use: Not Currently FAMILY HISTORY Problem Relation Age of Onset Heart Mother Stroke Father ALLERGIES: ALLERGIES No Known Allergies MEDICATIONS: apixaban (ELIQUIS) 5 mg tab(s) Take 5 mg by mouth twice daily. rosuvastatin (CRESTOR) 10 mg tablet Take 10 mg by mouth once daily. acetaminophen (TYLENOL) 325 mg tablet Take 2 tablets by mouth every 6 hours as needed. sotalol (BETAPACE) 80 mg tablet Take 40 mg by mouth twice daily. MAGNESIUM ORAL Take by mouth. Matilde Dennis RN PHYSICAL EXAMINATION: BP 159/87 Pulse (!) 48 Ht 180.3 cm (5' 11) Wt 78 kg (172 lb) BMI 23.99 kg/m General: Looks well; pleasant and cooperative Neck: No carotid bruits, JVP normal Lungs: Clear to auscultation Cardiac: Regular rate and rhythm, no murmurs, rubs, gallops or clicks Abdomen: Soft, nontender, nondistended, no bruits Extremities: No cyanosis, clubbing, or edema; extremeties are warm Neurologic: A & O x 3; normal gait CARDIOVASCULAR MEDICINE TESTING: ECG (reviewed by me): SR. RBBB, LAFB IMPRESSION: 1. PAF: He has a couple of episodes a month and rate control is reasonable during episodes. At a prior point in time he had been having one episode a month. He is on sotalol but at a rather low dose of 40 mg BID as it had been lowered locally due to bradycardia (though bradycardia is normal for him). We reviewed the goals of therapy (prevention of stroke/thromboembolism, rate control, and treating AF symptoms/maximizing QoL), and the relevant treatment options including pharmacologic and non-pharmacologic options. We also discussed the Watchman device (mainly for educational purposes) as well as potential new technologies such as pulse field ablation. I also broached the idea of changing to an alternative AAD such as dofetilide which may have better antiarrhythmic effect than his current low dose of sotalol. At this point, he would like to continue as is and consider other alternatives if his AF burden increases. 2. Follow up: RTC 1Y or sooner PRN. Yeison Barnett MD, MPH documented in this encounter [facility] 06-09-[address] Barnett sent request for PVI. Cornelius RN June 08, 2021 Patient last seen: 11/13/2019 Patient called scheduling line because he would like to reschedule his ablation that he had to cancel in November 2020. Physician: Yeison Barnett MD, MPH documented in this encounter [facility] Evaluation note Diagnosis Unspecified rotator cuff tear or rupture of left shoulder, not specified as traumatic documented in this encounter [facility] Work Phone: Evaluation note* Diagnosis Paroxysmal atrial fibrillation (HCC)- Primary Atrial fibrillation documented in this encounter [facility] note* Diagnosis Acute CVA (cerebrovascular accident) (HCC)- Primary documented in this encounter [facility] noteNo assessment information [facility]WBelle[facility] Work Phone: Evaluation note* Diagnosis Onset Date Resolution Status Bundle branch block, right and left anterior fascicula r acute Paroxysmal atrial fibrillation chronic [facility] Work Phone: Evaluation note* Diagnosis AF (paroxysmal atrial fibrillation) (HCC)- Primary Atrial fibrillation documented in this encounter [facility] note* Diagnosis Paroxysmal atrial fibrillation (HCC)- Primary Atrial fibrillation documented in this encounter [facility] note* Diagnosis Atrial fibrillation, persistent (HCC)- Primary Atrial fibrillation Paroxysmal atrial fibrillation (HCC) Atrial fibrillation documented in this encounter [facility] note* Diagnosis Sensorineural hearing loss, bilateral- Primary Tinnitus, right ear documented in this encounter [facility] note* Diagnosis Sensorineural hearing loss, bilateral- Primary documented in this encounter [facility] note* Diagnosis Paroxysmal atrial fibrillation (HCC)- Primary Atrial fibrillation documented in this encounter [facility] note* Diagnosis Paroxysmal atrial fibrillation (HCC)- Primary Atrial fibrillation documented in this encounter [facility] note* Diagnosis Paroxysmal atrial fibrillation (HCC)- Primary Atrial fibrillation Mixed hyperlipidemia On apixaban therapy Encounter for monitoring sotalol therapy Encounter for therapeutic drug monitoring documented in this encounter [facility] note* Diagnosis Paroxysmal atrial fibrillation (HCC)- Primary Atrial fibrillation documented in this encounter [facility] note* Diagnosis Right inguinal pain- Primary Abdominal pain, right lower quadrant documented in this encounter [facility] note* Diagnosis Paroxysmal atrial fibrillation (HCC)- Primary Atrial fibrillation documented in this encounter [facility] note* Diagnosis Major depressive disorder, recurrent episode, moderate (HCC)- Primary Major depressive disorder, recurrent episode, moderate Generalized anxiety disorder Insomnia due to mental condition Unspecified nonpsychotic mental disorder CHRIS (obstructive sleep apnea) Obstructive sleep apnea (adult) (pediatric) Low vitamin D level Low vitamin B12 level Other B-complex deficiencies Low iron Iron deficiency anemia, unspecified [facility] Major depressive disorder, recurrent episode, moderate (HCC)- Primary Major depressive disorder, recurrent episode, moderate Generalized anxiety disorder Insomnia due to mental condition Unspecified nonpsychotic mental disorder CHRIS (obstructive sleep apnea) Obstructive sleep apnea (adult) (pediatric) documented in this encounter [facility] for referral (narrative)* Outpatient Procedure (Routine) - Authorized Specialty Diagnoses / Procedures Referred By Contac t Referred To Contact [facility] Diagnoses Acute CVA (cerebrovascular accident) (HCC) Procedures ECG COMPLETE ECG ROUTINE ECG W/LEAST 12 LDS W/I&R Yeison Barnett MD [address] [place] [address] [address] Referral ID Status Reason Start Date Expiration Date Visits Requested Visits Authorized [id number] Authorized Auto-Generat ed Referral 06/14/2021 06/14/2022 1 1 T [facility] for referral (narrative)* Outpatient Procedure (Routine) - Authorized Specialty Diagnoses / Procedures Referred By Contac t Referred To Contact [facility] Diagnoses Paroxysmal atrial fibrillation (HCC) Procedures ECG COMPLETE ECG ROUTINE ECG W/LEAST 12 LDS W/I&R Yeison Barnett MD [address] [place] [address] [address] Referral ID Status Reason Start Date Expiration Date Visits Requested Visits Authorized [id number] Authorized Auto-Generat ed Referral 11/20/2022 08/30/2023 1 1 T [facility] for referral (narrative)* Outpatient Procedure (Routine) - Authorized Specialty Diagnoses / Procedures Referred By Contac t Referred To Contact [facility] Diagnoses Paroxysmal atrial fibrillation (HCC) Procedures ECG COMPLETE ECG ROUTINE ECG W/LEAST 12 LDS W/I&R Yeison Barnett MD [address] [place] [address] [facility] [address] [place] [address] Referral ID Status Reason Start Date Expiration Date Visits Requested Visits Authorized [id number] Authorized Auto-Generat ed Referral 04/26/2023 04/25/[address] [facility] Discharge Instructions * Instructions* Shikha Romero PA - 09/27/2018 Keep operative splint/dressing on, clean, and dry until follow up appointment in 1-2 weeks. You received a local injection with lidocaine and epinephrine today. It is normal for your finger tip to look pale or white for up to 10 hours after surgery but if this persists past the 10 hours please call the office immediately. Elevate and Ice for pain control. Encourage range of motion of index finger, ring finger, little finger, and thumb in splint/dressingwith goal of touching finger tips to splint material/dressing in palm by initial post op appointment. Non weight bearing in operative extremity. documented in this encounter History of Present Illness * Stephenie Spears RN - 09/27/2018 12:18 PM EDT PATIENT RECEIVED FROM OR VIA CART. SPONT RESP. WITH DIGITAL ADVISOR IN ATTENDANCE. PLACED ON MONITOR. MONITOR ALARMS ON IN PACU. 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 ACP-Advance Directive ACP-Power of Parking Lot Attendant Latest Code Status on File Code Status Date Activated Date Inactivated Comments Full Code 09/27/2018 9:48 AM 09/27/2018 2:59 PM Documents on File Type Date Recorded 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 Advance Directive(s) 10/28/2020 2:36 PM Advance Directive(s) 01/14/2019 1:44 AM Documents on File Type Date Recorded 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 Advance Directive(s) 10/28/2020 2:36 PM Advance Directive(s) 01/14/2019 1:44 AM Advance Directive Response Recorded Date/ Time Living Will No January 13 9:41pm Power of Parking Lot Attendant No January 13, 2019 9:41pm Advance Directive Response Recorded Date/ Time Living Will No January 13 8:41pm Power of Parking Lot Attendant No January 13, 2019 8:41pm Summary Purpose Family History Relationship Condition Age at Onset Recorded Date/T job Not Specified Arthritis Unknown Depression Unknown Malignant neoplasm of breast Unknown Relationship Condition Age at Onset Recorded Date/T job Not Specified Arthritis Unknown Depression Unknown Malignant neoplasm of breast Unknown mother Cardiac disease Unknown father Cerebrovascular accident (CVA) Unknown Hospital Course Note HNO ID: [id number] Author: Domi Bansal Service: Hospital Medicine Author Type: Nurse Practitioner Type: Discharge Summary Filed: 01/15/2019 11:30 AM Note Text: Attestation signed by Miguel Angel Mckenzie at 01/15/2019 2:30 PM I did not see this patient but am signing the discharge summary by hospital policy. Miguel Angel Mckenzie MD DISCHARGE NOTE (Patient Admitted Less than 48 Hours) SERVICE DATE: 01/15/2019 SERVICE TIME: 10:30 AM ADMISSION DATE: 01/14/2019 DISCHARGE DISPOSITION: Home/Self Care Discharge Physical Exam: VITAL SIGNS: BP 140/73 Pulse (!) 51 Temp 36.8 ?C (98.3 ?F) (Oral) Resp 16 Wt 78.8 kg (173 lb 12.8 oz) SpO2 99% GENERAL: Alert and oriented x 3, no distress, cooperative EYES: PERRLA NECK: Supple LUNGS: Lungs clear to auscultation. CARDIAC: Normal S1 and S2. No murmur. ABDOMEN: Abdomen soft, non-tender, BS n (more content not included)... Chief Complaint and Reason for Visit Chief Complaint G47.37 Central sleep apnea in conditions classifie Chief Complaint G47.37 Central sleep apnea in conditions classifie Atrial fibrillation A-FIB A-FIB Reason for Visit Bundle branch block, right and left anterior fascicular Paroxysmal atrial fibrillation Chief Complaint G47.37 Central sleep apnea in conditions classifie Atrial fibrillation A-FIB A-FIB A-FIB Reason for Visit Bundle branch block, right and left anterior fascicular Paroxysmal atrial fibrillation Reason for Referral Specialty Diagnoses / Procedures Referred By Cynthiaac t Referred To Contact CT IMAGING Diagnoses Paroxysmal atrial fibrillation (HCC) Procedures CT PULMONARY VEIN W IVCON CT HEART CONTRAST EVAL CARDIAC STRUCTURE&MORPH Yeison Barnett MD [facility] [place] [address] Ct Imaging Referral ID Status Reason Start Date Expiration Date Visits Requested Visits Authorized [id number] Authorized Auto-Generat ed Referral 05/08/2022 06/07/2023 1 1 Specialty Diagnoses / Procedures Referred By Sherlyn t [facility] Diagnoses Paroxysmal atrial fibrillation (HCC) Procedures ECHO ECHO TTHRC R-T 2D W/WOM-MODE COMPL SPEC&COLR D Yeison Barnett MD [address] [place] [address] [facility] [address] [place] [address] Referral ID Status Reason Start Date Expiration Date Visits Requested Visits Authorized [id number] Authorized Auto-Generat ed Referral 05/08/2022 05/08/2023 1 1 Specialty Diagnoses / Procedures Referred By Cynthiaac t Referred [facility] Diagnoses Paroxysmal atrial fibrillation (HCC) Procedures ECG COMPLETE ECG ROUTINE ECG W/LEAST 12 LDS W/[place] [address] [place] [address] [facility] [place] [facility] [address] [address] Referral ID Status Reason Start Date Expiration Date Visits Requested Visits Authorized [id number] Pending Review Auto-Generat ed Referral 05/08/2022 05/08/2023 1 1 Specialty Diagnoses / Procedures Referred By Contac t Referred To Contact Audiology Diagnoses Sensorineural hearing loss, bilateral Calle, Janina Moscoso MD [address] [address] [address] [facility] [address] [facility] [place] [address] Referral ID Status Reason Start Date Expiration Date V isits Requested Visits Authorized [id number] Authorized 08/14/2022 08/14/2023 1 1 Specialty Diagnoses / Procedures Referred By Contac t Referred To [facility] Procedures CARDIOVASCULAR MEDICINE OP FOLLOW UP APPT ORDER Yeison Barnett MD [address] [place] [address] [facility] [place] [address] [place] [address] Referral ID Status Reason Start Date Expiration Date Visits Requested Visits Authorized [id number] Ref Not Required PCP Requested Referral 06/25/2024 09/23/2024 1 1 Additional Source Comments (unrecognized sect ion and content) No Status Records FoundNo Status Records FoundNo Status Records FoundNo Status Records FoundNo Status Records FoundNo Status Records Found INFORMATION SOURCE (unrecogn ized section and content) DATE CREATED AUTHOR 01/29/2019 [facility] DATE CREATED AUTHOR AUTHOR'S ORGANIZ ATION 03/28/2019 [facility] DATE CREATED AUTHOR AUTHOR'S ORGANIZ ATION 09/22/2020 [facility] DATE CREATED AUTHOR AUTHOR'S ORGANIZ ATION 09/17/2022 [facility] DATE CREATED AUTHOR AUTHOR'S ORGANIZ ATION 03/29/2024 [facility] DATE CREATED AUTHOR AUTHOR'S ORGANIZ ATION 08/12/2024 [facility] Source Comments (unrecognize d section and content) In the event this informatio n is protected by the Federal Confidentiality of Alcohol and Drug Abuse Patient Records regulations: The Federal rules restrict any use of the information to criminally investigate or prosecute any alcohol or drug abuse patient.[facility] HospitalIn the event this information is protected by the Federal Confidentiality of Alcohol and Drug Abuse Patient Records regulations: The Federal rules restrict any use of the information to criminally investigate or prosecute any alcohol or drug abuse patient.[facility] HospitalIn the event this information is protected by the Federal Confidentiality of Alcohol and Drug Abuse Patient Records regulations: The Federal rules restrict any use of the information to criminally investigate or prosecute any alcohol or drug abuse patient.[facility] HospitalIn the event this information is protected by the Federal Confidentiality of Alcohol and Drug Abuse Patient Records regulations: The Federal rules restrict any use of the information to criminally investigate or prosecute any alcohol or drug abuse patient.[facility] HospitalIn the event this information is protected by the Federal Confidentiality of Alcohol and Drug Abuse Patient Records regulations: The Federal rules restrict any use of the information to criminally investigate or prosecute any alcohol or drug abuse patient.[facility] HospitalIn the event this information is protected by the Federal Confidentiality of Alcohol and Drug Abuse Patient Records regulations: The Federal rules restrict any use of the information to criminally investigate or prosecute any alcohol or drug abuse patient.[facility] HospitalIn the event this information is protected by the Federal Confidentiality of Alcohol and Drug Abuse Patient Records regulations: The Federal rules restrict any use of the information to criminally investigate or prosecute any alcohol or drug abuse patient.[facility] HospitalIn the event this information is protected by the Federal Confidentiality of Alcohol and Drug Abuse Patient Records regulations: The Federal rules restrict any use of the information to criminally investigate or prosecute any alcohol or drug abuse patient.[facility] HospitalIn the event this information is protected by the Federal Confidentiality of Alcohol and Drug Abuse Patient Records regulations: The Federal rules restrict any use of the information to criminally investigate or prosecute any alcohol or drug abuse patient.[facility] HospitalIn the event this information is protected by the Federal Confidentiality of Alcohol and Drug Abuse Patient Records regulations: The Federal rules restrict any use of the information to criminally investigate or prosecute any alcohol or drug abuse patient.[facility] HospitalIn the event this information is protected by the Federal Confidentiality of Alcohol and Drug Abuse Patient Records regulations: The Federal rules restrict any use of the information to criminally investigate or prosecute any alcohol or drug abuse patient.[facility] HospitalIn the event this information is protected by the Federal Confidentiality of Alcohol and Drug Abuse Patient Records regulations: The Federal rules restrict any use of the information to criminally investigate or prosecute any alcohol or drug abuse patient.[facility] HospitalIn the event this information is protected by the Federal Confidentiality of Alcohol and Drug Abuse Patient Records regulations: The Federal rules restrict any use of the information to criminally investigate or prosecute any alcohol or drug abuse patient.[facility] HospitalIn the event this information is protected by the Federal Confidentiality of Alcohol and Drug Abuse Patient Records regulations: The Federal rules restrict any use of the information to criminally investigate or prosecute any alcohol or drug abuse patient.[facility] HospitalIn the event this information is protected by the Federal Confidentiality of Alcohol and Drug Abuse Patient Records regulations: The Federal rules restrict any use of the information to criminally investigate or prosecute any alcohol or drug abuse patient.[facility] HospitalIn the event this information is protected by the Federal Confidentiality of Alcohol and Drug Abuse Patient Records regulations: The Federal rules restrict any use of the information to criminally investigate or prosecute any alcohol or drug abuse patient.[facility] HospitalIn the event this information is protected by the Federal Confidentiality of Alcohol and Drug Abuse Patient Records regulations: The Federal rules restrict any use of the information to criminally investigate or prosecute any alcohol or drug abuse patient.[facility] HospitalIn the event this information is protected by the Federal Confidentiality of Alcohol and Drug Abuse Patient Records regulations: The Federal rules restrict any use of the information to criminally investigate or prosecute any alcohol or drug abuse patient.[facility] HospitalIn the event this information is protected by the Federal Confidentiality of Alcohol and Drug Abuse Patient Records regulations: The Federal rules restrict any use of the information to criminally investigate or prosecute any alcohol or drug abuse patient.[facility] HospitalIn the event this information is protected by the Federal Confidentiality of Alcohol and Drug Abuse Patient Records regulations: The Federal rules restrict any use of the information to criminally investigate or prosecute any alcohol or drug abuse patient.[facility] HospitalIn the event this information is protected by the Federal Confidentiality of Alcohol and Drug Abuse Patient Records regulations: The Federal rules restrict any use of the information to criminally investigate or prosecute any alcohol or drug abuse patient.[facility] HospitalIn the event this information is protected by the Federal Confidentiality of Alcohol and Drug Abuse Patient Records regulations: The Federal rules restrict any use of the information to criminally investigate or prosecute any alcohol or drug abuse patient.[facility] HospitalIn the event this information is protected by the Federal Confidentiality of Alcohol and Drug Abuse Patient Records regulations: The Federal rules restrict any use of the information to criminally investigate or prosecute any alcohol or drug abuse patient.[facility] HospitalIn the event this information is protected by the Federal Confidentiality of Alcohol and Drug Abuse Patient Records regulations: The Federal rules restrict any use of the information to criminally investigate or prosecute any alcohol or drug abuse patient.[facility] HospitalIn the event this information is protected by the Federal Confidentiality of Alcohol and Drug Abuse Patient Records regulations: The Federal rules restrict any use of the information to criminally investigate or prosecute any alcohol or drug abuse patient.[facility] HospitalIn the event this information is protected by the Federal Confidentiality of Alcohol and Drug Abuse Patient Records regulations: The Federal rules restrict any use of the information to criminally investigate or prosecute any alcohol or drug abuse patient.[facility] HospitalIn the event this information is protected by the Federal Confidentiality of Alcohol and Drug Abuse Patient Records regulations: The Federal rules restrict any use of the information to criminally investigate or prosecute any alcohol or drug abuse patient.[facility] HospitalIn the event this information is protected by the Federal Confidentiality of Alcohol and Drug Abuse Patient Records regulations: The Federal rules restrict any use of the information to criminally investigate or prosecute any alcohol or drug abuse patient.[facility] HospitalIn the event this information is protected by the Federal Confidentiality of Alcohol and Drug Abuse Patient Records regulations: The Federal rules restrict any use of the information to criminally investigate or prosecute any alcohol or drug abuse patient.[facility] HospitalIn the event this information is protected by the Federal Confidentiality of Alcohol and Drug Abuse Patient Records regulations: The Federal rules restrict any use of the information to criminally investigate or prosecute any alcohol or drug abuse patient.[facility] HospitalIn the event this information is protected by the Federal Confidentiality of Alcohol and Drug Abuse Patient Records regulations: The Federal rules restrict any use of the information to criminally investigate or prosecute any alcohol or drug abuse patient.[facility] HospitalIn the event this information is protected by the Federal Confidentiality of Alcohol and Drug Abuse Patient Records regulations: The Federal rules restrict any use of the information to criminally investigate or prosecute any alcohol or drug abuse patient.[facility] Care Teams (unrecognized sec tion and content) Cooking Appliance Repair Technician Relationship Specialty Start Date End Date Joon Simmons Chi [address] [facility] [address] [place], [place] [address] PCP - General Gerontology 01/14/19 Cooking Appliance Repair Technician Relationship Specialty Start Date End Date Joon Simmons Chi [address] [id number] PCP - General Gerontology 01/14/19 Cooking Appliance Repair Technician Relationship Specialty Start Date End Date Joon Simmons Chi [address] [facility] [address] [place], [place] [id number] PCP - General Gerontology 01/14/19 Cooking Appliance Repair Technician Relationship Specialty Start Date End Date Joon Simmons Chi [address] [facility] [address] [place], [place] [address] PCP - General Gerontology 01/14/19 Yeison Barnett MD [address] [place] [address] Primary Staff Physician Cardiology 06/14/21 Cooking Appliance Repair Technician Relationship Specialty Start Date End Date Joon Simmons Chi [address] [facility] [address] [place] [address] PCP - General Gerontology 01/14/19 Yeison Barnett MD [address] [place] [address] Primary Staff Physician Cardiology 06/14/21 Cooking Appliance Repair Technician Relationship Specialty Start Date End Date Joon Simmons Chi [address] [facility] [address] [place] [address] PCP - General Gerontology 01/14/19 Yeison Barnett MD Primary Staff Physician Cardiology 06/14/21 Cooking Appliance Repair Technician Relationship Specialty Start Date End Date Joon Simmons Chi [address] [place] [address] [place], [place] [address] PCP - General Gerontology 01/14/19 Yeison Barnett MD Primary Staff Physician Cardiology 06/14/21 Team Status: Active Member Role Status Dates Dr. Joon Simmons MD Family Provider Active Dr. Joon Simmons MD Primary Care Provider Active Team Status: Active Member Role Status Dates Dr. Joon Simmons MD Primary Care Provider Active Dr. Michael Yan MD Attending Provider Active Team Status: Inactive Member Role Status Dates Dr. Joon Simmons MD Primary Care Provider, Referring Provider Active Dr. Michael Yan MD Attending Provider Active Team Status: Active Member Role Status Dates Dr. Joon Simmons MD Primary Care Provider Active Michael Yan MD Other Provider Active Dr. Michael Yan MD Attending Provider, Referring Pro vider Active Team Status: Inactive Member Role Status Dates Dr. Joon Simmons MD Primary Care Provider Active Dr. Roverto Canas MD Attending Provider, Referrin g Provider Active Team Status: Inactive Member Role Status Dates Dr. Joon Simmons MD Primary Care Provider, Attending Provider Active Team Status: Active Member Role Status Dates Dr. Joon Simmons MD Primary Care Provider Active Michael Yan MD Attending Provider Active Dr. Michael Yan MD Referring Provider Active Team Status: Inactive Member Role Status Dates Dr. Joon Simmons MD Primary Care Provider Active Michael Yan MD Attending Provider Active Dr. Michael Yan MD Referring Provider Active Team Status: Inactive Member Role Status Dates Dr. Joon Simmons MD Primary Care Provider Active Dr. Michael Yan MD Attending Provider Active Cooking Appliance Repair Technician Relationship Specialty Start Date End Date Joon Simmons Chi [address] [place] [address] [place] [address] PCP - General Gerontology 01/14/19 Yeison Barnett MD [address] [place] [address] [place] [address] Primary Staff Physician Cardiology 06/14/21 Cooking Appliance Repair Technician Relationship Specialty Start Date End Date Joon Simmons Chi [address] [place] [address] [place] [address] PCP - General Gerontology 01/14/19 Yeison Barnett MD [address] [place] [address] [place] [address] Primary Staff Physician Cardiology 06/14/21 Cooking Appliance Repair Technician Relationship Specialty Start Date End Date Joon Simmons Chi [address] [place] [address] [place] [address] PCP - General Gerontology 01/14/19 Yeison Barnett MD [address] [place] [address] [place] [address] Primary Staff Physician Cardiology 06/14/21 Cooking Appliance Repair Technician Relationship Specialty Start Date End Date Joon Simmons Chi [address] [place] [address] [place] [address] PCP - General Gerontology 01/14/19 Yeison Barnett MD [address] [place] [address] [place] [address] Primary Staff Physician Cardiology 06/14/21 Cooking Appliance Repair Technician Relationship Specialty Start Date End Date Joon Simmons Chi [address] [place] [address] [place] [address] PCP - General Gerontology 01/14/19 Yeison Barnett MD [address] [place] [address] [place] [address] Primary Staff Physician Cardiology 06/14/21 Cooking Appliance Repair Technician Relationship Specialty Start Date End Date Joon Simmons Chi [address] [place] [address] [place] [address] PCP - General Gerontology 01/14/19 Yeison Barnett MD [address] [place] [address] [place] [address] Primary Staff Physician Cardiology 06/14/21 Cooking Appliance Repair Technician Relationship Specialty Start Date End Date Joon Simmons Chi [address] [place] [address] [place] [address] PCP - General Gerontology 01/14/19 Yeison Barnett MD [address] [place] [address] [place] [address] Primary Staff Physician Cardiology 06/14/21 Cooking Appliance Repair Technician Relationship Specialty Start Date End Date Joon Simmons Chi, MD [address] [facility] [address] [place] [address] PCP - General Geriatric Medicine 07/26/22 Cooking Appliance Repair Technician Relationship Specialty Start Date End Date Joon Simmons Chi, MD [address] [facility] [address] [place] [address] PCP - General Geriatric Medicine 07/26/22 Cooking Appliance Repair Technician Relationship Specialty Start Date End Date Joon Simmons Chi [address] [place] [address] [place], [place] [address] PCP - General Gerontology 01/14/19 Yeison Barnett MD [address] [place] [address] [place] [address] Primary Staff Physician Cardiology 06/14/21 Cooking Appliance Repair Technician Relationship Specialty Start Date End Date TroyJoon bean Chi [address] [place] [address] [place] [address] PCP - General Gerontology 01/14/19 Yeison Barnett MD [address] [place] [address] [place] [address] Primary Staff Physician Cardiology 06/14/21 Cooking Appliance Repair Technician Relationship Specialty Start Date End Date TroyJoon bean Chi [address] [place] [address] [place] [address] PCP - General Gerontology 01/14/19 Yeison Barnett MD [address] [address] [place], [place] [id number] Primary Staff Physician Cardiology 06/14/21 Cooking Appliance Repair Technician Relationship Specialty Start Date End Date TroyJoon Dereck [address] [place] [address] PCP - General Gerontology 01/14/19 Yeison Barnett MD [address] [place], [place] [id number] Primary Staff Physician Cardiology 06/14/21 Cooking Appliance Repair Technician Relationship Specialty Start Date End Date Joon Simmons Chi [address] [place], [place] [address] PCP - General Gerontology 01/14/19 Yeison Barnett MD [address] [place] [address] Primary Staff Physician Cardiology 06/14/21 Team Status: Inactive Member Role Status Dates Dr. Joon Simmons MD Primary Care Provi bryson, Attending Provider, Referring Provider Active Cooking Appliance Repair Technician Relationship Specialty Start Date End Date Joon Simmons Chi [address] [place], [place] [address] PCP - General Gerontology 01/14/19 Yeison Barnett MD [address] [place], [place] [id number] Primary Staff Physician Cardiology 06/14/21 Cooking Appliance Repair Technician Relationship Specialty Start Date End Date Joon Simmons Chi [address] [place], [place] [id number] PCP - General Gerontology 01/14/19 Yeison Barnett MD [address] [place], [place] [id number] Primary Staff Physician Cardiology 06/14/21 Cooking Appliance Repair Technician Relationship Specialty Start Date End Date Joon Simmons Chi [address] [place], [place] [address] PCP - General Gerontology 01/14/19 Yeison Barnett MD [address] [place], [place] [id number] Primary Staff Physician Cardiology 06/14/21 Cooking Appliance Repair Technician Relationship Specialty Start Date End Date Joon Simmons Chi [address] [facility] [address] [place] [address] PCP - General Gerontology 01/14/19 Yeison Barnett MD [address] [facility] [address] [place] [address] Primary Staff Physician Cardiology 06/14/21 Reason for Visit (unrecogniz ed section and content) Reason Comments Scheduling Reason Comments Received Outside Medical Records Reason Comments Schedule Surgery PVI ablation Reason Comments Patient Question Results Reason Comments hearing is getting worse needs audio New PT [place] Reason Comments Patient Education EPS-PVI Reason Comments Transmitter Reason Comments Atrial Fibrillation Post op Af Reason Comments Consult Hernia, [facility] at [facility] Goals (unrecognized section and content) Goals may be documented in a n alternate sectionGoals may be documented in an alternate sectionGoals may be documented in an alternate sectionGoals may be documented in an alternate sectionGoals may be documented in an alternate sectionGoals may be documented in an alternate section FOR RECORDS PERTAINING TO PATIENTS WHO ARE OR HAVE BEEN ENROLLED IN A CHEMICAL DEPENDENCY/SUBSTANCEABUSE PROGRAM, SOME INFORMATION MAY BE OMITTED. This clinical summary was aggregated from multiple sources. Caution should be exercised in using it in the provision of clinical care. This summary normalizes information from multiple sources, and as a consequence, information in this document may materially change the coding, format and clinical context of patient data. In addition, data may be omitted in some cases. CLINICAL DECISIONS SHOULD BE BASED ON THE PRIMARY CLINICAL RECORDS. [employer] [facility]. provides no warranty or guarantee of the accuracy or completeness of information in this document.
--- NOTE | 2024-08-23 08:55 | EDS_ITS ---
HPI History of Present Illness Chief Complaint: Hypertension Informant: patient Narrative Narrative: Patient is a 73-year-old male with history of hypothyroidism and on Eliquis presenting with increased anxiety, insomnia and concern for elevated blood pressure. Checked his blood pressure at home and it was 171/95. States his heart rate was okay. He came in for evaluation as he did not know what medications to take for his worsening insomnia. He states he was restarted on Abilify and is only been taking a quarter of a tablet. He states his insomnia has been worse he has not been sleeping. He has taken trazodone and Unisom in the past with help of his insomnia but wanted to make sure it was safe to take with this new medication. He states he [facility] with the [facility] and [place] and sees Dr. Simmons for PCP. As it is the weekend he could not get a hold of anyone which department, the emergency room. He also states his is out of town and she would want him to come in to get checked out. He states he has plenty of support in the area. Denies any HI or SI. Notes that he otherwise has been feeling fine. Had a intermittent headache for a few days but is not really concerned about that. Denies any vision changes, numbne ss or tingling. Denies any falls or head injury. Denies any chest pain, shortness of breath or difficulty breathing. States he feels stable walking. Denies any other complaints or concerns at this time. Notes he has been on Xanax in the past and felt it was helpful. Is hoping to have something to help him get through the weekend. [facility] Medical History CHRIS on CPAP Insomnia Stroke (~01/2019) Vitamin D deficiency Hyperlipidemia History of stroke Ocular migraine Rotator cuff syndrome of left shoulder Bilateral carpal tunnel syndrome Erectile dysfunction Paroxysmal atrial fibrillation Rheumatoid arthritis GERD (gastroesophageal reflux disease) Pneumonia IBS (irritable bowel syndrome) UTI (urinary tract infection) Home Medications ?Medication ?Instructions ?Recorded ?Last Taken ?Type apixaban 5 mg tablet (Eliquis) 5 mg PO BID 12/15/19 Un known History rosuvastatin 10 mg tablet 10 mg PO QHS 12/15/19 Unknow n History levothyroxine 25 mcg tablet 25 mcg PO DAILY 10/19/22 U nknown History magnesium oxide 400 mg (241.3 mg 400 mg PO DAILY 07/24 Unknown History magnesium) tablet multivitamin 1 tab PO DAILY 07/25/23 Unkn own History alprazolam 0.25 mg tablet (Xanax) 0.25 mg PO TID PRN a nxiety #10 tabs 08/23/24 Unknown Rx betamethasone, augmented 0.05 % 1 applic topical BID P RN 08/23/24 Unknown History topical cream Allergy/AdvReac Type Severity Reaction Status Date / Time No Known Allergies Allergy Verified 08/23/24 08:16 Family History Mother Heart disease Father CVA (cerebral vascular accident) Other Arthritis Breast cancer Depression (emotion) Surgical History History of bilateral cataract extraction History of radiofrequency ablation procedure for cardiac arrhythmia (08/22/22) History of tonsillectomy History of hernia surgery Social History Smoking Status: Former smoker how long ago did patient quit smokin alcohol intake: current alcohol intake frequency: 0-2 drinks per day Alcohol type: hard liquor substance use type: does not use caffeine: Yes Type: coffee Number of servings: 1 additional social history: DOES NOT USE ASPIRIN DOES NOT USE IBUPROFEN ROS ROS ED Constitutional Constitutional ED: Denies chills or fever(s) Eyes Eyes: Denies blurry vision or change in vision Cardiovascular Cardiovascular: Denies chest pain Respiratory/Chest Respiratory/Chest: Denies cough or dyspnea Gastrointestinal Gastrointestinal: Denies nausea or vomiting Musculoskeletal Musculoskeletal: Denies arthralgias or myalgias Neurologic Neurologic: Reports headache(s); Denies paresthesias or weakness Psychiatric Psychiatric: Reports anxiety and depression; Denies suicidal ideation or suicidal thoughts Hematologic/Lymphatic Hematologic/Lymphatic: Reports easy bleeding and other Details: on eliquis EXAM Physical Exam Const Vital Signs: 08/23/24 08:17 08/23/24 08:26 Temperature 98.4 F Temperature Source Oral Pulse Rate 61 Respiratory Rate 16 Respiratory Effort Normal Non-Labored Respiratory Pattern Normal Blood Pressure 157/83 H Blood Pressure Mean 107 Pulse Ox 98 Oxygen Delivery Method Room Air Positive well nourished and well developed General Appearance ED: well developed and NAD HEENT Reports moist mucous membranes Negative for trauma Eyes PERRL and EOMs intact bilaterally Eyes Narrative: no photophobia Neck supple Chest Wall inspection of chest normal and palpation of chest normal Resp normal respiratory effort and clear to auscultation bilaterally Cardio regular rate and regular rhythm GI non-distended Extremity normal to inspection General Extremety ED: Negative for edema General Extremity: Negative for edema Neuro oriented x3, CN's II-XII intact bilaterally and no sensory deficits noted Sensorium / Orientation: alert Motor Exam: strength 5/5 throughout; Negative for general weakness Psych mental status grossly normal Skin no rashes or lesions noted and no wounds MDM MDM MDM Narrative Medical decision making narrative: Patient presents for concern of anxiety and insomnia. Reports blood pressures been elevated at home however it is coming down here. Suspect this is more anxiety reaction. Does not have any chest pain or signs or symptoms of hypertensive emergency. States his main concern is his insomnia and anxiety and is requesting medication to help with this/guidance on medications since he is worried about medication interactions. Counseled on stopping Abilify as it se ems to be exacerbating his insomnia and he only started it 2 days ago. Will prescribe a short course of Xanax. Discussed that he could choose to try trazodone or Unisom at home for his insomnia but to be cautious of the increased risk of sedation and dizziness if he takes that and Xanax. Patient is otherwise well-appearing. Has no HI or SI. Feels safe at home. Is acting appropriately. Does report a mild headache but has a normal neurologic exam and does not seem particularly concerned with the headache. I do not think he requires further workup or neuroimaging at this time. Is given return precautions. Discharged home in stable condition Discharge Plan Triage Chief Complaint: Hypertension ED Provider: Katherine White Dx/Rx/DC Orders Clinical Impression: Anxiety, Insomnia, Hypertension Instructions: ED Anxiety Reaction, ED Hypertension, Established, ED Insomnia Prescriptions: New alprazolam [Xanax] 0.25 mg tablet 0.25 mg PO TID PRN (Reason: anxiety) Qty: 10 0RF No Action Eliquis 5 mg tablet 5 mg PO BID rosuvastatin 10 mg tablet 10 mg PO QHS levothyroxine 25 mcg tablet 25 mcg PO DAILY multivitamin Tablet 1 tab PO DAILY magnesium oxide 400 mg (241.3 mg magnesium) tablet 400 mg PO DAILY betamethasone, augmented 0.05 % cream 1 applic topical BID PRN Primary Care Provider: Joon Simmons Chi Referrals: Joon Simmons Chi, MD [Primary Care Provider] - Activity Restrictions/Additional Instructions: Please be consciousness when mixing Xanax with other sleep medications including Unisom or trazodone because of the increased risk of sedation and dizziness. There are no other significant interactions. I would recommend stopping your Abilify due to worsening insomnia until you can speak to your mental health provider. Print Language: Slovak Disposition Disposition: Home, Self Care Discharge Date/Time: 08/23/24 09:12
[2024-08-23 09:11] VITALS: BP 163/77; PULSE 68; RESP 16; TEMP 36.6; O2SAT 99
== END 2024-08-23 09:12 | disposition home or self-care (01) ==
PROVIDERS: Emergency Provider Emergency Medicine; PCP Family Medicine Geriatric Medicine; Visit Provider Emergency Medicine
DX: F41.9 Anxiety disorder, unspecified (principal); I48.0 Paroxysmal atrial fibrillation; G47.00 Insomnia, unspecified; Z87.891 Personal history of nicotine dependence; R51.9 Headache, unspecified; E78.5 Hyperlipidemia, unspecified; I10 Essential (primary) hypertension; E03.9 Hypothyroidism, unspecified; Z79.01 Long term (current) use of anticoagulants; Z79.899 Other long term (current) drug therapy; K21.9 Gastro-esophageal reflux disease without esophagitis; F32.A Depression, unspecified
CPT/HCPCS: 99282